=== PATIENT | male | born 1995 | race Caucasian/White ===

== ENCOUNTER 2019-04-18 14:35 | Emergency (ER) | payer SELFPAY ==
[2019-04-18] MEDS ORDERED: NA CHLORIDE 0.9% 1,000 ML ONE (15:54)
[2019-04-18] MEDS ORDERED: ONDANSETRON 4 MG/2 ML VIAL ONE (15:54)
[2019-04-18 16:03] LABS: Absolute Lymphocytes (CBC) 2.4 K/uL (0.7-4.9); Absolute Monocytes 0.5 K/uL (0.1-1.3); Absolute Neutrophil 3.9 K/uL (1.8-8.0); Basophils % 0.4 % (0-1.3); Eosinophils % 1.8 % (0-4.4); Lymphocytes % 34.8 % (15.3-44.8); MPV 7.5 fL (7.6-11.3); Monocytes % 7.2 % (3.3-12.3)
[2019-04-18 16:20] LABS: ALT/SGPT 30 U/L (12-78); AST/SGOT 23 U/L (15-37); Albumin 3.3 g/dL (3.4-5.0); Alkaline Phosphatase 137 U/L (45-117); BUN Blood Urea Nitrogen 16 mg/dL (7-18); Bicarbonate 30 mmol/L (21-32); Bilirubin Direct < 0.1 mg/dL (0-0.2); Bilirubin Total 0.2 mg/dL (0.2-1.0); Glucose Level 107 mg/dL (74-106); Lipase 213 U/L (73-393); Potassium 4.1 mmol/L (3.5-5.1); Protein, Total 7.2 g/dL (6.4-8.2); Sodium Level 140 mmol/L (136-145)
--- NOTE | 2019-04-18 17:17 | RAD REPORT ---
EXAM DESCRIPTION: CTAbdomen Pelvis W Contrast - 04/18/2019 4:58 pm CLINICAL HISTORY: Abdominal pain. iv contrast only;Abd pain COMPARISON: <Comparisons> TECHNIQUE: Biphasic CT imaging of the abdomen and pelvis was performed with 100 ml non-ionic IV cont rast. All CT scans are performed using dose optimization technique as appropriate and may include automated exposure control or mA/KV adjustment according to patient size. FINDINGS: The lung bases are clear. The liver, spleen, pancreas, adrenal glands and kidneys are within normal limits. No bowel obstruction, free air, free fluid or abscess. The appendix is normal. No evidence of signi ficant lymphadenopathy. No suspicious bony findings. Small fat containing inguinal hernias. IMPRESSION: No acute intra-abdominal or pelvic finding.
--- NOTE | 2019-04-18 17:21 | ER ---
Nurse's Notes [facility] Name: Adam Boyce Age: 23 yrs Sex: Male : 1995 Arrival Date: 04/18/2019 Time: 14:38 Bed 20 Private MD: None, None Diagnosis: Nausea and vomiting Presentation: 04/18 14:53 Presenting complaint: Right sided abdominal pain and N/V x 1 month. Tolerating fluids. hb Denies fever. Transition of care: patient was not received from another setting of care. Onset of symptoms is unknown. Risk Assessment: Do you want to hurt yourself or someone else? Patient reports no desire to harm self or others. Care prior to arrival: None. 14:53 Method Of Arrival: Ambulatory hb 14:53 Acuity: KONG 3 hb 15:00 Initial Sepsis Screen: Does the patient meet any 2 criteria? No. Patient's initial rb1 sepsis screen is negative. Does the patient have a suspected source of infection? No. Patient's initial sepsis screen is negative. Historical: - Allergies: 14:54 Sulfa (Sulfonamide Antibiotics); hb - PSHx: 14:54 None; hb - Immunization history:: Adult Immunizations up to date. - Social history:: Smoking status: Patient/guardian denies using tobacco. - Ebola Screening: : No symptoms or risks identified at this time. Screenin:00 Abuse screen: Denies threats or abuse. Nutritional screening: No deficits noted. rb1 Tuberculosis screening: No symptoms or risk factors identified. Fall Risk None identified. Assessment: 15:00 General: Appears uncomfortable, Behavior is calm, cooperative, Denies fever. Pain: rb1 Complains of pain in abdomen. Neuro: Level of Consciousness is awake, alert, obeys commands, Oriented to person, place, time, situation. Cardiovascular: Capillary refill < 3 seconds is brisk in bilateral fingers. Respiratory: Airway is patent Respiratory effort is even, unlabored, Respiratory pattern is regular, symmetrical. GI: Abdomen is non-distended, Reports nausea, vomiting. : No signs and/or symptoms were reported regarding the genitourinary system. Derm: Skin is pink, warm \T\ dry. 15:33 General: Appears uncomfortable, Behavior is calm, cooperative. ss 16:00 Reassessment: Patient appears in no apparent distress at this time. No changes from rb1 previously documented assessment. 17:00 Reassessment: Patient appears in no apparent distress at this time. Patient and/or rb1 family updated on plan of care and expected duration. Pain level reassessed. Patient is alert, oriented x 3, equal unlabored respirations, skin warm/dry/pink. Friend at bedside. Patient denies pain at this time. 17:22 Reassessment: Patient appears in no apparent distress at this time. No changes from rb1 previously documented assessment. Assisted pt. to the restroom, voided x 1 Patient denies pain at this time. Vital Signs: 14:54 BP 185 / 90; Pulse 113; Resp 20; Temp 97.8; Pulse Ox 100% on R/A; Weight 129.27 kg; hb Height 5 ft. 5 in. (165.10 cm); Pain 0/10; 15:52 BP 134 / 64; Pulse 110; Resp 20; Temp 98.5(O); Pulse Ox 98% on R/A; mh5 16:50 BP 139 / 74; Pulse 96; Resp 19; Temp 98.7(O); Pulse Ox 98% on R/A; Pain 0/10; rb1 17:50 BP 111 / 87; Pulse 95; Resp 20; Temp 98.5(O); Pulse Ox 98% on R/A; Pain 0/10; rb1 14:54 Body Mass Index 47.43 (129.27 kg, 165.10 cm) hb ED Course: 14:38 Patient arrived in ED. dl4 14:39 None, None is Private Physician. dl4 14:54 Triage completed. hb 14:54 Arm band placed on. hb 14:59 Kasey Pulido FNP-C is PHCP. kb 14:59 Timothy Decker MD is Attending Physician. kb 15:00 Patient has correct armband on for positive identification. Bed in low position. Call rb1 light in reach. Side rails up X 1. Pulse ox on. NIBP on. 15:24 Tali Srivastava, RN is Primary Nurse. rb1 15:33 Inserted saline lock: 20 gauge in right antecubital area, using aseptic technique. ss 15:55 Pt. pulled IV 20 G right AC, that was inserted by SHONDA Andre out by accident. rb1 16:09 Inserted saline lock: 22 gauge in right antecubital area, using aseptic technique. rb1 16:[address] via wheelchair. sj 16:58 CT Abd/Pelvis - W/Contrast In Process Unspecified. EDMS 17:52 No provider procedures requiring assistance completed. IV discontinued, intact, rb1 bleeding controlled, No redness/swelling at site. Pressure dressing applied. Administered Medications: 16:09 Drug: NS 0.9% 1000 ml Route: IV; Rate: 1000 ml; Site: right antecubital; rb1 17:43 Follow up: IV Status: Completed infusion rb1 16:09 Drug: Zofran 4 mg Route: IVP; Site: right antecubital; rb1 16:28 Follow up: Response: No adverse reaction; Nausea is decreased rb1 Outcome: 17:20 Discharge ordered by . kb 17:52 Patient left the ED. rb1 17:52 Discharged to home ambulatory, with friend. rb1 17:52 Condition: stable 17:52 Discharge instructions given to patient, Instructed on discharge instructions, follow up and referral plans. medication usage, Demonstrated understanding of instructions, follow-up care, medications, Prescriptions given X 1. Signatures: Dispatcher [employer] EDMS Kasey Pulido, FRONT OFFICE ASSISTANT-C FRONT OFFICE ASSISTANT-Ckb Julianna Caro Shelby, RN RN Tali Srivastava, LANDEN RN rb1 Tameka Trotter RN RN hb Martinez, Maria [facility] Salbador Otero4 Corrections: (The following items were deleted from the chart) 18:12 18:08 Patient left the ED. rb1 rb1
--- NOTE | 2019-04-18 17:21 | EDPHYS ---
Physician Documentation [facility] Name: Adam Boyce Age: 23 yrs Sex: Male : 1995 Arrival Date: 04/18/2019 Time: 14:38 Bed 20 Private MD: None, None ED Physician Timothy Decker HPI: 04/18 15:13 This 23 yrs old Male presents to ER via Ambulatory with complaints of kb Vomiting. 15:13 The patient presents to the emergency department with nausea, vomiting. Onset: The kb symptoms/episode began/occurred 3 week(s) ago. Possible causes: unknown. The symptoms are aggravated by nothing. The symptoms are alleviated by nothing. Associated signs and symptoms: Pertinent positives: nausea, vomiting, knot to mid lateral right abd. Severity of symptoms: At their worst the symptoms were moderate in the emergency department the symptoms are unchanged. The patient has not experienced similar symptoms in the past. The patient has not recently seen a physician. Pt reports he has been vomiting after eating for 3 weeks. States it doesn't matter what he eats. Able to tolerate fluids. Historical: - Allergies: 14:54 Sulfa (Sulfonamide Antibiotics); hb - PSHx: 14:54 None; hb - Immunization history:: Adult Immunizations up to date. - Social history:: Smoking status: Patient/guardian denies using tobacco. - Ebola Screening: : No symptoms or risks identified at this time. ROS: 15:15 Constitutional: Negative for fever, chills, and weight loss, ENT: Negative for injury, kb pain, and discharge, Neck: Negative for injury, pain, and swelling, Cardiovascular: Negative for chest pain, palpitations, and edema, Respiratory: Negative for shortness of breath, cough, wheezing, and pleuritic chest pain, Back: Negative for injury and pain, : Negative for injury, bleeding, discharge, and swelling, MS/Extremity: Negative for injury and deformity, Skin: Negative for injury, rash, and discoloration, Neuro: Negative for headache, weakness, numbness, tingling, and seizure. 15:15 Abdomen/GI: Positive for nausea and vomiting, Negative for abdominal pain, diarrhea. Exam: 15:15 Constitutional: This is a well developed, well nourished patient who is awake, alert, kb and in no acute distress. Head/Face: Normocephalic, atraumatic. Chest/axilla: Normal chest wall appearance and motion. Nontender with no deformity. No lesions are appreciated. Cardiovascular: Regular rate and rhythm with a normal S1 and S2. No gallops, murmurs, or rubs. Normal PMI, no JVD. No pulse deficits. Respiratory: Lungs have equal breath sounds bilaterally, clear to auscultation and percussion. No rales, rhonchi or wheezes noted. No increased work of breathing, no retractions or nasal flaring. Back: No spinal tenderness. No costovertebral tenderness. Full range of motion. Skin: Warm, dry with normal turgor. Normal color with no rashes, no lesions, and no evidence of cellulitis. MS/ Extremity: Pulses equal, no cyanosis. Neurovascular intact. Full, normal range of motion. Neuro: Awake and alert, GCS 15, oriented to person, place, time, and situation. Cranial nerves II-XII grossly intact. Motor strength 5/5 in all extremities. Sensory grossly intact. Cerebellar exam normal. Normal gait. 15:15 Abdomen/GI: Inspection: obese Bowel sounds: normal, in all quadrants, Palpation: abdomen is soft and non-tender, in all quadrants, mass the size of a marble noted to mid lateral right abd. Mass is not on the surface. Vital Signs: 14:54 BP 185 / 90; Pulse 113; Resp 20; Temp 97.8; Pulse Ox 100% on R/A; Weight 129.27 kg; hb Height 5 ft. 5 in. (165.10 cm); Pain 0/10; 15:52 BP 134 / 64; Pulse 110; Resp 20; Temp 98.5(O); Pulse Ox 98% on R/A; mh5 16:50 BP 139 / 74; Pulse 96; Resp 19; Temp 98.7(O); Pulse Ox 98% on R/A; Pain 0/10; rb1 17:50 BP 111 / 87; Pulse 95; Resp 20; Temp 98.5(O); Pulse Ox 98% on R/A; Pain 0/10; rb1 14:54 Body Mass Index 47.43 (129.27 kg, 165.10 cm) hb MDM: 14:59 Patient medically screened. kb 15:16 Data reviewed: vital signs, nurses notes. Data interpreted: Pulse oximetry: on room air kb is 100 %. Interpretation: normal. 17:19 Counseling: I had a detailed discussion with the patient and/or guardian regarding: the kb historical points, exam findings, and any diagnostic results supporting the discharge/admit diagnosis, lab results, radiology results, the need for outpatient follow up, a family practitioner, to return to the emergency department if symptoms worsen or persist or if there are any questions or concerns that arise at home. 04/18 15:04 Order name: Basic Metabolic Panel kb 04/18 15:04 Order name: CBC with Diff; Complete Time: 16:06 kb 04/18 15:04 Order name: Hepatic Function; Complete Time: 16:20 kb 04/18 15:04 Order name: Lipase; Complete Time: 16:20 kb 04/18 15:05 Order name: Basic Metabolic Panel; Complete Time: 16:20 EDMS 04/18 16:21 Order name: CT Abd/Pelvis - W/Contrast; Complete Time: 17:19 kb 04/18 15:04 Order name: IV Saline Lock; Complete Time: 16:09 kb 04/18 15:04 Order name: Labs collected and sent; Complete Time: 16:09 kb Administered Medications: 16:09 Drug: NS 0.9% 1000 ml Route: IV; Rate: 1000 ml; Site: right antecubital; rb1 17:43 Follow up: IV Status: Completed infusion rb1 16:09 Drug: Zofran 4 mg Route: IVP; Site: right antecubital; rb1 16:28 Follow up: Response: No adverse reaction; Nausea is decreased rb1 Disposition: 04/19 07:11 Co-signature as Attending Physician, Timothy Decker MD I agree with the assessment and shanna plan of care. Disposition: 04/18/19 17:20 Discharged to Home. Impression: Nausea and vomiting. - Condition is Stable. - Discharge Instructions: Nausea and Vomiting, Adult, [id number]. - Prescriptions for Zofran 4 mg Oral Tablet - take 1 tablet by ORAL route every 6 hours As needed; 20 tablet. - Medication Reconciliation Form, Thank You Letter, Antibiotic Education, Prescription Opioid Use form. - Follow up: Emergency Department; When: As needed; Reason: Worsening of condition. Follow up: Private Physician; When: 2 - 3 days; Reason: Recheck today's complaints, Continuance of care, Re-evaluation by your physician. Signatures: Dispatcher [employer] EDKasey Forte, VETERINARY ANATOMIST-C VETERINARY ANATOMIST-Ckb Timothy Decker MD MD cha Barber, Rebecca, RN RN rb1 Tameka Trotter, RN RN Corrections: (The following items were deleted from the chart) 04/18 18:08 17:20 04/18/2019 17:20 Discharged to Home. Impression: Nausea and vomiting. Condition rb1 is Stable. Forms are Medication Reconciliation Form, Thank You Letter, Antibiotic Education, Prescription Opioid Use. Follow up: Emergency Department; When: As needed; Reason: Worsening of condition. Follow up: Private Physician; When: 2 - 3 days; Reason: Recheck today's complaints, Continuance of care, Re-evaluation by your physician. kb
[2019-04-18 23:38] VITALS: O2SAT 98
[2019-04-18 23:39] VITALS: BP 111/87; TEMP 98.5
== END 2019-04-18 18:08 | disposition home or self-care (01) ==
LOC: ER 14:35
DX: R11.2 Nausea with vomiting, unspecified (principal); Z88.2 Allergy status to sulfonamides
CPT/HCPCS: 36415; 74177; 80048; 80076; 83690; 85025; 96361; 96374; 99284; J2405; J7030; Q9967

== ENCOUNTER 2019-10-03 22:39 | Emergency (ER) | payer OTHER ==
--- OUTSIDE RECORDS SUMMARY | 2019-10-03 22:42 | XMS REPORT ---
:1995 [facility] Address [address] [place] [address] Dr. Stoner [address] [place] [address] Care Team Providers Name Role Phone Unavailable Unavailable Unavailable Problems This patient has no known problems. Allergies, Adverse Reactions, Alerts This patient has no known allergies or adverse reactions. Medications This patient has no known medications.
[2019-10-03] MEDS ORDERED: LEVALBUTEROL 1.25 MG/3 ML NEB ONE (23:07)
[2019-10-03] MEDS ORDERED: NA CHLORIDE 0.9% 1,000 ML ONE (23:07)
[2019-10-03] MEDS ORDERED: IPRATROPIUM BROM 0.5MG/2.5ML ONE (23:07)
[2019-10-03 23:26] LABS: Absolute Lymphocytes (CBC) 2.2 K/uL (0.7-4.9); Basophils % 0.8 % (0-1.3); Hematocrit 40.2 % (39.6-49.0); Lymphocytes % 32.2 % (15.3-44.8); MPV 7.2 fL (7.6-11.3); RBC Red Blood Cell Count 4.36 M/uL (4.33-5.43)
[2019-10-03 23:34] LABS: Protime INR 0.95
[2019-10-03 23:47] LABS: ALT/SGPT 40 U/L (12-78); AST/SGOT 25 U/L (15-37); Albumin 3.4 g/dL (3.4-5.0); Alkaline Phosphatase 139 U/L (45-117); BUN Blood Urea Nitrogen 15 mg/dL (7-18); Bicarbonate 29 mmol/L (21-32); Bilirubin Direct < 0.1 mg/dL (0-0.2); Bilirubin Total 0.1 mg/dL (0.2-1.0); Glucose Level 110 mg/dL (74-106); Magnesium 1.9 mg/dL (1.8-2.4); NT PRO-BNP 25 pg/mL (<125); Protein, Total 7.2 g/dL (6.4-8.2); Sodium Level 140 mmol/L (136-145); Troponin (Emerg Dept Use Only) < 0.02 ng/mL (0.0-0.045)
[2019-10-04] MEDS ORDERED: AZITHROMYCIN 500 MG INJ IVPB ONE (00:08)
[2019-10-04] MEDS ORDERED: CEFTRIAXONE 1000 MG/VIAL ONE (00:08)
[2019-10-04] MEDS ORDERED: NA CHLORIDE 0.9% 250 ML ONE (00:08)
[2019-10-04] MEDS ORDERED: NA CHLORIDE 0.9% 100 ML IV ONE (00:08)
--- NOTE | 2019-10-04 00:31 | ER ---
Nurse's Notes [facility] Name: Adam Boyce Age: 24 yrs Sex: Male : 1995 Arrival Date: 10/03/2019 Time: 22:44 Bed 7 Private MD: Diagnosis: Cough;Bronchitis, not specified as acute or chronic;Tobacco abuse counseling;Tobacco use;Obesity, unspecified Presentation: 10/03 22:37 Presenting complaint: Patient states: that he has had a cough with yellow/green sputum fc x 2 days. Also has nasal congestion. Transition of care: patient was not received from another setting of care. Onset of symptoms was October 01, 2019. Risk Assessment: Do you want to hurt yourself or someone else? Patient reports no desire to harm self or others. Initial Sepsis Screen: Does the patient meet any 2 criteria? No. Patient's initial sepsis screen is negative. Does the patient have a suspected source of infection? No. Patient's initial sepsis screen is negative. Care prior to arrival: None. 22:37 Method Of Arrival: EMS: [facility] 22:37 Acuity: KONG 4 fc Historical: - Allergies: 22:50 Sulfa (Sulfonamide Antibiotics); fc - Home Meds: 22:50 Wellbutrin Oral [Active]; metformin Oral [Active]; fc - PMHx: 22:50 Diabetes - NIDDM; Depression; Sleep Apnea; Bipolar disorder; fc - PSHx: 22:50 None; fc - Immunization history:: Last tetanus immunization: unknown, Flu vaccine is not up to date. - Social history:: Smoking status: Patient uses tobacco products, smokes two packs cigarettes per day. Patient/guardian denies using alcohol, the patient reports quitting approximately [address] drugs. - Ebola Screening: : Patient negative for fever greater than or equal to 101.5 degrees Fahrenheit, and additional compatible Ebola Virus Disease symptoms Patient denies exposure to infectious person Patient denies travel to an Ebola-affected area in the 21 days before illness onset. - Family history:: not pertinent. Screenin:48 Abuse screen: Denies threats or abuse. Nutritional screening: No deficits noted. fc Tuberculosis screening: No symptoms or risk factors identified. Fall Risk None identified. Assessment: 23:00 General: Appears in no apparent distress. unkempt, Behavior is calm, cooperative. Pain: lp1 Denies pain. Neuro: Level of Consciousness is awake, alert, obeys commands, Oriented to person, place, time, situation. Cardiovascular: Patient's skin is warm and dry. Rhythm is sinus tachycardia. Respiratory: Reports cough that is productive, persistent Airway is patent Trachea midline Respiratory effort is even, Respiratory pattern is regular, Breath sounds are diminished bilaterally. Onset: The symptoms/episode began/occurred gradually, the patient has mild shortness of breath. GI: Abdomen is obese. : No signs and/or symptoms were reported regarding the genitourinary system. EENT: Reports nasal congestion. Derm: Skin is intact, Skin is dry, Skin is normal. Musculoskeletal: No deficits noted. 23:40 Reassessment: Patient ambulating to bathroom. lp1 10/04 00:30 Reassessment: Patient appears in no apparent distress at this time. Patient and/or lp1 family updated on plan of care and expected duration. Pain level reassessed. Vital Signs: 10/03 22:37 BP 120 / 61; Pulse 113; Resp 20; Temp 98.2(O); Pulse Ox 97% on R/A; Weight 131.54 kg fc (R); Height 5 ft. 2 in. (157.48 cm) (R); Pain 0/10; 23:25 BP 129 / 72; Pulse 105; Resp 19; Pulse Ox 100% on Nebulizer Mask; lp1 10/04 00:30 BP 145 / 70; Pulse 108; Resp 20; Pulse Ox 98% on R/A; lp1 10/03 22:37 Body Mass Index 53.04 (131.54 kg, 157.48 cm) ED Course: 10/03 22:37 Arm band placed on Patient placed in an exam room, on a stretcher. fc 22:44 Patient arrived in ED. fc 22:47 Triage completed. fc 22:48 Patient has correct armband on for positive identification. Bed in low position. Call light in reach. Side rails up X 1. Pulse ox on. NIBP on. 22:48 No provider procedures requiring assistance completed. fc 22:51 Timothy Decker MD is Attending Physician. [facility] 22:52 Lakisha Balbuena RN is Primary Nurse. lp1 22:54 Flu Sent. jb5 22:54 Strep Sent. jb5 22:56 CXR XRAY In Process Unspecified. EDMS 23:21 Inserted saline lock: 20 gauge in right antecubital area, using aseptic technique. jb5 Blood collected. 23:21 Basic Metabolic Panel Sent. jb5 23:21 CBC with Diff Sent. jb5 23:21 LFT's Sent. jb5 23:21 Magnesium Sent. jb5 23:21 NT PRO-BNP Sent. jb5 23:21 PT-INR Sent. jb5 23:21 Troponin (emerg Dept Use Only) Sent. jb5 23:22 Strep Sent. jb5 23:22 Flu Sent. jb5 10/04 00:40 IV discontinued, No redness/swelling at site. Pressure dressing applied. lp1 Administered Medications: 10/03 23:24 Drug: Xopenex 2.5 mg Route: Inhalation; lp1 23:24 Drug: AtroVENT Aerosol 0.5 mg Route: Inhalation; lp1 23:25 Drug: NS 0.9% 1000 ml Route: IV; Rate: 1 bolus; Site: right antecubital; lp1 10/04 00:40 Follow up: IV Status: Completed infusion; IV Intake: 1000ml lp1 00:15 Drug: Rocephin 2 grams Route: IV; Rate: per protocol; Site: right antecubital; lp1 00:29 Not Given (Duplicate Order): Zithromax 500 mg IVPB once over 1 hrs; mix in 250 mL NS [facility] 00:37 Drug: Zithromax 500 mg Route: PO; lp1 00:40 Follow up: Response: Medication administered at discharge. lp1 Intake: 00:40 IV: 1000ml; Total: 1000ml. lp1 Outcome: 00:30 Discharge ordered by . [facility] 00:40 Discharged to home ambulatory. 1 00:40 Condition: good 00:40 Discharge instructions given to patient, Instructed on discharge instructions, follow up and referral plans. medication usage, Demonstrated understanding of instructions, follow-up care, medications, Prescriptions given X 3. 00:50 Patient left the ED. lp1 Signatures: Dispatcher [employer] Timothy Barrientos MD MD cha Chretien, Felicia RN RN Lakisha Balbuena RN RN lp1 Shana Salinas jb5 Corrections: (The following items were deleted from the chart) 00:56 00:55 Discharged to home ambulatory, lp1 lp1 00:56 00:55 Condition: good lp1 lp1 00:56 00:55 Discharge instructions given to patient, Instructed on discharge instructions, lp1 follow up and referral plans. medication usage, Demonstrated understanding of instructions, follow-up care, medications, Prescriptions given X 3, lp1 00:57 00:56 Patient left the ED. lp1 lp1
--- NOTE | 2019-10-04 00:32 | EDPHYS ---
Physician Documentation [facility] Name: Adam Boyce Age: 24 yrs Sex: Male : 1995 Arrival Date: 10/03/2019 Time: 22:44 Bed 7 Private MD: ED Physician Timothy Decker HPI: 10/03 23:00 This 24 yrs old Male presents to ER via EMS with complaints of Productive shanna Cough. 23:00 The patient or guardian reports cough, described as mild, difficulty breathing. Onset: shanna The symptoms/episode began/occurred 2 day(s) ago. Severity of symptoms: At their worst the symptoms were mild, moderate, in the emergency department the symptoms are unchanged. Modifying factors: The symptoms are alleviated by nothing, the symptoms are aggravated by cold weather, damp environment, exertion, smoke. Associated signs and symptoms: The patient has no apparent associated signs or symptoms. The patient has experienced similar episodes in the past, a few times. Historical: - Allergies: 22:50 Sulfa (Sulfonamide Antibiotics); fc - Home Meds: 22:50 Wellbutrin Oral [Active]; metformin Oral [Active]; fc - PMHx: 22:50 Diabetes - NIDDM; Depression; Sleep Apnea; Bipolar disorder; fc - PSHx: 22:50 None; fc - Immunization history:: Last tetanus immunization: unknown, Flu vaccine is not up to date. - Social history:: Smoking status: Patient uses tobacco products, smokes two packs cigarettes per day. Patient/guardian denies using alcohol, the patient reports quitting approximately [address] drugs. - Ebola Screening: : Patient negative for fever greater than or equal to 101.5 degrees Fahrenheit, and additional compatible Ebola Virus Disease symptoms Patient denies exposure to infectious person Patient denies travel to an Ebola-affected area in the 21 days before illness onset. - Family history:: not pertinent. ROS: 23:00 Constitutional: Negative for fever, chills, and weight loss, Eyes: Negative for injury, shanna pain, redness, and discharge, ENT: Negative for injury, pain, and discharge, Neck: Negative for injury, pain, and swelling, Cardiovascular: Negative for chest pain, palpitations, and edema, Abdomen/GI: Negative for abdominal pain, nausea, vomiting, diarrhea, and constipation, Back: Negative for injury and pain, : Negative for injury, bleeding, discharge, and swelling, MS/Extremity: Negative for injury and deformity, Skin: Negative for injury, rash, and discoloration, Neuro: Negative for headache, weakness, numbness, tingling, and seizure, Psych: Negative for depression, anxiety, suicide ideation, homicidal ideation, and hallucinations, Allergy/Immunology: Negative for hives, rash, and allergies, Endocrine: Negative for neck swelling, polydipsia, polyuria, polyphagia, and marked weight changes, Hematologic/Lymphatic: Negative for swollen nodes, abnormal bleeding, and unusual bruising. 23:00 Respiratory: Positive for cough, "sounds productive". Exam: 23:00 Constitutional: This is a well developed, well nourished patient who is awake, alert, shanna and in no acute distress. Head/Face: Normocephalic, atraumatic. Eyes: Pupils equal round and reactive to light, extra-ocular motions intact. Lids and lashes normal. Conjunctiva and sclera are non-icteric and not injected. Cornea within normal limits. Periorbital areas with no swelling, redness, or edema. ENT: Nares patent. No nasal discharge, no septal abnormalities noted. Tympanic membranes are normal and external auditory canals are clear. Oropharynx with no redness, swelling, or masses, exudates, or evidence of obstruction, uvula midline. Mucous membranes moist. Neck: Trachea midline, no thyromegaly or masses palpated, and no cervical lymphadenopathy. Supple, full range of motion without nuchal rigidity, or vertebral point tenderness. No Meningismus. Chest/axilla: Normal chest wall appearance and motion. Nontender with no deformity. No lesions are appreciated. Cardiovascular: Regular rate and rhythm with a normal S1 and S2. No gallops, murmurs, or rubs. Normal PMI, no JVD. No pulse deficits. Respiratory: Lungs have equal breath sounds bilaterally, clear to auscultation and percussion. No rales, rhonchi or wheezes noted. No increased work of breathing, no retractions or nasal flaring. Abdomen/GI: Soft, non-tender, with normal bowel sounds. No distension or tympany. No guarding or rebound. No evidence of tenderness throughout. Back: No spinal tenderness. No costovertebral tenderness. Full range of motion. Male : Normal genitalia with no discharge or lesions. Skin: Warm, dry with normal turgor. Normal color with no rashes, no lesions, and no evidence of cellulitis. MS/ Extremity: Pulses equal, no cyanosis. Neurovascular intact. Full, normal range of motion. Neuro: Awake and alert, GCS 15, oriented to person, place, time, and situation. Cranial nerves II-XII grossly intact. Motor strength 5/5 in all extremities. Sensory grossly intact. Cerebellar exam normal. Normal gait. Psych: Awake, alert, with orientation to person, place and time. Behavior, mood, and affect are within normal limits. 10/04 00:28 Musculoskeletal/extremity: Extremities: decreased ROM, swelling, ROM: full active range shanna of motion, full passive range of motion, Circulation is intact in all extremities. Sensation intact. Compartment Syndrome exam of affected extremity: is normal. DVT Exam: no pain, no tenderness, negative Homans' sign noted on exam, no appreciated bluish discoloration, no erythema, no increased warmth, swelling. Vital Signs: 10/03 22:37 BP 120 / 61; Pulse 113; Resp 20; Temp 98.2(O); Pulse Ox 97% on R/A; Weight 131.54 kg (R); Height 5 ft. 2 in. (157.48 cm) (R); Pain 0/10; 23:25 BP 129 / 72; Pulse 105; Resp 19; Pulse Ox 100% on Nebulizer Mask; lp1 10/04 00:30 BP 145 / 70; Pulse 108; Resp 20; Pulse Ox 98% on R/A; lp1 10/03 22:37 Body Mass Index 53.04 (131.54 kg, 157.48 cm) MDM: 10/03 22:51 Patient medically screened. [facility] 23:02 Data reviewed: vital signs, nurses notes, lab test result(s), EKG, radiologic studies, [facility] plain films. 10/03 22:45 Order name: Flu; Complete Time: 00:28 10/03 22:45 Order name: Strep; Complete Time: 00:28 10/03 23:00 Order name: Basic Metabolic Panel; Complete Time: 00:28 [facility] 10/03 23:00 Order name: CBC with Diff; Complete Time: 00:28 [facility] 10/03 23:00 Order name: LFT's; Complete Time: 00:28 [facility] 10/03 23:00 Order name: Magnesium; Complete Time: 00:28 [facility] 10/03 22:45 Order name: CXR XRAY 10/03 23:00 Order name: NT PRO-BNP; Complete Time: 00:28 [facility] 10/03 23:00 Order name: PT-INR; Complete Time: 00:28 [facility] 10/03 23:00 Order name: Troponin (emerg Dept Use Only); Complete Time: 00:28 [facility] 10/03 23:22 Order name: Throat Culture EDNM 10/03 23:00 Order name: EKG; Complete Time: 23:01 [facility] 10/03 23:00 Order name: Cardiac monitoring; Complete Time: 23:21 [facility] 10/03 23:00 Order name: EKG - Nurse/Tech; Complete Time: 23:22 [facility] 10/03 23:00 Order name: IV Saline Lock; Complete Time: 23:22 [facility] 10/03 23:00 Order name: Labs collected and sent; Complete Time: 23:22 [facility] 10/03 23:00 Order name: O2 Per Protocol; Complete Time: 23:25 [facility] 10/03 23:00 Order name: O2 Sat Monitoring; Complete Time: 23:25 [facility] Administered Medications: 23:24 Drug: Xopenex 2.5 mg Route: Inhalation; 1 23:24 Drug: AtroVENT Aerosol 0.5 mg Route: Inhalation; 1 23:25 Drug: NS 0.9% 1000 ml Route: IV; Rate: 1 bolus; Site: right antecubital; 1 10/04 00:40 Follow up: IV Status: Completed infusion; IV Intake: 1000ml 1 00:15 Drug: Rocephin 2 grams Route: IV; Rate: per protocol; Site: right antecubital; lp1 00:29 Not Given (Duplicate Order): Zithromax 500 mg IVPB once over 1 hrs; mix in 250 mL NS [facility] 00:37 Drug: Zithromax 500 mg Route: PO; 1 00:40 Follow up: Response: Medication administered at discharge. lp1 Disposition: 10/04/19 00:30 Discharged to Home. Impression: Cough, Bronchitis, not specified as acute or chronic, Tobacco abuse counseling, Tobacco use, Obesity, unspecified. - Condition is Stable. - Discharge Instructions: Acute Bronchitis, Adult, Type 2 Diabetes Mellitus, Diagnosis, Adult, Obesity, Adult, Steps to Quit Smoking, Smoking Hazards, Upper Respiratory Infection, Adult, Cool Mist Vaporizer, Upper Respiratory Infection, Adult, [id number], Cough, Adult, Bouw-vd-Svls, Cough, Adult, Type 2 Diabetes Mellitus, Diagnosis, Adult, [id number]. - Prescriptions for Medrol (Dave) 4 mg Oral Tablets, Dose Pack - take 1 tablet by ORAL route as directed - follow package instructions; 1 packet. Albuterol Sulfate 90 mcg/actuation - inhale 1-2 puff by INHALATION route every 4-6 hours; 1 Inhaler. Zithromax 500 mg Oral Tablet - take 1 tablet by ORAL route once daily for 5 days; 5 tablet. - Medication Reconciliation Form, Thank You Letter, Antibiotic Education, Prescription Opioid Use form. - Follow up: Private Physician; When: 2 - 3 days; Reason: Recheck today's complaints, Continuance of care, Re-evaluation by your physician. - Problem is new. - Symptoms have improved. Signatures: Dispatcher [employer] EDNM Timothy Decker MD MD cha Chretien, Felicia, RN RN Lakisha Balbuena RN RN lp1 Corrections: (The following items were deleted from the chart) 00:56 00:30 10/04/2019 00:30 Discharged to Home. Impression: Cough; Bronchitis, not specified lp1 as acute or chronic; Tobacco abuse counseling; Tobacco use; Obesity, unspecified. Condition is Stable. Forms are Medication Reconciliation Form, Thank You Letter, Antibiotic Education, Prescription Opioid Use. Follow up: Private Physician; When: 2 - 3 days; Reason: Recheck today's complaints, Continuance of care, Re-evaluation by your physician. Problem is new. Symptoms have improved. shanna
[2019-10-04] MEDS ORDERED: AZITHROMYCIN 250 MG TAB ONE (00:35)
[2019-10-04 01:03] VITALS: BP 145/70; O2SAT 98
--- NOTE | 2019-10-04 07:42 | EKG ---
Test Date: 2019-10-03 Test Time: 23:18:09 Director [employer] Agency: [employer] MEASUREMENT RESULTS: Intervals: Rate: 111 NJ: 118 QRSD: 92 QT: 336 QTc: 456 [place]: P: 44 NJ: 118 QRS: 71 T: 41 INTERPRETIVE STATEMENTS: Sinus tachycardia Otherwise normal ECG No previous ECG available for comparison Electronically Signed On 10-04-19 07:42:04 AS400 ADMINISTRATOR by Ta Solano
--- NOTE | 2019-10-04 08:03 | RAD REPORT ---
EXAM DESCRIPTION: RAD - Chest Single View - 10/03/2019 10:56 pm CLINICAL HISTORY: Cough and congestion COMPARISON: None. TECHNIQUE: AP portable chest image was obtained 2254 hours . FINDINGS: Lung volumes are low. No focal lung parenchymal process. No significant failure or volume overload. Portable technique and large body habitus accentuate chest findings. Heart and vasculature are normal. No measurable pleural effusion and no pneumothorax. No acute bony abnormality seen. No ac mi'kmaq aortic findings suspected. IMPRESSION: No acute cardiopulmonary process.
== END 2019-10-04 00:56 | disposition home or self-care (01) ==
LOC: ER 22:39
DX: J40 Bronchitis, not specified as acute or chronic (principal); Z72.0 Tobacco use; Z71.6 Tobacco abuse counseling; E66.9 Obesity, unspecified; Z88.2 Allergy status to sulfonamides; E11.9 Type 2 diabetes mellitus without complications; F32.9 Major depressive disorder, single episode, unspecified; F17.210 Nicotine dependence, cigarettes, uncomplicated
CPT/HCPCS: 96361; 93005; 87070; 85025; 80048; 36415; 83735; 85610; 80076; 87081; 84484; 83880; 87804 ×2; 71045; 96374; 99285; J0456; J7030 ×2

== ENCOUNTER 2020-08-18 15:31 | Emergency (ER) | payer OTHER ==
[2020-08-18] MEDS ORDERED: IBUPROFEN 400 MG TAB ONE (16:19)
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
[2020-08-18 17:54] VITALS: BP 119/98; TEMP 97.8; O2SAT 97
== END 2020-08-18 17:44 | disposition home or self-care (01) ==
LOC: ER 15:31
DX: M25.562 Pain in left knee (principal); M25.512 Pain in left shoulder; V03.90XA Pedestrian on foot injured in collision with car, pick-up truck or van, unspecified whether traffic or nontraffic accident, initial encounter; E11.9 Type 2 diabetes mellitus without complications; F31.9 Bipolar disorder, unspecified; F17.210 Nicotine dependence, cigarettes, uncomplicated; Z88.2 Allergy status to sulfonamides
CPT/HCPCS: 73010; 99283

== ENCOUNTER 2021-02-04 14:09 | Emergency (ER) | payer OTHER ==
--- OUTSIDE RECORDS SUMMARY | 2021-02-04 14:11 | XMS REPORT | Continuity of Care Document ---
:1995 Author Organization [facility] t Address [address] [place] [address] [address]. [address] [place] [address] Care Team Providers Name Role Phone Unavailable Unavailable Unavailable Problems This patient has no known problems. Allergies, Adverse Reactions, Alerts This patient has no known allergies or adverse reactions. Medications This patient has no known medications. Procedures This patient has no known procedures. Results This patient has no known results.
--- NOTE | 2021-02-04 15:57 | RAD REPORT ---
EXAM DESCRIPTION: US - Scrotum Testicles - 02/04/2021 3:08 pm CLINICAL HISTORY: SWELLING Pain and swelling COMPARISON: No comparisons FINDINGS: The right testicle 3.5 x 3.1 x 2.3 cm. No intratesticular masses or evidence of testicular torsion. The left testicle 2.4 x 2.7 x 2.7 cm. No intratesticular masses or evidence of testicular torsion. Both epididymides are normal in size and appearance. No pathologic fluid collections. There is evidence of fatty tissue herniating into the right testicular sac. IMPRESSION: No intratesticular mass or evidence of testicular torsion. Moderate fat herniates into the right scrotal sac.
--- NOTE | 2021-02-04 16:52 | EDPHYS ---
Physician Documentation [facility] Name: Adam Boyce Age: 25 yrs Sex: Male : 1995 Arrival Date: 02/04/2021 Time: 14:12 Bed Waiting Private MD: ED Physician Milad Aceves HPI: 02/04 16:58 This 25 yrs old Male presents to ER via Ambulatory with complaints of kdr Testicular Swelling. 16:58 The patient presents with scrotal pain, swelling, that is mild, of the right inguinal kdr area. Onset: The symptoms/episode began/occurred gradually, 1 week(s) ago. Modifying factors: The symptoms are alleviated by nothing, the symptoms are aggravated by movement, pressure. Associated signs and symptoms: The patient has no apparent associated signs or symptoms. Severity of symptoms: At their worst the symptoms were mild, moderate, just prior to arrival, in the emergency department the symptoms are unchanged. The patient has not experienced similar symptoms in the past. The patient has not recently seen a physician. Historical: - Allergies: 14:22 Sulfa (Sulfonamide Antibiotics); ll1 - PMHx: 14:22 Bipolar disorder; Depression; Diabetes - NIDDM; recovering addict (ETOH/narcotic); ll1 Sleep Apnea; High Cholesterol; Hypothyroidism; - PSHx: 14:22 None; ll1 - Immunization history:: Flu vaccine is not up to date. - Social history:: Smoking status: Patient reports the use of cigarette tobacco products, smokes one pack cigarettes per day. ROS: 16:58 Constitutional: Negative for fever, chills, and weight loss, Eyes: Negative for injury, kdr pain, redness, and discharge, ENT: Negative for injury, pain, and discharge, Neck: Negative for injury, pain, and swelling, Cardiovascular: Negative for chest pain, palpitations, and edema, Respiratory: Negative for shortness of breath, cough, wheezing, and pleuritic chest pain, Abdomen/GI: Negative for abdominal pain, nausea, vomiting, diarrhea, and constipation, Back: Negative for injury and pain, MS/Extremity: Negative for injury and deformity, Skin: Negative for injury, rash, and discoloration, Neuro: Negative for headache, weakness, numbness, tingling, and seizure activity. Psych: Negative for depression, anxiety, suicide ideation, homicidal ideation, and hallucinations, Allergy/Immunology: Negative for hives, rash, and allergies, Endocrine: Negative for neck swelling, polydipsia, polyuria, polyphagia, and marked weight changes, Hematologic/Lymphatic: Negative for swollen nodes, abnormal bleeding, and unusual bruising. Exam: 16:58 Constitutional: This is a well developed, well nourished patient who is awake, alert, kdr and in no acute distress. Head/Face: Normocephalic, atraumatic. 16:58 Cardiovascular: Rate: tachycardic. 16:58 Respiratory: the patient does not display signs of respiratory distress, Respirations: normal. 16:58 Abdomen/GI: Inspection: obese 16:58 Neuro: Orientation: is normal. Vital Signs: 14:17 BP 149 / 87; Pulse 115; Resp 18; Temp 97.6; Pulse Ox 98% ; Weight 139.25 kg; Height 5 ll1 ft. 0 in. (152.40 cm); Pain 10/10; 17:00 Pulse 100; Resp 17; Pulse Ox 98% ; ll1 14:17 Body Mass Index 59.96 (139.25 kg, 152.40 cm) ll1 MDM: 16:52 Patient medically screened. kdr 02/04 16:56 Order name: Urine Dipstick--Ancillary (enter results) bd 02/04 14:24 Order name: Scrotum Testicles; Complete Time: 15:59 sv 02/04 15:59 Order name: Urine Dipstick-Ancillary (obtain specimen); Complete Time: 18:43 kdr Administered Medications: No medications were administered Disposition: 02/04/21 16:52 Discharged to Home. Impression: Scrotal Hernia, Suprapubic Cutaneous Fungal Infection. - Condition is Stable. - Discharge Instructions: Inguinal Hernia, Adult, [id number], Rash, [id number]. - Prescriptions for ketoconazole 2 % Topical cream - apply 1 application by TOPICAL route 2 times per day As needed to effecteed area.; 1 Container. Ibuprofen 800 mg Oral Tablet - take 1 tablet by ORAL route every 12 hours As needed take with food; 20 tablet. Tramadol 50 mg Oral Tablet - take 1 tablet by ORAL route every 8 hours as needed; 12 tablet. - Medication Reconciliation Form, Thank You Letter, Antibiotic Education form. - Follow up: Private Physician; When: 2 - 3 days; Reason: If symptoms return, Further diagnostic work-up, Recheck today's complaints, Continuance of care, Re-evaluation by your physician. Follow up: Yeison Nuno MD; When: 2 - 3 days; Reason: If symptoms return, Further diagnostic work-up, Recheck today's complaints, Continuance of care, Re-evaluation by your physician. - Problem is new. - Symptoms have improved. Signatures: Dispatcher [employer] EDMS Milad Aceves MD MD kdr Lewis, Lynsay, RN RN ll1 Corrections: (The following items were deleted from the chart) 17:01 16:52 02/04/2021 16:52 Discharged to Home. Impression: Scrotal Hernia, Suprapubic ll1 Cutaneous Fungal Infection. Condition is Stable. Forms are Medication Reconciliation Form, Thank You Letter, Antibiotic Education, Prescription Opioid Use. Follow up: Private Physician; When: 2 - 3 days; Reason: If symptoms return, Further diagnostic work-up, Recheck today's complaints, Continuance of care, Re-evaluation by your physician. Follow up: Yeison Nuno; When: 2 - 3 days; Reason: If symptoms return, Further diagnostic work-up, Recheck today's complaints, Continuance of care, Re-evaluation by your physician. Problem is new. Symptoms have improved. kdr
--- NOTE | 2021-02-04 16:52 | ER ---
Nurse's Notes [facility] Name: Adam Boyce Age: 25 yrs Sex: Male : 1995 Arrival Date: 02/04/2021 Time: 14:12 Bed Waiting Private MD: Diagnosis: Scrotal Hernia, Suprapubic Cutaneous Fungal Infection Presentation: 02/04 14:17 Chief complaint: Patient states: R testicle for about 1 week. Started swelling for 4 ll1 days. Sent by [facility] for further eval. Coronavirus screen: Client denies travel out of the [place] in the last 14 days. At this time, the client does not indicate any symptoms associated with coronavirus-19. Ebola Screen: Patient denies travel to an Ebola-affected area in the 21 days before illness onset. Initial Sepsis Screen: Does the patient meet any 2 criteria? HR > 90 bpm. No. Patient's initial sepsis screen is negative. Does the patient have a suspected source of infection? Yes: Other: testicle pain/swelling. Risk Assessment: Do you want to hurt yourself or someone else? Patient reports no desire to harm self or others. Onset of symptoms was January 28, 2021. 14:17 Method Of Arrival: Ambulatory ll1 14:17 Acuity: KONG 2 ll1 Triage Assessment: 14:23 General: Appears in no apparent distress. Behavior is calm, cooperative, appropriate ll1 for age. Pain: Complains of pain in testicle Quality of pain is described as aching. : Reports Scrotal pain: sudden onset testes pain for 1 week, swelling for 4 days. Historical: - Allergies: 14:22 Sulfa (Sulfonamide Antibiotics); ll1 - PMHx: 14:22 Bipolar disorder; Depression; Diabetes - NIDDM; recovering addict (ETOH/narcotic); ll1 Sleep Apnea; High Cholesterol; Hypothyroidism; - PSHx: 14:22 None; ll1 - Immunization history:: Flu vaccine is not up to date. - Social history:: Smoking status: Patient reports the use of cigarette tobacco products, smokes one pack cigarettes per day. Screenin:23 Abuse screen: Denies threats or abuse. Nutritional screening: No deficits noted. ll1 Tuberculosis screening: No symptoms or risk factors identified. Fall Risk None identified. Total Luong Fall Scale indicates No Risk (0-24 pts). Assessment: 14:23 Reassessment: Received VO from Kasey MCKEON for US testicles. sv Vital Signs: 14:17 BP 149 / 87; Pulse 115; Resp 18; Temp 97.6; Pulse Ox 98% ; Weight 139.25 kg; Height 5 ll1 ft. 0 in. (152.40 cm); Pain 10/10; 17:00 Pulse 100; Resp 17; Pulse Ox 98% ; ll1 14:17 Body Mass Index 59.96 (139.25 kg, 152.40 cm) ll1 ED Course: 14:12 Patient arrived in ED. ds1 14:20 Triage completed. ll1 14:22 Arm band placed on. ll1 14:23 Patient has correct armband on for positive identification. Bed in low position. Call ll1 light in reach. Side rails up X 1. Cardiac monitoring not applicable on this patient. 14:57 US Scrotum Testicles In Process Unspecified. EDMS 15:08 Milad Aceves MD is Attending Physician. kdr 16:48 Yeison Nuno MD is Referral Physician. kdr 17:00 No provider procedures requiring assistance completed. Patient did not have IV access ll1 during this emergency room visit. Administered Medications: No medications were administered Outcome: 16:52 Discharge ordered by . kdr 17:01 Patient left the ED. ll1 17:01 Discharged to home ambulatory. ll1 17:01 Condition: stable 17:01 Discharge instructions given to patient, family, Instructed on discharge instructions, follow up and referral plans. medication usage, Demonstrated understanding of instructions, follow-up care, medications, Prescriptions given X 3. Signatures: Dispatcher [employer] EDNV Pura Caputo, RN LANDEN Milad Aceves MD MD [facility] Jessica Celestin ds1 Slime Nunn RN RN 1
[2021-02-04 17:05] VITALS: BP 149/87; TEMP 97.6; O2SAT 98
[2021-02-04 18:10] LABS: Urine Blood NEGATIVE (NEG); Urine Glucose NEGATIVE (NEG); Urine Protein NEGATIVE (NEG); Urine Specific Gravity 1.025 (1.005-1.030)
== END 2021-02-04 17:01 | disposition home or self-care (01) ==
LOC: ER 14:09
DX: K40.90 Unilateral inguinal hernia, without obstruction or gangrene, not specified as recurrent (principal); B36.8 Other specified superficial mycoses; F17.210 Nicotine dependence, cigarettes, uncomplicated; Z88.2 Allergy status to sulfonamides
CPT/HCPCS: 76870; 81003; 99283

== ENCOUNTER 2022-06-02 17:02 | Emergency (ER) | payer OTHER ==
[2022-06-02] MEDS ORDERED: SILVER NITRATE 1 APPL TOP ONE (17:22)
--- NOTE | 2022-06-02 17:42 | EDPHYS ---
Physician Documentation [facility] Name: Adam Boyce Age: 26 yrs Sex: Male : 1995 Arrival Date: 06/02/2022 Time: 16:56 Bed 8 Private MD: ED Physician Leonidas Ruano HPI: 06/02 17:29 This 26 yrs old Male presents to ER via EMS with complaints of Leg Injury. rn 17:29 The patient presents with bleeding. The complaints affect the lateral aspect of left rn calf. Onset: The symptoms/episode began/occurred just prior to arrival. Modifying factors: The symptoms are alleviated by nothing. the symptoms are aggravated by nothing. Associated signs and symptoms: Pertinent positives: bleeding from varicose vein, Pertinent negatives fever, warmth, weakness. Severity of symptoms: At their worst the symptoms were moderate, in the emergency department the symptoms have resolved. The patient has not experienced similar symptoms in the past. The patient has not recently seen a physician. Pt reports thinks got thorn in left lower leg, began to scratch area, didn't see anything, then began bleeding from single varicose vein.. Historical: - Allergies: 16:59 Sulfa (Sulfonamide Antibiotics); hb - Home Meds: 16:59 metformin 500 mg Oral tab daily [Active]; Wellbutrin Oral [Active]; hb - PMHx: 16:59 Bipolar disorder; Depression; Diabetes - NIDDM; High Cholesterol; Hypothyroidism; hb recovering addict (ETOH/narcotic); Sleep Apnea; - Immunization history:: Adult Immunizations up to date. - Social history:: Smoking status: Patient denies any tobacco usage or history of. - Family history:: not pertinent. - Hospitalizations: : No recent hospitalization is reported. ROS: 17:38 Constitutional: Negative for fever, chills, and weight loss, Cardiovascular: Negative rn for chest pain, palpitations, and edema, Respiratory: Negative for shortness of breath, cough, wheezing, and pleuritic chest pain, Abdomen/GI: Negative for abdominal pain, nausea, vomiting, diarrhea, and constipation, MS/Extremity: + bleeding varicose vein LLE Exam: 17:38 Constitutional: Overweight male, no acute distress. No acitve bleeding. Ambulatory on rn his own to bathroom immediately upon arrival. MS/ Extremity: Pulses equal, no cyanosis. Neurovascular intact. Full, normal range of motion. Equal circumference. + varicose veins bilaterally, single vein with fresh clot/scab, no active bleeding. Vital Signs: 16:56 BP 131 / 73; Pulse 98; Resp 18; Temp 98.1; Pulse Ox 99% ; Weight 145.15 kg; Height 5 hb ft. 2 in. (157.48 cm); Pain 2/10; 16:56 Body Mass Index 58.53 (145.15 kg, 157.48 cm) hb Procedures: 17:38 Open wound cauterized with silver nitrate application, single application, and dressing rn applied by nursing. . MDM: 16:59 Patient medically screened. rn 17:38 Differential diagnosis: bleeding varicose vein. Data reviewed: vital signs, nurses rn notes, and as a result, I will discharge patient. Counseling: I had a detailed discussion with the patient and/or guardian regarding: the historical points, exam findings, and any diagnostic results supporting the discharge/admit diagnosis, the need for outpatient follow up, to return to the emergency department if symptoms worsen or persist or if there are any questions or concerns that arise at home. Response to treatment: the patient's symptoms have resolved after treatment, and as a result, I will discharge patient. Special discussion: I discussed with the patient/guardian in detail that at this point there is no indication for admission to the hospital. It is understood, however, that if the symptoms persist or worsen the patient needs to return immediately for re-evaluation. Administered Medications: 17:24 Drug: Silver Nitrate Applicators 1 application {Note: L ankle.} Route: Topical; Site: ph affected area; 17:25 Follow up: Response: No adverse reaction ph Disposition Summary: 06/02/22 17:42 Discharge Ordered Location: Home rn Problem: new rn Symptoms: are resolved rn Condition: Stable rn Diagnosis - Varicose veins of left lower extremities with other complications - Bleeding rn Followup: rn - With: Private Physician - When: As needed - Reason: Recheck today's complaints, Re-evaluation by your physician Discharge Instructions: - Discharge Summary Sheet rn - Varicose Veins rn Forms: - Medication Reconciliation Form rn - Thank You Letter rn - Antibiotic international account executive - Prescription Opioid Use rn Signatures: Leonidas Ruano MD MD rn Hall, Patricia, RN RN Tameka Trotter RN RN hb
--- NOTE | 2022-06-02 17:42 | ER ---
Nurse's Notes [facility] Name: Adam Boyce Age: 26 yrs Sex: Male : 1995 Arrival Date: 06/02/2022 Time: 16:56 Bed 8 Private MD: Diagnosis: Varicose veins of left lower extremities with other complications-Bleeding Presentation: 06/02 16:56 Chief complaint: EMS states: Pt was walking to mailbox when he felt sharp pain on left hb ankle then began bleeding uncontrollably. Bleeding stopped before EMS arrival on scene, estimated blood loss 60mls. Coronavirus screen: Vaccine status: Patient reports receiving the 2nd dose of the covid vaccine. Ebola Screen: No symptoms or risks identified at this time. Initial Sepsis Screen: Does the patient meet any 2 criteria? No. Patient's initial sepsis screen is negative. Does the patient have a suspected source of infection? No. Patient's initial sepsis screen is negative. Risk Assessment: Do you want to hurt yourself or someone else? Patient reports no desire to harm self or others. Onset of symptoms was June 02, 2022. 16:56 Method Of Arrival: EMS: [facility] 16:56 Acuity: KONG 4 hb Triage Assessment: 16:59 General: Appears in no apparent distress. Behavior is calm, cooperative. Pain: Pain hb currently is 2 out of 10 on a pain scale. 17:25 Musculoskeletal: No deficits noted. Injury Description: scratch to varicose vein. ph Historical: - Allergies: 16:59 Sulfa (Sulfonamide Antibiotics); hb - Home Meds: 16:59 metformin 500 mg Oral tab daily [Active]; Wellbutrin Oral [Active]; hb - PMHx: 16:59 Bipolar disorder; Depression; Diabetes - NIDDM; High Cholesterol; Hypothyroidism; hb recovering addict (ETOH/narcotic); Sleep Apnea; - Immunization history:: Adult Immunizations up to date. - Social history:: Smoking status: Patient denies any tobacco usage or history of. - Family history:: not pertinent. - Hospitalizations: : No recent hospitalization is reported. Screenin:00 Abuse screen: Denies threats or abuse. Denies injuries from another. Nutritional hb screening: No deficits noted. Tuberculosis screening: No symptoms or risk factors identified. Fall Risk None identified. Vital Signs: 16:56 BP 131 / 73; Pulse 98; Resp 18; Temp 98.1; Pulse Ox 99% ; Weight 145.15 kg; Height 5 hb ft. 2 in. (157.48 cm); Pain 2/10; 16:56 Body Mass Index 58.53 (145.15 kg, 157.48 cm) hb ED Course: 16:56 Patient arrived in ED. hb 16:59 Liz Chauhan RN is Primary Nurse. ph 16:59 Triage completed. hb 16:59 Leonidas Ruano MD is Attending Physician. rn 16:59 Arm band placed on. hb 17:00 Patient has correct armband on for positive identification. Bed in low position. Call light in reach. Side rails up X 1. 17:25 No provider procedures requiring assistance completed. Patient did not have IV access ph during this emergency room visit. Dressings: Kerlix X 1; left lateral ankle non-adherent dressing x 1 left lateral ankle. Administered Medications: 17:24 Drug: Silver Nitrate Applicators 1 application {Note: L ankle.} Route: Topical; Site: ph affected area; 17:25 Follow up: Response: No adverse reaction ph Medication: 17:25 VIS not applicable for this client. ph Outcome: 17:42 Discharge ordered by . rn 17:48 Patient left the ED. kj1 17:48 Discharged to home ambulatory. ph 17:48 Condition: good 17:48 Discharge instructions given to patient, Instructed on discharge instructions, follow up and referral plans. Demonstrated understanding of instructions, follow-up care. Signatures: Leonidas Ruano MD MD rn Hall, Patricia, RN RN Tameka Trotter RN RN Michelle Pulido kj1
== END 2022-06-02 17:48 | disposition home or self-care (01) ==
LOC: ER 17:02
DX: I83.892 Varicose veins of left lower extremity with other complications (principal); E11.9 Type 2 diabetes mellitus without complications; F31.9 Bipolar disorder, unspecified; Z88.2 Allergy status to sulfonamides
CPT/HCPCS: 99283

== ENCOUNTER 2022-07-21 22:47 | Emergency (ER) | payer OTHER ==
--- OUTSIDE RECORDS SUMMARY | 2022-07-21 22:49 | XMS REPORT | Continuity of Care Document ---
:1995 Author Organization [facility] t Address [address] Stoner [address] [place] [id number] Care Team Providers Name Role Phone CARLOS_Reggie Attending Clinician Unavailable Yeison Nuno Attending Clinician [phone] CARLOS_Reggie Admitting Clinician Unavailable Payers Payer Name Policy Type Policy Number Effective Date Expiration Date Gustavo mullins [facility] [id number] 2020 [facility] PLAN [place] 00:00:00 (MEDICAID HMO) Problems This patient has no known problems. Allergies, Adverse Reactions, Alerts This patient has no known allergies or adverse reactions. Medications This patient has no known medications. Procedures This patient has no known procedures. Encounters Start End Encounter Admission Attending Care Care Encounter Source Date/Time Date/Time Type Type Clinicians Facility Department ID 2021-05-15 2021-05-15 Outpatient [facility] [place] 11:10:00 11:10:00 [id number] 2021-05-15 2021-05-15 Outpatient Carlos [facility] [id number] 00:00:00 00:00:00 Yeison [id number] [place] [id number] 2021-05-09 2021-05-09 Outpatient [facility] [id number] [place] 02:54:00 02:54:00 [facility] Results This patient has no known results.
[2022-07-21 23:21] LABS: Arterial Blood Carboxyhemoglob 8.6 % (0-1.5); Blood Gas Oxyhemoglobin 86.8 % (94-97); Blood O2 Saturation 96.3 % (92-98.5)
[2022-07-21] MEDS ORDERED: NA CHLORIDE 0.9% 1,000 ML ONE (23:24)
[2022-07-21 23:55] LABS: Urine Blood Negative (Negative); Urine Glucose Negative (Negative); Urine Protein Trace (Negative); Urine Specific Gravity >=1.030 (1.005-1.030); Urine pH 5.5 (5.0-7.0)
[2022-07-21] MEDS ORDERED: METHYLPREDNISOLONE 125 MG INJ ONE (23:55)
[2022-07-21] MEDS ORDERED: IPRATROPIUM BROM 0.5MG/2.5ML ONE (23:55)
[2022-07-21] MEDS ORDERED: LEVALBUTEROL 1.25 MG/3 ML NEB ONE (23:55)
[2022-07-22 00:08] LABS: Absolute Lymphocytes (CBC) 3.3 K/uL (0.7-4.9); Hematocrit 43.9 % (39.6-49.0); Lymphocytes % 42.3 % (15.3-44.8); MCV 94.3 fL (80-100); MPV 6.7 fL (7.6-11.3); RBC Red Blood Cell Count 4.66 M/uL (4.33-5.43)
[2022-07-22 00:11] LABS: Protime INR 0.92
[2022-07-22] MEDS ORDERED: ASPIRIN 81 MG CHEWABLE TABLET ONE (00:21)
[2022-07-22 00:25] LABS: ALT/SGPT 49 U/L (12-78); AST/SGOT 23 U/L (15-37); Albumin 3.2 g/dL (3.4-5.0); Alkaline Phosphatase 124 U/L (45-117); BUN Blood Urea Nitrogen 13 mg/dL (7-18); Bicarbonate 33 mmol/L (21-32); Bilirubin Total 0.2 mg/dL (0.2-1.0); Glomerular Filtration Rate 126 ml/min (=/>90); Glucose Level 101 mg/dL (74-106); Lipase 233 U/L (73-393); NT PRO-BNP 61 pg/mL (<125); Potassium 4.3 mmol/L (3.5-5.1); Protein, Total 7.3 g/dL (6.4-8.2); Sodium Level 137 mmol/L (136-145); Troponin High Sensitivity 5.8 pg/mL (<58.9)
[2022-07-22 00:30] LABS: Bilirubin Direct < 0.1 mg/dL (0-0.2)
[2022-07-22 00:30] LABS: SARS-CoV-2 Antigen Rapid Res Negative (Negative)
--- NOTE | 2022-07-22 01:08 | ER ---
Nurse's Notes [facility] Name: Adam Boyce Age: 26 yrs Sex: Male : 1995 Arrival Date: 07/21/2022 Time: 22:49 Bed 8 Private MD: Diagnosis: Dyspnea;Morbid (severe) obesity with alveolar hypoventilation;Obstructive sleep apnea (adult) (pediatric);Tobacco abuse counseling Presentation: 07/21 22:55 Chief complaint: Patient states: I'm having a hard time breathing laying down and my aa9 knees hurt. I have varicose veins too. Coronavirus screen: Vaccine status: Patient reports receiving the 1st dose of the Covid vaccine. Ebola Screen: No symptoms or risks identified at this time. Initial Sepsis Screen: Does the patient meet any 2 criteria? Yes Does the patient have a suspected source of infection? No. Patient's initial sepsis screen is negative. Risk Assessment: Do you want to hurt yourself or someone else? Patient reports no desire to harm self or others. Onset of symptoms was July 21, 2022. 22:55 Method Of Arrival: EMS: [facility] aa9 22:55 Acuity: KONG 3 aa9 Triage Assessment: 22:56 General: Appears uncomfortable, obese, Behavior is cooperative, agitated. Pain: aa9 Complains of pain in right leg, lateral aspect of left knee, posterior aspect of left knee, medial aspect of left knee and left knee Pain currently is 8 out of 10 on a pain scale. Pain began years ago. Is chronic. Historical: - Allergies: 22:56 Sulfa (Sulfonamide Antibiotics); aa9 - Home Meds: 22:56 metformin 500 mg Oral tab daily [Active]; Zoloft Oral [Active]; levothyroxine oral aa9 [Active]; - PMHx: 22:56 Bipolar disorder; Depression; Diabetes - NIDDM; High Cholesterol; Hypothyroidism; aa9 recovering addict (ETOH/narcotic); Sleep Apnea; - PSHx: 22:56 None; aa9 - Immunization history:: Client reports receiving the 1st dose of the Covid vaccine. - Social history:: Smoking status: Patient reports the use of cigarette tobacco products, smokes one pack cigarettes per day. Screenin:59 Abuse screen: Denies threats or abuse. Denies injuries from another. Nutritional aa9 screening: No deficits noted. Tuberculosis screening: No symptoms or risk factors identified. Fall Risk None identified. Assessment: 22:59 General: Appears uncomfortable, obese, Behavior is cooperative, agitated. Pain: aa9 Complains of pain in right leg, lateral aspect of left knee, posterior aspect of left knee, medial aspect of left knee and left knee Is chronic. 07/22 00:45 Reassessment: Pt pulled out IV. vc1 01:03 Reassessment: Pt in room screaming, "I want to smoke". vc1 Vital Signs: 07/21 22:55 BP 141 / 87; Pulse 90; Resp 22 S; Pulse Ox 96% on R/A; aa9 22:58 BP 126 / 74; Pulse 112; Resp 22 S; Temp 98.9(O); Pulse Ox 100% on R/A; Weight 163.29 kg aa9 (R); Height 5 ft. 2 in. (157.48 cm); Pain 8/10; 07/22 01:00 BP 126 / 67; Pulse 109; Resp 17 S; Pulse Ox 100% on R/A; as6 07/21 22:58 Body Mass Index 65.84 (163.29 kg, 157.48 cm) aa9 ED Course: 07/21 22:49 Patient arrived in ED. mw2 22:51 Timothy Decker MD is Attending Physician. shanna 22:56 Triage completed. aa9 22:59 Arm band placed on. aa9 22:59 Patient has correct armband on for positive identification. Side rails up X2. aa9 23:01 Karen Nicolas, LANDEN is Primary Nurse. aa9 23:26 XRAY Chest (1 view) In Process Unspecified. EDMS 23:51 Inserted saline lock: 20 gauge in right antecubital area, using aseptic technique. vc1 Blood collected. 07/22 00:17 SARS-COV-2 Antigen Rapid Sent. aa9 01:07 Jose Ramon Osullivan MD is Referral Physician. shanna 01:36 US Extremity Venous W Compression Faheem In Process Unspecified. EDMS 01:48 No provider procedures requiring assistance completed. IV discontinued, intact, as6 bleeding controlled, No redness/swelling at site. Pressure dressing applied. Administered Medications: 00:03 Drug: NS 0.9% 1000 ml Route: IV; Rate: 125 ml/hr; Site: right forearm; aa9 01:47 Follow up: Response: No adverse reaction; IV Status: Order to discontinue infusion; IV as6 Intake: 200ml 00:03 Drug: SOLU-Medrol (methylPrednisoLONE) 125 mg Route: IVP; Site: right forearm; aa9 01:47 Follow up: Response: No adverse reaction as6 00:03 Drug: Xopenex (levalbuterol) 2.5 mg Route: Inhalation; aa9 01:47 Follow up: Response: No adverse reaction as6 00:03 Drug: AtroVENT (ipratropium) Aerosol 0.5 mg Route: Inhalation; aa9 01:47 Follow up: Response: No adverse reaction as6 00:18 Drug: Aspirin Chewable Tablet 162 mg Route: PO; vc1 01:47 Follow up: Response: No adverse reaction as6 Medication: 01:51 VIS not applicable for this client. as6 Intake: 01:47 IV: 200ml; Total: 200ml. as6 Outcome: 01:07 Discharge ordered by MD. otero 01:51 Discharged to home ambulatory. as6 01:51 Condition: stable 01:51 Discharge instructions given to patient, Instructed on discharge instructions, follow up and referral plans. medication usage, Demonstrated understanding of instructions, follow-up care, medications, Prescriptions given X 2. 01:52 Patient left the ED. as6 Signatures: Dispatcher [employer] EDTimothy Montiel MD MD cha Westbrook, MyKena mw2 Roscoe Villa RN RN as6 Audrey Echevarria RN RN vc1 Karen Nicolas RN RN aa9 Corrections: (The following items were deleted from the chart) 07/21 23:01 22:55 Chief complaint: Patient states: I'm having a hard time breathing laying down and aa9 my knees hurt. aa9
--- NOTE | 2022-07-22 01:08 | EDPHYS ---
Physician Documentation [facility] Name: Adam Boyce Age: 26 yrs Sex: Male : 1995 Arrival Date: 07/21/2022 Time: 22:49 Bed 8 Private MD: FIDEL Physician Timothy Decker HPI: 07/21 23:05 This 26 yrs old Male presents to ER via EMS with complaints of sob, dyspnea shanna at night. 23:05 The patient has shortness of breath at rest, with light activity. Onset: The shanna symptoms/episode began/occurred 5 week(s) ago. Duration: The symptoms are continuous, and are steadily getting worse. The patient's shortness of breath is aggravated by coughing, talking, is alleviated by application of supplemental oxygen. Severity of symptoms: At their worst the symptoms were mild in the emergency department the symptoms are unchanged. The patient has experienced similar episodes in the past, multiple times. Historical: - Allergies: 22:56 Sulfa (Sulfonamide Antibiotics); aa9 - Home Meds: 22:56 metformin 500 mg Oral tab daily [Active]; Zoloft Oral [Active]; levothyroxine oral aa9 [Active]; - PMHx: 22:56 Bipolar disorder; Depression; Diabetes - NIDDM; High Cholesterol; Hypothyroidism; aa9 recovering addict (ETOH/narcotic); Sleep Apnea; - PSHx: 22:56 None; aa9 - Immunization history:: Client reports receiving the 1st dose of the Covid vaccine. - Social history:: Smoking status: Patient reports the use of cigarette tobacco products, smokes one pack cigarettes per day. ROS: 23:10 Constitutional: Negative for fever, chills, and weight loss, Eyes: Negative for injury, shanna pain, redness, and discharge, ENT: Negative for injury, pain, and discharge, Neck: Negative for injury, pain, and swelling, Cardiovascular: Negative for chest pain, palpitations, and edema, Abdomen/GI: Negative for abdominal pain, nausea, vomiting, diarrhea, and constipation, Back: Negative for injury and pain, : Negative for injury, bleeding, discharge, and swelling, MS/Extremity: Negative for injury and deformity, Skin: Negative for injury, rash, and discoloration, Neuro: Negative for headache, weakness, numbness, tingling, and seizure, Psych: Negative for depression, anxiety, suicide ideation, homicidal ideation, and hallucinations, Allergy/Immunology: Negative for hives, rash, and allergies, Endocrine: Negative for neck swelling, polydipsia, polyuria, polyphagia, and marked weight changes, Hematologic/Lymphatic: Negative for swollen nodes, abnormal bleeding, and unusual bruising. 23:10 Respiratory: Positive for cough, dyspnea on exertion, shortness of breath, at rest. Exam: 23:10 Constitutional: This is a well developed, well nourished patient who is awake, alert, shanna and in no acute distress. Head/Face: Normocephalic, atraumatic. Eyes: Pupils equal round and reactive to light, extra-ocular motions intact. Lids and lashes normal. Conjunctiva and sclera are non-icteric and not injected. Cornea within normal limits. Periorbital areas with no swelling, redness, or edema. ENT: Nares patent. No nasal discharge, no septal abnormalities noted. Tympanic membranes are normal and external auditory canals are clear. Oropharynx with no redness, swelling, or masses, exudates, or evidence of obstruction, uvula midline. Mucous membranes moist. Neck: Trachea midline, no thyromegaly or masses palpated, and no cervical lymphadenopathy. Supple, full range of motion without nuchal rigidity, or vertebral point tenderness. No Meningismus. Chest/axilla: Normal chest wall appearance and motion. Nontender with no deformity. No lesions are appreciated. Cardiovascular: Regular rate and rhythm with a normal S1 and S2. No gallops, murmurs, or rubs. Normal PMI, no JVD. No pulse deficits. Abdomen/GI: Soft, non-tender, with normal bowel sounds. No distension or tympany. No guarding or rebound. No evidence of tenderness throughout. Back: No spinal tenderness. No costovertebral tenderness. Full range of motion. Male : Normal genitalia with no discharge or lesions. Skin: Warm, dry with normal turgor. Normal color with no rashes, no lesions, and no evidence of cellulitis. MS/ Extremity: Pulses equal, no cyanosis. Neurovascular intact. Full, normal range of motion. Neuro: Awake and alert, GCS 15, oriented to person, place, time, and situation. Cranial nerves II-XII grossly intact. Motor strength 5/5 in all extremities. Sensory grossly intact. Cerebellar exam normal. Normal gait. Psych: Awake, alert, with orientation to person, place and time. Behavior, mood, and affect are within normal limits. 23:10 Respiratory: mild respiratory distress is noted, Respirations: normal, Breath sounds: decreased breath sounds, that are mild, are scattered, rhonchi. Vital Signs: 22:55 BP 141 / 87; Pulse 90; Resp 22 S; Pulse Ox 96% on R/A; aa9 22:58 BP 126 / 74; Pulse 112; Resp 22 S; Temp 98.9(O); Pulse Ox 100% on R/A; Weight 163.29 kg aa9 (R); Height 5 ft. 2 in. (157.48 cm); Pain 8/10; 07/22 01:00 BP 126 / 67; Pulse 109; Resp 17 S; Pulse Ox 100% on R/A; as6 07/21 22:58 Body Mass Index 65.84 (163.29 kg, 157.48 cm) aa9 MDM: 07/21 22:51 Patient medically screened. shanna 23:11 Differential diagnosis: Anemia asthma, Bronchitis CHF exacerbation, Chronic Obstructive shanna Pulmonary Disease pulmonary edema, Pulmonary Embolism reactive airway disease, Unstable Angina. Antibiotic administration: Not indicated. The patient's Wells Deep Vein Thrombosis Score was calculated as follows: Heart Rate >100 BPM (1.5 Pts) Total Score: 0-2 Pts- Low Risk. Differential Diagnosis: Obstructed Airway Bronchitis Influenza Upper Respiratory Infection Sinusitis Pharyngitis Asthma Exacerbation Pneumonia. The patient's pulmonary embolism risk score was calculated as follows: the patients heart rate is greater than 100 beats per minute (1.5 Pts) Total Score: 0-2 points. This patient was found to be at low risk for a pulmonary embolism by using the Well's assessment criteria. Immunization status:. Data reviewed: vital signs, nurses notes, lab test result(s), EKG, radiologic studies, plain films. Data interpreted: prep manager: rate is 112 beats/min, rhythm is regular, Pulse oximetry: on room air is 100 %. Test interpretation: by ED physician or midlevel provider: ECG, plain radiologic studies. Counseling: I had a detailed discussion with the patient and/or guardian regarding: the historical points, exam findings, and any diagnostic results supporting the discharge/admit diagnosis, lab results, radiology results. 07/21 23:05 Order name: Basic Metabolic Panel; Complete Time: 00:58 [facility] 07/21 23:05 Order name: CBC with Diff [facility] 07/21 23:05 Order name: LFT's; Complete Time: 00:58 [facility] 07/21 23:05 Order name: Magnesium; Complete Time: 00:58 [facility] 07/21 23:05 Order name: NT PRO-BNP; Complete Time: 00:58 [facility] 07/21 23:05 Order name: PT-INR; Complete Time: 00:14 [facility] 07/21 23:05 Order name: Troponin HS; Complete Time: 00:58 [facility] 07/21 23:05 Order name: D-Dimer; Complete Time: 00:14 [facility] 07/21 23:05 Order name: ABG; Complete Time: 00:08 [facility] 07/21 23:05 Order name: Lipase; Complete Time: 00:58 [facility] 07/21 23:05 Order name: Flu [facility] 07/21 23:56 Order name: Urine Dipstick-Ancillary; Complete Time: 00:08 [facility] 07/22 00:17 Order name: SARS-COV-2 Antigen Rapid; Complete Time: 00:58 [facility] 07/21 23:05 Order name: XRAY Chest (1 view) [facility] 07/21 23:05 Order name: EKG; Complete Time: 23:06 [facility] 07/21 23:05 Order name: Cardiac monitoring; Complete Time: 23:10 [facility] 07/21 23:05 Order name: EKG - Nurse/Tech; Complete Time: 00:03 [facility] 07/21 23:05 Order name: IV Saline Lock; Complete Time: 00:00 [facility] 07/21 23:05 Order name: Labs collected and sent; Complete Time: 00:00 [facility] 07/21 23:05 Order name: O2 Per Protocol; Complete Time: 23:10 [facility] 07/21 23:05 Order name: O2 Sat Monitoring; Complete Time: 23:10 [facility] 07/22 00:16 Order name: US Extremity Venous W Compression Faheem [facility] 07/21 23:05 Order name: Urine Dipstick-Ancillary (obtain specimen); Complete Time: 23:55 [facility] Administered Medications: 07/22 00:03 Drug: NS 0.9% 1000 ml Route: IV; Rate: 125 ml/hr; Site: right forearm; aa9 01:47 Follow up: Response: No adverse reaction; IV Status: Order to discontinue infusion; IV as6 Intake: 200ml 00:03 Drug: SOLU-Medrol (methylPrednisoLONE) 125 mg Route: IVP; Site: right forearm; aa9 :47 Follow up: Response: No adverse reaction as6 00:03 Drug: Xopenex (levalbuterol) 2.5 mg Route: Inhalation; aa9 :47 Follow up: Response: No adverse reaction as6 00:03 Drug: AtroVENT (ipratropium) Aerosol 0.5 mg Route: Inhalation; aa07 23:47 Follow up: Response: No adverse reaction as6 00:18 Drug: Aspirin Chewable Tablet 162 mg Route: PO; vc1 :47 Follow up: Response: No adverse reaction as6 Disposition Summary: 07/22/22 01:07 Discharge Ordered Location: Home shanna Problem: new shanna Symptoms: have improved shanna Condition: Stable shanna Diagnosis - Dyspnea shanna - Morbid (severe) obesity with alveolar hypoventilation shanna - Obstructive sleep apnea (adult) (pediatric) shanna - Tobacco abuse counseling shanna Followup: shanna - With: Private Physician - When: 2 - 3 days - Reason: Recheck today's complaints, Continuance of care, Re-evaluation by your physician Followup: shanna - With: - When: 2 - 3 days - Reason: Recheck today's complaints, Continuance of care, Re-evaluation by your physician Discharge Instructions: - Discharge Summary Sheet shanna - Obesity, Adult shanna - Sleep Apnea shanna - Steps to Quit Smoking shanna - Health Risks of Smoking shanna - Steps to Quit Smoking, [id number] shanna - Sleep Apnea, [id number]-[id number] shanna - Obesity, Adult, [id number] shanna - Obesity-Hypoventilation Syndrome shanna - Aspirin and Your Heart shanna Forms: - Medication Reconciliation Form shanna - Thank You Letter shanna - Antibiotic Education shanna - Prescription Opioid Use shanna Prescriptions: - albuterol sulfate 90 mcg/actuation Inhalation HFA aerosol inhaler - inhale 2 puff by INHALATION route every 4-6 hours; 1 Pump; Refills: 0, Product shanna Selection Permitted - Prednisone 20 mg Oral Tablet - take 2 tablets by ORAL route once daily for 5 days; 10 tablet; Refills: 0, shanna Product Selection Permitted Signatures: Dispatcher [employer] Timothy Barrientos MD MD cha Slawson, Ashby, RN RN as6 Audrey Echevarria RN RN vc1 Karen Nicolas, RN RN aa9 Corrections: (The following items were deleted from the chart) 00:15 07/21 23:06 SARS-COV-2 RT PCR+[id number] ordered. EDMS EDMS 07/22 01:36 01:28 Extrem Venous W Compression Faheem+[email or web address].[email or web address] ordered. EDMS EDMS
[2022-07-22 01:59] VITALS: TEMP 98.9; O2SAT 100
[2022-07-22 02:01] VITALS: BP 126/67
--- NOTE | 2022-07-22 16:13 | RAD REPORT ---
EXAM DESCRIPTION: Extrem Venous W Compress Faheem 07/22/2022 1:50 AM CDT CLINICAL HISTORY: 26 years, Male, PAIN COMPARISON: None FINDINGS: Study is compromised due to patient large body habitus and penetration of the ultrasound b eing along the distal femoral veins. Multiple grayscale images as well as duplex Doppler ultrasound (color and spectral analysis) of both lower extremities were performed. Both common femoral veins, superficial femoral veins, popliteal veins posterior tibial veins at the l evel of the calves were imaged. Spectral waveform demonstrate normal compressibility, phasicity a nd augmentation. No intraluminal defects were seen. IMPRESSION: No evidence of bilateral lower extremity DVT. Electronically signed by: Jean-Paul Worthington MD 07/22/2022 1:51 AM CDT Due to temporary technical issues with the PACS/Fluency reporting system, reports are being signed by the in house radiologists without review as a courtesy to insure prompt reporting. The interpreting radiologist is fully responsible for the content of the report.
--- NOTE | 2022-07-22 18:33 | RAD REPORT ---
EXAM DESCRIPTION: Chest Single View CLINICAL HISTORY: 6 years Male, Cough COMPARISON: Chest radiograph dated 10/03/2019 IMPRESSION: No focal lung consolidation. No pleural effusion. No pneumothorax. Cardiomediastinal silhouette is enlarged. No acute osseous abnormality. Electronically signed by: Deon Schwab DO 07/21/2022 11:36 PM CDT Due to temporary technical issues with the PACS/Fluency reporting system, reports are being signed by the in house radiologists without review as a courtesy to insure prompt reporting. The interpreting radiologist is fully responsible for the content of the report.
--- NOTE | 2022-07-23 14:00 | EKG ---
Test Date: 2022-07-21 Test Time: 23:35:47 Irrigating Pump Operator: WILMA MEASUREMENT RESULTS: Intervals: Rate: 112 MA: 126 QRSD: 94 QT: 330 QTc: 450 [place]: P: 50 MA: 126 QRS: 67 T: 34 INTERPRETIVE STATEMENTS: Sinus tachycardia Incomplete right bundle branch block Borderline ECG Compared to ECG 10/03/2019 23:18:09 Incomplete right bundle-branch block now present Electronically Signed On 07-23-22 13:58:50 CDT by Migel Valladares
== END 2022-07-22 01:52 | disposition home or self-care (01) ==
LOC: ER 22:47
DX: R06.00 Dyspnea, unspecified (principal); E66.2 Morbid (severe) obesity with alveolar hypoventilation; E11.9 Type 2 diabetes mellitus without complications; F31.9 Bipolar disorder, unspecified; Z71.6 Tobacco abuse counseling; Z88.2 Allergy status to sulfonamides; Z20.822 Contact with and (suspected) exposure to COVID-19
CPT/HCPCS: 85025; 80048; 36415 ×2; 83735; 85610; 85379; 80076; 81003; 84484; 83690; 83880; 87804 ×2; 71045; 93970; 82805; 87811; J7030; J2930; 93005

== ENCOUNTER 2022-09-14 18:08 | Emergency (ER) | payer OTHER ==
--- OUTSIDE RECORDS SUMMARY | 2022-09-14 18:12 | XMS REPORT | Continuity of Care Document ---
:1995 Author Organization [facility] t Address [address] [place] [address] Care Team Providers Name Role Phone Tyrell CARMONA, [facility] Primary Care Physician [phone] CARLOS_Reggie Attending Clinician Unavailable Lela Nuno Attending Clinician [phone] CARLOS_Reggie Admitting Clinician Unavailable Payers Payer Name Policy Type Policy Number Effective Date Expiration Date [facility] [id number] 2020 [facility] 00:00:00 (MEDICAID HMO) Problems This patient has no known problems. Allergies, Adverse Reactions, Alerts Allergy Allergy Status Severity Reaction(s) Onset Inactive Treating Comm ents Source Name Type Date Date Clinician Mesna - Propensi Active Intraven ty to 6-30 ous adverse 00:00: reaction 00 to drug Sulfa Propensi Active (Sulfona ty to 2-27 mide adverse 00:00: Antibiot reaction 00 ics) to drug Medications Ordered Filled Start Stop Current Ordering Indication Dosage Frequency Signature Comments Components Source Medication Medication Date Date Medication? Clinician (SIG) Name Name TAKE 1 No TABLET BY 8-29 MOUTH EVERY 00:00: DAY 00 TAKE 1 2021-0 No TABLET BY 8-29 MOUTH EVERY 00:00: DAY 00 levothyroxi 2021-0 No 1mcg ne 75 mcg 5-26 tablet 00:00: 00 levothyroxi 2021-0 No 1mcg ne 75 mcg 5-26 tablet 00:00: 00 Dose 2021-0 No Unknown 3-04 00:00: 00 Dose 2021-0 No Unknown 3-04 00:00: 00 Dose 2021-0 No Unknown 3-04 00:00: 00 Dose 2022-0 No Unknown 3-04 00:00: 00 Dose 2022-0 No Unknown 3-04 00:00: 00 Dose 2022-0 No Unknown 3-04 00:00: 00 Dose 2022-0 No Unknown 3-04 00:00: 00 Dose 2022-0 No Unknown 3-04 00:00: 00 Dose 2022-0 No Unknown 3-04 00:00: 00 Dose 2022-0 No Unknown 3-04 00:00: 00 Dose 2022-0 No Unknown 3-04 00:00: 00 Dose 2022-0 No Unknown 3-04 00:00: 00 Dose 2022-0 No Unknown 3-04 00:00: 00 Dose 2022-0 No Unknown 3-04 00:00: 00 Dose 2022-0 No Unknown 3-04 00:00: 00 Dose 2022-0 No Unknown 3-04 00:00: 00 Dose 2022-0 No Unknown 3-04 00:00: 00 Dose 2022-0 No Unknown 3-04 00:00: 00 Dose 2022-0 No Unknown 3-04 00:00: 00 Dose 2022-0 No Unknown 3-04 00:00: 00 Dose 2022-0 No Unknown 3-04 00:00: 00 Dose 2022-0 No Unknown 3-04 00:00: 00 Dose 2022-0 No Unknown 3-04 00:00: 00 Dose 2022-0 No Unknown 3-04 00:00: 00 Dose 2022-0 No Unknown 3-04 00:00: 00 Dose 2022-0 No Unknown 3-04 00:00: 00 metformin 2022-0 No 1mg 850 mg 2-28 tablet 00:00: 00 atorvastati 2022-0 No 1mg n 10 mg 2-28 tablet 00:00: 00 levothyroxi 2022-0 No 1mcg ne 75 mcg 2-28 tablet 00:00: 00 metformin 2022-0 No 1mg 850 mg 2-28 tablet 00:00: 00 atorvastati 2022-0 No 1mg n 10 mg 2-28 tablet 00:00: 00 levothyroxi 2022-0 No 1mcg ne 75 mcg 2-28 tablet 00:00: 00 sertraline 2022-0 No mg 50 mg 1-29 tablet 00:00: 00 sertraline 2022-0 No mg 50 mg 1-29 tablet 00:00: 00 Dose 2020-0 No Unknown 9- 00:00: 00 Dose 2020-0 No Unknown 9- 00:00: 00 Dose 2019-1 No Unknown 0-23 00:00: 00 Dose 2019-1 No Unknown 0-23 00:00: 00 Dose 2019-1 No Unknown 0-23 00:00: 00 Dose 2019-1 No Unknown 0-23 00:00: 00 Dose 2019-1 No Unknown 0-23 00:00: 00 Dose 2019-1 No Unknown 0-23 00:00: 00 Dose 2019-1 No Unknown 0-23 00:00: 00 Dose 2019-1 No Unknown 0-23 00:00: 00 Dose 2019-1 No Unknown 0-23 00:00: 00 Dose 2019-1 No Unknown 0-23 00:00: 00 hydroxyzine 2019-1 No 1mg pamoate 25 0-20 mg capsule 00:00: 00 hydroxyzine 2019-1 No 1mg pamoate 25 0-20 mg capsule 00:00: 00 Dose 2020-0 No Unknown 8-11 00:00: 00 metformin 2020-0 No 1mg 500 mg 8-11 tablet 00:00: 00 Dose 2020-0 No Unknown 8-11 00:00: 00 metformin 2020-0 No 1mg 500 mg 8-11 tablet 00:00: 00 atorvastati 2020-0 No 1mg n 10 mg 8-11 tablet 00:00: 00 levothyroxi 2020-0 No 1mcg ne 75 mcg 8-11 tablet 00:00: 00 atorvastati 2020-0 No 1mg n 10 mg 8-11 tablet 00:00: 00 hydroxyzine 2019-0 No 1mg pamoate 25 8-11 mg capsule 00:00: 00 levothyroxi 2020-0 No 1mcg ne 75 mcg 8-11 tablet 00:00: 00 hydroxyzine 2020-0 No 1mg pamoate 25 8-11 mg capsule 00:00: 00 Dose 2020-0 No Unknown 4-09 00:00: 00 ibuprofen 2020-0 No 1mg 600 mg 4-09 tablet 00:00: 00 Dose 2020-0 No Unknown 4-09 00:00: 00 ibuprofen 2020-0 No 1mg 600 mg 4-09 tablet 00:00: 00 metformin 2020-0 No 1mg 500 mg 1-06 tablet 00:00: 00 atorvastati 2019-0 No 1mg n 10 mg 1-06 tablet 00:00: 00 levothyroxi 2019-0 No 1mcg ne 75 mcg 1-06 tablet 00:00: 00 metformin 2020-0 No 1mg 500 mg 1-06 tablet 00:00: 00 atorvastati 2019-0 No 1mg n 10 mg 1-06 tablet 00:00: 00 levothyroxi 2019-0 No 1mcg ne 75 mcg 1-06 tablet 00:00: 00 triamcinolo 2018-1 No 1% ne 2-10 acetonide 00:00: 0.1 % 00 topical cream prednisone 2018- No 1mg 20 mg 2-10 tablet 00:00: 00 lisinopril 2018- No 1mg 20 2-10 mg-hydrochl 00:00: orothiazide 00 25 mg tablet doxycycline 2018- No 1mg monohydrate 2-10 100 mg 00:00: capsule 00 triamcinolo 2018- No 1% ne 2-10 acetonide 00:00: 0.1 % 00 topical cream prednisone 2018- No 1mg 20 mg 2-10 tablet 00:00: 00 lisinopril 2018-1 No 1mg 20 2-10 mg-hydrochl 00:00: orothiazide 00 25 mg tablet doxycycline 2018-1 No 1mg monohydrate 2-10 100 mg 00:00: capsule 00 Medrol 2018-1 No mg (Dave) 4 mg 1-21 tablets in 00:00: a dose pack 00 ProAir HFA 2018-11 No 2mcg/ac 90 1-21 tuation mcg/actuati 00:00: on aerosol 00 inhaler Medrol 2018-1 No mg (Dave) 4 mg 1-21 tablets in 00:00: a dose pack 00 ProAir HFA 2018- No 2mcg/ac 90 1-21 tuation mcg/actuati 00:00: on aerosol 00 inhaler bupropion 2018- No 1mg HCl SR 150 1-06 mg 00:00: tablet,12 00 hr sustained-r elease bupropion 2018- No 1mg HCl SR 150 1-06 mg 00:00: tablet,12 00 hr sustained-r elease levothyroxi 2018- No 1mcg ne 75 mcg 0-30 tablet 00:00: 00 levothyroxi 2018-1 No 1mcg ne 75 mcg 0-30 tablet 00:00: 00 metformin 2019-1 No 1mg 500 mg 0-29 tablet 00:00: 00 metformin 2019-1 No 1mg 500 mg 0-29 tablet 00:00: 00 levothyroxi 2018-0 No 1mcg ne 25 mcg 7-24 tablet 00:00: 00 levothyroxi 2018-0 No 1mcg ne 25 mcg 7-24 tablet 00:00: 00 Immunizations Ordered Immunization Filled Immunization Date Status Commen ts Source Name Name Kerri REYES-Cj 2021-12-09 Completed Vaccine 00:00:00 Kerri STOCKID-19 2021-12-09 Completed Vaccine 00:00:00 Vital Signs Vital Name Observation Time Observation Value Comments Source BP Systolic 2022-08-13 15:57:00 149 mm[Hg] BP Diastolic 2022-08-13 15:57:00 69 mm[Hg] Weight Measured 2022-08-13 15:57:00 359.00 pounds Height Measured 2022-08-13 15:57:00 60.00 inches Body Temperature 2022-08-13 15:57:00 97.90 degrees Heart Rate 2022-08-13 15:57:00 91.00 /min Respiratory Rate 2022-08-13 15:57:00 BP Diastolic 2022-08-06 16:04:00 80 mm[Hg] Weight Measured 2022-08-06 16:04:00 352.60 pounds Height Measured 2022-08-06 16:04:00 60.00 inches Body Temperature 2022-08-06 16:04:00 98.20 degrees Heart Rate 2022-08-06 16:04:00 115.00 /min Respiratory Rate 2022-08-06 16:04:00 18.00 /min BP Systolic 2022-08-06 16:04:00 130 mm[Hg] BP Systolic 2022-01-19 16:54:00 124 mm[Hg] BP Diastolic 2022-01-19 16:54:00 88 mm[Hg] Weight Measured 2022-01-19 16:54:00 319.00 pounds Height Measured 2022-01-19 16:54:00 60.00 inches Body Temperature 2022-01-19 16:54:00 98.20 degrees Heart Rate 2022-01-19 16:54:00 113.00 /min Respiratory Rate 2022-01-19 16:54:00 16.00 /min BP Systolic 2021-02-04 13:25:00 116 mm[Hg] BP Diastolic 2021-02-04 13:25:00 77 mm[Hg] Weight Measured 2021-02-04 13:25:00 307.60 pounds Height Measured 2021-02-04 13:25:00 60.00 inches Body Temperature 2021-02-04 13:25:00 98.23 degrees Heart Rate 2021-02-04 13:25:00 116.00 /min Respiratory Rate 2021-02-04 13:25:00 18.00 /min BP Systolic 2020-09-10 13:28:00 129 mm[Hg] BP Diastolic 2020-09-10 13:28:00 74 mm[Hg] Weight Measured 2020-09-10 13:28:00 309.00 pounds Height Measured 2020-09-10 13:28:00 60.00 inches Body Temperature 2020-09-10 13:28:00 97.80 degrees Heart Rate 2020-09-10 13:28:00 106.00 /min Respiratory Rate 2020-09-10 13:28:00 17.00 /min BP Systolic 2020-07-02 10:50:00 116 mm[Hg] BP Diastolic 2020-07-02 10:50:00 73 mm[Hg] Weight Measured 2020-07-02 10:50:00 312.40 pounds Height Measured 2020-07-02 10:50:00 60.00 inches Body Temperature 2020-07-02 10:50:00 98.50 degrees Heart Rate 2020-07-02 10:50:00 108.00 /min Respiratory Rate 2020-07-02 10:50:00 BP Systolic 2020-02-29 14:08:00 136 mm[Hg] BP Diastolic 2020-02-29 14:08:00 84 mm[Hg] Weight Measured 2020-02-29 14:08:00 292.40 pounds Height Measured 2020-02-29 14:08:00 60.00 inches Body Temperature 2020-02-29 14:08:00 98.00 degrees Heart Rate 2020-02-29 14:08:00 113.00 /min Respiratory Rate 2020-02-29 14:08:00 16.00 /min BP Systolic 2019-10-31 14:43:00 BP Diastolic 2019-10-31 14:43:00 Weight Measured 2019-10-31 14:43:00 Height Measured 2019-10-31 14:43:00 Body Temperature 2019-10-31 14:43:00 Heart Rate 2019-10-31 14:43:00 101.00 /min Respiratory Rate 2019-10-31 14:43:00 BP Systolic 2019-10-31 14:33:00 154 mm[Hg] BP Diastolic 2019-10-31 14:33:00 107 mm[Hg] Weight Measured 2019-10-31 14:33:00 305.00 pounds Height Measured 2019-10-31 14:33:00 60.00 inches Body Temperature 2019-10-31 14:33:00 98.80 degrees Heart Rate 2019-10-31 14:33:00 101.00 /min Respiratory Rate 2019-10-31 14:33:00 16.00 /min BP Systolic 2019-10-12 09:55:00 132 mm[Hg] BP Diastolic 2019-10-12 09:55:00 71 mm[Hg] Weight Measured 2019-10-12 09:55:00 302.00 pounds Height Measured 2019-10-12 09:55:00 60.00 inches Body Temperature 2019-10-12 09:55:00 98.50 degrees Heart Rate 2019-10-12 09:55:00 103.00 /min Respiratory Rate 2019-10-12 09:55:00 18.00 /min BP Systolic 2019-09-19 14:32:00 145 mm[Hg] BP Diastolic 2019-09-19 14:32:00 94 mm[Hg] Weight Measured 2019-09-19 14:32:00 300.20 pounds Height Measured 2019-09-19 14:32:00 60.00 inches Body Temperature 2019-09-19 14:32:00 98.50 degrees Heart Rate 2019-09-19 14:32:00 105.00 /min Respiratory Rate 2019-09-19 14:32:00 Procedures This patient has no known procedures. Plan of Care Planned Activity Planned Date Details Comments Source Goal Plan of Care Note [code = 20594-4] Goal Plan of Care Note [code = 46666-5] Goal Plan of Care Note [code = 26780-4] Goal Plan of Care Note [code = 08679-5] Goal Plan of Care Note [code = 88621-3] Goal Plan of Care Note [code = 85388-6] Goal Plan of Care Note [code = 41819-1] Goal Plan of Care Note [code = 91009-0] Goal Plan of Care Note [code = 56843-6] Goal Plan of Care Note [code = 36586-2] Goal Plan of Care Note [code = 04125-5] Goal Plan of Care Note [code = 79586-1] Goal Plan of Care Note [code = 17844-4] Goal Plan of Care Note [code = 89631-1] Goal Plan of Care Note [code = 10987-5] Goal Plan of Care Note [code = 19445-3] Goal Plan of Care Note [code = 11775-7] Goal Plan of Care Note [code = 42612-6] Goal Plan of Care Note [code = 20808-3] Goal Plan of Care Note [code = 53739-5] Goal Plan of Care Note [code = 12210-2] Goal Plan of Care Note [code = 24507-5] Goal Plan of Care Note [code = 46320-2] Goal Plan of Care Note [code = 87886-2] Goal Plan of Care Note [code = 21270-8] Goal Plan of Care Note [code = 92337-8] Goal Plan of Care Note [code = 68511-5] Goal Plan of Care Note [code = 71013-3] Goal Plan of Care Note [code = 28586-2] Goal Plan of Care Note [code = 86391-7] Goal Plan of Care Note [code = 65469-8] Goal Plan of Care Note [code = 47857-1] Goal Plan of Care Note [code = 26706-5] Goal Plan of Care Note [code = 87610-3] Goal Plan of Care Note [code = 29296-6] Goal Plan of Care Note [code = 62239-6] Goal Plan of Care Note [code = 55726-2] Goal Plan of Care Note [code = 78142-8] Goal Plan of Care Note [code = 46950-6] Goal Plan of Care Note [code = 42457-9] Goal Plan of Care Note [code = 32816-2] Goal Plan of Care Note [code = 08846-0] Goal Plan of Care Note [code = 26329-6] Goal Plan of Care Note [code = 12917-7] Goal Plan of Care Note [code = 92704-2] Goal Plan of Care Note [code = 25874-3] Goal Plan of Care Note [code = 89032-7] Goal Plan of Care Note [code = 28053-5] Goal Plan of Care Note [code = 89139-6] Goal Plan of Care Note [code = 01950-9] Goal Plan of Care Note [code = 04706-2] Goal Plan of Care Note [code = 76275-9] Goal Plan of Care Note [code = 37217-1] Goal Plan of Care Note [code = 25930-0] Goal Plan of Care Note [code = 38285-6] Goal Plan of Care Note [code = 17928-1] Goal Plan of Care Note [code = 27671-0] Goal Plan of Care Note [code = 52327-2] Goal Plan of Care Note [code = 10205-6] Goal Plan of Care Note [code = 53860-4] Goal Plan of Care Note [code = 79582-3] Encounters Start End Encounter Admission Attending Care Care Encounter Source Date/Time Date/Time Type Type Clinicians Facility Department ID 2022-08-13 2022-08-13 Outpatient [id number] 00:00:00 00:00:00 Visit [id number] 2022-08-06 2022-08-06 Outpatient [id number] 00:00:00 00:00:00 Visit [id number] 2021-05-15 2021-05-15 [facility] [place] 11:10:00 11:10:00 0624 [facility] 2021-05-15 2021-05-15 Outpatient RORO NunoC [facility] [id number] 00:00:00 00:00:00 Lela [id number] 2021-05-09 2021-05-09 Outpatient CARLOS_Reggie [facility] [address] [place] 02:54:00 02:54:00 0618 [facility] Results Test Description Test Time Test Comments Results Result Comments Source HEMOGLOBIN A1c 2022-08-08 07:32:28 Test Item Value Reference Range Interpretation Comme nts HEMOGLOBIN A1c (test code = 78655) 6.3 % 4.2-5.6 H CBC W/AUTO DIFF WITH [id number] 07:05:30 Test Item Value Reference Range Interpretation Comments WBC (test code = 8.8 K/UL 3.5-11.0 1001) RBC (test code = 4.88 M/UL 4.50-6.10 1002) HEMOGLOBIN (test code 15.8 G/DL 13.5-17.0 = 1003) HEMATOCRIT (test code 45.5 % 40.0-51.0 = 1004) MCV (test code = 93.2 fL 80.0-99.0 1005) MCH (test code = 32.4 PG 25.0-33.0 1006) MCHC (test code = 34.7 G/DL 31.0-36.0 1007) RDW (test code = 13.4 % 11.5-15.0 1038) NEUTROPHILS (test 62.7 % code = 1008) LYMPHOCYTES (test 30.7 % code = 1010) MONOCYTES (test code 4.5 % = 1011) EOSINOPHILS (test 1.5 % code = 1012) BASOPHILS (test code 0.3 % = 1013) IMMATURE GRANULOCYTES 0.3 % (test code = 1036) NUCLEATED RBCS (test 0.0 /100 WBC'S See_Comment [Aut omated code = 1065) message] The sy stem which generated this result transmitted reference range : 0.0. The refere nce range was not u sed to interpret th is result as normal/abnormal . PLATELET COUNT (test 309 K/UL 130-400 code = 1015) ABSOLUTE NEUTROPHILS 5.48 K/UL 1.50-7.50 (test code = 1066) ABSOLUTE LYMPHOCYTES 2.69 K/UL 1.00-4.00 (test code = 1067) ABSOLUTE MONOCYTES 0.39 K/UL 0.20-1.00 (test code = 1068) ABSOLUTE EOSINOPHILS 0.13 K/UL 0.00-0.50 (test code = 1040) ABSOLUTE BASOPHILS 0.03 K/UL 0.00-0.20 (test code = 1069) ABS IMMATURE 0.03 K/UL 0.00-0.10 GRANULOCYTES (test code = 1020) ABS NUCLEATED RBCS 0.00 K/UL 0.00-0.11 (test code = 39328) TSH, THIRD [id number] 06:43:26 Test Item Value Reference Range Interpretation Comments TSH, THIRD GENERATION (test code 3.490 UIU/ML 0.400-4.100 = 2821) COMPREHENSIVE METABOLIC [id number] 03:50:21 Test Item Value Reference Range Interpretation Comments GLUCOSE (test code = 95 MG/DL 70-99 2216) BUN (test code = 21 MG/DL 6-20 H 2207) CREATININE (test 0.59 MG/DL 0.80-1.40 L code = 2214) eGFR (2020 CKD-EPI) 136 >60 (test code = 64745) ML/MIN/1.73 CALC BUN/CREAT (test 36 RATIO 6-28 H code = 2235) SODIUM (test code = 141 MEQ/L 247-960 9785) POTASSIUM (test code 5.0 MEQ/L 3.5-5.4 = 2227) CHLORIDE (test code 103 MEQ/L 95-107 = 2214) CARBON DIOXIDE (test 25 MEQ/L 19-31 code = 2206) CALCIUM (test code = 8.9 MG/DL 8.5-10.5 2208) PROTEIN, TOTAL (test 7.0 G/DL 6.1-8.3 code = 222) ALBUMIN (test code = 4.1 G/DL 3.5-5.2 2200) CALC GLOBULIN (test 2.9 G/DL 1.9-3.7 code = 2240) CALC A/G RATIO (test 1.4 RATIO 1.0-2.6 code = 2234) BILIRUBIN, TOTAL <0.2 MG/DL See_Comment [Automated message] (test code = 2207) The syste m which generated this result transmit lela reference range : <=1.2. The refe rence range was not u sed to interpret th is result as normal/abnormal . ALKALINE PHOSPHATASE 137 U/L 40-115 H (test code = 4) AST (test code = 28 U/L 9-50 2217) ALT (test code = 34 U/L 5-50 2218) LIPID [id number] 03:50:21 Test Item Value Reference Range Interpretation Comments CHOLESTEROL (test 193 MG/DL <200 code = 2210) TRIGLYCERIDES (test 111 MG/DL <150 code = 2232) HDL CHOLESTEROL (test 48 MG/DL >39 code = 2220) CALC LDL CHOL (test 123 MG/DL <100 H NOTE: C ALCULATED LDL code = 2237) IS BASED ON HUMZA-MONSON METHOD WHICHINCLUDES ADJUSTABLE TRIGLYCERIDE:VL DL CHOLESTEROL RAT IO.THIS FACTOR VARIES B Y MEASURED TRIGLY CERIDE AND NON-HDLCHOL ESTEROL CONCENTRATIONS WITH INCREASED CALCU LATED LDL SEENIN HIGH ER TRIGLYCERIDE OR LOWER NON-HDL SPECIME NS. FOR MOREINFORMATION , SEE CLIENT ANNOUNCE MENT AT [email or web address] RISK RATIO LDL/HDL 2.56 RATIO <3.55 UNLESS OTHERWISE (test code = 2237) INDICATED , ALL TESTING PERFORMED [facility], [id number] [place] [address] DIRECTOR: LICHA AYON M.D. CLIA NUMBER [id number] CAP ACCREDITATION N O. [id number] HEMOGLOBIN [id number] 00:00:00 Test Item Value Reference Range Interpretation Comments HEMOGLOBIN A1c (test code = 62429) 6.3 % HEMOGLOBIN [id number] 00:00:00 Test Item Value Reference Range Interpretation Comments HEMOGLOBIN A1c (test code = 88852) 6.3 % HEMOGLOBIN [id number] 00:00:00 Test Item Value Reference Range Interpretation Comments HEMOGLOBIN A1c (test code = 92584) 6.3 % TSH, THIRD [id number] 00:00:00 Test Item Value Reference Range Interpretation Comments TSH, THIRD GENERATION (test code 3.490 UIU/ML = 2821) TSH, THIRD [id number] 00:00:00 Test Item Value Reference Range Interpretation Comments TSH, THIRD GENERATION (test code 3.490 UIU/ML = 2821) TSH, THIRD [id number] 00:00:00 Test Item Value Reference Range Interpretation Comments TSH, THIRD GENERATION (test code 3.490 UIU/ML = 2821) CBC W/AUTO [id number] 00:00:00 Test Item Value Reference Range Interpretation Comments WBC (test code = 1001) 8.8 K/UL RBC (test code = 1002) 4.88 M/UL HEMOGLOBIN (test code = 1003) 15.8 G/DL HEMATOCRIT (test code = 1004) 45.5 % MCV (test code = 1005) 93.2 fL MCH (test code = 1006) 32.4 PG MCHC (test code = 1007) 34.7 G/DL RDW (test code = 1038) 13.4 % NEUTROPHILS (test code = 1008) 62.7 % LYMPHOCYTES (test code = 1010) 30.7 % MONOCYTES (test code = 1011) 4.5 % EOSINOPHILS (test code = 1012) 1.5 % BASOPHILS (test code = 1013) 0.3 % IMMATURE GRANULOCYTES (test 0.3 % code = 1036) NUCLEATED RBCS (test code = 0.0 /100WBC'S 1065) PLATELET COUNT (test code = 309 K/UL 1015) ABSOLUTE NEUTROPHILS (test code 5.48 K/UL = 1066) ABSOLUTE LYMPHOCYTES (test code 2.69 K/UL = 1067) ABSOLUTE MONOCYTES (test code = 0.39 K/UL 1068) ABSOLUTE EOSINOPHILS (test code 0.13 K/UL = 1040) ABSOLUTE BASOPHILS (test code = 0.03 K/UL 1069) ABS IMMATURE GRANULOCYTES (test 0.03 K/UL code = 1020) ABS NUCLEATED RBCS (test code = 0.00 K/UL 57675) CBC W/AUTO [id number] 00:00:00 Test Item Value Reference Range Interpretation Comments WBC (test code = 1001) 8.8 K/UL RBC (test code = 1002) 4.88 M/UL HEMOGLOBIN (test code = 1003) 15.8 G/DL HEMATOCRIT (test code = 1004) 45.5 % MCV (test code = 1005) 93.2 fL MCH (test code = 1006) 32.4 PG MCHC (test code = 1007) 34.7 G/DL RDW (test code = 1038) 13.4 % NEUTROPHILS (test code = 1008) 62.7 % LYMPHOCYTES (test code = 1010) 30.7 % MONOCYTES (test code = 1011) 4.5 % EOSINOPHILS (test code = 1012) 1.5 % BASOPHILS (test code = 1013) 0.3 % IMMATURE GRANULOCYTES (test 0.3 % code = 1036) NUCLEATED RBCS (test code = 0.0 /100WBC'S 1065) PLATELET COUNT (test code = 309 K/UL 1015) ABSOLUTE NEUTROPHILS (test code 5.48 K/UL = 1066) ABSOLUTE LYMPHOCYTES (test code 2.69 K/UL = 1067) ABSOLUTE MONOCYTES (test code = 0.39 K/UL 1068) ABSOLUTE EOSINOPHILS (test code 0.13 K/UL = 1040) ABSOLUTE BASOPHILS (test code = 0.03 K/UL 1069) ABS IMMATURE GRANULOCYTES (test 0.03 K/UL code = 1020) ABS NUCLEATED RBCS (test code = 0.00 K/UL 21480) CBC W/AUTO [id number] 00:00:00 Test Item Value Reference Range Interpretation Comments WBC (test code = 1001) 8.8 K/UL RBC (test code = 1002) 4.88 M/UL HEMOGLOBIN (test code = 1003) 15.8 G/DL HEMATOCRIT (test code = 1004) 45.5 % MCV (test code = 1005) 93.2 fL MCH (test code = 1006) 32.4 PG MCHC (test code = 1007) 34.7 G/DL RDW (test code = 1038) 13.4 % NEUTROPHILS (test code = 1008) 62.7 % LYMPHOCYTES (test code = 1010) 30.7 % MONOCYTES (test code = 1011) 4.5 % EOSINOPHILS (test code = 1012) 1.5 % BASOPHILS (test code = 1013) 0.3 % IMMATURE GRANULOCYTES (test 0.3 % code = 1036) NUCLEATED RBCS (test code = 0.0 /100WBC'S 1065) PLATELET COUNT (test code = 309 K/UL 1015) ABSOLUTE NEUTROPHILS (test code 5.48 K/UL = 1066) ABSOLUTE LYMPHOCYTES (test code 2.69 K/UL = 1067) ABSOLUTE MONOCYTES (test code = 0.39 K/UL 1068) ABSOLUTE EOSINOPHILS (test code 0.13 K/UL = 1040) ABSOLUTE BASOPHILS (test code = 0.03 K/UL 1069) ABS IMMATURE GRANULOCYTES (test 0.03 K/UL code = 1020) ABS NUCLEATED RBCS (test code = 0.00 K/UL 78437) COMPREHENSIVE METABOLIC [id number] 00:00:00 Test Item Value Reference Range Interpretation Comments GLUCOSE (test code = 2217) 95 MG/DL BUN (test code = 2208) 21 MG/DL CREATININE (test code = 2214) 0.59 MG/DL eGFR (2020 CKD-EPI) (test 136 ML/MIN/1.73 code = 94263) CALC BUN/CREAT (test code = 36 RATIO 2235) SODIUM (test code = 2231) 141 MEQ/L POTASSIUM (test code = 2228) 5.0 MEQ/L CHLORIDE (test code = 2215) 103 MEQ/L CARBON DIOXIDE (test code = 25 MEQ/L 2205) CALCIUM (test code = 2209) 8.9 MG/DL PROTEIN, TOTAL (test code = 7.0 G/DL 2228) ALBUMIN (test code = 2201) 4.1 G/DL CALC GLOBULIN (test code = 2.9 G/DL 2240) CALC A/G RATIO (test code = 1.4 RATIO 4) BILIRUBIN, TOTAL (test code = <0.2 MG/DL 2206) ALKALINE PHOSPHATASE (test 137 U/L code = 2204) AST (test code = 2218) 28 U/L ALT (test code = 2219) 34 U/L COMPREHENSIVE METABOLIC [id number] 00:00:00 Test Item Value Reference Range Interpretation Comments GLUCOSE (test code = 2217) 95 MG/DL BUN (test code = 2208) 21 MG/DL CREATININE (test code = 2214) 0.59 MG/DL eGFR (2020 CKD-EPI) (test 136 ML/MIN/1.73 code = 53463) CALC BUN/CREAT (test code = 36 RATIO 2235) SODIUM (test code = 2231) 141 MEQ/L POTASSIUM (test code = 2228) 5.0 MEQ/L CHLORIDE (test code = 2215) 103 MEQ/L CARBON DIOXIDE (test code = 25 MEQ/L 2206) CALCIUM (test code = 2209) 8.9 MG/DL PROTEIN, TOTAL (test code = 7.0 G/DL 2228) ALBUMIN (test code = 2201) 4.1 G/DL CALC GLOBULIN (test code = 2.9 G/DL 2240) CALC A/G RATIO (test code = 1.4 RATIO 2234) BILIRUBIN, TOTAL (test code = <0.2 MG/DL 2206) ALKALINE PHOSPHATASE (test 137 U/L code = 2204) AST (test code = 2218) 28 U/L ALT (test code = 2219) 34 U/L LIPID [id number] 00:00:00 Test Item Value Reference Range Interpretation Comments CHOLESTEROL (test code = 2210) 193 MG/DL TRIGLYCERIDES (test code = 2232) 111 MG/DL HDL CHOLESTEROL (test code = 2220) 48 MG/DL CALC LDL CHOL (test code = 2237) 123 MG/DL RISK RATIO LDL/HDL (test code = 2.56 RATIO 2238) LIPID [id number] 00:00:00 Test Item Value Reference Range Interpretation Comments CHOLESTEROL (test code = 2210) 193 MG/DL TRIGLYCERIDES (test code = 2232) 111 MG/DL HDL CHOLESTEROL (test code = 2220) 48 MG/DL CALC LDL CHOL (test code = 2237) 123 MG/DL RISK RATIO LDL/HDL (test code = 2.56 RATIO 2238) SARS-CoV-2 (COVID-19) by RT-PCR (HIGH RISK)2020-10-10 00:00:00 Test Item Value Reference Range Interpretation Comments SARS-CoV-2 INTERPRETATION Negative (test code = 01100) SOURCE (test code = 76668) Nasal_Swab_in_VTM__ UTM SARS-CoV-2 (COVID-19) by RT-PCR (HIGH RISK)2020-10-10 00:00:00 Test Item Value Reference Range Interpretation Comments SARS-CoV-2 INTERPRETATION Negative (test code = 35197) SOURCE (test code = 39251) Nasal_Swab_in_VTM__ UTM LIPID PANEL WITH REFLEX DIRECT [id number] 00:00:00 Test Item Value Reference Range Interpretation Comments CHOLESTEROL (test code = 2210) 208 MG/DL TRIGLYCERIDES (test code = 2232) 201 MG/DL HDL CHOLESTEROL (test code = 2220) 34 MG/DL CALC LDL CHOL (test code = 2237) 139 MG/DL RISK RATIO LDL/HDL (test code = 4.09 RATIO 2238) LIPID PANEL WITH REFLEX DIRECT [id number] 00:00:00 Test Item Value Reference Range Interpretation Comments CHOLESTEROL (test code = 2210) 208 MG/DL TRIGLYCERIDES (test code = 2232) 201 MG/DL HDL CHOLESTEROL (test code = 2220) 34 MG/DL CALC LDL CHOL (test code = 2237) 139 MG/DL RISK RATIO LDL/HDL (test code = 4.09 RATIO 2238) COMPREHENSIVE METABOLIC [id number] 00:00:00 Test Item Value Reference Range Interpretation Comments GLUCOSE (test code = 2217) 95 MG/DL BUN (test code = 2208) 15 MG/DL CREATININE (test code = 2214) 0.70 MG/DL eGFR AMER. (test code 151 ML/MIN/1.73 = 39280) eGFR NON- AMER. (test 130 ML/MIN/1.73 code = 72065) CALC BUN/CREAT (test code = 21 RATIO 2235) SODIUM (test code = 2231) 145 MEQ/L POTASSIUM (test code = 2228) 4.8 MEQ/L CHLORIDE (test code = 2215) 106 MEQ/L CARBON DIOXIDE (test code = 18 MEQ/L 2205) CALCIUM (test code = 2209) 9.1 MG/DL PROTEIN, TOTAL (test code = 7.0 G/DL 2228) ALBUMIN (test code = 2201) 4.1 G/DL CALC GLOBULIN (test code = 2.9 G/DL 2240) CALC A/G RATIO (test code = 1.4 RATIO 2234) BILIRUBIN, TOTAL (test code = <0.2 MG/DL 2206) ALKALINE PHOSPHATASE (test 142 U/L code = 2204) AST (test code = 2218) 27 U/L ALT (test code = 2219) 37 U/L COMPREHENSIVE METABOLIC [id number] 00:00:00 Test Item Value Reference Range Interpretation Comments GLUCOSE (test code = 2217) 95 MG/DL BUN (test code = 2208) 15 MG/DL CREATININE (test code = 2214) 0.70 MG/DL eGFR AMER. (test code 151 ML/MIN/1.73 = 98699) eGFR NON- AMER. (test 130 ML/MIN/1.73 code = 26131) CALC BUN/CREAT (test code = 21 RATIO 2235) SODIUM (test code = 2231) 145 MEQ/L POTASSIUM (test code = 2228) 4.8 MEQ/L CHLORIDE (test code = 2215) 106 MEQ/L CARBON DIOXIDE (test code = 18 MEQ/L 220) CALCIUM (test code = 2209) 9.1 MG/DL PROTEIN, TOTAL (test code = 7.0 G/DL 2228) ALBUMIN (test code = 2201) 4.1 G/DL CALC GLOBULIN (test code = 2.9 G/DL 224) CALC A/G RATIO (test code = 1.4 RATIO 2234) BILIRUBIN, TOTAL (test code = <0.2 MG/DL 2206) ALKALINE PHOSPHATASE (test 142 U/L code = 2204) AST (test code = 2218) 27 U/L ALT (test code = 2219) 37 U/L LIPID PANEL WITH REFLEX DIRECT [id number] 00:00:00 Test Item Value Reference Range Interpretation Comments CHOLESTEROL (test code = 2210) 208 MG/DL TRIGLYCERIDES (test code = 2232) 201 MG/DL HDL CHOLESTEROL (test code = 2220) 34 MG/DL CALC LDL CHOL (test code = 2237) 139 MG/DL RISK RATIO LDL/HDL (test code = 4.09 RATIO 2238) LIPID PANEL WITH REFLEX DIRECT [id number] 00:00:00 Test Item Value Reference Range Interpretation Comments CHOLESTEROL (test code = 2210) 208 MG/DL TRIGLYCERIDES (test code = 2232) 201 MG/DL HDL CHOLESTEROL (test code = 2220) 34 MG/DL CALC LDL CHOL (test code = 2237) 139 MG/DL RISK RATIO LDL/HDL (test code = 4.09 RATIO 2238) COMPREHENSIVE METABOLIC [id number] 00:00:00 Test Item Value Reference Range Interpretation Comments GLUCOSE (test code = 2217) 95 MG/DL BUN (test code = 2208) 15 MG/DL CREATININE (test code = 2214) 0.70 MG/DL eGFR AMER. (test code 151 ML/MIN/1.73 = 69807) eGFR NON- AMER. (test 130 ML/MIN/1.73 code = 08391) CALC BUN/CREAT (test code = 21 RATIO 2235) SODIUM (test code = 2231) 145 MEQ/L POTASSIUM (test code = 2228) 4.8 MEQ/L CHLORIDE (test code = 2215) 106 MEQ/L CARBON DIOXIDE (test code = 18 MEQ/L 220) CALCIUM (test code = 2209) 9.1 MG/DL PROTEIN, TOTAL (test code = 7.0 G/DL 222) ALBUMIN (test code = 2201) 4.1 G/DL CALC GLOBULIN (test code = 2.9 G/DL 2240) CALC A/G RATIO (test code = 1.4 RATIO 2234) BILIRUBIN, TOTAL (test code = <0.2 MG/DL 2206) ALKALINE PHOSPHATASE (test 142 U/L code = 2204) AST (test code = 2218) 27 U/L ALT (test code = 2219) 37 U/L COMPREHENSIVE METABOLIC [id number] 00:00:00 Test Item Value Reference Range Interpretation Comments GLUCOSE (test code = 2217) 95 MG/DL BUN (test code = 2208) 15 MG/DL CREATININE (test code = 2214) 0.70 MG/DL eGFR AMER. (test code 151 ML/MIN/1.73 = 20654) eGFR NON- AMER. (test 130 ML/MIN/1.73 code = 24838) CALC BUN/CREAT (test code = 21 RATIO 2235) SODIUM (test code = 2231) 145 MEQ/L POTASSIUM (test code = 2228) 4.8 MEQ/L CHLORIDE (test code = 2215) 106 MEQ/L CARBON DIOXIDE (test code = 18 MEQ/L 2205) CALCIUM (test code = 2209) 9.1 MG/DL PROTEIN, TOTAL (test code = 7.0 G/DL 2228) ALBUMIN (test code = 2201) 4.1 G/DL CALC GLOBULIN (test code = 2.9 G/DL 2240) CALC A/G RATIO (test code = 1.4 RATIO 2234) BILIRUBIN, TOTAL (test code = <0.2 MG/DL 2206) ALKALINE PHOSPHATASE (test 142 U/L code = 2204) AST (test code = 2218) 27 U/L ALT (test code = 2219) 37 U/L HEMOGLOBIN [id number] 00:00:00 Test Item Value Reference Range Interpretation Comments HEMOGLOBIN A1c (test code = 39746) 6.1 % HEMOGLOBIN [id number] 00:00:00 Test Item Value Reference Range Interpretation Comments HEMOGLOBIN A1c (test code = 89628) 6.1 % HEMOGLOBIN [id number] 00:00:00 Test Item Value Reference Range Interpretation Comments HEMOGLOBIN A1c (test code = 06709) 6.1 % [id number] 00:00:00 Test Item Value Reference Range Interpretation Comments TSH, THIRD GENERATION (test code 3.380 UIU/ML = 2821) [id number] 00:00:00 Test Item Value Reference Range Interpretation Comments TSH, THIRD GENERATION (test code 3.380 UIU/ML = 2821) [id number] 00:00:00 Test Item Value Reference Range Interpretation Comments TSH, THIRD GENERATION (test code 3.380 UIU/ML = 2821) HEMOGLOBIN [id number] 00:00:00 Test Item Value Reference Range Interpretation Comments HEMOGLOBIN A1c (test code = 86332) 6.1 % HEMOGLOBIN [id number] 00:00:00 Test Item Value Reference Range Interpretation Comments HEMOGLOBIN A1c (test code = 13545) 6.1 % HEMOGLOBIN [id number] 00:00:00 Test Item Value Reference Range Interpretation Comments HEMOGLOBIN A1c (test code = 64365) 6.1 % [id number] 00:00:00 Test Item Value Reference Range Interpretation Comments TSH, THIRD GENERATION (test code 3.380 UIU/ML = 2821) [id number] 00:00:00 Test Item Value Reference Range Interpretation Comments TSH, THIRD GENERATION (test code 3.380 UIU/ML = 2821) [id number] 00:00:00 Test Item Value Reference Range Interpretation Comments TSH, THIRD GENERATION (test code 3.380 UIU/ML = 2821) COMPREHENSIVE METABOLIC [id number] 00:00:00 Test Item Value Reference Range Interpretation Comments GLUCOSE (test code = 2217) 182 MG/DL BUN (test code = 2208) 18 MG/DL CREATININE (test code = 2214) 0.71 MG/DL eGFR AMER. (test code 150 ML/MIN/1.73 = 02335) eGFR NON- AMER. (test 129 ML/MIN/1.73 code = 34354) CALC BUN/CREAT (test code = 25 RATIO 2235) SODIUM (test code = 2231) 139 MEQ/L POTASSIUM (test code = 2228) 4.1 MEQ/L CHLORIDE (test code = 2215) 100 MEQ/L CARBON DIOXIDE (test code = 24 MEQ/L 2206) CALCIUM (test code = 2209) 9.2 MG/DL PROTEIN, TOTAL (test code = 7.2 G/DL 222) ALBUMIN (test code = 2201) 4.2 G/DL CALC GLOBULIN (test code = 3.0 G/DL 2240) CALC A/G RATIO (test code = 1.4 RATIO 2234) BILIRUBIN, TOTAL (test code = 0.3 MG/DL 2206) ALKALINE PHOSPHATASE (test 151 U/L code = 2204) AST (test code = 2218) 23 U/L ALT (test code = 2219) 31 U/L COMPREHENSIVE METABOLIC [id number] 00:00:00 Test Item Value Reference Range Interpretation Comments GLUCOSE (test code = 2217) 182 MG/DL BUN (test code = 2208) 18 MG/DL CREATININE (test code = 2214) 0.71 MG/DL eGFR AMER. (test code 150 ML/MIN/1.73 = 36684) eGFR NON- AMER. (test 129 ML/MIN/1.73 code = 50514) CALC BUN/CREAT (test code = 25 RATIO 2235) SODIUM (test code = 2231) 139 MEQ/L POTASSIUM (test code = 2228) 4.1 MEQ/L CHLORIDE (test code = 2215) 100 MEQ/L CARBON DIOXIDE (test code = 24 MEQ/L 220) CALCIUM (test code = 2209) 9.2 MG/DL PROTEIN, TOTAL (test code = 7.2 G/DL 222) ALBUMIN (test code = 2201) 4.2 G/DL CALC GLOBULIN (test code = 3.0 G/DL 2240) CALC A/G RATIO (test code = 1.4 RATIO 2234) BILIRUBIN, TOTAL (test code = 0.3 MG/DL 7) ALKALINE PHOSPHATASE (test 151 U/L code = 2204) AST (test code = 2218) 23 U/L ALT (test code = 2219) 31 U/L LIPID [id number] 00:00:00 Test Item Value Reference Range Interpretation Comments CHOLESTEROL (test code = 2210) 217 MG/DL TRIGLYCERIDES (test code = 2232) 149 MG/DL HDL CHOLESTEROL (test code = 2220) 36 MG/DL CALC LDL CHOL (test code = 2237) 153 MG/DL RISK RATIO LDL/HDL (test code = 4.25 RATIO 2238) LIPID [id number] 00:00:00 Test Item Value Reference Range Interpretation Comments CHOLESTEROL (test code = 2210) 217 MG/DL TRIGLYCERIDES (test code = 2232) 149 MG/DL HDL CHOLESTEROL (test code = 2220) 36 MG/DL CALC LDL CHOL (test code = 2237) 153 MG/DL RISK RATIO LDL/HDL (test code = 4.25 RATIO 2238) HEMOGLOBIN [id number] 00:00:00 Test Item Value Reference Range Interpretation Comments HEMOGLOBIN A1c (test code = 76688) 5.8 % HEMOGLOBIN [id number] 00:00:00 Test Item Value Reference Range Interpretation Comments HEMOGLOBIN A1c (test code = 39153) 5.8 % HEMOGLOBIN [id number] 00:00:00 Test Item Value Reference Range Interpretation Comments HEMOGLOBIN A1c (test code = 63193) 5.8 % [id number] 00:00:00 Test Item Value Reference Range Interpretation Comments TSH, THIRD GENERATION (test code 2.080 UIU/ML = 2821) [id number] 00:00:00 Test Item Value Reference Range Interpretation Comments TSH, THIRD GENERATION (test code 2.080 UIU/ML = 2821) [id number] 00:00:00 Test Item Value Reference Range Interpretation Comments TSH, THIRD GENERATION (test code 2.080 UIU/ML = 2821) COMPREHENSIVE METABOLIC [id number] 00:00:00 Test Item Value Reference Range Interpretation Comments GLUCOSE (test code = 2217) 182 MG/DL BUN (test code = 2208) 18 MG/DL CREATININE (test code = 2214) 0.71 MG/DL eGFR AMER. (test code 150 ML/MIN/1.73 = 93303) eGFR NON- AMER. (test 129 ML/MIN/1.73 code = 66255) CALC BUN/CREAT (test code = 25 RATIO 2235) SODIUM (test code = 2231) 139 MEQ/L POTASSIUM (test code = 2228) 4.1 MEQ/L CHLORIDE (test code = 2215) 100 MEQ/L CARBON DIOXIDE (test code = 24 MEQ/L 220) CALCIUM (test code = 2209) 9.2 MG/DL PROTEIN, TOTAL (test code = 7.2 G/DL 222) ALBUMIN (test code = 2201) 4.2 G/DL CALC GLOBULIN (test code = 3.0 G/DL 2240) CALC A/G RATIO (test code = 1.4 RATIO 2234) BILIRUBIN, TOTAL (test code = 0.3 MG/DL 2206) ALKALINE PHOSPHATASE (test 151 U/L code = 2204) AST (test code = 2218) 23 U/L ALT (test code = 2219) 31 U/L COMPREHENSIVE METABOLIC [id number] 00:00:00 Test Item Value Reference Range Interpretation Comments GLUCOSE (test code = 2217) 182 MG/DL BUN (test code = 2208) 18 MG/DL CREATININE (test code = 2214) 0.71 MG/DL eGFR AMER. (test code 150 ML/MIN/1.73 = 36870) eGFR NON- AMER. (test 129 ML/MIN/1.73 code = 91145) CALC BUN/CREAT (test code = 25 RATIO 2235) SODIUM (test code = 2231) 139 MEQ/L POTASSIUM (test code = 2228) 4.1 MEQ/L CHLORIDE (test code = 2215) 100 MEQ/L CARBON DIOXIDE (test code = 24 MEQ/L 2205) CALCIUM (test code = 2209) 9.2 MG/DL PROTEIN, TOTAL (test code = 7.2 G/DL 9) ALBUMIN (test code = 2201) 4.2 G/DL CALC GLOBULIN (test code = 3.0 G/DL 2240) CALC A/G RATIO (test code = 1.4 RATIO 2234) BILIRUBIN, TOTAL (test code = 0.3 MG/DL 7) ALKALINE PHOSPHATASE (test 151 U/L code = 2204) AST (test code = 2218) 23 U/L ALT (test code = 2219) 31 U/L LIPID [id number] 00:00:00 Test Item Value Reference Range Interpretation Comments CHOLESTEROL (test code = 2210) 217 MG/DL TRIGLYCERIDES (test code = 2232) 149 MG/DL HDL CHOLESTEROL (test code = 2220) 36 MG/DL CALC LDL CHOL (test code = 2237) 153 MG/DL RISK RATIO LDL/HDL (test code = 4.25 RATIO 2238) LIPID [id number] 00:00:00 Test Item Value Reference Range Interpretation Comments CHOLESTEROL (test code = 2210) 217 MG/DL TRIGLYCERIDES (test code = 2232) 149 MG/DL HDL CHOLESTEROL (test code = 2220) 36 MG/DL CALC LDL CHOL (test code = 2237) 153 MG/DL RISK RATIO LDL/HDL (test code = 4.25 RATIO 2238) HEMOGLOBIN [id number] 00:00:00 Test Item Value Reference Range Interpretation Comments HEMOGLOBIN A1c (test code = 94013) 5.8 % HEMOGLOBIN [id number] 00:00:00 Test Item Value Reference Range Interpretation Comments HEMOGLOBIN A1c (test code = 13221) 5.8 % HEMOGLOBIN [id number] 00:00:00 Test Item Value Reference Range Interpretation Comments HEMOGLOBIN A1c (test code = 44543) 5.8 % [id number] 00:00:00 Test Item Value Reference Range Interpretation Comments TSH, THIRD GENERATION (test code 2.080 UIU/ML = 2821) [id number] 00:00:00 Test Item Value Reference Range Interpretation Comments TSH, THIRD GENERATION (test code 2.080 UIU/ML = 2821) [id number] 00:00:00 Test Item Value Reference Range Interpretation Comments TSH, THIRD GENERATION (test code 2.080 UIU/ML = 2821) CBC W/AUTO [id number] 00:00:00 Test Item Value Reference Range Interpretation Comments WBC (test code = 1001) 7.0 K/UL RBC (test code = 1002) 4.65 M/UL HEMOGLOBIN (test code = 1003) 14.4 G/DL HEMATOCRIT (test code = 1004) 41.2 % MCV (test code = 1005) 88.6 fL MCH (test code = 1006) 31.0 PG MCHC (test code = 1007) 35.0 G/DL RDW (test code = 1038) 12.7 % NEUTROPHILS (test code = 1008) 53.2 % LYMPHOCYTES (test code = 1010) 37.9 % MONOCYTES (test code = 1011) 6.0 % EOSINOPHILS (test code = 1012) 2.6 % BASOPHILS (test code = 1013) 0.3 % PLATELET COUNT (test code = 1015) 351 K/UL CBC W/AUTO [id number] 00:00:00 Test Item Value Reference Range Interpretation Comments WBC (test code = 1001) 7.0 K/UL RBC (test code = 1002) 4.65 M/UL HEMOGLOBIN (test code = 1003) 14.4 G/DL HEMATOCRIT (test code = 1004) 41.2 % MCV (test code = 1005) 88.6 fL MCH (test code = 1006) 31.0 PG MCHC (test code = 1007) 35.0 G/DL RDW (test code = 1038) 12.7 % NEUTROPHILS (test code = 1008) 53.2 % LYMPHOCYTES (test code = 1010) 37.9 % MONOCYTES (test code = 1011) 6.0 % EOSINOPHILS (test code = 1012) 2.6 % BASOPHILS (test code = 1013) 0.3 % PLATELET COUNT (test code = 1015) 351 K/UL CBC W/AUTO [id number] 00:00:00 Test Item Value Reference Range Interpretation Comments WBC (test code = 1001) 7.0 K/UL RBC (test code = 1002) 4.65 M/UL HEMOGLOBIN (test code = 1003) 14.4 G/DL HEMATOCRIT (test code = 1004) 41.2 % MCV (test code = 1005) 88.6 fL MCH (test code = 1006) 31.0 PG MCHC (test code = 1007) 35.0 G/DL RDW (test code = 1038) 12.7 % NEUTROPHILS (test code = 1008) 53.2 % LYMPHOCYTES (test code = 1010) 37.9 % MONOCYTES (test code = 1011) 6.0 % EOSINOPHILS (test code = 1012) 2.6 % BASOPHILS (test code = 1013) 0.3 % PLATELET COUNT (test code = 1015) 351 K/UL HEMOGLOBIN [id number] 00:00:00 Test Item Value Reference Range Interpretation Comments HEMOGLOBIN A1c (test code = 39063) 5.8 % HEMOGLOBIN [id number] 00:00:00 Test Item Value Reference Range Interpretation Comments HEMOGLOBIN A1c (test code = 22800) 5.8 % HEMOGLOBIN [id number] 00:00:00 Test Item Value Reference Range Interpretation Comments HEMOGLOBIN A1c (test code = 44658) 5.8 % LIPID [id number] 00:00:00 Test Item Value Reference Range Interpretation Comments CHOLESTEROL (test code = 2210) 210 MG/DL TRIGLYCERIDES (test code = 2232) 129 MG/DL HDL CHOLESTEROL (test code = 2220) 44 MG/DL CALC LDL CHOL (test code = 2237) 140 MG/DL RISK RATIO LDL/HDL (test code = 3.19 RATIO 2238) LIPID [id number] 00:00:00 Test Item Value Reference Range Interpretation Comments CHOLESTEROL (test code = 2210) 210 MG/DL TRIGLYCERIDES (test code = 2232) 129 MG/DL HDL CHOLESTEROL (test code = 2220) 44 MG/DL CALC LDL CHOL (test code = 2237) 140 MG/DL RISK RATIO LDL/HDL (test code = 3.19 RATIO 2238) COMPREHENSIVE METABOLIC [id number] 00:00:00 Test Item Value Reference Range Interpretation Comments GLUCOSE (test code = 2217) 100 MG/DL BUN (test code = 2208) 14 MG/DL CREATININE (test code = 2214) 0.58 MG/DL eGFR AMER. (test code 163 ML/MIN/1.73 = 76011) eGFR NON- AMER. (test 141 ML/MIN/1.73 code = 34044) CALC BUN/CREAT (test code = 24 RATIO 2235) SODIUM (test code = 2231) 140 MEQ/L POTASSIUM (test code = 2228) 4.7 MEQ/L CHLORIDE (test code = 2215) 100 MEQ/L CARBON DIOXIDE (test code = 27 MEQ/L 2206) CALCIUM (test code = 2209) 9.3 MG/DL PROTEIN, TOTAL (test code = 7.1 G/DL 2228) ALBUMIN (test code = 2201) 4.2 G/DL CALC GLOBULIN (test code = 2.9 G/DL 2239) CALC A/G RATIO (test code = 1.4 RATIO 2234) BILIRUBIN, TOTAL (test code = <0.2 MG/DL 2206) ALKALINE PHOSPHATASE (test 144 U/L code = 2204) AST (test code = 2218) 26 U/L ALT (test code = 2219) 38 U/L COMPREHENSIVE METABOLIC [id number] 00:00:00 Test Item Value Reference Range Interpretation Comments GLUCOSE (test code = 2217) 100 MG/DL BUN (test code = 2208) 14 MG/DL CREATININE (test code = 2214) 0.58 MG/DL eGFR AMER. (test code 163 ML/MIN/1.73 = 19422) eGFR NON- AMER. (test 141 ML/MIN/1.73 code = 71160) CALC BUN/CREAT (test code = 24 RATIO 2235) SODIUM (test code = 2231) 140 MEQ/L POTASSIUM (test code = 2228) 4.7 MEQ/L CHLORIDE (test code = 2215) 100 MEQ/L CARBON DIOXIDE (test code = 27 MEQ/L 2206) CALCIUM (test code = 2209) 9.3 MG/DL PROTEIN, TOTAL (test code = 7.1 G/DL 222) ALBUMIN (test code = 2201) 4.2 G/DL CALC GLOBULIN (test code = 2.9 G/DL 2240) CALC A/G RATIO (test code = 1.4 RATIO 2234) BILIRUBIN, TOTAL (test code = <0.2 MG/DL 220) ALKALINE PHOSPHATASE (test 144 U/L code = 2204) AST (test code = 2218) 26 U/L ALT (test code = 2219) 38 U/L [id number] 00:00:00 Test Item Value Reference Range Interpretation Comments TSH, THIRD GENERATION (test code 5.690 UIU/ML = 2821) [id number] 00:00:00 Test Item Value Reference Range Interpretation Comments TSH, THIRD GENERATION (test code 5.690 UIU/ML = 2821) [id number] 00:00:00 Test Item Value Reference Range Interpretation Comments TSH, THIRD GENERATION (test code 5.690 UIU/ML = 2821) CBC W/AUTO [id number] 00:00:00 Test Item Value Reference Range Interpretation Comments WBC (test code = 1001) 7.0 K/UL RBC (test code = 1002) 4.65 M/UL HEMOGLOBIN (test code = 1003) 14.4 G/DL HEMATOCRIT (test code = 1004) 41.2 % MCV (test code = 1005) 88.6 fL MCH (test code = 1006) 31.0 PG MCHC (test code = 1007) 35.0 G/DL RDW (test code = 1038) 12.7 % NEUTROPHILS (test code = 1008) 53.2 % LYMPHOCYTES (test code = 1010) 37.9 % MONOCYTES (test code = 1011) 6.0 % EOSINOPHILS (test code = 1012) 2.6 % BASOPHILS (test code = 1013) 0.3 % PLATELET COUNT (test code = 1015) 351 K/UL CBC W/AUTO [id number] 00:00:00 Test Item Value Reference Range Interpretation Comments WBC (test code = 1001) 7.0 K/UL RBC (test code = 1002) 4.65 M/UL HEMOGLOBIN (test code = 1003) 14.4 G/DL HEMATOCRIT (test code = 1004) 41.2 % MCV (test code = 1005) 88.6 fL MCH (test code = 1006) 31.0 PG MCHC (test code = 1007) 35.0 G/DL RDW (test code = 1038) 12.7 % NEUTROPHILS (test code = 1008) 53.2 % LYMPHOCYTES (test code = 1010) 37.9 % MONOCYTES (test code = 1011) 6.0 % EOSINOPHILS (test code = 1012) 2.6 % BASOPHILS (test code = 1013) 0.3 % PLATELET COUNT (test code = 1015) 351 K/UL CBC W/AUTO [id number] 00:00:00 Test Item Value Reference Range Interpretation Comments WBC (test code = 1001) 7.0 K/UL RBC (test code = 1002) 4.65 M/UL HEMOGLOBIN (test code = 1003) 14.4 G/DL HEMATOCRIT (test code = 1004) 41.2 % MCV (test code = 1005) 88.6 fL MCH (test code = 1006) 31.0 PG MCHC (test code = 1007) 35.0 G/DL RDW (test code = 1038) 12.7 % NEUTROPHILS (test code = 1008) 53.2 % LYMPHOCYTES (test code = 1010) 37.9 % MONOCYTES (test code = 1011) 6.0 % EOSINOPHILS (test code = 1012) 2.6 % BASOPHILS (test code = 1013) 0.3 % PLATELET COUNT (test code = 1015) 351 K/UL HEMOGLOBIN [id number] 00:00:00 Test Item Value Reference Range Interpretation Comments HEMOGLOBIN A1c (test code = 84710) 5.8 % HEMOGLOBIN [id number] 00:00:00 Test Item Value Reference Range Interpretation Comments HEMOGLOBIN A1c (test code = 12442) 5.8 % HEMOGLOBIN [id number] 00:00:00 Test Item Value Reference Range Interpretation Comments HEMOGLOBIN A1c (test code = 94606) 5.8 % LIPID [id number] 00:00:00 Test Item Value Reference Range Interpretation Comments CHOLESTEROL (test code = 2210) 210 MG/DL TRIGLYCERIDES (test code = 2232) 129 MG/DL HDL CHOLESTEROL (test code = 2220) 44 MG/DL CALC LDL CHOL (test code = 2237) 140 MG/DL RISK RATIO LDL/HDL (test code = 3.19 RATIO 2238) LIPID [id number] 00:00:00 Test Item Value Reference Range Interpretation Comments CHOLESTEROL (test code = 2210) 210 MG/DL TRIGLYCERIDES (test code = 2232) 129 MG/DL HDL CHOLESTEROL (test code = 2220) 44 MG/DL CALC LDL CHOL (test code = 2237) 140 MG/DL RISK RATIO LDL/HDL (test code = 3.19 RATIO 2238) COMPREHENSIVE METABOLIC [id number] 00:00:00 Test Item Value Reference Range Interpretation Comments GLUCOSE (test code = 2217) 100 MG/DL BUN (test code = 2208) 14 MG/DL CREATININE (test code = 2214) 0.58 MG/DL eGFR AMER. (test code 163 ML/MIN/1.73 = 19735) eGFR NON- AMER. (test 141 ML/MIN/1.73 code = 34835) CALC BUN/CREAT (test code = 24 RATIO 2235) SODIUM (test code = 2231) 140 MEQ/L POTASSIUM (test code = 2228) 4.7 MEQ/L CHLORIDE (test code = 2215) 100 MEQ/L CARBON DIOXIDE (test code = 27 MEQ/L 2205) CALCIUM (test code = 2209) 9.3 MG/DL PROTEIN, TOTAL (test code = 7.1 G/DL 2228) ALBUMIN (test code = 2201) 4.2 G/DL CALC GLOBULIN (test code = 2.9 G/DL 2240) CALC A/G RATIO (test code = 1.4 RATIO 2234) BILIRUBIN, TOTAL (test code = <0.2 MG/DL 2206) ALKALINE PHOSPHATASE (test 144 U/L code = 2204) AST (test code = 2218) 26 U/L ALT (test code = 2219) 38 U/L COMPREHENSIVE METABOLIC [id number] 00:00:00 Test Item Value Reference Range Interpretation Comments GLUCOSE (test code = 2217) 100 MG/DL BUN (test code = 2208) 14 MG/DL CREATININE (test code = 2214) 0.58 MG/DL eGFR AMER. (test code 163 ML/MIN/1.73 = 60386) eGFR NON- AMER. (test 141 ML/MIN/1.73 code = 80536) CALC BUN/CREAT (test code = 24 RATIO 2235) SODIUM (test code = 2231) 140 MEQ/L POTASSIUM (test code = 2228) 4.7 MEQ/L CHLORIDE (test code = 2215) 100 MEQ/L CARBON DIOXIDE (test code = 27 MEQ/L 2206) CALCIUM (test code = 2209) 9.3 MG/DL PROTEIN, TOTAL (test code = 7.1 G/DL 2228) ALBUMIN (test code = 2201) 4.2 G/DL CALC GLOBULIN (test code = 2.9 G/DL 2240) CALC A/G RATIO (test code = 1.4 RATIO 2234) BILIRUBIN, TOTAL (test code = <0.2 MG/DL 2206) ALKALINE PHOSPHATASE (test 144 U/L code = 2204) AST (test code = 2218) 26 U/L ALT (test code = 2219) 38 U/L [id number] 00:00:00 Test Item Value Reference Range Interpretation Comments TSH, THIRD GENERATION (test code 5.690 UIU/ML = 2821) [id number] 00:00:00 Test Item Value Reference Range Interpretation Comments TSH, THIRD GENERATION (test code 5.690 UIU/ML = 2821) [id number] 00:00:00 Test Item Value Reference Range Interpretation Comments TSH, THIRD GENERATION (test code 5.690 UIU/ML = 2821) COMPREHENSIVE METABOLIC [id number] 00:00:00 Test Item Value Reference Range Interpretation Comments GLUCOSE (test code = 2217) 111 MG/DL BUN (test code = 2208) 17 MG/DL CREATININE (test code = 2214) 0.65 MG/DL eGFR AMER. (test code 158 ML/MIN/1.73 = 55325) eGFR NON- AMER. (test 136 ML/MIN/1.73 code = 23645) CALC BUN/CREAT (test code = 26 RATIO 2235) SODIUM (test code = 2231) 142 MEQ/L POTASSIUM (test code = 2228) 4.6 MEQ/L CHLORIDE (test code = 2215) 102 MEQ/L CARBON DIOXIDE (test code = 25 MEQ/L 220) CALCIUM (test code = 2209) 9.6 MG/DL PROTEIN, TOTAL (test code = 6.8 G/DL 2228) ALBUMIN (test code = 2201) 3.9 G/DL CALC GLOBULIN (test code = 2.9 G/DL 2240) CALC A/G RATIO (test code = 1.3 RATIO 2234) BILIRUBIN, TOTAL (test code = 0.1 MG/DL 2206) ALKALINE PHOSPHATASE (test 120 U/L code = 2204) AST (test code = 2218) 21 U/L ALT (test code = 2219) 24 U/L COMPREHENSIVE METABOLIC [id number] 00:00:00 Test Item Value Reference Range Interpretation Comments GLUCOSE (test code = 2217) 111 MG/DL BUN (test code = 2208) 17 MG/DL CREATININE (test code = 2214) 0.65 MG/DL eGFR AMER. (test code 158 ML/MIN/1.73 = 44693) eGFR NON- AMER. (test 136 ML/MIN/1.73 code = 44844) CALC BUN/CREAT (test code = 26 RATIO 2235) SODIUM (test code = 2231) 142 MEQ/L POTASSIUM (test code = 2228) 4.6 MEQ/L CHLORIDE (test code = 2215) 102 MEQ/L CARBON DIOXIDE (test code = 25 MEQ/L 2206) CALCIUM (test code = 2209) 9.6 MG/DL PROTEIN, TOTAL (test code = 6.8 G/DL 222) ALBUMIN (test code = 2201) 3.9 G/DL CALC GLOBULIN (test code = 2.9 G/DL 2240) CALC A/G RATIO (test code = 1.3 RATIO 2234) BILIRUBIN, TOTAL (test code = 0.1 MG/DL 2207) ALKALINE PHOSPHATASE (test 120 U/L code = 2204) AST (test code = 2218) 21 U/L ALT (test code = 2219) 24 U/L LIPID [id number] 00:00:00 Test Item Value Reference Range Interpretation Comments CHOLESTEROL (test code = 2210) 220 MG/DL TRIGLYCERIDES (test code = 2232) 190 MG/DL HDL CHOLESTEROL (test code = 2220) 39 MG/DL CALC LDL CHOL (test code = 2237) 143 MG/DL RISK RATIO LDL/HDL (test code = 3.67 RATIO 2238) LIPID [id number] 00:00:00 Test Item Value Reference Range Interpretation Comments CHOLESTEROL (test code = 2210) 220 MG/DL TRIGLYCERIDES (test code = 2232) 190 MG/DL HDL CHOLESTEROL (test code = 2220) 39 MG/DL CALC LDL CHOL (test code = 2237) 143 MG/DL RISK RATIO LDL/HDL (test code = 3.67 RATIO 2238) CBC W/AUTO [id number] 00:00:00 Test Item Value Reference Range Interpretation Comments WBC (test code = 1001) 6.4 K/UL RBC (test code = 1002) 4.64 M/UL HEMOGLOBIN (test code = 1003) 14.0 G/DL HEMATOCRIT (test code = 1004) 41.6 % MCV (test code = 1005) 89.7 fL MCH (test code = 1006) 30.2 PG MCHC (test code = 1007) 33.7 G/DL RDW (test code = 1038) 12.4 % NEUTROPHILS (test code = 1008) 51.4 % LYMPHOCYTES (test code = 1010) 40.2 % MONOCYTES (test code = 1011) 6.5 % EOSINOPHILS (test code = 1012) 1.6 % BASOPHILS (test code = 1013) 0.3 % PLATELET COUNT (test code = 1015) 415 K/UL CBC W/AUTO [id number] 00:00:00 Test Item Value Reference Range Interpretation Comments WBC (test code = 1001) 6.4 K/UL RBC (test code = 1002) 4.64 M/UL HEMOGLOBIN (test code = 1003) 14.0 G/DL HEMATOCRIT (test code = 1004) 41.6 % MCV (test code = 1005) 89.7 fL MCH (test code = 1006) 30.2 PG MCHC (test code = 1007) 33.7 G/DL RDW (test code = 1038) 12.4 % NEUTROPHILS (test code = 1008) 51.4 % LYMPHOCYTES (test code = 1010) 40.2 % MONOCYTES (test code = 1011) 6.5 % EOSINOPHILS (test code = 1012) 1.6 % BASOPHILS (test code = 1013) 0.3 % PLATELET COUNT (test code = 1015) 415 K/UL CBC W/AUTO [id number] 00:00:00 Test Item Value Reference Range Interpretation Comments WBC (test code = 1001) 6.4 K/UL RBC (test code = 1002) 4.64 M/UL HEMOGLOBIN (test code = 1003) 14.0 G/DL HEMATOCRIT (test code = 1004) 41.6 % MCV (test code = 1005) 89.7 fL MCH (test code = 1006) 30.2 PG MCHC (test code = 1007) 33.7 G/DL RDW (test code = 1038) 12.4 % NEUTROPHILS (test code = 1008) 51.4 % LYMPHOCYTES (test code = 1010) 40.2 % MONOCYTES (test code = 1011) 6.5 % EOSINOPHILS (test code = 1012) 1.6 % BASOPHILS (test code = 1013) 0.3 % PLATELET COUNT (test code = 1015) 415 K/UL HEMOGLOBIN [id number] 00:00:00 Test Item Value Reference Range Interpretation Comments HEMOGLOBIN A1c (test code = 70443) 5.5 % HEMOGLOBIN [id number] 00:00:00 Test Item Value Reference Range Interpretation Comments HEMOGLOBIN A1c (test code = 80223) 5.5 % HEMOGLOBIN [id number] 00:00:00 Test Item Value Reference Range Interpretation Comments HEMOGLOBIN A1c (test code = 17376) 5.5 % [id number] 00:00:00 Test Item Value Reference Range Interpretation Comments TSH (test code = 2821) 4.260 UIU/ML [id number] 00:00:00 Test Item Value Reference Range Interpretation Comments TSH (test code = 2821) 4.260 UIU/ML [id number] 00:00:00 Test Item Value Reference Range Interpretation Comments TSH (test code = 2821) 4.260 UIU/ML COMPREHENSIVE METABOLIC [id number] 00:00:00 Test Item Value Reference Range Interpretation Comments GLUCOSE (test code = 2217) 111 MG/DL BUN (test code = 2208) 17 MG/DL CREATININE (test code = 2214) 0.65 MG/DL eGFR AMER. (test code 158 ML/MIN/1.73 = 62474) eGFR NON- AMER. (test 136 ML/MIN/1.73 code = 87059) CALC BUN/CREAT (test code = 26 RATIO 2235) SODIUM (test code = 2231) 142 MEQ/L POTASSIUM (test code = 2228) 4.6 MEQ/L CHLORIDE (test code = 2215) 102 MEQ/L CARBON DIOXIDE (test code = 25 MEQ/L 2205) CALCIUM (test code = 2209) 9.6 MG/DL PROTEIN, TOTAL (test code = 6.8 G/DL 2228) ALBUMIN (test code = 2201) 3.9 G/DL CALC GLOBULIN (test code = 2.9 G/DL 0) CALC A/G RATIO (test code = 1.3 RATIO 4) BILIRUBIN, TOTAL (test code = 0.1 MG/DL 2206) ALKALINE PHOSPHATASE (test 120 U/L code = 2204) AST (test code = 2218) 21 U/L ALT (test code = 2219) 24 U/L COMPREHENSIVE METABOLIC [id number] 00:00:00 Test Item Value Reference Range Interpretation Comments GLUCOSE (test code = 2217) 111 MG/DL BUN (test code = 2208) 17 MG/DL CREATININE (test code = 2214) 0.65 MG/DL eGFR AMER. (test code 158 ML/MIN/1.73 = 51192) eGFR NON- AMER. (test 136 ML/MIN/1.73 code = 89539) CALC BUN/CREAT (test code = 26 RATIO 2235) SODIUM (test code = 2231) 142 MEQ/L POTASSIUM (test code = 2228) 4.6 MEQ/L CHLORIDE (test code = 2215) 102 MEQ/L CARBON DIOXIDE (test code = 25 MEQ/L 2205) CALCIUM (test code = 2209) 9.6 MG/DL PROTEIN, TOTAL (test code = 6.8 G/DL 2228) ALBUMIN (test code = 2201) 3.9 G/DL CALC GLOBULIN (test code = 2.9 G/DL 2240) CALC A/G RATIO (test code = 1.3 RATIO 2234) BILIRUBIN, TOTAL (test code = 0.1 MG/DL 2206) ALKALINE PHOSPHATASE (test 120 U/L code = 2204) AST (test code = 2218) 21 U/L ALT (test code = 2219) 24 U/L LIPID [id number] 00:00:00 Test Item Value Reference Range Interpretation Comments CHOLESTEROL (test code = 2210) 220 MG/DL TRIGLYCERIDES (test code = 2232) 190 MG/DL HDL CHOLESTEROL (test code = 2220) 39 MG/DL CALC LDL CHOL (test code = 2237) 143 MG/DL RISK RATIO LDL/HDL (test code = 3.67 RATIO 2238) LIPID [id number] 00:00:00 Test Item Value Reference Range Interpretation Comments CHOLESTEROL (test code = 2210) 220 MG/DL TRIGLYCERIDES (test code = 2232) 190 MG/DL HDL CHOLESTEROL (test code = 2220) 39 MG/DL CALC LDL CHOL (test code = 2237) 143 MG/DL RISK RATIO LDL/HDL (test code = 3.67 RATIO 2238) CBC W/AUTO [id number] 00:00:00 Test Item Value Reference Range Interpretation Comments WBC (test code = 1001) 6.4 K/UL RBC (test code = 1002) 4.64 M/UL HEMOGLOBIN (test code = 1003) 14.0 G/DL HEMATOCRIT (test code = 1004) 41.6 % MCV (test code = 1005) 89.7 fL MCH (test code = 1006) 30.2 PG MCHC (test code = 1007) 33.7 G/DL RDW (test code = 1038) 12.4 % NEUTROPHILS (test code = 1008) 51.4 % LYMPHOCYTES (test code = 1010) 40.2 % MONOCYTES (test code = 1011) 6.5 % EOSINOPHILS (test code = 1012) 1.6 % BASOPHILS (test code = 1013) 0.3 % PLATELET COUNT (test code = 1015) 415 K/UL CBC W/AUTO [id number] 00:00:00 Test Item Value Reference Range Interpretation Comments WBC (test code = 1001) 6.4 K/UL RBC (test code = 1002) 4.64 M/UL HEMOGLOBIN (test code = 1003) 14.0 G/DL HEMATOCRIT (test code = 1004) 41.6 % MCV (test code = 1005) 89.7 fL MCH (test code = 1006) 30.2 PG MCHC (test code = 1007) 33.7 G/DL RDW (test code = 1038) 12.4 % NEUTROPHILS (test code = 1008) 51.4 % LYMPHOCYTES (test code = 1010) 40.2 % MONOCYTES (test code = 1011) 6.5 % EOSINOPHILS (test code = 1012) 1.6 % BASOPHILS (test code = 1013) 0.3 % PLATELET COUNT (test code = 1015) 415 K/UL CBC W/AUTO [id number] 00:00:00 Test Item Value Reference Range Interpretation Comments WBC (test code = 1001) 6.4 K/UL RBC (test code = 1002) 4.64 M/UL HEMOGLOBIN (test code = 1003) 14.0 G/DL HEMATOCRIT (test code = 1004) 41.6 % MCV (test code = 1005) 89.7 fL MCH (test code = 1006) 30.2 PG MCHC (test code = 1007) 33.7 G/DL RDW (test code = 1038) 12.4 % NEUTROPHILS (test code = 1008) 51.4 % LYMPHOCYTES (test code = 1010) 40.2 % MONOCYTES (test code = 1011) 6.5 % EOSINOPHILS (test code = 1012) 1.6 % BASOPHILS (test code = 1013) 0.3 % PLATELET COUNT (test code = 1015) 415 K/UL HEMOGLOBIN [id number] 00:00:00 Test Item Value Reference Range Interpretation Comments HEMOGLOBIN A1c (test code = 10977) 5.5 % HEMOGLOBIN [id number] 00:00:00 Test Item Value Reference Range Interpretation Comments HEMOGLOBIN A1c (test code = 52108) 5.5 % HEMOGLOBIN [id number] 00:00:00 Test Item Value Reference Range Interpretation Comments HEMOGLOBIN A1c (test code = 85517) 5.5 % [id number] 00:00:00 Test Item Value Reference Range Interpretation Comments TSH (test code = 2821) 4.260 UIU/ML [id number] 00:00:00 Test Item Value Reference Range Interpretation Comments TSH (test code = 2821) 4.260 UIU/ML [id number] 00:00:00 Test Item Value Reference Range Interpretation Comments TSH (test code = 2821) 4.260 UIU/ML
--- NOTE | 2022-09-14 18:46 | ER ---
Nurse's Notes [facility] Name: Adam Boyce Age: 26 yrs Sex: Male : 1995 Arrival Date: 09/14/2022 Time: 18:12 Bed 25 Private MD: Diagnosis: Cellulitis of other sites Presentation: 09/14 18:16 Chief complaint: EMS states: toned out to PT home for bilateral lower leg swelling. tp1 wound noted to the left lower leg with clear drainage. FBS 89. Coronavirus screen: Vaccine status: Patient reports receiving the 1st dose of the Covid vaccine. Ebola Screen: Patient denies exposure to infectious person. Patient denies travel to an Ebola-affected area in the 21 days before illness onset. Initial Sepsis Screen: Does the patient meet any 2 criteria? No. Patient's initial sepsis screen is negative. Does the patient have a suspected source of infection? No. Patient's initial sepsis screen is negative. Risk Assessment: Do you want to hurt yourself or someone else? Patient reports no desire to harm self or others. Onset of symptoms was September 14, 2022. 18:16 Method Of Arrival: EMS: [facility] tp1 18:16 Acuity: KONG 3 tp1 Triage Assessment: 18:18 General: Appears in no apparent distress. comfortable, Behavior is calm, cooperative, tp1 asking for dinner . Pain: Complains of pain in bilateral lower legs Pain does not radiate. Pain currently is 10 out of 10 on a pain scale. Quality of pain is described as sharp, Is intermittent, Aggravated by weight bearing. EENT: No deficits noted. Neuro: Fuller Agitation-Sedation Scale (RASS): 0 - Alert and Calm Level of Consciousness is awake, alert, obeys commands, Oriented to person, place, time, situation. Cardiovascular: Patient's skin is warm and dry. Respiratory: Airway is patent Respiratory effort is even, unlabored. GI: Abdomen is obese, Patient currently denies diarrhea, nausea, vomiting. : No signs and/or symptoms were reported regarding the genitourinary system. Derm: Skin is pink, warm \T\ dry. Derm: Wound noted lateral aspect of left calf Wound is wound bed is pink, clear drainage noted. Musculoskeletal: Circulation, motion, and sensation intact. Swelling present in bilateral lower extremities. Historical: - Allergies: 18:18 Sulfa (Sulfonamide Antibiotics); tp1 18:18 cayenne pepper; tp1 - Home Meds: 18:18 metformin 500 mg Oral tab daily [Active]; levothyroxine oral [Active]; atorvastatin tp1 oral [Active]; sertraline oral [Active]; - PMHx: 18:18 Bipolar disorder; Depression; Diabetes - NIDDM; High Cholesterol; Hypothyroidism; tp1 recovering addict (ETOH/narcotic); Sleep Apnea; arthritis; anxiety; - Immunization history:: Client reports receiving the 1st dose of the Covid vaccine. - Social history:: Smoking status: Patient reports use of chewing tobacco. Screenin:55 Abuse screen: Denies threats or abuse. Denies injuries from another. Nutritional tp1 screening: No deficits noted. Tuberculosis screening: No symptoms or risk factors identified. Fall Risk None identified. Assessment: 18:54 Reassessment: spoke with emergency contact Jaswant to arrange transportation. tp1 18:54 Reassessment: discharge pending transportation. tp1 Vital Signs: 18:16 BP 118 / 60; Pulse 111; Resp 16; Temp 98.0; Pulse Ox 98% on R/A; Weight 145.15 kg; tp1 Height 5 ft. 2 in. (157.48 cm); 18:16 Body Mass Index 58.53 (145.15 kg, 157.48 cm) tp1 ED Course: 18:12 Patient arrived in ED. tp1 18:13 [facility]. jl9 18:13 Leonidas Ruano MD is Attending Physician. jl9 18:16 Lachelle Snider, RN is Primary Nurse. tp1 18:18 Triage completed. tp1 18:18 Arm band placed on. tp1 18:18 Patient has correct armband on for positive identification. Bed in low position. Call tp1 light in reach. Side rails up X2. 18:55 No provider procedures requiring assistance completed. Patient did not have IV access tp1 during this emergency room visit. Administered Medications: No medications were administered Medication: 19:10 VIS not applicable for this client. tp1 Outcome: 18:45 Discharge ordered by . jl9 19:10 Discharged to home ambulatory. tp1 19:10 Condition: good 19:10 Discharge instructions given to patient, Instructed on discharge instructions, follow up and referral plans. medication usage, Demonstrated understanding of instructions, follow-up care, medications, Prescriptions given X 1. 19:11 Patient left the ED. tp1 Signatures: Lachelle Snider RN RN tp1 Jean-Paul Williamson jl9 Corrections: (The following items were deleted from the chart) 18:58 18:18 Musculoskeletal: Circulation, motion, and sensation intact. tp1 tp1
--- NOTE | 2022-09-14 18:46 | EDPHYS ---
Physician Documentation [facility] Name: Adam Boyce Age: 26 yrs Sex: Male : 1995 Arrival Date: 09/14/2022 Time: 18:12 Bed 25 Private MD: ED Physician Leonidas Ruano HPI: 09/14 18:33 This 26 yrs old Male presents to ER via EMS with complaints of left leg wound jl9 x3 weeks. Patient reportedly being treated for cellulitis but just finished his antibiotics. . 18:33 Onset: The symptoms/episode began/occurred 3 week(s) ago. Severity of symptoms: Pain is jl9 currently a 2 / 10. The patient has experienced a previous episode. Historical: - Allergies: 18:18 Sulfa (Sulfonamide Antibiotics); tp1 18:18 cayenne pepper; tp1 - Home Meds: 18:18 metformin 500 mg Oral tab daily [Active]; levothyroxine oral [Active]; atorvastatin tp1 oral [Active]; sertraline oral [Active]; - PMHx: 18:18 Bipolar disorder; Depression; Diabetes - NIDDM; High Cholesterol; Hypothyroidism; tp1 recovering addict (ETOH/narcotic); Sleep Apnea; arthritis; anxiety; - Immunization history:: Client reports receiving the 1st dose of the Covid vaccine. - Social history:: Smoking status: Patient reports use of chewing tobacco. ROS: 18:34 Constitutional: Negative for fever, chills, and weight loss, Eyes: Negative for injury, jl9 pain, redness, and discharge, ENT: Negative for injury, pain, and discharge, Neck: Negative for injury, pain, and swelling, Cardiovascular: Negative for chest pain, palpitations, and edema, Respiratory: Negative for shortness of breath, cough, wheezing, and pleuritic chest pain, Abdomen/GI: Negative for abdominal pain, nausea, vomiting, diarrhea, and constipation, Back: Negative for injury and pain, : Negative for injury, bleeding, discharge, and swelling. 18:34 Neuro: Negative for headache, weakness, numbness, tingling, and seizure, Psych: Negative for depression, anxiety, suicide ideation, homicidal ideation, and hallucinations, Allergy/Immunology: Negative for hives, rash, and allergies, Endocrine: Negative for neck swelling, polydipsia, polyuria, polyphagia, and marked weight changes, Hematologic/Lymphatic: Negative for swollen nodes, abnormal bleeding, and unusual bruising. 18:34 MS/extremity: Positive for erythema, pain, of the left leg. 18:34 Skin: Positive for erythema. Exam: 18:34 Constitutional: This is a well developed, well nourished patient who is awake, alert, jl9 and in no acute distress. Head/Face: Normocephalic, atraumatic. Eyes: Pupils equal round and reactive to light, extra-ocular motions intact. Lids and lashes normal. Conjunctiva and sclera are non-icteric and not injected. Cornea within normal limits. Periorbital areas with no swelling, redness, or edema. ENT: Mucous membranes moist. Neck: Trachea midline, no thyromegaly or masses palpated, and no cervical lymphadenopathy. Supple, full range of motion without nuchal rigidity, or vertebral point tenderness. No Meningismus. Chest/axilla: Normal chest wall appearance and motion. Nontender with no deformity. No lesions are appreciated. Cardiovascular: Regular rate and rhythm with a normal S1 and S2. No gallops, murmurs, or rubs. Normal PMI, no JVD. No pulse deficits. Respiratory: Lungs have equal breath sounds bilaterally, clear to auscultation and percussion. No rales, rhonchi or wheezes noted. No increased work of breathing, no retractions or nasal flaring. Abdomen/GI: Soft, non-tender, with normal bowel sounds. No distension or tympany. No guarding or rebound. No evidence of tenderness throughout. Back: No spinal tenderness. No costovertebral tenderness. Full range of motion. 18:34 MS/ Extremity: Pulses equal, no cyanosis. Neurovascular intact. Full, normal range of motion. Neuro: Awake and alert, GCS 15, oriented to person, place, time, and situation. Cranial nerves II-XII grossly intact. Motor strength 5/5 in all extremities. Sensory grossly intact. Cerebellar exam normal. Normal gait. Psych: Awake, alert, with orientation to person, place and time. Behavior, mood, and affect are within normal limits. 18:34 Skin: Appearance: abscess, cellulitis, that is minimal, 2x2cm healing wound to anterior left leg. . Vital Signs: 18:16 BP 118 / 60; Pulse 111; Resp 16; Temp 98.0; Pulse Ox 98% on R/A; Weight 145.15 kg; tp1 Height 5 ft. 2 in. (157.48 cm); 18:16 Body Mass Index 58.53 (145.15 kg, 157.48 cm) tp1 MDM: 18:13 Patient medically screened. jl9 18:35 Data reviewed: vital signs, nurses notes. Counseling: I had a detailed discussion with jl9 the patient and/or guardian regarding: the historical points, exam findings, and any diagnostic results supporting the discharge/admit diagnosis, the need for outpatient follow up, to return to the emergency department if symptoms worsen or persist or if there are any questions or concerns that arise at home. Administered Medications: No medications were administered Disposition Summary: 09/14/22 18:45 Discharge Ordered Location: Home jl9 Condition: Stable jl9 Diagnosis - Cellulitis of other sites jl9 Followup: jl9 - With: Private Physician - When: 1 - 2 days - Reason: Recheck today's complaints, Continuance of care, Re-evaluation by your physician Discharge Instructions: - Discharge Summary Sheet jl9 Forms: - Medication Reconciliation Form jl9 - Thank You Letter jl9 - Antibiotic Education jl9 - Prescription Opioid Use jl9 Prescriptions: - Clindamycin HCl 300 mg Oral Capsule - take 1 capsule by ORAL route every 6 hours for 10 days; 40 capsule; Refills: 0, jl9 Product Selection Permitted Addendum: 09/17/2022 07:03 Co-signature as Attending Physician, Leonidas Ruano MD. r n Signatures: Leonidas Ruano MD MD rn Parker, Tiffany, RN RN tp1 Jean-Paul Williamson jl9 Corrections: (The following items were deleted from the chart) 09/14 18:45 18:33 This 26 yrs old Male presents to ER via EMS with complaints of left leg jl9 wound x3 weeks. Pateint reportedly being treated for cellulitis but just finished his antibiotics. . jl9
[2022-09-14 20:53] VITALS: BP 118/60; TEMP 98; O2SAT 98
== END 2022-09-14 19:11 | disposition home or self-care (01) ==
LOC: ER 18:08
DX: L03.116 Cellulitis of left lower limb (principal)
CPT/HCPCS: 99283

== ENCOUNTER 2022-09-21 18:38 | Inpatient (IN) | payer OTHER ==
--- OUTSIDE RECORDS SUMMARY | 2022-09-21 18:50 | XMS REPORT | Continuity of Care Document ---
:1995 Author Organization [facility] t Address [address] [place] [address] Care Team Providers Name Role Phone Lucian Valenzuela Primary Care Physician [phone] CARLOS_Reggie Attending Clinician Unavailable Yeison Nuno Attending Clinician [phone] CARLOS_Reggie Admitting Clinician Unavailable Payers Payer Name Policy Type Policy Number Effective Date Expiration Date [facility] [id number] 2020 [facility] 00:00:00 (MEDICAID HMO) Problems This patient has no known problems. Allergies, Adverse Reactions, Alerts Allergy Allergy Status Severity Reaction(s) Onset Inactive Treating Comm ents Source Name Type Date Date Clinician Mesna - Propensi Active Intraven ty to 6-30 ous adverse 00:00: reaction 00 to drug Sulfa Propensi Active (Sulfona ty to 2-27 mide adverse 00:00: Antibiot reaction 00 ics) to drug SULFA Allergy Active (SULFONA to Communi MIDE substanc ty [facility] l Clinics Social History Smoking Status Start Date Stop Date Source Heavy Tobacco Smoker [place] [facility] Medications Ordered Filled Start Stop Current Ordering Indication Dosage Frequency Signature Comments Components Source Medication Medication Date Date Medication? Clinician (SIG) Name Name TAKE No TABLET BY 8-29 MOUTH EVERY 00:00: DAY 00 TAKE No TABLET BY 8-29 MOUTH EVERY 00:00: DAY 00 TAKE No TABLET BY 8-29 MOUTH EVERY 00:00: DAY 00 levothyroxi No 1mcg ne 75 mcg 5-26 tablet 00:00: 00 levothyroxi 2022-0 No 1mcg ne 75 mcg 5-26 tablet 00:00: 00 levothyroxi 2022-0 No 1mcg ne 75 mcg 5-26 tablet 00:00: 00 Dose 2022-0 No Unknown 3-04 [...] 2022-0 No Unknown 3-04 00:00: 00 Dose 2-0 No Unknown 3-04 00:00: 00 Dose 2022-0 [...] 50 mg 1-29 tablet 00:00: 00 Dose 2021-0 No Unknown 9- 00:00: 00 Dose 2021-0 No Unknown 9- 00:00: 00 Dose 2021-0 No Unknown 9- 00:00: 00 Dose 2019-1 No Unknown 0-23 00:00: 00 Dose 2019-1 No Unknown 0-23 00:00: 00 Dose 2019-1 No Unknown 0-23 00:00: 00 Dose 2019-1 No Unknown 0-23 00:00: 00 Dose 2019-1 No Unknown 0-23 00:00: 00 Dose 2020-1 No Unknown 0-23 00:00: 00 Dose 2020-1 No Unknown 0-23 00:00: 00 Dose 2020-1 No Unknown 0-23 00:00: 00 Dose 2020-1 No Unknown 0-23 00:00: 00 Dose 2020-1 No Unknown 0-23 00:00: 00 Dose 2020-1 No Unknown 0-23 00:00: 00 Dose 2020-1 No Unknown 0-23 00:00: 00 Dose 2020-1 No Unknown 0-23 00:00: 00 Dose 2020-1 No Unknown 0-23 00:00: 00 Dose 2020-1 No Unknown 0-23 00:00: 00 hydroxyzine 2020-1 No 1mg pamoate 25 0-20 mg capsule 00:00: 00 hydroxyzine 2020-1 No 1mg pamoate 25 0-20 mg capsule 00:00: 00 hydroxyzine 2020-1 No 1mg pamoate 25 0-20 mg capsule [...] 10 mg 8-11 tablet 00:00: 00 hydroxyzine 2020-0 No [...] 500 mg 1-06 tablet 00:00: 00 atorvastati 2020-0 No 1mg n 10 mg 1-06 tablet 00:00: 00 levothyroxi 2020-0 No 1mcg ne 75 mcg 1-06 tablet 00:00: 00 metformin 2020-0 No 1mg 500 mg 1-06 tablet 00:00: 00 atorvastati 2020-0 No 1mg n 10 mg 1-06 tablet 00:00: 00 levothyroxi 2020-0 No 1mcg ne 75 mcg 1-06 tablet 00:00: 00 metformin 2020-0 No 1mg 500 mg 1-06 tablet 00:00: 00 atorvastati 2020-0 No 1mg n 10 mg 1-06 tablet 00:00: 00 levothyroxi 2020-0 No 1mcg ne 75 mcg 1-06 tablet 00:00: 00 triamcinolo 2019-1 No 1% ne 2-10 acetonide 00:00: 0.1 % 00 topical cream prednisone 2019-1 No 1mg 20 mg 2-10 tablet 00:00: 00 lisinopril 2019-1 No 1mg 20 2-10 mg-hydrochl 00:00: orothiazide 00 25 mg tablet doxycycline 2019-1 No 1mg monohydrate 2-10 100 mg 00:00: capsule 00 triamcinolo 2019-1 No 1% ne 2-10 acetonide 00:00: 0.1 % 00 topical cream prednisone 2019-1 No 1mg 20 mg 2-10 tablet 00:00: 00 lisinopril 2019-1 No 1mg 20 2-10 mg-hydrochl 00:00: orothiazide 00 25 mg tablet doxycycline 2019-1 No 1mg monohydrate 2-10 100 mg 00:00: capsule 00 triamcinolo 2019-1 No 1% ne 2-10 acetonide 00:00: 0.1 % 00 topical cream prednisone 2018- No 1mg 20 mg 2-10 tablet 00:00: 00 lisinopril 2018- No 1mg 20 2-10 mg-hydrochl 00:00: orothiazide 00 25 mg tablet doxycycline 2018- No 1mg monohydrate 2-10 100 mg 00:00: capsule 00 Medrol 2018- No mg (Dave) 4 mg 1-21 tablets in 00:00: a dose pack 00 ProAir HFA 2018-11 No 2mcg/ac 90 1-21 tuation mcg/actuati 00:00: on aerosol 00 inhaler Medrol 2018- No mg (Dave) 4 mg 1-21 tablets in 00:00: a dose pack 00 ProAir HFA 2018-11 No 2mcg/ac 90 1-21 tuation mcg/actuati 00:00: on aerosol 00 inhaler Medrol 2018- No mg (Dave) 4 mg 1-21 tablets [...] 75 mcg 0-30 tablet 00:00: 00 levothyroxi 2018- No 1mcg ne 75 mcg 0-30 tablet 00:00: 00 levothyroxi 2018- No 1mcg ne 75 mcg 0-30 tablet 00:00: 00 metformin 2018-1 No 1mg 500 mg 0-29 tablet 00:00: 00 metformin 2018-1 No 1mg 500 mg 0-29 tablet 00:00: 00 metformin 2019-1 No 1mg 500 mg 0-29 tablet 00:00: 00 levothyroxi 2018-0 No 1mcg ne 25 mcg 7-24 tablet 00:00: 00 levothyroxi 2018-0 No 1mcg ne 25 mcg 7-24 tablet 00:00: 00 levothyroxi 2018-0 No 1mcg ne 25 mcg 7-24 tablet 00:00: 00 aripiprazol aripiprazol No aripiprazo [place] e 10 mg e 10 mg le 10 mg Commu ni tablet tablet tablet [facility] aripiprazol aripiprazol No aripiprazo [place] e 2 mg e 2 mg le 2 mg Communi tablet tablet tablet [facility] atorvastati atorvastati No atorvastat [place] n 10 mg n 10 mg in 10 mg Commu ni tablet tablet tablet [facility] atorvastati atorvastati No atorvastat [place] n 20 mg n 20 mg in 20 mg Commu ni tablet tablet tablet [facility] hydroxyzine hydroxyzine No hydroxyzin [place] pamoate 25 pamoate 25 e pamoate Communi mg capsule mg capsule 25 mg ty [facility] ibuprofen ibuprofen No ibuprofen [place] 800 mg 800 mg 800 mg Communi tablet tablet tablet [facility] levothyroxi levothyroxi No levothyrox [place] ne 75 mcg ne 75 mcg ine 75 mcg Communi tablet tablet tablet [facility] metformin metformin No metformin [place] 500 mg 500 mg 500 mg Communi tablet tablet tablet [facility] metformin metformin No metformin [place] 850 mg 850 mg 850 mg Communi tablet tablet tablet [facility] nicotine 14 nicotine 14 No nicotine [place] mg/24 hr mg/24 hr 14 mg/24 Com merissa daily daily hr daily ty transdermal transdermal transderma [facility] patch patch patch [facility] sertraline sertraline No sertraline [place] 50 mg 50 mg 50 mg Communi tablet tablet tablet [facility] trazodone trazodone No trazodone [place] 50 mg 50 mg 50 mg Communi tablet tablet tablet [facility] Immunizations Ordered Immunization Filled Immunization Date Status Commen ts Source Name Name Kerri COVID-19 2021-12-09 Completed Vaccine 00:00:00 Kranthia COVID-19 2021-12-09 Completed Vaccine 00:00:00 Kranthia COVID-19 2021-12-09 Completed Vaccine 00:00:00 Vital Signs Vital Name Observation Time Observation Value Comments Source BP Diastolic 2021-05-15 00:00:00 74 mm[Hg] [facility] Height 2021-05-15 00:00:00 59 [in_i] [facility] BMI (Body Mass 2021-05-15 00:00:00 59.8 kg/m2 [facility] s BP Systolic 2021-05-15 00:00:00 122 mm[Hg] [facility] Body Weight 2021-05-15 00:00:00 4736 [oz_av] [facility] BP Systolic 2022-09-15 14:41:00 138 mm[Hg] BP Diastolic 2022-09-15 14:41:00 83 mm[Hg] Weight Measured 2022-09-15 14:41:00 132.20 pounds Height Measured 2022-09-15 14:41:00 60.00 inches Body Temperature 2022-09-15 14:41:00 98.20 degrees Heart Rate 2022-09-15 14:41:00 113.00 /min Respiratory Rate 2022-09-15 14:41:00 BP Systolic 2022-08-13 15:57:00 149 mm[Hg] BP [...] Goal Plan of Care Note [code = 94569-1] Goal Plan of Care Note [code = 91886-6] Goal Plan of Care Note [code = 56650-1] Goal Plan of Care Note [code = 07238-0] Goal Plan of Care Note [code = 53728-4] Goal Plan of Care Note [code = 61925-8] Goal Plan of Care Note [code = 48160-8] Goal Plan of Care Note [code = 92955-6] Goal Plan of Care Note [code = 14017-3] Goal Plan of Care Note [code = 15832-7] Goal Plan of Care Note [code = 32052-8] Goal Plan of Care Note [code = 71331-5] Goal Plan of Care Note [code = 20437-5] Goal Plan of Care Note [code = 68847-0] Goal Plan of Care Note [code = 81872-8] Goal Plan of Care Note [code = 49100-9] Goal Plan of Care Note [code = 55717-6] Goal Plan of Care Note [code = 17194-0] Goal Plan of Care Note [code = 51714-4] Goal Plan of Care Note [code = 60585-6] Goal Plan of Care Note [code = 05245-2] Goal Plan of Care Note [code = 36507-1] Goal Plan of Care Note [code = 74627-5] Goal Plan of Care Note [code = 93990-5] Goal Plan of Care Note [code = 88884-7] Goal Plan of Care Note [code = 46898-4] Goal Plan of Care Note [code = 49420-5] Goal Plan of Care Note [code = 75099-7] Goal Plan of Care Note [code = 68403-4] Goal Plan of Care Note [code = 82332-0] Goal Plan of Care Note [code = 51645-6] Goal Plan of Care Note [code = 22386-7] Goal Plan of Care Note [code = 74994-5] Goal Plan of Care Note [code = 87919-4] Goal Plan of Care Note [code = 46009-5] Goal Plan of Care Note [code = 71311-1] Goal Plan of Care Note [code = 21117-2] Goal Plan of Care Note [code = 22243-0] Goal Plan of Care Note [code = 50523-5] Goal Plan of Care Note [code = 98490-1] Goal Plan of Care Note [code = 59035-9] Goal Plan of Care Note [code = 06590-4] Goal Plan of Care Note [code = 08813-1] Goal Plan of Care Note [code = 05352-4] Goal Plan of Care Note [code = 28313-6] Goal Plan of Care Note [code = 67390-2] Goal Plan of Care Note [code = 96627-0] Goal Plan of Care Note [code = 44206-7] Goal Plan of Care Note [code = 86510-3] Goal Plan of Care Note [code = 46945-7] Goal Plan of Care Note [code = 21281-9] Goal Plan of Care Note [code = 01702-7] Goal Plan of Care Note [code = 68759-3] Goal Plan of Care Note [code = 83817-1] Goal Plan of Care Note [code = 31991-5] Goal Plan of Care Note [code = 21142-7] Goal Plan of Care Note [code = 58525-4] Goal Plan of Care Note [code = 12397-1] Goal Plan of Care Note [code = 27923-9] Goal Plan of Care Note [code = 81646-9] Goal Plan of Care Note [code = 60122-6] Goal Plan of Care Note [code = 69910-6] Goal Plan of Care Note [code = 02854-5] Goal Plan of Care Note [code = 20576-5] Goal Plan of Care Note [code = 50105-8] Goal Plan of Care Note [code = 82147-3] Goal Plan of Care Note [code = 70721-1] Goal Plan of Care Note [code = 32574-0] Goal Plan of Care Note [code = 46256-7] Goal Plan of Care Note [code = 36230-2] Goal Plan of Care Note [code = 60181-4] Goal Plan of Care Note [code = 87018-2] Goal Plan of Care Note [code = 47131-9] Goal Plan of Care Note [code = 18393-7] Goal Plan of Care Note [code = 35806-4] Goal Plan of Care Note [code = 86098-8] Goal Plan of Care Note [code = 74952-9] Goal Plan of Care Note [code = 37542-4] Goal Plan of Care Note [code = 35395-1] Goal Plan of Care Note [code = 59408-4] Goal Plan of Care Note [code = 39223-7] Goal Plan of Care Note [code = 24979-3] Goal Plan of Care Note [code = 12115-4] Goal Plan of Care Note [code = 96282-6] Goal Plan of Care Note [code = 76087-4] Goal Plan of Care Note [code = 92888-9] Goal Plan of Care Note [code = 70540-3] Goal Plan of Care Note [code = 33991-2] Goal Plan of Care Note [code = 13916-4] Goal Plan of Care Note [code = 17972-9] Goal Plan of Care Note [code = 32257-0] Goal Plan of Care Note [code = 05226-1] Goal Plan of Care Note [code = 65725-5] Goal Plan of Care Note [code = 96761-8] Goal Plan of Care Note [code = 27146-4] Encounters Start End Encounter Admission Attending Care Care Encounter Source Date/Time Date/Time Type Type Clinicians Facility Department ID 2022-09-15 2022-09-15 Outpatient [facility] [id number] Jaleel Blanco 14:31:47 14:31:47 1025 Marii Quesada 2022-09-15 2022-09-15 Outpatient [id number] 00:00:00 00:00:00 Visit 0059-4f45 059-4f45-a -jz9h-7m9 s0n-4l8f09 u5700tzce 35bdfc 2022-08-13 2022-08-13 Outpatient [id number] 00:00:00 00:00:00 Visit h05i-793k 48f-495a-9 -9262-3d5 262-3d5bba tnnq9ujhs c0cbea 2022-08-06 2022-08-06 Outpatient [id number] 00:00:00 00:00:00 Visit 6125-4ec6 125-4ec6-b -l02x-37w 35f-09fa7f [id number] 2021-05-15 2021-05-15 Outpatient SELMAEV_T [facility] [place] 11:10:00 11:10:00 0624 [facility] 2021-05-15 2021-05-15 [facility] [place] [facility] [place] 00:00:00 00:00:00 [facility] [address] [facility] [address], [place] [address] , Ph. 2021-05-15 2021-05-15 Outpatient Carlos [facility] [id number] 00:00:00 00:00:00 Yeison [id number] [place] [id number] 2021-05-09 2021-05-09 Outpatient CARLOSReggie [facility] [place] 02:54:00 02:54:00 0618 [facility] Results Test Description Test Time Test Comments Results Result Comments Source HEMOGLOBIN A1c 2022-08-08 07:32:28 Test Item Value Reference Range Interpretation Comme nts HEMOGLOBIN A1c (test code = 52379) 6.3 % 4.2-5.6 H CBC W/AUTO DIFF WITH [id number] 07:05:30 Test Item Value Reference Range Interpretation [...] RBCS 0.00 K/UL 0.00-0.11 (test code = 54043) TSH, THIRD [id number] 06:43:26 Test Item Value Reference Range Interpretation Comments TSH, THIRD GENERATION (test code 3.490 UIU/ML 0.400-4.100 = 2821) COMPREHENSIVE METABOLIC [id number] 03:50:21 Test Item Value Reference Range Interpretation Comments GLUCOSE (test code = 95 MG/DL 70-99 2216) BUN (test code = 21 MG/DL 6-20 H 2207) CREATININE (test 0.59 MG/DL 0.80-1.40 L code = 2214) eGFR (2020 CKD-EPI) 136 >60 (test code = 91472) ML/MIN/1.73 CALC BUN/CREAT (test 36 RATIO 6-28 H code = 2235) SODIUM (test code = 141 MEQ/L 416-418 8257) POTASSIUM (test code 5.0 MEQ/L 3.5-5.4 = 2227) CHLORIDE (test code 103 MEQ/L 95-107 = 2214) CARBON DIOXIDE (test 25 MEQ/L 19-31 code = 220) CALCIUM (test code = 8.9 MG/DL 8.5-10.5 2208) PROTEIN, TOTAL (test 7.0 G/DL 6.1-8.3 code = 2228) ALBUMIN (test code = 4.1 G/DL 3.5-5.2 2200) CALC GLOBULIN (test 2.9 G/DL 1.9-3.7 code = 224) CALC A/G RATIO (test 1.4 RATIO 1.0-2.6 code = 2233) BILIRUBIN, TOTAL <0.2 MG/DL See_Comment [Automated message] (test code = 220) The syste [employer] which generated this result transmit yeison reference range : <=1.2. The refe rence range was not u sed to interpret th is result as normal/abnormal . ALKALINE PHOSPHATASE 137 U/L 40-115 H (test code = 2203) AST (test code = 28 U/L 9-50 2217) ALT (test code = 34 U/L 5-50 2218) LIPID [id number] 03:50:21 Test Item Value Reference Range Interpretation [...] MOREINFORMATION , SEE CLIENT ANNOUNCE MENT AT [email or web address] RISK RATIO LDL/HDL 2.56 RATIO <3.55 UNLESS O THERWISE (test code = 2238) INDICATED , ALL TESTING PERFORMED [facility], [facility]. [address] [place] [address] [facility] CHARLIE DIRECTOR: LICHA AYON M.D. CLIA NUMBER [id number] CAP ACCREDITATION N O. [id number] HEMOGLOBIN [id number] 00:00:00 Test Item Value Reference Range Interpretation Comments HEMOGLOBIN A1c (test code = 89930) 6.3 % HEMOGLOBIN [id number] 00:00:00 Test Item Value Reference Range Interpretation Comments HEMOGLOBIN A1c (test code = 20520) 6.3 % HEMOGLOBIN [id number] 00:00:00 Test Item Value Reference Range Interpretation Comments HEMOGLOBIN A1c (test code = 54429) 6.3 % TSH, THIRD [id number] 00:00:00 Test Item Value Reference Range Interpretation Comments TSH, THIRD GENERATION (test code 3.490 UIU/ML = 2821) TSH, THIRD [id number] 00:00:00 Test Item Value Reference Range Interpretation Comments TSH, THIRD GENERATION (test code 3.490 UIU/ML = 2821) TSH, THIRD [id number] 00:00:00 Test Item Value Reference Range Interpretation Comments TSH, THIRD GENERATION (test code 3.490 UIU/ML = 2821) CBC W/AUTO [id number] 00:00:00 Test Item Value Reference Range Interpretation [...] NUCLEATED RBCS (test code = 0.00 K/UL 72687) CBC W/AUTO [id number] 00:00:00 Test Item Value Reference Range Interpretation [...] NUCLEATED RBCS (test code = 0.00 K/UL 19758) CBC W/AUTO [id number] 00:00:00 Test Item Value Reference Range Interpretation [...] NUCLEATED RBCS (test code = 0.00 K/UL 69866) COMPREHENSIVE METABOLIC [id number] 00:00:00 Test Item Value Reference Range Interpretation Comments GLUCOSE (test code = 2217) 95 MG/DL BUN (test code = 2208) 21 MG/DL CREATININE (test code = 2214) 0.59 MG/DL eGFR (2020 CKD-EPI) (test 136 ML/MIN/1.73 code = 62893) CALC BUN/CREAT (test code = 36 RATIO [...] code = 2219) 34 U/L COMPREHENSIVE METABOLIC [id number] 00:00:00 Test Item Value Reference Range Interpretation Comments GLUCOSE (test code = 2217) 95 MG/DL BUN (test code = 2208) 21 MG/DL CREATININE (test code = 2214) 0.59 MG/DL eGFR (2020 CKD-EPI) (test 136 ML/MIN/1.73 code = 66819) CALC BUN/CREAT (test code = 36 RATIO [...] (test code = 2219) 34 U/L LIPID [id number] 00:00:00 Test Item Value Reference Range Interpretation Comments CHOLESTEROL (test code = 2210) 193 MG/DL TRIGLYCERIDES (test code = 2232) 111 MG/DL HDL CHOLESTEROL (test code = 2220) 48 MG/DL CALC LDL CHOL (test code = 2237) 123 MG/DL RISK RATIO LDL/HDL (test code = 2.56 RATIO 2238) LIPID [id number] 00:00:00 Test Item Value Reference Range Interpretation Comments CHOLESTEROL (test code = 2210) 193 MG/DL TRIGLYCERIDES (test code = 2232) 111 MG/DL HDL CHOLESTEROL (test code = 2220) 48 MG/DL CALC LDL CHOL (test code = 2237) 123 MG/DL RISK RATIO LDL/HDL (test code = 2.56 RATIO 2238) HEMOGLOBIN [id number] 00:00:00 Test Item Value Reference Range Interpretation Comments HEMOGLOBIN A1c (test code = 71011) 6.3 % HEMOGLOBIN [id number] 00:00:00 Test Item Value Reference Range Interpretation Comments HEMOGLOBIN A1c (test code = 71731) 6.3 % HEMOGLOBIN [id number] 00:00:00 Test Item Value Reference Range Interpretation Comments HEMOGLOBIN A1c (test code = 64963) 6.3 % TSH, THIRD [id number] 00:00:00 Test Item Value Reference Range Interpretation Comments TSH, THIRD GENERATION (test code 3.490 UIU/ML = 2821) TSH, THIRD [id number] 00:00:00 Test Item Value Reference Range Interpretation Comments TSH, THIRD GENERATION (test code 3.490 UIU/ML = 2821) TSH, THIRD [id number] 00:00:00 Test Item Value Reference Range Interpretation Comments TSH, THIRD GENERATION (test code 3.490 UIU/ML = 2821) CBC W/AUTO [id number] 00:00:00 Test Item Value Reference Range Interpretation [...] NUCLEATED RBCS (test code = 0.00 K/UL 04369) CBC W/AUTO [id number] 00:00:00 Test Item Value Reference Range Interpretation [...] NUCLEATED RBCS (test code = 0.00 K/UL 70141) CBC W/AUTO [id number] 00:00:00 Test Item Value Reference Range Interpretation [...] NUCLEATED RBCS (test code = 0.00 K/UL 73727) COMPREHENSIVE METABOLIC [id number] 00:00:00 Test Item Value Reference Range Interpretation Comments GLUCOSE (test code = 2217) 95 MG/DL BUN (test code = 2208) 21 MG/DL CREATININE (test code = 2214) 0.59 MG/DL eGFR (2020 CKD-EPI) (test 136 ML/MIN/1.73 code = 24631) CALC BUN/CREAT (test code = 36 RATIO 2235) SODIUM (test code = 2231) 141 MEQ/L POTASSIUM (test code = 2228) 5.0 MEQ/L CHLORIDE (test code = 2215) 103 MEQ/L CARBON DIOXIDE (test code = 25 MEQ/L 220) CALCIUM (test code = 2209) 8.9 MG/DL [...] code = 2219) 34 U/L COMPREHENSIVE METABOLIC [id number] 00:00:00 Test Item Value Reference Range Interpretation Comments GLUCOSE (test code = 2217) 95 MG/DL BUN (test code = 2208) 21 MG/DL CREATININE (test code = 2214) 0.59 MG/DL eGFR (2020 CKD-EPI) (test 136 ML/MIN/1.73 code = 66268) CALC BUN/CREAT (test code = 36 RATIO [...] (test code = 2219) 34 U/L LIPID [id number] 00:00:00 Test Item Value Reference Range Interpretation Comments CHOLESTEROL (test code = 2210) 193 MG/DL TRIGLYCERIDES (test code = 2232) 111 MG/DL HDL CHOLESTEROL (test code = 2220) 48 MG/DL CALC LDL CHOL (test code = 2237) 123 MG/DL RISK RATIO LDL/HDL (test code = 2.56 RATIO 2238) LIPID [id number] 00:00:00 Test Item Value Reference Range Interpretation [...] Comments SARS-CoV-2 INTERPRETATION Negative (test code = 52821) SOURCE (test code = 78437) Nasal_Swab_in_VTM__ UTM SARS-CoV-2 (COVID-19) by RT-PCR (HIGH RISK)2020-10-10 00:00:00 Test Item Value Reference Range Interpretation Comments SARS-CoV-2 INTERPRETATION Negative (test code = 38614) SOURCE (test code = 24584) Nasal_Swab_in_VTM__ UTM SARS-CoV-2 (COVID-19) by RT-PCR (HIGH RISK)2020-10-10 00:00:00 Test Item Value Reference Range Interpretation Comments SARS-CoV-2 INTERPRETATION Negative (test code = 82936) SOURCE (test code = 76570) Nasal_Swab_in_VTM__ UTM LIPID PANEL WITH REFLEX DIRECT [id number] 00:00:00 Test Item Value Reference Range Interpretation Comments CHOLESTEROL (test code = 2210) 208 MG/DL TRIGLYCERIDES (test code = 2232) 201 MG/DL HDL CHOLESTEROL (test code = 2220) 34 MG/DL CALC LDL CHOL (test code = 2237) 139 MG/DL RISK RATIO LDL/HDL (test code = 4.09 RATIO 2238) LIPID PANEL WITH REFLEX DIRECT [id number] 00:00:00 Test Item Value Reference Range Interpretation Comments CHOLESTEROL (test code = 2210) 208 MG/DL TRIGLYCERIDES (test code = 2232) 201 MG/DL HDL CHOLESTEROL (test code = 2220) 34 MG/DL CALC LDL CHOL (test code = 2237) 139 MG/DL RISK RATIO LDL/HDL (test code = 4.09 RATIO 2238) COMPREHENSIVE METABOLIC [id number] 00:00:00 Test Item Value Reference Range Interpretation Comments GLUCOSE (test code = 2217) 95 MG/DL BUN (test code = 2208) 15 MG/DL CREATININE (test code = 2214) 0.70 MG/DL eGFR AMER. (test code 151 ML/MIN/1.73 = 28479) eGFR NON- AMER. (test 130 ML/MIN/1.73 code = 07231) CALC BUN/CREAT (test code = 21 RATIO [...] code = 2219) 37 U/L COMPREHENSIVE METABOLIC [id number] 00:00:00 Test Item Value Reference Range Interpretation Comments GLUCOSE (test code = 2217) 95 MG/DL BUN (test code = 2208) 15 MG/DL CREATININE (test code = 2214) 0.70 MG/DL eGFR AMER. (test code 151 ML/MIN/1.73 = 01404) eGFR NON- AMER. (test 130 ML/MIN/1.73 code = 71249) CALC BUN/CREAT (test code = 21 RATIO [...] 37 U/L LIPID PANEL WITH REFLEX DIRECT [id number] 00:00:00 Test Item Value Reference Range Interpretation Comments CHOLESTEROL (test code = 2210) 208 MG/DL TRIGLYCERIDES (test code = 2232) 201 MG/DL HDL CHOLESTEROL (test code = 2220) 34 MG/DL CALC LDL CHOL (test code = 2237) 139 MG/DL RISK RATIO LDL/HDL (test code = 4.09 RATIO 2238) LIPID PANEL WITH REFLEX DIRECT [id number] 00:00:00 Test Item Value Reference Range Interpretation Comments CHOLESTEROL (test code = 2210) 208 MG/DL TRIGLYCERIDES (test code = 2232) 201 MG/DL HDL CHOLESTEROL (test code = 2220) 34 MG/DL CALC LDL CHOL (test code = 2237) 139 MG/DL RISK RATIO LDL/HDL (test code = 4.09 RATIO 2238) COMPREHENSIVE METABOLIC [id number] 00:00:00 Test Item Value Reference Range Interpretation Comments GLUCOSE (test code = 2217) 95 MG/DL BUN (test code = 2208) 15 MG/DL CREATININE (test code = 2214) 0.70 MG/DL eGFR AMER. (test code 151 ML/MIN/1.73 = 64076) eGFR NON- AMER. (test 130 ML/MIN/1.73 code = 73180) CALC BUN/CREAT (test code = 21 RATIO [...] code = 2219) 37 U/L COMPREHENSIVE METABOLIC [id number] 00:00:00 Test Item Value Reference Range Interpretation Comments GLUCOSE (test code = 2217) 95 MG/DL BUN (test code = 2208) 15 MG/DL CREATININE (test code = 2214) 0.70 MG/DL eGFR AMER. (test code 151 ML/MIN/1.73 = 59606) eGFR NON- AMER. (test 130 ML/MIN/1.73 code = 94745) CALC BUN/CREAT (test code = 21 RATIO [...] 37 U/L LIPID PANEL WITH REFLEX DIRECT [id number] 00:00:00 Test Item Value Reference Range Interpretation Comments CHOLESTEROL (test code = 2210) 208 MG/DL TRIGLYCERIDES (test code = 2232) 201 MG/DL HDL CHOLESTEROL (test code = 2220) 34 MG/DL CALC LDL CHOL (test code = 2237) 139 MG/DL RISK RATIO LDL/HDL (test code = 4.09 RATIO 2238) LIPID PANEL WITH REFLEX DIRECT [id number] 00:00:00 Test Item Value Reference Range Interpretation Comments CHOLESTEROL (test code = 2210) 208 MG/DL TRIGLYCERIDES (test code = 2232) 201 MG/DL HDL CHOLESTEROL (test code = 2220) 34 MG/DL CALC LDL CHOL (test code = 2237) 139 MG/DL RISK RATIO LDL/HDL (test code = 4.09 RATIO 2238) COMPREHENSIVE METABOLIC [id number] 00:00:00 Test Item Value Reference Range Interpretation Comments GLUCOSE (test code = 2217) 95 MG/DL BUN (test code = 2208) 15 MG/DL CREATININE (test code = 2214) 0.70 MG/DL eGFR AMER. (test code 151 ML/MIN/1.73 = 03930) eGFR NON- AMER. (test 130 ML/MIN/1.73 code = 68165) CALC BUN/CREAT (test code = 21 RATIO 2235) SODIUM (test code = 2231) 145 MEQ/L POTASSIUM (test code = 2228) 4.8 MEQ/L CHLORIDE (test code = 2215) 106 MEQ/L CARBON DIOXIDE (test code = 18 MEQ/L 2206) CALCIUM (test code = 2209) 9.1 MG/DL [...] code = 2219) 37 U/L COMPREHENSIVE METABOLIC [id number] 00:00:00 Test Item Value Reference Range Interpretation Comments GLUCOSE (test code = 2217) 95 MG/DL BUN (test code = 2208) 15 MG/DL CREATININE (test code = 2214) 0.70 MG/DL eGFR AMER. (test code 151 ML/MIN/1.73 = 56740) eGFR NON- AMER. (test 130 ML/MIN/1.73 code = 69865) CALC BUN/CREAT (test code = 21 RATIO 2235) SODIUM (test code = 2231) 145 MEQ/L POTASSIUM (test code = 2228) 4.8 MEQ/L CHLORIDE (test code = 2215) 106 MEQ/L CARBON DIOXIDE (test code = 18 MEQ/L 2206) CALCIUM (test code = 2209) 9.1 MG/DL [...] (test code = 2219) 37 U/L HEMOGLOBIN [id number] 00:00:00 Test Item Value Reference Range Interpretation Comments HEMOGLOBIN A1c (test code = 60068) 6.1 % HEMOGLOBIN [id number] 00:00:00 Test Item Value Reference Range Interpretation Comments HEMOGLOBIN A1c (test code = 98701) 6.1 % HEMOGLOBIN [id number] 00:00:00 Test Item Value Reference Range Interpretation Comments HEMOGLOBIN A1c (test code = 79452) 6.1 % [id number] 00:00:00 Test Item Value Reference Range Interpretation Comments TSH, THIRD GENERATION (test code 3.380 UIU/ML = 2821) [id number] 00:00:00 Test Item Value Reference Range Interpretation Comments TSH, THIRD GENERATION (test code 3.380 UIU/ML = 2821) [id number] 00:00:00 Test Item Value Reference Range Interpretation Comments TSH, THIRD GENERATION (test code 3.380 UIU/ML = 2821) HEMOGLOBIN [id number] 00:00:00 Test Item Value Reference Range Interpretation Comments HEMOGLOBIN A1c (test code = 01911) 6.1 % HEMOGLOBIN [id number] 00:00:00 Test Item Value Reference Range Interpretation Comments HEMOGLOBIN A1c (test code = 33987) 6.1 % HEMOGLOBIN [id number] 00:00:00 Test Item Value Reference Range Interpretation Comments HEMOGLOBIN A1c (test code = 83163) 6.1 % [id number] 00:00:00 Test Item Value Reference Range Interpretation Comments TSH, THIRD GENERATION (test code 3.380 UIU/ML = 2821) [id number] 00:00:00 Test Item Value Reference Range Interpretation Comments TSH, THIRD GENERATION (test code 3.380 UIU/ML = 2821) [id number] 00:00:00 Test Item Value Reference Range Interpretation Comments TSH, THIRD GENERATION (test code 3.380 UIU/ML = 2821) HEMOGLOBIN [id number] 00:00:00 Test Item Value Reference Range Interpretation Comments HEMOGLOBIN A1c (test code = 88001) 6.1 % HEMOGLOBIN [id number] 00:00:00 Test Item Value Reference Range Interpretation Comments HEMOGLOBIN A1c (test code = 20790) 6.1 % HEMOGLOBIN [id number] 00:00:00 Test Item Value Reference Range Interpretation Comments HEMOGLOBIN A1c (test code = 97777) 6.1 % [id number] 00:00:00 Test Item Value Reference Range Interpretation Comments TSH, THIRD GENERATION (test code 3.380 UIU/ML = 2821) [id number] 00:00:00 Test Item Value Reference Range Interpretation Comments TSH, THIRD GENERATION (test code 3.380 UIU/ML = 2821) [id number] 00:00:00 Test Item Value Reference Range Interpretation Comments TSH, THIRD GENERATION (test code 3.380 UIU/ML = 2821) COMPREHENSIVE METABOLIC [id number] 00:00:00 Test Item Value Reference Range Interpretation Comments GLUCOSE (test code = 2217) 182 MG/DL BUN (test code = 2208) 18 MG/DL CREATININE (test code = 2214) 0.71 MG/DL eGFR AMER. (test code 150 ML/MIN/1.73 = 77754) eGFR NON- AMER. (test 129 ML/MIN/1.73 code = 33525) CALC BUN/CREAT (test code = 25 RATIO 2235) SODIUM (test code = 2231) 139 MEQ/L POTASSIUM (test code = 2228) 4.1 MEQ/L CHLORIDE (test code = 2215) 100 MEQ/L CARBON DIOXIDE (test code = 24 MEQ/L 6) CALCIUM (test code = 2209) 9.2 MG/DL PROTEIN, TOTAL (test code = 7.2 G/DL 2228) ALBUMIN (test code = 2201) 4.2 G/DL CALC GLOBULIN (test code = 3.0 G/DL 0) CALC A/G RATIO (test code = 1.4 RATIO 2234) BILIRUBIN, TOTAL (test code = 0.3 MG/DL 2206) ALKALINE PHOSPHATASE (test 151 U/L code = 2204) AST (test code = 2218) 23 U/L ALT (test code = 2219) 31 U/L COMPREHENSIVE METABOLIC [id number] 00:00:00 Test Item Value Reference Range Interpretation Comments GLUCOSE (test code = 2217) 182 MG/DL BUN (test code = 2208) 18 MG/DL CREATININE (test code = 2214) 0.71 MG/DL eGFR AMER. (test code 150 ML/MIN/1.73 = 12829) eGFR NON- AMER. (test 129 ML/MIN/1.73 code = 68496) CALC BUN/CREAT (test code = 25 RATIO 2235) SODIUM (test code = 2231) 139 MEQ/L POTASSIUM (test code = 2228) 4.1 MEQ/L CHLORIDE (test code = 2215) 100 MEQ/L CARBON DIOXIDE (test code = 24 MEQ/L 220) CALCIUM (test code = 2209) 9.2 MG/DL PROTEIN, TOTAL (test code = 7.2 G/DL 2228) ALBUMIN (test code = 2201) 4.2 G/DL CALC GLOBULIN (test code = 3.0 G/DL 2239) CALC A/G RATIO (test code = 1.4 RATIO 4) BILIRUBIN, TOTAL (test code = 0.3 MG/DL 2206) ALKALINE PHOSPHATASE (test 151 U/L code = 2204) AST (test code = 2218) 23 U/L ALT (test code = 2219) 31 U/L LIPID [id number] 00:00:00 Test Item Value Reference Range Interpretation Comments CHOLESTEROL (test code = 2210) 217 MG/DL TRIGLYCERIDES (test code = 2232) 149 MG/DL HDL CHOLESTEROL (test code = 2220) 36 MG/DL CALC LDL CHOL (test code = 2237) 153 MG/DL RISK RATIO LDL/HDL (test code = 4.25 RATIO 2238) LIPID [id number] 00:00:00 Test Item Value Reference Range Interpretation Comments CHOLESTEROL (test code = 2210) 217 MG/DL TRIGLYCERIDES (test code = 2232) 149 MG/DL HDL CHOLESTEROL (test code = 2220) 36 MG/DL CALC LDL CHOL (test code = 2237) 153 MG/DL RISK RATIO LDL/HDL (test code = 4.25 RATIO 2238) HEMOGLOBIN [id number] 00:00:00 Test Item Value Reference Range Interpretation Comments HEMOGLOBIN A1c (test code = 54440) 5.8 % HEMOGLOBIN [id number] 00:00:00 Test Item Value Reference Range Interpretation Comments HEMOGLOBIN A1c (test code = 13664) 5.8 % HEMOGLOBIN [id number] 00:00:00 Test Item Value Reference Range Interpretation Comments HEMOGLOBIN A1c (test code = 74625) 5.8 % [id number] 00:00:00 Test Item Value Reference Range Interpretation Comments TSH, THIRD GENERATION (test code 2.080 UIU/ML = 2821) [id number] 00:00:00 Test Item Value Reference Range Interpretation Comments TSH, THIRD GENERATION (test code 2.080 UIU/ML = 2821) [id number] 00:00:00 Test Item Value Reference Range Interpretation Comments TSH, THIRD GENERATION (test code 2.080 UIU/ML = 2821) COMPREHENSIVE METABOLIC [id number] 00:00:00 Test Item Value Reference Range Interpretation Comments GLUCOSE (test code = 2217) 182 MG/DL BUN (test code = 2208) 18 MG/DL CREATININE (test code = 2214) 0.71 MG/DL eGFR AMER. (test code 150 ML/MIN/1.73 = 14246) eGFR NON- AMER. (test 129 ML/MIN/1.73 code = 24704) CALC BUN/CREAT (test code = 25 RATIO 5) SODIUM (test code = 2231) 139 MEQ/L POTASSIUM (test code = 2228) 4.1 MEQ/L CHLORIDE (test code = 2215) 100 MEQ/L CARBON DIOXIDE (test code = 24 MEQ/L 2205) CALCIUM (test code = 2209) 9.2 MG/DL PROTEIN, TOTAL (test code = 7.2 G/DL 2228) ALBUMIN (test code = 2201) 4.2 G/DL CALC GLOBULIN (test code = 3.0 G/DL 0) CALC A/G RATIO (test code = 1.4 RATIO 4) BILIRUBIN, TOTAL (test code = 0.3 MG/DL 2206) ALKALINE PHOSPHATASE (test 151 U/L code = 2204) AST (test code = 2218) 23 U/L ALT (test code = 2219) 31 U/L COMPREHENSIVE METABOLIC [id number] 00:00:00 Test Item Value Reference Range Interpretation Comments GLUCOSE (test code = 2217) 182 MG/DL BUN (test code = 2208) 18 MG/DL CREATININE (test code = 2214) 0.71 MG/DL eGFR AMER. (test code 150 ML/MIN/1.73 = 76892) eGFR NON- AMER. (test 129 ML/MIN/1.73 code = 55920) CALC BUN/CREAT (test code = 25 RATIO 2235) SODIUM (test code = 2231) 139 MEQ/L POTASSIUM (test code = 2228) 4.1 MEQ/L CHLORIDE (test code = 2215) 100 MEQ/L CARBON DIOXIDE (test code = 24 MEQ/L 220) CALCIUM (test code = 2209) 9.2 MG/DL PROTEIN, TOTAL (test code = 7.2 G/DL 2228) ALBUMIN (test code = 2201) 4.2 G/DL CALC GLOBULIN (test code = 3.0 G/DL 224) CALC A/G RATIO (test code = 1.4 RATIO 223) BILIRUBIN, TOTAL (test code = 0.3 MG/DL 2206) ALKALINE PHOSPHATASE (test 151 U/L code = 2204) AST (test code = 2218) 23 U/L ALT (test code = 2219) 31 U/L LIPID [id number] 00:00:00 Test Item Value Reference Range Interpretation Comments CHOLESTEROL (test code = 2210) 217 MG/DL TRIGLYCERIDES (test code = 2232) 149 MG/DL HDL CHOLESTEROL (test code = 2220) 36 MG/DL CALC LDL CHOL (test code = 2237) 153 MG/DL RISK RATIO LDL/HDL (test code = 4.25 RATIO 2238) LIPID [id number] 00:00:00 Test Item Value Reference Range Interpretation Comments CHOLESTEROL (test code = 2210) 217 MG/DL TRIGLYCERIDES (test code = 2232) 149 MG/DL HDL CHOLESTEROL (test code = 2220) 36 MG/DL CALC LDL CHOL (test code = 2237) 153 MG/DL RISK RATIO LDL/HDL (test code = 4.25 RATIO 2238) HEMOGLOBIN [id number] 00:00:00 Test Item Value Reference Range Interpretation Comments HEMOGLOBIN A1c (test code = 42285) 5.8 % HEMOGLOBIN [id number] 00:00:00 Test Item Value Reference Range Interpretation Comments HEMOGLOBIN A1c (test code = 17027) 5.8 % HEMOGLOBIN [id number] 00:00:00 Test Item Value Reference Range Interpretation Comments HEMOGLOBIN A1c (test code = 52619) 5.8 % [id number] 00:00:00 Test Item Value Reference Range Interpretation Comments TSH, THIRD GENERATION (test code 2.080 UIU/ML = 2821) [id number] 00:00:00 Test Item Value Reference Range Interpretation Comments TSH, THIRD GENERATION (test code 2.080 UIU/ML = 2821) [id number] 00:00:00 Test Item Value Reference Range Interpretation Comments TSH, THIRD GENERATION (test code 2.080 UIU/ML = 2821) COMPREHENSIVE METABOLIC [id number] 00:00:00 Test Item Value Reference Range Interpretation Comments GLUCOSE (test code = 2217) 182 MG/DL BUN (test code = 2208) 18 MG/DL CREATININE (test code = 2214) 0.71 MG/DL eGFR AMER. (test code 150 ML/MIN/1.73 = 76197) eGFR NON- AMER. (test 129 ML/MIN/1.73 code = 38826) CALC BUN/CREAT (test code = 25 RATIO 2235) SODIUM (test code = 2231) 139 MEQ/L POTASSIUM (test code = 2228) 4.1 MEQ/L CHLORIDE (test code = 2215) 100 MEQ/L CARBON DIOXIDE (test code = 24 MEQ/L 2205) CALCIUM (test code = 2209) 9.2 MG/DL PROTEIN, TOTAL (test code = 7.2 G/DL 2228) ALBUMIN (test code = 2201) 4.2 G/DL CALC GLOBULIN (test code = 3.0 G/DL 2240) CALC A/G RATIO (test code = 1.4 RATIO 4) BILIRUBIN, TOTAL (test code = 0.3 MG/DL 2206) ALKALINE PHOSPHATASE (test 151 U/L code = 2204) AST (test code = 2218) 23 U/L ALT (test code = 2219) 31 U/L COMPREHENSIVE METABOLIC [id number] 00:00:00 Test Item Value Reference Range Interpretation Comments GLUCOSE (test code = 2217) 182 MG/DL BUN (test code = 2208) 18 MG/DL CREATININE (test code = 2214) 0.71 MG/DL eGFR AMER. (test code 150 ML/MIN/1.73 = 49890) eGFR NON- AMER. (test 129 ML/MIN/1.73 code = 72978) CALC BUN/CREAT (test code = 25 RATIO 2235) SODIUM (test code = 2231) 139 MEQ/L POTASSIUM (test code = 2228) 4.1 MEQ/L CHLORIDE (test code = 2215) 100 MEQ/L CARBON DIOXIDE (test code = 24 MEQ/L 2205) CALCIUM (test code = 2209) 9.2 MG/DL PROTEIN, TOTAL (test code = 7.2 G/DL 2228) ALBUMIN (test code = 2201) 4.2 G/DL CALC GLOBULIN (test code = 3.0 G/DL 2240) CALC A/G RATIO (test code = 1.4 RATIO 2234) BILIRUBIN, TOTAL (test code = 0.3 MG/DL 2206) ALKALINE PHOSPHATASE (test 151 U/L code = 2204) AST (test code = 2218) 23 U/L ALT (test code = 2219) 31 U/L LIPID [id number] 00:00:00 Test Item Value Reference Range Interpretation Comments CHOLESTEROL (test code = 2210) 217 MG/DL TRIGLYCERIDES (test code = 2232) 149 MG/DL HDL CHOLESTEROL (test code = 2220) 36 MG/DL CALC LDL CHOL (test code = 2237) 153 MG/DL RISK RATIO LDL/HDL (test code = 4.25 RATIO 2238) LIPID [id number] 00:00:00 Test Item Value Reference Range Interpretation Comments CHOLESTEROL (test code = 2210) 217 MG/DL TRIGLYCERIDES (test code = 2232) 149 MG/DL HDL CHOLESTEROL (test code = 2220) 36 MG/DL CALC LDL CHOL (test code = 2237) 153 MG/DL RISK RATIO LDL/HDL (test code = 4.25 RATIO 2238) HEMOGLOBIN [id number] 00:00:00 Test Item Value Reference Range Interpretation Comments HEMOGLOBIN A1c (test code = 27795) 5.8 % HEMOGLOBIN [id number] 00:00:00 Test Item Value Reference Range Interpretation Comments HEMOGLOBIN A1c (test code = 68326) 5.8 % HEMOGLOBIN [id number] 00:00:00 Test Item Value Reference Range Interpretation Comments HEMOGLOBIN A1c (test code = 97778) 5.8 % [id number] 00:00:00 Test Item Value Reference Range Interpretation Comments TSH, THIRD GENERATION (test code 2.080 UIU/ML = 2821) [id number] 00:00:00 Test Item Value Reference Range Interpretation Comments TSH, THIRD GENERATION (test code 2.080 UIU/ML = 2821) [id number] 00:00:00 Test Item Value Reference Range Interpretation Comments TSH, THIRD GENERATION (test code 2.080 UIU/ML = 2821) CBC W/AUTO [id number] 00:00:00 Test Item Value Reference Range Interpretation [...] code = 1015) 351 K/UL CBC W/AUTO [id number] 00:00:00 Test Item Value Reference Range Interpretation [...] code = 1015) 351 K/UL CBC W/AUTO [id number] 00:00:00 Test Item Value Reference Range Interpretation [...] (test code = 1015) 351 K/UL HEMOGLOBIN [id number] 00:00:00 Test Item Value Reference Range Interpretation Comments HEMOGLOBIN A1c (test code = 79252) 5.8 % HEMOGLOBIN [id number] 00:00:00 Test Item Value Reference Range Interpretation Comments HEMOGLOBIN A1c (test code = 32528) 5.8 % HEMOGLOBIN [id number] 00:00:00 Test Item Value Reference Range Interpretation Comments HEMOGLOBIN A1c (test code = 41945) 5.8 % LIPID [id number] 00:00:00 Test Item Value Reference Range Interpretation Comments CHOLESTEROL (test code = 2210) 210 MG/DL TRIGLYCERIDES (test code = 2232) 129 MG/DL HDL CHOLESTEROL (test code = 2220) 44 MG/DL CALC LDL CHOL (test code = 2237) 140 MG/DL RISK RATIO LDL/HDL (test code = 3.19 RATIO 2238) LIPID [id number] 00:00:00 Test Item Value Reference Range Interpretation Comments CHOLESTEROL (test code = 2210) 210 MG/DL TRIGLYCERIDES (test code = 2232) 129 MG/DL HDL CHOLESTEROL (test code = 2220) 44 MG/DL CALC LDL CHOL (test code = 2237) 140 MG/DL RISK RATIO LDL/HDL (test code = 3.19 RATIO 2238) COMPREHENSIVE METABOLIC [id number] 00:00:00 Test Item Value Reference Range Interpretation Comments GLUCOSE (test code = 2217) 100 MG/DL BUN (test code = 2208) 14 MG/DL CREATININE (test code = 2214) 0.58 MG/DL eGFR AMER. (test code 163 ML/MIN/1.73 = 40195) eGFR NON- AMER. (test 141 ML/MIN/1.73 code = 08852) CALC BUN/CREAT (test code = 24 RATIO 2235) SODIUM (test code = 2231) 140 MEQ/L POTASSIUM (test code = 2228) 4.7 MEQ/L CHLORIDE (test code = 2215) 100 MEQ/L CARBON DIOXIDE (test code = 27 MEQ/L 220) CALCIUM (test code = 2209) 9.3 MG/DL [...] code = 2219) 38 U/L COMPREHENSIVE METABOLIC [id number] 00:00:00 Test Item Value Reference Range Interpretation Comments GLUCOSE (test code = 2217) 100 MG/DL BUN (test code = 2208) 14 MG/DL CREATININE (test code = 2214) 0.58 MG/DL eGFR AMER. (test code 163 ML/MIN/1.73 = 98993) eGFR NON- AMER. (test 141 ML/MIN/1.73 code = 93809) CALC BUN/CREAT (test code = 24 RATIO [...] ALT (test code = 2219) 38 U/L [id number] 00:00:00 Test Item Value Reference Range Interpretation Comments TSH, THIRD GENERATION (test code 5.690 UIU/ML = 2821) [id number] 00:00:00 Test Item Value Reference Range Interpretation Comments TSH, THIRD GENERATION (test code 5.690 UIU/ML = 2821) [id number] 00:00:00 Test Item Value Reference Range Interpretation Comments TSH, THIRD GENERATION (test code 5.690 UIU/ML = 2821) CBC W/AUTO [id number] 00:00:00 Test Item Value Reference Range Interpretation [...] code = 1015) 351 K/UL CBC W/AUTO [id number] 00:00:00 Test Item Value Reference Range Interpretation [...] code = 1015) 351 K/UL CBC W/AUTO [id number] 00:00:00 Test Item Value Reference Range Interpretation [...] (test code = 1015) 351 K/UL HEMOGLOBIN [id number] 00:00:00 Test Item Value Reference Range Interpretation Comments HEMOGLOBIN A1c (test code = 23570) 5.8 % HEMOGLOBIN [id number] 00:00:00 Test Item Value Reference Range Interpretation Comments HEMOGLOBIN A1c (test code = 68714) 5.8 % HEMOGLOBIN [id number] 00:00:00 Test Item Value Reference Range Interpretation Comments HEMOGLOBIN A1c (test code = 91866) 5.8 % LIPID [id number] 00:00:00 Test Item Value Reference Range Interpretation Comments CHOLESTEROL (test code = 2210) 210 MG/DL TRIGLYCERIDES (test code = 2232) 129 MG/DL HDL CHOLESTEROL (test code = 2220) 44 MG/DL CALC LDL CHOL (test code = 2237) 140 MG/DL RISK RATIO LDL/HDL (test code = 3.19 RATIO 2238) LIPID [id number] 00:00:00 Test Item Value Reference Range Interpretation Comments CHOLESTEROL (test code = 2210) 210 MG/DL TRIGLYCERIDES (test code = 2232) 129 MG/DL HDL CHOLESTEROL (test code = 2220) 44 MG/DL CALC LDL CHOL (test code = 2237) 140 MG/DL RISK RATIO LDL/HDL (test code = 3.19 RATIO 2238) COMPREHENSIVE METABOLIC [id number] 00:00:00 Test Item Value Reference Range Interpretation Comments GLUCOSE (test code = 2217) 100 MG/DL BUN (test code = 2208) 14 MG/DL CREATININE (test code = 2214) 0.58 MG/DL eGFR AMER. (test code 163 ML/MIN/1.73 = 85618) eGFR NON- AMER. (test 141 ML/MIN/1.73 code = 88748) CALC BUN/CREAT (test code = 24 RATIO 2235) SODIUM (test code = 2231) 140 MEQ/L POTASSIUM (test code = 2228) 4.7 MEQ/L CHLORIDE (test code = 2215) 100 MEQ/L CARBON DIOXIDE (test code = 27 MEQ/L 220) CALCIUM (test code = 2209) 9.3 MG/DL [...] code = 2219) 38 U/L COMPREHENSIVE METABOLIC [id number] 00:00:00 Test Item Value Reference Range Interpretation Comments GLUCOSE (test code = 2217) 100 MG/DL BUN (test code = 2208) 14 MG/DL CREATININE (test code = 2214) 0.58 MG/DL eGFR AMER. (test code 163 ML/MIN/1.73 = 98975) eGFR NON- AMER. (test 141 ML/MIN/1.73 code = 37305) CALC BUN/CREAT (test code = 24 RATIO [...] ALT (test code = 2219) 38 U/L [id number] 00:00:00 Test Item Value Reference Range Interpretation Comments TSH, THIRD GENERATION (test code 5.690 UIU/ML = 2821) [id number] 00:00:00 Test Item Value Reference Range Interpretation Comments TSH, THIRD GENERATION (test code 5.690 UIU/ML = 2821) [id number] 00:00:00 Test Item Value Reference Range Interpretation Comments TSH, THIRD GENERATION (test code 5.690 UIU/ML = 2821) CBC W/AUTO [id number] 00:00:00 Test Item Value Reference Range Interpretation [...] code = 1015) 351 K/UL CBC W/AUTO [id number] 00:00:00 Test Item Value Reference Range Interpretation [...] code = 1015) 351 K/UL CBC W/AUTO [id number] 00:00:00 Test Item Value Reference Range Interpretation [...] (test code = 1015) 351 K/UL HEMOGLOBIN [id number] 00:00:00 Test Item Value Reference Range Interpretation Comments HEMOGLOBIN A1c (test code = 91699) 5.8 % HEMOGLOBIN [id number] 00:00:00 Test Item Value Reference Range Interpretation Comments HEMOGLOBIN A1c (test code = 57525) 5.8 % HEMOGLOBIN [id number] 00:00:00 Test Item Value Reference Range Interpretation Comments HEMOGLOBIN A1c (test code = 40062) 5.8 % LIPID [id number] 00:00:00 Test Item Value Reference Range Interpretation Comments CHOLESTEROL (test code = 2210) 210 MG/DL TRIGLYCERIDES (test code = 2232) 129 MG/DL HDL CHOLESTEROL (test code = 2220) 44 MG/DL CALC LDL CHOL (test code = 2237) 140 MG/DL RISK RATIO LDL/HDL (test code = 3.19 RATIO 2238) LIPID [id number] 00:00:00 Test Item Value Reference Range Interpretation Comments CHOLESTEROL (test code = 2210) 210 MG/DL TRIGLYCERIDES (test code = 2232) 129 MG/DL HDL CHOLESTEROL (test code = 2220) 44 MG/DL CALC LDL CHOL (test code = 2237) 140 MG/DL RISK RATIO LDL/HDL (test code = 3.19 RATIO 2238) COMPREHENSIVE METABOLIC [id number] 00:00:00 Test Item Value Reference Range Interpretation Comments GLUCOSE (test code = 2217) 100 MG/DL BUN (test code = 2208) 14 MG/DL CREATININE (test code = 2214) 0.58 MG/DL eGFR AMER. (test code 163 ML/MIN/1.73 = 36791) eGFR NON- AMER. (test 141 ML/MIN/1.73 code = 46103) CALC BUN/CREAT (test code = 24 RATIO 2235) SODIUM (test code = 2231) 140 MEQ/L POTASSIUM (test code = 2228) 4.7 MEQ/L CHLORIDE (test code = 2215) 100 MEQ/L CARBON DIOXIDE (test code = 27 MEQ/L 6) CALCIUM (test code = 2209) 9.3 MG/DL [...] code = 2219) 38 U/L COMPREHENSIVE METABOLIC [id number] 00:00:00 Test Item Value Reference Range Interpretation Comments GLUCOSE (test code = 2217) 100 MG/DL BUN (test code = 2208) 14 MG/DL CREATININE (test code = 2214) 0.58 MG/DL eGFR AMER. (test code 163 ML/MIN/1.73 = 59751) eGFR NON- AMER. (test 141 ML/MIN/1.73 code = 72768) CALC BUN/CREAT (test code = 24 RATIO [...] A/G RATIO (test code = 1.4 RATIO 2233) BILIRUBIN, TOTAL (test code = <0.2 MG/DL 2206) ALKALINE PHOSPHATASE (test 144 U/L code = 220) AST (test code = 2218) 26 U/L ALT (test code = 2219) 38 U/L [id number] 00:00:00 Test Item Value Reference Range Interpretation Comments TSH, THIRD GENERATION (test code 5.690 UIU/ML = 2821) [id number] 00:00:00 Test Item Value Reference Range Interpretation Comments TSH, THIRD GENERATION (test code 5.690 UIU/ML = 2821) [id number] 00:00:00 Test Item Value Reference Range Interpretation Comments TSH, THIRD GENERATION (test code 5.690 UIU/ML = 2821) COMPREHENSIVE METABOLIC [id number] 00:00:00 Test Item Value Reference Range Interpretation Comments GLUCOSE (test code = 2217) 111 MG/DL BUN (test code = 2208) 17 MG/DL CREATININE (test code = 2214) 0.65 MG/DL eGFR AMER. (test code 158 ML/MIN/1.73 = 15395) eGFR NON- AMER. (test 136 ML/MIN/1.73 code = 94150) CALC BUN/CREAT (test code = 26 RATIO [...] BILIRUBIN, TOTAL (test code = 0.1 MG/DL 220) ALKALINE PHOSPHATASE (test 120 U/L code = 2204) AST (test code = 2218) 21 U/L ALT (test code = 2219) 24 U/L COMPREHENSIVE METABOLIC [id number] 00:00:00 Test Item Value Reference Range Interpretation Comments GLUCOSE (test code = 2217) 111 MG/DL BUN (test code = 2208) 17 MG/DL CREATININE (test code = 2214) 0.65 MG/DL eGFR AMER. (test code 158 ML/MIN/1.73 = 63060) eGFR NON- AMER. (test 136 ML/MIN/1.73 code = 85078) CALC BUN/CREAT (test code = 26 RATIO [...] (test code = 2219) 24 U/L LIPID [id number] 00:00:00 Test Item Value Reference Range Interpretation Comments CHOLESTEROL (test code = 2210) 220 MG/DL TRIGLYCERIDES (test code = 2232) 190 MG/DL HDL CHOLESTEROL (test code = 2220) 39 MG/DL CALC LDL CHOL (test code = 2237) 143 MG/DL RISK RATIO LDL/HDL (test code = 3.67 RATIO 2238) LIPID [id number] 00:00:00 Test Item Value Reference Range Interpretation Comments CHOLESTEROL (test code = 2210) 220 MG/DL TRIGLYCERIDES (test code = 2232) 190 MG/DL HDL CHOLESTEROL (test code = 2220) 39 MG/DL CALC LDL CHOL (test code = 2237) 143 MG/DL RISK RATIO LDL/HDL (test code = 3.67 RATIO 2238) CBC W/AUTO [id number] 00:00:00 Test Item Value Reference Range Interpretation [...] code = 1015) 415 K/UL CBC W/AUTO [id number] 00:00:00 Test Item Value Reference Range Interpretation [...] code = 1015) 415 K/UL CBC W/AUTO [id number] 00:00:00 Test Item Value Reference Range Interpretation [...] (test code = 1015) 415 K/UL HEMOGLOBIN [id number] 00:00:00 Test Item Value Reference Range Interpretation Comments HEMOGLOBIN A1c (test code = 86552) 5.5 % HEMOGLOBIN [id number] 00:00:00 Test Item Value Reference Range Interpretation Comments HEMOGLOBIN A1c (test code = 37998) 5.5 % HEMOGLOBIN [id number] 00:00:00 Test Item Value Reference Range Interpretation Comments HEMOGLOBIN A1c (test code = 88978) 5.5 % [id number] 00:00:00 Test Item Value Reference Range Interpretation Comments TSH (test code = 2821) 4.260 UIU/ML [id number] 00:00:00 Test Item Value Reference Range Interpretation Comments TSH (test code = 2821) 4.260 UIU/ML [id number] 00:00:00 Test Item Value Reference Range Interpretation Comments TSH (test code = 2821) 4.260 UIU/ML COMPREHENSIVE METABOLIC [id number] 00:00:00 Test Item Value Reference Range Interpretation Comments GLUCOSE (test code = 2217) 111 MG/DL BUN (test code = 2208) 17 MG/DL CREATININE (test code = 2214) 0.65 MG/DL eGFR AMER. (test code 158 ML/MIN/1.73 = 56912) eGFR NON- AMER. (test 136 ML/MIN/1.73 code = 43775) CALC BUN/CREAT (test code = 26 RATIO [...] code = 2219) 24 U/L COMPREHENSIVE METABOLIC [id number] 00:00:00 Test Item Value Reference Range Interpretation Comments GLUCOSE (test code = 2217) 111 MG/DL BUN (test code = 2208) 17 MG/DL CREATININE (test code = 2214) 0.65 MG/DL eGFR AMER. (test code 158 ML/MIN/1.73 = 41710) eGFR NON- AMER. (test 136 ML/MIN/1.73 code = 04821) CALC BUN/CREAT (test code = 26 RATIO [...] (test code = 2219) 24 U/L LIPID [id number] 00:00:00 Test Item Value Reference Range Interpretation Comments CHOLESTEROL (test code = 2210) 220 MG/DL TRIGLYCERIDES (test code = 2232) 190 MG/DL HDL CHOLESTEROL (test code = 2220) 39 MG/DL CALC LDL CHOL (test code = 2237) 143 MG/DL RISK RATIO LDL/HDL (test code = 3.67 RATIO 2238) LIPID [id number] 00:00:00 Test Item Value Reference Range Interpretation Comments CHOLESTEROL (test code = 2210) 220 MG/DL TRIGLYCERIDES (test code = 2232) 190 MG/DL HDL CHOLESTEROL (test code = 2220) 39 MG/DL CALC LDL CHOL (test code = 2237) 143 MG/DL RISK RATIO LDL/HDL (test code = 3.67 RATIO 2238) CBC W/AUTO [id number] 00:00:00 Test Item Value Reference Range Interpretation [...] code = 1015) 415 K/UL CBC W/AUTO [id number] 00:00:00 Test Item Value Reference Range Interpretation [...] code = 1015) 415 K/UL CBC W/AUTO [id number] 00:00:00 Test Item Value Reference Range Interpretation [...] (test code = 1015) 415 K/UL HEMOGLOBIN [id number] 00:00:00 Test Item Value Reference Range Interpretation Comments HEMOGLOBIN A1c (test code = 14449) 5.5 % HEMOGLOBIN [id number] 00:00:00 Test Item Value Reference Range Interpretation Comments HEMOGLOBIN A1c (test code = 84461) 5.5 % HEMOGLOBIN [id number] 00:00:00 Test Item Value Reference Range Interpretation Comments HEMOGLOBIN A1c (test code = 42136) 5.5 % [id number] 00:00:00 Test Item Value Reference Range Interpretation Comments TSH (test code = 2821) 4.260 UIU/ML [id number] 00:00:00 Test Item Value Reference Range Interpretation Comments TSH (test code = 2821) 4.260 UIU/ML [id number] 00:00:00 Test Item Value Reference Range Interpretation Comments TSH (test code = 2821) 4.260 UIU/ML COMPREHENSIVE METABOLIC [id number] 00:00:00 Test Item Value Reference Range Interpretation Comments GLUCOSE (test code = 2217) 111 MG/DL BUN (test code = 2208) 17 MG/DL CREATININE (test code = 2214) 0.65 MG/DL eGFR AMER. (test code 158 ML/MIN/1.73 = 61532) eGFR NON- AMER. (test 136 ML/MIN/1.73 code = 94986) CALC BUN/CREAT (test code = 26 RATIO [...] code = 2219) 24 U/L COMPREHENSIVE METABOLIC [id number] 00:00:00 Test Item Value Reference Range Interpretation Comments GLUCOSE (test code = 2217) 111 MG/DL BUN (test code = 2208) 17 MG/DL CREATININE (test code = 2214) 0.65 MG/DL eGFR AMER. (test code 158 ML/MIN/1.73 = 25244) eGFR NON- AMER. (test 136 ML/MIN/1.73 code = 34771) CALC BUN/CREAT (test code = 26 RATIO [...] (test code = 2219) 24 U/L LIPID [id number] 00:00:00 Test Item Value Reference Range Interpretation Comments CHOLESTEROL (test code = 2210) 220 MG/DL TRIGLYCERIDES (test code = 2232) 190 MG/DL HDL CHOLESTEROL (test code = 2220) 39 MG/DL CALC LDL CHOL (test code = 2237) 143 MG/DL RISK RATIO LDL/HDL (test code = 3.67 RATIO 2238) LIPID [id number] 00:00:00 Test Item Value Reference Range Interpretation Comments CHOLESTEROL (test code = 2210) 220 MG/DL TRIGLYCERIDES (test code = 2232) 190 MG/DL HDL CHOLESTEROL (test code = 2220) 39 MG/DL CALC LDL CHOL (test code = 2237) 143 MG/DL RISK RATIO LDL/HDL (test code = 3.67 RATIO 2238) CBC W/AUTO [id number] 00:00:00 Test Item Value Reference Range Interpretation [...] code = 1015) 415 K/UL CBC W/AUTO [id number] 00:00:00 Test Item Value Reference Range Interpretation [...] code = 1015) 415 K/UL CBC W/AUTO [id number] 00:00:00 Test Item Value Reference Range Interpretation [...] (test code = 1015) 415 K/UL HEMOGLOBIN [id number] 00:00:00 Test Item Value Reference Range Interpretation Comments HEMOGLOBIN A1c (test code = 51892) 5.5 % HEMOGLOBIN [id number] 00:00:00 Test Item Value Reference Range Interpretation Comments HEMOGLOBIN A1c (test code = 56429) 5.5 % HEMOGLOBIN [id number] 00:00:00 Test Item Value Reference Range Interpretation Comments HEMOGLOBIN A1c (test code = 93918) 5.5 % [id number] 00:00:00 Test Item Value Reference Range Interpretation Comments TSH (test code = 2821) 4.260 UIU/ML [id number] 00:00:00 Test Item Value Reference Range Interpretation Comments TSH (test code = 2821) 4.260 UIU/ML [id number] 00:00:00 Test Item Value Reference Range Interpretation Comments TSH (test code = 2821) 4.260 UIU/ML
[2022-09-21] MEDS ORDERED: NICOTINE 21 MG/PAT TD ONE (18:59)
--- NOTE | 2022-09-21 19:34 | RAD REPORT ---
EXAM DESCRIPTION: RAD - Chest Single View - 09/21/2022 7:16 pm CLINICAL HISTORY: SWELLING, lower extremity infection, shortness of breath COMPARISON: Portable July 21 TECHNIQUE: AP portable chest image was obtained 09/21/2022 7:16 pm . FINDINGS: Lungs are clear. Shallow inspiration and large body habitus cause accentuation of the hear t, vasculature and lung markings. Heart and vasculature are normal. No measurable pleural effusion an d no pneumothorax. No acute bony abnormality seen. No acute aortic findings suspected. IMPRESSION: Limited portable study without acute cardiopulmonary finding.
[2022-09-21] MEDS ORDERED: HYDROCODONE/APAP 10/325 TAB ONE (20:10)
[2022-09-21] MEDS ORDERED: LEVALBUTEROL 1.25 MG/3 ML NEB ONE (20:29)
[2022-09-21 20:42] LABS: Absolute Lymphocytes (CBC) 1.9 K/uL (0.7-4.9); Hematocrit 40.5 % (39.6-49.0); MCV 92.3 fL (80-100); MPV 6.3 fL (7.6-11.3); RBC Red Blood Cell Count 4.38 M/uL (4.33-5.43)
--- NOTE | 2022-09-21 20:46 | RAD REPORT ---
EXAM DESCRIPTION: US - Extrem Venous W Compress Faheem - 09/21/2022 8:23 pm CLINICAL HISTORY: SWELLING COMPARISON: None. TECHNIQUE: Real-time sonographic evaluation of the bilateral lower extremity common femoral, superfi cial femoral, popliteal and posterior tibial veins was performed. FINDINGS: Exam is very limited. Patient body habitus affects and level of pain precluded ability to do any compression of the vessels. Doppler evaluation shows blood flow with all vessels except the mi dportion of the left superficial femoral vein. The lack of blood flow may simply be technical due to the exam limitations rather than specifically due to thrombus. IMPRESSION: Very limited examination showing no right lower extremity deep venous thrombosis. Blood flow is seen within all left deep veins except the midportion of the femoral vein. The absence of flow could be due to thrombus; however, this could also be due to the technical limitations of the study.
[2022-09-21 20:58] LABS: Potassium 4.5 mmol/L (3.5-5.1)
--- NOTE | 2022-09-21 21:26 | EDPHYS ---
Physician Documentation [facility] Name: Adam Boyce Age: 27 yrs Sex: Male : 1995 Arrival Date: 09/21/2022 Time: 18:46 Bed 14 Private MD: ED Physician Timothy Decker HPI: 09/21 19:00 This 27 yrs old Male presents to ER via EMS with complaints of Leg infection. cp 19:00 The patient presents with swelling, cellulitis. The complaints affect the right leg and cp left leg. 19:00 Context: Patient was seen here in ED 09/14/2022 for cellulitis of lower legs and cp started on oral antibiotics. 19:00 Associated signs and symptoms: Pertinent positives: swelling, warmth, erythema, cp Pertinent negatives fever, numbness, vomiting, weakness. Historical: - Allergies: 18:48 cayenne pepper; iw 18:48 Sulfa (Sulfonamide Antibiotics); iw - Home Meds: 18:48 atorvastatin Oral [Active]; levothyroxine oral [Active]; metformin 500 mg Oral tab iw daily [Active]; sertraline Oral [Active]; Doxycycline Oral [Active]; - PMHx: 18:48 Anxiety; Arthritis; Bipolar disorder; Depression; Diabetes - NIDDM; High Cholesterol; iw Hypothyroidism; recovering addict (ETOH/narcotic); Sleep Apnea; - Immunization history:: Client reports receiving the 1st dose of the Covid vaccine. - Social history:: Smoking status: Patient reports the use of cigarette tobacco products, smokes one pack cigarettes per day. ROS: 19:05 Constitutional: Negative for body aches, chills, fever, poor PO intake. cp 19:05 Eyes: Negative for injury, pain, redness, and discharge. cp 19:05 ENT: Negative for drainage from ear(s), ear pain, sore throat, difficulty swallowing, difficulty handling secretions. 19:05 Cardiovascular: Positive for edema, Negative for chest pain, palpitations. 19:05 Respiratory: Negative for cough, shortness of breath, wheezing. 19:05 Abdomen/GI: Negative for abdominal pain, nausea, vomiting, and diarrhea. 19:05 MS/extremity: Positive for erythema, swelling, tenderness, warmth, of the right foot, left foot, right leg and left leg. 19:05 Neuro: Negative for altered mental status. 19:05 All other systems are negative. Exam: 19:10 Constitutional: The patient appears in no acute distress, alert, awake, cp non-diaphoretic, non-toxic, well developed, well nourished, unkempt, morbid obesity 19:10 Head/Face: Normocephalic, atraumatic. cp 19:10 Eyes: Periorbital structures: appear normal, Conjunctiva: normal, no exudate, no injection, Sclera: no appreciated abnormality, Lids and lashes: appear normal, bilaterally. 19:10 ENT: External ear(s): are unremarkable, Nose: is normal, Mouth: Lips: moist, Oral mucosa: pink and intact, moist, Posterior pharynx: Airway: no evidence of obstruction, patent. 19:10 Chest/axilla: Inspection: normal. 19:10 Cardiovascular: Rate: tachycardic, Rhythm: regular, Edema: pedal edema, that is moderate, ankle edema, that is marked, JVD: is not appreciated. 19:10 Respiratory: the patient does not display signs of respiratory distress, Respirations: normal, no use of accessory muscles, no retractions, labored breathing, is not present, Breath sounds: are clear throughout, no decreased breath sounds, no stridor, no wheezing. 19:10 Abdomen/GI: Inspection: obese Palpation: abdomen is soft and non-tender, in all quadrants. 19:10 Skin: cellulitis, that is moderate, patchy, on the right leg and left leg. 19:10 Neuro: Orientation: to person, place \\T\\ time. Mentation: is normal. 20:42 ECG was reviewed by the Attending Physician. cp Vital Signs: 18:52 BP 148 / 74; Pulse 113; Resp 22; Temp 98.1; Pulse Ox 98% on R/A; Weight 172.37 kg; iw Height 5 ft. 0 in. (152.40 cm); 20:16 BP 125 / 81; Pulse 106; Resp 19 S; Pulse Ox 97% on R/A; lg3 21:53 BP 129 / 86; Pulse 101; Resp 20 S; Pulse Ox 98% on R/A; lg3 18:52 Body Mass Index 74.21 (172.37 kg, 152.40 cm) iw MDM: 19:00 Differential diagnosis: DVT, cellulitis, abscess, sepsis. cp 19:04 Patient medically screened. cp 21:10 Data reviewed: vital signs, nurses notes, lab test result(s), EKG, radiologic studies, cp plain films, ultrasound. 21:10 Test interpretation: by ED physician or midlevel provider: ECG, plain radiologic cp studies. Counseling: I had a detailed discussion with the patient and/or guardian regarding: the historical points, exam findings, and any diagnostic results supporting the discharge/admit diagnosis, lab results, radiology results, the need for further work-up and treatment in the hospital. Physician consultation: Maggie More PA-C was called at 21:05, was contacted at 21:05, regarding admission, to the medical/surgical unit. patient's condition. 09/21 18:49 Order name: COVID-19 SARS RT PCR (Document "Date of Onset" if Symptomatic); Complete cp Time: 20:26 09/21 20:26 Interpretation: Reviewed. cp 09/21 18:49 Order name: Influenza Screen (a \\T\\ B); Complete Time: 20:26 cp 09/21 18:51 Order name: Basic Metabolic Panel; Complete Time: 21:01 cp 09/21 21:01 Interpretation: Normal except: CO2 33. cp 09/21 18:51 Order name: CBC with Diff; Complete Time: 21:01 cp 09/21 18:51 Order name: Magnesium; Complete Time: 21:01 cp 09/21 18:51 Order name: BNP; Complete Time: 21:01 cp 09/21 18:51 Order name: US Extremity Venous W Compression Faheem; Complete Time: 21:01 cp 09/21 18:51 Order name: XRAY Chest (1 view); Complete Time: 20:26 cp 09/21 20:26 Interpretation: Report review. cp 09/21 18:51 Order name: Wound Culture cp 09/21 21:05 Order name: Lactate; Complete Time: 23:00 cp 09/21 21:05 Order name: Procalcitonin; Complete Time: 23:00 cp 09/21 21:05 Order name: Blood Culture Adult (2) cp 09/21 21:38 Order name: SARS RAPID; Complete Time: 23:00 ll3 09/21 18:51 Order name: EKG; Complete Time: 18:52 cp 09/21 18:51 Order name: Cardiac monitoring; Complete Time: 20:22 cp 09/21 18:51 Order name: EKG - Nurse/Tech; Complete Time: 20:22 cp 09/21 18:51 Order name: IV Saline Lock; Complete Time: 19:37 cp 09/21 18:51 Order name: Labs collected and sent; Complete Time: 20:40 cp 09/21 18:51 Order name: O2 Per Protocol; Complete Time: 18:59 cp 09/21 18:51 Order name: O2 Sat Monitoring; Complete Time: 18:59 cp EC:42 Rate is 106 beats/min. Rhythm is regular. [place] interval is normal. QRS interval is cp normal. QT interval is normal. T waves are Inverted in lead aVR. Interpreted by me. Reviewed by me. Administered Medications: 18:59 Drug: Nicoderm CQ Patch 21 mg/24 hr 21 mg Route: Transdermal; Site: affected area; ko1 20:13 Drug: [place] (HYDROcodone-acetaminophen) 10 mg-325 mg 1 tabs Route: PO; lg3 20:40 Follow up: Response: No adverse reaction; Marked relief of symptoms lg3 20:36 Drug: Xopenex (levalbuterol) (3) 1.25 mg Route: Inhalation; em6 21:55 Follow up: Response: No adverse reaction; Marked relief of symptoms; Wheezing diminishedlg3 21:51 Not Given (Physician Discretion): NS 0.9% 1000 ml IV at 1 bolus Per protocol; 1000 mL lg3 bolus 22:32 Not Given (ordered by admitting physician in [facility]): vancoMYCIN 1.5 grams IVPB at lg3 calculated rate once Disposition Summary: 09/21/22 21:26 Hospitalization Ordered Hospitalization Status: Inpatient Admission cp Provider: Joshua Whiting [facility] cp Condition: Stable cp Problem: new cp Symptoms: are unchanged cp Bed/Room Type: Standard cp Room Assignment: 218(09/21/22 22:22) cg Diagnosis - Cellulitis of left lower limb cp - Cellulitis of right lower limb cp Forms: - Medication Reconciliation Form cp - SBAR form cp Addendum: 10/08/2022 09:39 Co-signature as Attending Physician, Timothy Decker MD I agree with the assessment and c onofre plan of care. Signatures: Dispatcher [employer] Timothy Barrientos MD MD cha Williams, Irene RN RN iw Timothy Pool PA PA cp Garcia, Cindy, RN RN cg Preeti Garcia, RN RN lg3 Tere Siddiqi, RN RN deepak3 Jamilah Malhotra, RN RN em6 Kerry Guaman, RN RN [email or web address] Maggie More, TERRIE PAMelissa sb4 Corrections: (The following items were deleted from the chart) 09/21 22:22 21:26 cp
--- NOTE | 2022-09-21 21:26 | ER ---
Nurse's Notes [facility] Name: Adam Boyce Age: 27 yrs Sex: Male : 1995 Arrival Date: 09/21/2022 Time: 18:46 Bed 14 Private MD: Diagnosis: Cellulitis of left lower limb;Cellulitis of right lower limb Presentation: 09/21 18:47 Chief complaint: EMS states: pt was here recently for leg infection, has been on iw antibiotics, pt states it is not getting better. Coronavirus screen: At this time, the client does not indicate any symptoms associated with coronavirus-19. Ebola Screen: Patient negative for fever greater than or equal to 101.5 degrees Fahrenheit, and additional compatible Ebola Virus Disease symptoms Patient denies exposure to infectious person. Patient denies travel to an Ebola-affected area in the 21 days before illness onset. No symptoms or risks identified at this time. Initial Sepsis Screen: Does the patient meet any 2 criteria? No. Patient's initial sepsis screen is negative. Does the patient have a suspected source of infection? No. Patient's initial sepsis screen is negative. Risk Assessment: Do you want to hurt yourself or someone else? Patient reports no desire to harm self or others. Onset of symptoms was September 21, 2022. 18:47 Method Of Arrival: EMS: [facility] iw 18:47 Acuity: KONG 3 iw Historical: - Allergies: 18:48 cayenne pepper; iw 18:48 Sulfa (Sulfonamide Antibiotics); iw - Home Meds: 18:48 atorvastatin Oral [Active]; levothyroxine oral [Active]; metformin 500 mg Oral tab iw daily [Active]; sertraline Oral [Active]; Doxycycline Oral [Active]; - PMHx: 18:48 Anxiety; Arthritis; Bipolar disorder; Depression; Diabetes - NIDDM; High Cholesterol; iw Hypothyroidism; recovering addict (ETOH/narcotic); Sleep Apnea; - Immunization history:: Client reports receiving the 1st dose of the Covid vaccine. - Social history:: Smoking status: Patient reports the use of cigarette tobacco products, smokes one pack cigarettes per day. Screenin:13 Abuse screen: Denies threats or abuse. Denies injuries from another. Nutritional lg3 screening: No deficits noted. Tuberculosis screening: No symptoms or risk factors identified. Fall Risk None identified. Assessment: 20:13 General: Appears in no apparent distress. comfortable, Behavior is fussy, inappropriate lg3 for age. General: Appears obese, unkempt. Pain: Complains of pain in left leg. Neuro: No deficits noted. Fuller Agitation-Sedation Scale (RASS): +1 Restless Level of Consciousness is awake, alert, obeys commands, Oriented to person, place, time, situation. Cardiovascular: No deficits noted. Denies chest pain, shortness of breath, Capillary refill < 3 seconds Clubbing of nail beds is absent JVD is absent Patient's skin is warm and dry. Respiratory: No deficits noted. Airway is patent Respiratory effort is even, unlabored, Respiratory pattern is regular, symmetrical. GI: No deficits noted. Abdomen is round non-distended, obese, Bowel sounds present X 4 quads. : No deficits noted. No signs and/or symptoms were reported regarding the genitourinary system. EENT: No deficits noted. No signs and/or symptoms were reported regarding the EENT system. Derm: Wound noted left benitez. Musculoskeletal: Circulation, motion, and sensation intact. Range of motion: intact in all extremities, Swelling present in right leg and left leg. 21:18 Reassessment: Patient appears in no apparent distress at this time. No changes from lg3 previously documented assessment. Patient and/or family updated on plan of care and expected duration. Pain level reassessed. Patient is alert, oriented x 3, equal unlabored respirations, skin warm/dry/pink. Vital Signs: 18:52 BP 148 / 74; Pulse 113; Resp 22; Temp 98.1; Pulse Ox 98% on R/A; Weight 172.37 kg; iw Height 5 ft. 0 in. (152.40 cm); 20:16 BP 125 / 81; Pulse 106; Resp 19 S; Pulse Ox 97% on R/A; lg3 21:53 BP 129 / 86; Pulse 101; Resp 20 S; Pulse Ox 98% on R/A; lg3 18:52 Body Mass Index 74.21 (172.37 kg, 152.40 cm) iw ED Course: 18:46 Patient arrived in ED. iw 18:47 Timothy Pool PA is PHCP. cp 18:47 Milad Aceves MD is Attending Physician. cp 18:48 Triage completed. iw 18:49 Arm band placed on. iw 18:54 Kerry Guaman, LANDEN is Primary Nurse. ko1 19:07 Influenza Screen (a \\T\\ B) Sent. ko1 19:08 COVID-19 SARS RT PCR (Document "Date of Onset" if Symptomatic) Sent. ko1 19:17 XRAY Chest (1 view) In Process Unspecified. EDMS 19:35 Timothy Decker MD is Attending Physician. cp 19:37 Wound Culture Sent. lg3 20:13 Patient has correct armband on for positive identification. Placed in gown. Bed in low lg3 position. Call light in reach. Side rails up X 1. Client placed on continuous cardiac and pulse oximetry monitoring. NIBP monitoring applied. night monitor on. Door closed. Noise minimized. Warm blanket given. 20:13 Inserted saline lock: 22 gauge in left forearm, using aseptic technique. lg3 20:25 US Extremity Venous W Compression Faheem In Process Unspecified. EDMS 20:40 Wound Culture Sent. lg3 20:40 BNP Sent. lg3 20:40 Basic Metabolic Panel Sent. lg3 20:40 CBC with Diff Sent. lg3 20:40 Magnesium Sent. lg3 21:25 Joshua Whiting MD is Hospitalizing Provider. cp 21:50 SARS RAPID Sent. lg3 21:51 Blood Culture Adult (2) Sent. lg3 21:51 Procalcitonin Sent. lg3 21:51 Lactate Sent. lg3 22:33 No provider procedures requiring assistance completed. Patient admitted, IV remains in lg3 place. intact, No redness/swelling at site. Administered Medications: 18:59 Drug: Nicoderm CQ Patch 21 mg/24 hr 21 mg Route: Transdermal; Site: affected area; ko1 20:13 Drug: [place] (HYDROcodone-acetaminophen) 10 mg-325 mg 1 tabs Route: PO; lg3 20:40 Follow up: Response: No adverse reaction; Marked relief of symptoms lg3 20:36 Drug: Xopenex (levalbuterol) (3) 1.25 mg Route: Inhalation; em6 21:55 Follow up: Response: No adverse reaction; Marked relief of symptoms; Wheezing diminishedlg3 21:51 Not Given (Physician Discretion): NS 0.9% 1000 ml IV at 1 bolus Per protocol; 1000 mL lg3 bolus 22:32 Not Given (ordered by admitting physician in [facility]): vancoMYCIN 1.5 grams IVPB at lg3 calculated rate once Medication: 22:33 VIS not applicable for this client. lg3 Outcome: 21:26 Decision to Hospitalize by Provider. cp 22:33 Admitted to Med/surg accompanied by tech, via stretcher, room 218, Report called to lg3 Pura 22:33 Condition: stable 22:33 Instructed on the need for admit, Demonstrated understanding of instructions. 23:28 Patient left the ED. vc1 Signatures: Dispatcher [employer] EDPrecious Gonzalez, RN RN iw Timothy Pool, GUIDO PA cp Preeti Garcia, RN RN lg3 Audrey Echevarria RN RN vc1 Jamilah Malhotra, RN RN em6 Kerry Guaman RN RN ko1
--- NOTE | 2022-09-21 21:57 | P.HP ---
Certification for Inpatient Patient admitted to: Inpatient With expected LOS: >2 Midnights Patient will require the following post-hospital care: None Practitioner: I am a practitioner with admitting privileges, knowledge of patient current condition, hospital course, and medical plan of care. Services: Services provided to patient in accordance with Admission requirements found in Title 42 Section 412.3 of the Code of Federal Regulations Patient History Date of Service: 09/21/22 Reason for admission: Cellulitus BLE History of Present Illness: Patient is a 27 year old male with morbid obesity, non-insulin dependent type 2 diabetes, hyperlipidemia, lymphadema, hypothyroidism, SUE and history of IV drug abuse "in recovery" who presented to the ED with complaints of bilateral leg infections. He reports that he has been taking clindamycin for about 1 week now and he was previously on a different antibiotic for 10 days. States he has been dealing with his wounds for about 1 month now. His labs today are unremarkable. WBC and lactate WNL. Vital signs stable. Wound & blood cultures obtained. Venous US negative but limited as patient was not cooperative. Cellulitus of bilateral lower extremities noted extending from feet to mid torso. No abscesses or open wounds noted. He was started on vancomycin in the ED. Patient is admitted for further management. Allergies Sulfa (Sulfonamide Antibiotics) [Sulfa(Sulfonamide Antibiotics)] Allergy (Mild, Verified 10/08/12 10:37) Hives/Rash SULFUR, ELEMENTAL Allergy (Uncoded 08/08/15 20:56) Unknown Home medications list reviewed: Yes - Past Medical/Surgical History Diabetic: Yes -: Type 2 Diabetes, Non-Insulin Dependent -: Morbid Obesity -: Lymphadema -: Obstructive Sleep Apnea -: Bipolar/Depression/Anxiety -: Hyperlipidemia -: Hypothyroidism Past Surgical History: Patient denies surgical history Psychosocial/ Personal History: Patient lives at home alone. - Family History Father -: Heart disease, Diabetes - Social History Smoking Status: Current every day smoker Alcohol use: No CD- Drugs: No Caffeine use: Yes Place of Residence: Home Review of Systems Integumentary: As per HPI Physical Examination - Physical Exam General: Alert, In no apparent distress, Obese HEENT: Atraumatic, PERRLA, EOMI, Sclerae nonicteric Neck: Supple, 2+ carotid pulse no bruit, No LAD, Without JVD or thyroid abnormality Respiratory: Clear to auscultation bilaterally, Normal air movement Cardiovascular: Regular rate/rhythm, Normal S1 S2 Gastrointestinal: Normal bowel sounds, No tenderness Musculoskeletal: No tenderness Integumentary: Skin breakdown, Erythema, Other (Cellulitus of bilateral lower extremities extending from feet to mid torso. No abscesses or open wounds noted.) Neurological: Normal gait, Normal speech, Normal strength at 5/5 x4 extr, Sensation intact - Studies Laboratory Data (last 24 hrs) 09/21/22 20:32: WBC 8.00, Hgb 13.5 L, Hct 40.5, Plt Count 336 09/21/22 20:32: Sodium 137, Potassium 4.5, BUN 17, Creatinine 0.70, Glucose 100, Magnesium 2.0 Microbiology Data (last 24 hrs): 09/21/22 19:00 Nasopharnyx Influenza Type A Antigen Screen - Final 09/21/22 19:00 Nasopharnyx Influenza Type B Antigen Screen - Final Assessment and Plan - Problems (Diagnosis) (1) Cellulitis of both lower extremities Current Visit: Yes Status: Acute (2) Morbid obesity Current Visit: Yes Status: Chronic (3) Obstructive sleep apnea Current Visit: Yes Status: Chronic (4) Hypothyroidism Current Visit: Yes Status: Chronic Qualifiers: Hypothyroidism type: acquired Qualified Code(s): E03.9 - Hypothyroidism, unspecified (5) Hyperlipidemia Current Visit: Yes Status: Chronic Qualifiers: Hyperlipidemia type: unspecified Qualified Code(s): E78.5 - Hyperlipidemia, unspecified (6) Type 2 diabetes mellitus Current Visit: Yes Status: Chronic Qualifiers: Diabetes mellitus assisted insulin use: without keno terminal operator use Diabetes mellitus complication status: with skin complications Diabetes mellitus complication detail: with other skin complication Qualified Code(s): E11.628 - Type 2 diabetes mellitus with other skin complications - Plan -Continue vancomycin. Wound & blood cultures obtained. -Wound healing consulted. -ACHS accu checks with mild sliding scale and diabetic diet. -Lipid panel, TSH, and A1C ordered for morning. -CPAP at bedtime for SUE. Patient does not have machine at home but he does desaturate when he falls asleep. -Limit narcotic pain medication as patient has history of drug abuse. -Diabetic counseling/education. -Tobacco cessation counseling. -Monitor and replete electrolytes per protocol. -Reconcile and continue home medications. -Lovenox for VTE prophylaxis. -Full code Discharge Plan: Home Plan to discharge in: Greater than 2 days - Advance Directives Does patient have a Living Will: No Does patient have a Durable POA for Healthcare: No - Code Status/Comfort Care Code Status Assessed: Yes (Full) Critical Care: No Time Spent Managing Pts Care (In Minutes): 50
[2022-09-21 22:37] LABS: SARS-CoV-2 Antigen Rapid Res Negative (Negative)
[2022-09-21] MEDS ORDERED: ONDANSETRON 4 MG/2 ML VIAL IV PRN (23:00)
[2022-09-21] MEDS ORDERED: VANCOMYCIN 2 GM in NA CHLORIDE 0.9% 500 ML IVPB SCH (23:00)
[2022-09-21] MEDS ORDERED: ALBUTEROL 2.5 MG/3 ML NEB SOL NEB PRN (23:00)
[2022-09-21] MEDS ORDERED: NA CHLORIDE 0.9% 500 ML ONE (23:51)
[2022-09-21] MEDS ORDERED: VANCOMYCIN 1 GM/VIAL ONE ×2 (23:51→23:54)
[2022-09-22 00:33] VITALS: BMI 74.4
[2022-09-22] MEDS: clonazePAM 0.5 MG TAB PO PRN ×2 (00:40→21:54)
[2022-09-22] MEDS: NICOTINE 21 MG/PAT TD PRN ×2 (00:40→08:12)
[2022-09-22 03:47] LABS: Absolute Lymphocytes (CBC) 2.2 K/uL (0.7-4.9); Hematocrit 40.2 % (39.6-49.0); Lymphocytes % 29.9 % (15.3-44.8); MCV 92.6 fL (80-100); MPV 6.6 fL (7.6-11.3); RBC Red Blood Cell Count 4.34 M/uL (4.33-5.43)
[2022-09-22 04:15] LABS: Magnesium 2.1 mg/dL (1.8-2.4); Phosphorus 4.2 mg/dL (2.5-4.9); Potassium 3.9 mmol/L (3.5-5.1); Thyroid Stimulating Hormone 3.4 uIU/mL (0.360-3.740)
[2022-09-22] MEDS: INSULIN -REGULAR HUMAN 50 UNIT/0.5 ML ML SQ SCH ×4 (07:30→21:00)
[2022-09-22] MEDS ORDERED: INFLUENZA VACCINE (for 6+ mo) 0.5 ML DOSE IMVAC ONE (08:00)
[2022-09-22] MEDS: ARIPiprazole 5 MG TAB PO SCH (08:12)
[2022-09-22] MEDS: LEVOTHYROXINE SOD 0.088 MG TAB PO SCH (08:13)
[2022-09-22] MEDS: ENOXAPARIN 40 MG/0.4 ML SQ SCH (08:13)
[2022-09-22] MEDS: METFORMIN HCL 850 MG TAB PO SCH (08:14)
[2022-09-22] MEDS ORDERED: VANCOMYCIN 1.5 GM in NA CHLORIDE 0.9% 500 ML IVPB SCH (09:00)
[2022-09-22] MEDS ORDERED: POTASSIUM CL SA 10 MEQ TAB PO ONE (09:00)
[2022-09-22] MEDS: VANCOMYCIN 2 GM in NA CHLORIDE 0.9% 500 ML IVPB SCH (12:00)
--- NOTE | 2022-09-22 16:28 | P.PN ---
Subjective Date of Service: 09/22/22 Chief Complaint: Cellulitus BLE Patient is refusing IV line insertion and initially signed out AGAINST MEDICAL ADVICE. He changed his mind by the time he got to the hospital and now agreed to be admitted for treatment. Family report patient has gained about 50 pounds over the last few months. Physical Examination - Vital Signs Temperature: 97.4 F Blood Pressure: 108/60 Pulse: 96 Respirations: 16 Pulse Ox (%): 95 - Studies Laboratory Data (last 24 hrs) 09/21/22 20:32: WBC 8.00, Hgb 13.5 L, Hct 40.5, Plt Count 336 09/21/22 20:32: Sodium 137, Potassium 4.5, BUN 17, Creatinine 0.70, Glucose 100, Magnesium 2.0 Microbiology Data (last 24 hrs): 09/21/22 20:32 Blood - Blood Anaerobic Blood Culture - Final 09/21/22 19:00 Nasopharnyx Influenza Type A Antigen Screen - Final 09/21/22 19:00 Nasopharnyx Influenza Type B Antigen Screen - Final Assessment And Plan - Current Problems (Diagnosis) (1) Anasarca Current Visit: Yes Status: Acute (2) Hypothyroidism Current Visit: Yes Status: Chronic Qualifiers: Hypothyroidism type: acquired Qualified Code(s): E03.9 - Hypothyroidism, unspecified (3) Morbid obesity Current Visit: Yes Status: Chronic (4) Obstructive sleep apnea Current Visit: Yes Status: Chronic (5) Type 2 diabetes mellitus Current Visit: Yes Status: Chronic Qualifiers: Diabetes mellitus watermaster insulin use: without fpc use Diabetes mellitus complication status: with skin complications Diabetes mellitus complication detail: with other skin complication Qualified Code(s): E11.628 - Type 2 diabetes mellitus with other skin complications (6) Anxiety disorder Current Visit: Yes Status: Acute - Plan Physical Exam General: Alert, In no apparent distress, morbidly obese Neck: Supple, no elevated JVD. Respiratory: Clear to auscultation bilaterally, Normal air movement Cardiovascular: Regular rate/rhythm, Normal S1 S2 Gastrointestinal: Normal bowel sounds, No tenderness Musculoskeletal: No tenderness Integumentary: Erythema bilateral lower extremities, left lower extremity venostasis ulcer, bilateral venous stasis dermatitis. Neurological: No focal motor deficit. Psychiatry: Anxious. Plan: Patient's lower extreme erythema secondary to edema. He has massive edema bilateral lower extremities up to the anterior abdominal wall. Insert PICC line Start Lasix drip. Metolazone. Monitor BMP. Daily weight. Continue vancomycin for now. Fluid restriction. Continue home dose psych medications.
[2022-09-22] MEDS: ACETAMINOPHEN 500 MG TAB PO PRN (16:44)
[2022-09-22] MEDS ORDERED: ALBUTEROL 2.5 MG/3 ML NEB SOL NEB PRN (17:00)
[2022-09-22] MEDS ORDERED: NICOTINE 21 MG/PAT TD ONE (17:00)
[2022-09-22] MEDS: FUROSEMIDE 100 MG in NA CHLORIDE 0.9% 90 ML IV SCH (18:04)
[2022-09-23 00:12] LABS: Arterial Blood Carboxyhemoglob 2.6 % (0-1.5)
[2022-09-23] MEDS ORDERED: VANCOMYCIN 2 GM in NA CHLORIDE 0.9% 500 ML IVPB ONE (01:00)
[2022-09-23] MEDS: FUROSEMIDE 100 MG in NA CHLORIDE 0.9% 90 ML IV SCH ×4 (03:19→22:30)
[2022-09-23] MEDS: INSULIN -REGULAR HUMAN 50 UNIT/0.5 ML ML SQ SCH ×4 (07:30→21:00)
[2022-09-23 07:34] LABS: Potassium 4.9 mmol/L (3.5-5.1)
[2022-09-23] MEDS: ENOXAPARIN 40 MG/0.4 ML SQ SCH (09:44)
[2022-09-23] MEDS: METFORMIN HCL 850 MG TAB PO SCH (09:45)
[2022-09-23] MEDS: LEVOTHYROXINE SOD 0.088 MG TAB PO SCH (09:45)
[2022-09-23] MEDS: METOLAZONE 5 MG TABLET PO SCH (09:45)
[2022-09-23] MEDS: ARIPiprazole 5 MG TAB PO SCH (09:45)
[2022-09-23] MEDS: NICOTINE 21 MG/PAT TD SCH ×2 (10:34→22:48)
[2022-09-23] MEDS: VANCOMYCIN 2 GM in NA CHLORIDE 0.9% 500 ML IVPB SCH ×5 (12:00)
[2022-09-23] MEDS: SERTRALINE HCL 50 MG TAB PO SCH (13:25)
--- NOTE | 2022-09-23 13:31 | P.PN ---
Subjective Date of Service: 09/23/22 Chief Complaint: Cellulitus BLE Patient reports voiding a lot since yesterday. Otherwise no new complaint. He has been screaming 'I want to go out and smoke' occasionally today. Physical Examination - Vital Signs Temperature: 97.6 F Blood Pressure: 158/64 Pulse: 94 Respirations: 24 Pulse Ox (%): 93 - Studies Microbiology Data (last 24 hrs): 09/21/22 19:36 Wound - L Leg (Lower) Gram Stain - Final 09/21/22 20:32 Blood - Blood Anaerobic Blood Culture - Final Assessment And Plan - Current Problems (Diagnosis) (1) Anasarca Current Visit: Yes Status: Acute (2) Hypothyroidism Current Visit: Yes Status: Chronic Qualifiers: Hypothyroidism type: acquired Qualified Code(s): E03.9 - Hypothyroidism, unspecified (3) Morbid obesity Current Visit: Yes Status: Chronic (4) Obstructive sleep apnea Current Visit: Yes Status: Chronic (5) Type 2 diabetes mellitus Current Visit: Yes Status: Chronic (6) Anxiety disorder Current Visit: Yes Status: Acute (7) Tobacco use Current Visit: Yes Status: Acute - Plan Physical Exam General: Alert, In no apparent distress, morbidly obese Neck: Supple, no elevated JVD. Respiratory: Clear to auscultation bilaterally, Normal air movement Cardiovascular: Regular rate/rhythm, Normal S1 S2 Gastrointestinal: Normal bowel sounds, No tenderness Musculoskeletal: No tenderness Integumentary: Erythema bilateral lower extremities, left lower extremity venostasis ulcer, bilateral venous stasis dermatitis. Neurological: No focal motor deficit. Psychiatry: Anxious. Plan: Patient's lower extreme erythema secondary to edema. He has massive edema bilateral lower extremities up to the anterior abdominal wall. Bilateral lower extremity lymphedema Insert PICC line Continue Lasix drip. Metolazone. Monitor BMP. Nephrology consulted to assist with management Daily weight. Continue vancomycin for now. Fluid restriction. Continue home dose psych medications.-Abilify and Zoloft. Nicotine patch
--- NOTE | 2022-09-23 16:35 | CON ---
Date of Consultation: 09/23/2022 Reason For Consultation: Anasarca. History Of Present Illness: This is a 27-year-old gentleman with significant past medical history of Pickwickian, obstructive sleep apnea, morbid obesity, diabetes, the patient came to the hospital wit h leg edema and cellulitis. Workup for abscess has been ruled out. Because of the edema and the sayda rtness of breath and anasarca, the patient was started on Lasix drip. The patient poor compliant wit h fluid restriction. The patient still complaining from shortness of breath. The patient denied nasrin ing any nonsteroidal. No IV contrast. Kidney function has been stable. Allergies: TO SULFA. Past Medical History: Includes; 1.Diabetes. 2.Morbid obesity. 3.Obstructive sleep apnea. 4.Bipolar. 5.Hypothyroidism. 6.Hyperlipidemia. Past Surgical History: Negative. Family History: Positive for hypertension and diabetes. Social History: Active smoker. Denied alcohol. Denied drug abuse. Review of Systems: Head and Neck: No red eye. No ear pain. GI: No nausea. No vomiting. : No polyuria. No dysuria. No hematuria. Director Of Publications: Not applicable. Respiratory: Has shortness of breath. Cardiovascular: Has orthopnea. Endocrine: No polydipsia. Skin: No rash. Neuro: Has neuropathy. Musculoskeletal: Generalized fatigue. Physical Examination: Vital Signs: When I saw the patient; blood pressure 160/65, pulse of 116, afebrile. Chest: Decreased entry bilateral base. Heart: S1, S2. Regular. Abdomen: Morbidly obese. Could not appreciate any organomegaly. Extremities: Erythema bilateral. +3 edema. Ulceration on the left leg. Neurological: Alert, oriented x3. No focal. Laboratory Data: WBC 7.3, H and H 13.2/40.2. Sodium 138, potassium 4.9, bicarb 31, BUN 10, creatini ne 0.6, calcium 8.5. Current Medications: The patient on include; 1.Albuterol. 2.Lasix drip. 3.Levothyroxine. 4.Metformin. 5.Metolazone. 6.Vancomycin. Assessment And Plan: 1.Anasarca possible secondary to morbid obesity, questionable with obstructive sleep apnea, pulmonar y hypertension. Deep vein thrombosis has been ruled out. I agree with diuresis. We will increase L asix to 20 mg per hour. Continue metolazone and spironolactone and we will follow up. Hypothyroidis m has been ruled out. Continue supplement. I am going to send for protein creatinine. We will send for echocardiogram. We will add spironolactone and we will place the patient on fluid restriction a nd we will follow up. 2.Hypertension, not controlled with the presence of anasarca. We will utilize blood pressure for mo re diuresis. In the presence of the diabetes, we will quantify protein creatinine. Then, the patien t will be benefit from MYLES inhibitor, we will add it, but in the meantime, we will add spironolactone . Continue Lasix increase to 20 mg per hour. Continue metolazone. 3.Hypothyroidism, stable. Continue supplement. 4.Obstructive sleep apnea as by primary. 5.Pickwickian syndrome with morbid obesity as by primary. 6.Diabetes as by primary. Thank you, Dr. Coleman for allowing us to participate in the care of your patient. ELIZA Voice ID: [id number] Report ID: [id number]
[2022-09-23 17:38] LABS: Specific Gravity 1.011 (1.005-1.030); Urine Bacteria <20 /HPF (<20); Urine Bilirubin NEGATIVE (Negative); Urine Blood Trace (Negative); Urine Clarity Clear (Clear); Urine Color Colorless (Yellow); Urine Glucose NEGATIVE (Negative); Urine Protein NEGATIVE (Negative); Urine RBC <5 /HPF (None Seen); Urine Urobilinogen Normal (Normal)
[2022-09-23] MEDS: ACETAMINOPHEN 500 MG TAB PO PRN (18:01)
[2022-09-24] MEDS: VANCOMYCIN 2 GM in NA CHLORIDE 0.9% 500 ML IVPB SCH ×2 (02:23→11:49)
[2022-09-24] MEDS: ACETAMINOPHEN 500 MG TAB PO PRN ×2 (02:41→15:10)
[2022-09-24 03:37] LABS: Phosphorus 3.8 mg/dL (2.5-4.9); Potassium 3.9 mmol/L (3.5-5.1); Uric Acid 7.1 mg/dL (3.5-7.2)
[2022-09-24] MEDS: FUROSEMIDE 100 MG in NA CHLORIDE 0.9% 90 ML IV SCH ×2 (05:07→08:30)
--- NOTE | 2022-09-24 06:03 | EKG ---
Test Date: 2022-09-21 Test Time: 20:36:19 Sports Physical Therapist: MEASUREMENT RESULTS: Intervals: Rate: 106 MS: 128 QRSD: 88 QT: 332 QTc: 441 Dale: P: 42 MS: 128 QRS: 75 T: 17 INTERPRETIVE STATEMENTS: Sinus tachycardia Otherwise normal ECG Compared to ECG 07/21/2022 23:35:47 Incomplete right bundle-branch block no longer present Electronically Signed On 09-24-22 06:00:20 CDT by Eren Ortiz
[2022-09-24] MEDS: INSULIN -REGULAR HUMAN 50 UNIT/0.5 ML ML SQ SCH ×4 (07:30→21:00)
[2022-09-24] MEDS: ARIPiprazole 5 MG TAB PO SCH (08:50)
[2022-09-24] MEDS: SERTRALINE HCL 50 MG TAB PO SCH (08:51)
[2022-09-24] MEDS: LEVOTHYROXINE SOD 0.088 MG TAB PO SCH (08:51)
[2022-09-24] MEDS: METOLAZONE 5 MG TABLET PO SCH (08:51)
[2022-09-24] MEDS: METFORMIN HCL 850 MG TAB PO SCH (08:52)
[2022-09-24] MEDS: ENOXAPARIN 40 MG/0.4 ML SQ SCH (08:52)
[2022-09-24] MEDS: NICOTINE 21 MG/PAT TD SCH (08:52)
[2022-09-24] MEDS ORDERED: SPIRONOLACTONE 25 MG TABLET PO SCH (09:00)
[2022-09-24] MEDS ORDERED: POTASSIUM CL SA 10 MEQ TAB PO ONE (09:00)
[2022-09-24] MEDS ORDERED: FUROSEMIDE 40 MG/4 ML VIAL IV SCH (13:00)
--- NOTE | 2022-09-24 13:07 | P.PN ---
Subjective Date of Service: 09/24/22 Chief Complaint: Cellulitus BLE Patient is diuresing well with IV Lasix. He is eating well and has been calm since yesterday. Physical Examination - Vital Signs Temperature: 97.7 F Blood Pressure: 133/64 Pulse: 102 Respirations: 20 Pulse Ox (%): 94 - Studies Microbiology Data (last 24 hrs): 09/21/22 19:36 Wound - L Leg (Lower) Gram Stain - Final 09/21/22 19:36 Wound - L Leg (Lower) Culture & Sensitivity - Final Escherichia Coli Gram Neg Lauri Assessment And Plan - Current Problems (Diagnosis) (1) Anasarca Current Visit: Yes Status: Acute (2) Hypothyroidism Current Visit: Yes Status: Chronic Qualifiers: Hypothyroidism type: acquired Qualified Code(s): E03.9 - Hypothyroidism, unspecified (3) Morbid obesity Current Visit: Yes Status: Chronic (4) Obstructive sleep apnea Current Visit: Yes Status: Chronic (5) Type 2 diabetes mellitus Current Visit: Yes Status: Chronic Qualifiers: Diabetes mellitus oil heaterman insulin use: without oil heaterman use Diabetes mellitus complication status: with skin complications Diabetes mellitus complication detail: with other skin complication Qualified Code(s): E11.628 - Type 2 diabetes mellitus with other skin complications (6) Anxiety disorder Current Visit: Yes Status: Acute (7) Tobacco use Current Visit: Yes Status: Acute - Plan Physical Exam General: Alert, In no apparent distress, morbidly obese Neck: Supple, no elevated JVD. Respiratory: Clear to auscultation bilaterally, Normal air movement Cardiovascular: Regular rate/rhythm, Normal S1 S2 Gastrointestinal: Normal bowel sounds, No tenderness Musculoskeletal: Lower extremity edema is improving. Integumentary: Erythema bilateral lower extremities, left lower extremity venostasis ulcer, bilateral venous stasis dermatitis. Neurological: No focal motor deficit. Psychiatry: Anxious. Plan: Patient's lower extreme erythema secondary to edema. He has massive edema bilateral lower extremities up to the anterior abdominal wall. Bilateral lower extremity lymphedema Lower extremity edema and lipedema I improving with IV Lasix drip PICC line request Continue Lasix drip. Metolazone. Monitor BMP. Nephrology is following. Daily weight. Continue vancomycin for possible cellulitis. Fluid restriction. Continue home dose psych medications.-Abilify and Zoloft. Nicotine patch. Patient wants to go home by tomorrow.
--- NOTE | 2022-09-24 15:51 | PN ---
Date of Progress Note: 09/24/2022 Subjective: The patient doing better. Patient was started on Lasix drip yesterday. We increased th e dosage to 20 mg. Patient responded very well. Patient had good urine output. Physical Examination: Vital Signs: Blood pressure 123/75, pulse of 103. The patient had urine output on the last 24 hour of 2700, but today on the morning showed the patient had 4 L, patient negative of 1.5 L. Chest: Decreased entry bilateral base. Heart: S1, S2. Regular. Abdomen: Morbidly obese. Could not appreciate any organomegaly. Extremities: +3 edema. Ulceration on the left leg. Neurologic: Alert. No focality. Laboratory Data: WBC 7.3, H and H 13.2/40.2. Sodium 134, potassium 3.9, bicarb 35, BUN 10, creatini ne 0.5, calcium 8.9, uric acid 7.1, albumin is 3, corrected calcium 9.7. Urinalysis negative for inf ection. PC ratio is still pending. Current Medications: The patient on include: 1.Vancomycin. 2.Nicotine. 3.Solu-Medrol. 4.Lovenox. 5.Zoloft. 6.Metolazone. 7.Lasix drip. Assessment And Plan: 1.Anasarca, normal TSH. PC ratio is still pending. Mostly secondary to body habitus. Echocardiogr am still pending. I am going to go ahead and change the Lasix to bolus after finishing this bag of d rip and we will continue to monitor the patient. Patient is going to be placed on Lasix 120 q.6 hour s and if he continue to have good response, following we can switch him to oral by tomorrow or day af ter. 2.I am going to go ahead and increase spironolactone to 25 mg b.i.d. Continue metolazone. 3.Hypertension. We will continue to utilize blood pressure for more diuresis. 4.Cellulitis. Continue current antibiotic. 5.Lymphedema. Continue supportive care. We will continue diuresis. 6.Obstructive sleep apnea. Continue current treatment. Follow up with the primary. JEWELL/CAYETANO Voice ID: [id number] Report ID: [id number]
[2022-09-24] MEDS ORDERED: TRAZODONE 50 MG TABLET PO PRN (17:15)
[2022-09-24] MEDS: SPIRONOLACTONE 25 MG TABLET PO SCH (20:58)
[2022-09-24] MEDS: BUSPIRONE HCL 5 MG TABLET PO SCH (21:01)
[2022-09-24] MEDS: FUROSEMIDE 40 MG/4 ML VIAL IV SCH (21:02)
[2022-09-25] MEDS: VANCOMYCIN 2 GM in NA CHLORIDE 0.9% 500 ML IVPB SCH ×2 (00:32→11:31)
[2022-09-25 00:40] LABS: UR CREAT < 18.0 mg/dL (20-370); UR PROTEIN < 5.0 mg/dL (<11.9); Urine Protein/Creatinine Ratio ND ratio (<0.15)
[2022-09-25] MEDS: FUROSEMIDE 40 MG/4 ML VIAL IV SCH ×4 (03:48→22:00)
[2022-09-25 05:56] LABS: Albumin 3.2 g/dL (3.4-5.0); Phosphorus 6.6 mg/dL (2.5-4.9); Potassium 3.3 mmol/L (3.5-5.1)
--- NOTE | 2022-09-25 07:10 | ECHO ---
HEIGHT: 4 ft 11.84 in WEIGHT: 330 lb 1.6 oz DATE OF STUDY: 09/24/[address]: Kin Hensley MD 2-DIMENSIONAL: YES M.MODE: YES DOPPLER: YES COLOR FLOW: YES TDS: YES PORTABLE: HAYLEY DEFINITY: BUBBLE STUDY: DIAGNOSIS: FLUID OVEROLAD CARDIAC HISTORY: CATHERIZATION: SURGERY: PROSTHETIC VALVE: PACEMAKER: MEASUREMENTS (cm) DIASTOLIC (NORMALS) SYSTOLIC (NORMALS) IVSd 1.0 (0.6-1.2) LA Diam 3.5 (1.9-4.0) LVEF 55-60% LVIDd 3.8 (3.5-5.7) LVIDs 2.4 (2.0-3.5) %FS 36% LVPWd 1.2 (0.6-1.2) Ao Diam 2.5 (2.0-3.7) 2 DIMENSIONAL ASSESSMENT: RIGHT ATRIUM: NORMAL LEFT ATRIUM: NORMAL RIGHT VENTRICLE: NORMAL LEFT VENTRICLE: NORMAL TRICUSPID VALVE: MILD TRICUSPID REGURGITATION MITRAL VALVE: NORMAL PULMONIC VALVE: NORMAL AORTIC VALVE: NORMAL PERICARDIAL EFFUSION: NONE AORTIC ROOT: NORMAL LEFT VENTRICULAR WALL MOTION: NORMAL DOPPLER/COLOR FLOW: MILD TRICUSPID REGURGITATION COMMENTS: NORMAL LEFT VENTRICULAR EJECTION FRACTION 55-60%. NORMAL WALL MOTION. MILD TRICUSPID REGURGITATION. TECHNOLOGIST: ENEDINA NICKERSON
[2022-09-25] MEDS: INSULIN -REGULAR HUMAN 50 UNIT/0.5 ML ML SQ SCH ×4 (08:12→21:00)
[2022-09-25] MEDS: METFORMIN HCL 850 MG TAB PO SCH (08:13)
[2022-09-25] MEDS: ARIPiprazole 5 MG TAB PO SCH (08:13)
[2022-09-25] MEDS: SPIRONOLACTONE 25 MG TABLET PO SCH ×2 (08:14→22:00)
[2022-09-25] MEDS: METOLAZONE 5 MG TABLET PO SCH (08:14)
[2022-09-25] MEDS: BUSPIRONE HCL 5 MG TABLET PO SCH ×2 (08:15→22:00)
[2022-09-25] MEDS: ENOXAPARIN 40 MG/0.4 ML SQ SCH (08:15)
[2022-09-25] MEDS: LEVOTHYROXINE SOD 0.088 MG TAB PO SCH (08:15)
[2022-09-25] MEDS: NICOTINE 21 MG/PAT TD SCH (08:16)
[2022-09-25] MEDS: SERTRALINE HCL 50 MG TAB PO SCH (08:17)
[2022-09-25] MEDS ORDERED: POTASSIUM CL SA 10 MEQ TAB PO ONE (09:00)
--- NOTE | 2022-09-25 12:44 | P.PN ---
Subjective Date of Service: 09/25/22 Chief Complaint: Cellulitus BLE Patient is diuresing well with the Lasix drip. Her anasarca has significantly improved. He request to go home. Physical Examination - Vital Signs Temperature: 97.1 F Blood Pressure: 114/64 Pulse: 108 Respirations: 20 Pulse Ox (%): 91 - Studies Microbiology Data (last 24 hrs): 09/21/22 19:36 Wound - L Leg (Lower) Gram Stain - Final 09/21/22 19:36 Wound - L Leg (Lower) Culture & Sensitivity - Final Escherichia Coli Gram Neg Lauri Assessment And Plan - Current Problems (Diagnosis) (1) Anasarca Current Visit: Yes Status: Acute (2) Hypothyroidism Current Visit: Yes Status: Chronic Qualifiers: Hypothyroidism type: acquired Qualified Code(s): E03.9 - Hypothyroidism, unspecified (3) Morbid obesity Current Visit: Yes Status: Chronic (4) Obstructive sleep apnea Current Visit: Yes Status: Chronic (5) Type 2 diabetes mellitus Current Visit: Yes Status: Chronic Qualifiers: Diabetes mellitus guest laundry attendant insulin use: without guest laundry attendant use Diabetes mellitus complication status: with skin complications Diabetes mellitus complication detail: with other skin complication Qualified Code(s): E11.628 - Type 2 diabetes mellitus with other skin complications (6) Anxiety disorder Current Visit: Yes Status: Acute (7) Tobacco use Current Visit: Yes Status: Acute - Plan Physical Exam General: Alert, In no apparent distress, morbidly obese Neck: Supple, no elevated JVD. Respiratory: Clear to auscultation bilaterally, Normal air movement Cardiovascular: Regular rate/rhythm, Normal S1 S2 Gastrointestinal: Normal bowel sounds, No tenderness Musculoskeletal: Lower extremity edema is improving. Integumentary: Erythema bilateral lower extremities, left lower extremity venostasis ulcer, bilateral venous stasis dermatitis. Neurological: No focal motor deficit. Psychiatry: Anxious. Plan: Patient's lower extreme erythema secondary to edema. He has massive edema bilateral lower extremities up to the anterior abdominal wall which has significantly improved with diuresis with IV Lasix. Nephrology following patient and assisting with management. Noted alkalosis. Nephrology to follow and adjust medications. Continue metolazone. Continue to monitor BMP. Daily weight. Discontinue Vanco. Fluid restriction. Continue home dose psych medications.-Abilify and Zoloft. Patient seen by psychiatryAisha added to control his anxiety. Nicotine patch. Patient desires to go home.
--- NOTE | 2022-09-25 13:06 | P.PN ---
Subjective Date of Service: 09/25/22 Chief Complaint: Cellulitus BLE Subjective: No new changes Physical Examination - Vital Signs Temperature: 97.1 F Blood Pressure: 114/64 Pulse: 108 Respirations: 20 Pulse Ox (%): 91 - Physical Exam General: Other (Appears as his stated age) HEENT: Atraumatic, Normocephalic Neck: Supple Respiratory: Other (Symmetric chest expansion) Cardiovascular: No rubs Gastrointestinal: Soft and benign, No guarding Integumentary: No warmth Neurological: Normal speech, Normal tone Urinary: Other (No bladder distention) External genitalia: Deferred Rectal: Deferred Assessment And Plan - Plan 1. Anasarca, normal TSH. PC ratio is still pending. Mostly secondary to body habitus. TTE unremarkable w/ normal LVEF. Decrease lasix to 80 mg po bid. Cont astrid same dose. Dc doll today. 2. Metabolic alkalosis 2/2 diuretics. Give diamox 500 mg IV bid x 4 doses. 3. Hypokalemia. KCl repletion prn. Cont Astrid. Decrease lasix as above. 4. HyperPO4. Monitor. 5. HypoNa. Mild. Monitor. 6. SUE w/ chronic respi acidosis, morbid obesity. CPAP nightly. 7. Htn. Cont current med regimen. 8. Dispo. Dc in 1-2 days.
[2022-09-25 14:29] LABS: Arterial Blood Carboxyhemoglob 1.5 % (0-1.5); Blood Gas Oxyhemoglobin 89.3 % (94-97); Blood O2 Saturation 91.8 % (92-98.5)
[2022-09-25] MEDS: clonazePAM 0.5 MG TAB PO PRN (15:22)
--- NOTE | 2022-09-25 16:41 | RAD REPORT ---
EXAM DESCRIPTION: RAD - Chest Single View - 09/25/2022 3:53 pm CLINICAL HISTORY: Device placement PICC line placement IMPRESSION: PICC line has its tip near the junction of the left brachiocephalic vein and superior v igor cava
[2022-09-25] MEDS: ACETAZOLAMIDE 500 MG IV IV SCH ×2 (17:01→22:00)
[2022-09-25] MEDS ORDERED: WATER FOR INJ,STERILE 10 ML ONE ×2 (17:03→21:41)
[2022-09-26] MEDS: FUROSEMIDE 40 MG/4 ML VIAL IV SCH (04:54)
[2022-09-26 05:57] LABS: Albumin 3.5 g/dL (3.4-5.0); Phosphorus 5.8 mg/dL (2.5-4.9); Potassium 3.1 mmol/L (3.5-5.1)
[2022-09-26] MEDS: INSULIN -REGULAR HUMAN 50 UNIT/0.5 ML ML SQ SCH ×2 (08:58→11:30)
[2022-09-26] MEDS: METFORMIN HCL 850 MG TAB PO SCH (08:59)
[2022-09-26] MEDS: ARIPiprazole 5 MG TAB PO SCH (08:59)
[2022-09-26] MEDS: LEVOTHYROXINE SOD 0.088 MG TAB PO SCH (08:59)
[2022-09-26] MEDS: METOLAZONE 5 MG TABLET PO SCH (08:59)
[2022-09-26] MEDS: SPIRONOLACTONE 25 MG TABLET PO SCH (09:00)
[2022-09-26] MEDS: SERTRALINE HCL 50 MG TAB PO SCH (09:00)
[2022-09-26] MEDS ORDERED: POTASSIUM 25 MEQ EFFERV TAB PO ONE (09:00)
[2022-09-26] MEDS ORDERED: FUROSEMIDE 40 MG TABLET PO SCH (09:00)
[2022-09-26] MEDS: BUSPIRONE HCL 5 MG TABLET PO SCH (09:00)
[2022-09-26] MEDS: ACETAZOLAMIDE 500 MG IV IV SCH (09:01)
[2022-09-26] MEDS: NICOTINE 21 MG/PAT TD SCH (09:01)
[2022-09-26] MEDS: ENOXAPARIN 40 MG/0.4 ML SQ SCH (09:01)
[2022-09-26 09:02] VITALS: BP 152/70; TEMP 97.2
[2022-09-26 10:23] VITALS: O2SAT 94
--- NOTE | 2022-09-26 11:15 | P.DS ---
Admission Date: 09/21/22 Discharge Date: 09/26/22 Disposition: [facility] HOME/HOME HEALTH CARE Discharge Condition: FAIR Reason for Admission: Cellulitus BLE - Problems (1) Anasarca Current Visit: Yes Status: Acute (2) Hypothyroidism Current Visit: Yes Status: Chronic Qualifiers: Hypothyroidism type: acquired Qualified Code(s): E03.9 - Hypothyroidism, unspecified (3) Morbid obesity Current Visit: Yes Status: Chronic (4) Obstructive sleep apnea Current Visit: Yes Status: Chronic (5) Type 2 diabetes mellitus Current Visit: Yes Status: Chronic Qualifiers: Diabetes mellitus correction insulin use: without laborer marine terminal use Diabetes mellitus complication status: with skin complications Diabetes mellitus complication detail: with other skin complication Qualified Code(s): E11.628 - Type 2 diabetes mellitus with other skin complications (6) Anxiety disorder Current Visit: Yes Status: Acute (7) Tobacco use Current Visit: Yes Status: Acute Brief History of Present Illness: Patient is a 27 year old male with morbid obesity, non-insulin dependent type 2 diabetes, hyperlipidemia, lymphadema, hypothyroidism, SUE and history of IV drug abuse "in recovery" who presented to the ED with complaints of bilateral leg infections. He reports that he has been taking clindamycin for about 1 week now and he was previously on a different antibiotic for 10 days. States he has been dealing with his wounds for about 1 month now. His labs in the ED were unremarkable. WBC and lactate WNL. Vital signs stable. Wound & blood cultures obtained. Venous US negative but limited as patient was not cooperative. Cellulitus of bilateral lower extremities noted extending from feet to mid torso. No abscesses or open wounds noted. He was started on vancomycin in the ED and patient admitted for further management. Hospital Course: Patient's lower extreme erythema secondary to edema/lymphedema He had massive edema bilateral lower extremities up to the anterior abdominal wall which significantly improved with diuresis with IV Lasix. He was on Lasix drip, transition to IV Lasix boluses and then oral Lasix. He was also on metolazone and spironolactone Nephrology followed patient and assisting with management. Patient developed contraction alkalosis, Lasix dose was reduced and patient treated with Diamox. The alkalosis improved. Patient was on vancomycin briefly for cellulitis. Vancomycin was discontinued as his lower extremity erythema or extreme secondary lymphedema and edema He was seen by psychiatry for anxiety disorder Patient has been taking Abilify and Zoloft at home. Psychiatry added BuSpar added to control his anxiety. Patient anasarca has significantly improved. He request to go home. He is discharged with Lasix maintenance dose 40 mg twice daily, spironolactone and 1 day of Diamox. He has obstructive sleep apnea but has not done his sleep study. He is referred to Dr. Osullivan for evaluation for sleep study. Is informed to follow-up with nephrology for repeat labs and diuretics adjustment. Vital Signs/Physical Exam: Temp Pulse Resp BP Pulse Ox 97.2 F 100 H 18 152/70 H 97 09/26/22 08:00 09/26/22 09:00 09/26/22 08:00 09/26/22 09:00 09/26/22 08:00 General: Alert, In no apparent distress, Obese HEENT: Mucous membr. moist/pink Neck: JVD not distended Respiratory: Clear to auscultation bilaterally, Normal air movement Cardiovascular: Regular rate/rhythm, Normal S1 S2 Gastrointestinal: Soft and benign, Non-distended Musculoskeletal: No swelling Integumentary: Other (Left benitez shallow wound, looks clean.) Neurological: Normal strength at 5/5 x4 extr, Cranial nerves 3-12 intact Laboratory Data at Discharge: WBC 7.30 K/uL (4.3-10.9) 09/22/22 03:02 Hgb 13.2 g/dL (13.6-17.9) L 09/22/22 03:02 Hct 40.2 % (39.6-49.0) 09/22/22 03:02 Plt Count 356 K/uL (152-406) 09/22/22 03:02 Sodium 131 mmol/L (136-145) L 09/26/22 05:10 Potassium 3.1 mmol/L (3.5-5.1) L 09/26/22 05:10 BUN 22 mg/dL (7-18) H 09/26/22 05:10 Creatinine 0.77 mg/dL (0.55-1.3) 09/26/22 05:10 Glucose 103 mg/dL (74-106) 09/26/22 05:10 Uric Acid 7.1 mg/dL (3.5-7.2) 09/24/22 02:53 Phosphorus 5.8 mg/dL (2.5-4.9) H 09/26/22 05:10 Magnesium 2.1 mg/dL (1.8-2.4) 09/22/22 03:02 Triglycerides 69 mg/dL (<150) 09/22/22 03:02 Cholesterol 101 mg/dL (<200) 09/22/22 03:02 HDL Cholesterol 39 mg/dL (40-60) L 09/22/22 03:02 Cholesterol/HDL Ratio 2.59 09/22/22 03:02 Home Medications: Aripiprazole [Abilify] 10 mg PO DAILY 09/22/22 Levothyroxine Sodium [Unithroid] 1 tab PO DAILY 09/22/22 Metformin HCl 1 tab PO DAILY 09/22/22 Buspirone HCl [Buspar*] 5 mg PO BID #60 tab 09/26/22 Furosemide [Lasix*] 40 mg PO BID #60 tab 09/26/22 Sertraline [Zoloft*] 50 mg PO DAILY #30 tab 09/26/22 Spironolactone [Aldactone*] 25 mg PO BID #60 tab 09/26/22 acetaZOLAMIDE [Diamox] 500 mg PO BID #2 tab 09/26/22 New Medications: Spironolactone [Aldactone*] 25 mg PO BID #60 tab Buspirone HCl [Buspar*] 5 mg PO BID #60 tab acetaZOLAMIDE [Diamox] 500 mg PO BID #2 tab Furosemide [Lasix*] 40 mg PO BID #60 tab Sertraline [Zoloft*] 50 mg PO DAILY #30 tab Diet: AHA Activity: Ad junior Followup: NONE,NONE [Primary Care Provider] - 1 Week Kin Hensley MD [ACTIVE - CAN ADMIT] - 1-2 Weeks Time spent managing pt's care (in minutes): 38
--- NOTE | 2022-09-26 21:41 | PN ---
Date of Progress Note: 09/26/2022 Chief Complaint: Anasarca, lower extremity cellulitis. The patient has multiple medical problems. He presented to the hospital because of lower extremity edema and erythema. Review of Systems: Patient denies fever or chills. Leg edema has improved. Physical Examination: Lungs: Normal respiratory effort. Heart: S1, S2. Abdomen: Soft. Extremities: Edema present in both ankles. Impression And Plan: 1.Anasarca. The patient has normal TSH. The patient was treated with diuretic. Diuretic dose was reduced to 80 mg twice a day. Plan is to continue spironolactone. Patient will need to follow up [facility]. 2.Metabolic alkalosis secondary to diuretics. Patient received Diamox. 3.Hypokalemia. Potassium was replaced. Patient will continue spironolactone. 4.Hyponatremia, mild. Avoid excessive fluid intake and monitor TSH. 5.Hypertension. Continue current medication. PAULO/CAYETANO Voice ID: [id number] Report ID: [id number]
--- NOTE | 2022-09-28 15:07 | CON ---
Date of Consultation: 09/25/2022 Type Of Service: Surgical consult. Reason For Consultation: Evaluate the patient for treat his anxiety and make recommendations. History Of Present Illness: Mr. Carli Medina is a 27-year-old male with psychiatric histo ry positive for cellulitis. The patient also has other medical comorbidities significant for obstructive sleep apnea, hypothyroidism, lymphedema, hyperlipidemia, and [id number] ty pe 2 diabetes. The patient is also morbidly obese. On evaluation, the patient states . Mental Status Examination: The patient is morbidly obese, male, sitting in his chair Speech is spontaneous. Normal in rate, rhythm, and volume. No preservation observed. Mood is described as worried. Affect is mood congruent. Thought process is linear and circumstantial. Tho ught Content: No delusional thinking. No suicidal ideation. No auditory or visual hallucination __ . Fund of knowledge average. Language is good. Insight, impulse control, and judgment fair . Impression: A 27-year-old male, morbidly obese with in depth psychiatric history and comor bid medical etiology positive for bilateral lower extremity cellulitis Recommend the patient to follow up with his psychiatrist post discharge. JOSSIE/CAYETANO Voice ID: [id number] Report ID: [id number]
== END 2022-09-26 12:31 | disposition home health service (06) | DRG 607 ==
LOC: ER 18:38 → ERHOLD 21:46 → 2ND 22:44 → UNDODISIN 09-22 13:00
PROVIDERS: ADMIT Internal Medicine; ATTEND Internal Medicine
PROC: 02HV33Z Insertion of Infusion Device into Superior Vena Cava, Percutaneous Approach (ICD-10-PCS; principal; 2022-09-25)
DX: I89.0 Lymphedema, not elsewhere classified (principal); Z68.45 Body mass index [BMI] 70 or greater, adult; E87.3 Alkalosis; E87.1 Hypo-osmolality and hyponatremia; E87.4 Mixed disorder of acid-base balance; E66.2 Morbid (severe) obesity with alveolar hypoventilation; E78.5 Hyperlipidemia, unspecified; F41.9 Anxiety disorder, unspecified; E87.6 Hypokalemia; I10 Essential (primary) hypertension; I87.2 Venous insufficiency (chronic) (peripheral); E11.40 Type 2 diabetes mellitus with diabetic neuropathy, unspecified; I83.028 Varicose veins of left lower extremity with ulcer other part of lower leg; E83.39 Other disorders of phosphorus metabolism; E11.628 Type 2 diabetes mellitus with other skin complications; F17.210 Nicotine dependence, cigarettes, uncomplicated; T50.2X5A Adverse effect of carbonic-anhydrase inhibitors, benzothiadiazides and other diuretics, initial encounter; R60.1 Generalized edema; Z60.2 Problems related to living alone; Z88.1 Allergy status to other antibiotic agents; Z79.84 Long term (current) use of oral hypoglycemic drugs; Z91.018 Allergy to other foods; Z79.890 Hormone replacement therapy; Z79.899 Other long term (current) drug therapy; Z28.311 Partially vaccinated for COVID-19; Z20.822 Contact with and (suspected) exposure to COVID-19
CPT/HCPCS: 36415; 36569; 71045; 80048; 80061; 80069; 80202; 81001; 82570; 82805; 82947; 83036; 83605; 83735; 83880; 84100; 84145; 84156; 84443; 84550; 85025; 87040; 87070; 87077; 87186; 87205; 87804; 87811; 93005; 93306; 93970; 94660; 94760; 99285; J1120; J1650; J1815; J1940; J3370; J7040; J7614; U0003

== ENCOUNTER 2022-11-17 18:07 | Emergency (ER) | payer OTHER ==
--- OUTSIDE RECORDS SUMMARY | 2022-11-17 18:12 | XMS REPORT | Continuity of Care Document ---
:1995 Author Organization [facility] t Address [address] [place] [address] Care Team Providers Name Role Phone Lucian Valenzuela Primary Care Physician [phone] CARLOS_Reggie Attending Clinician Unavailable Yeison Nuno Attending Clinician [phone] CARLOS_Reggie Admitting Clinician Unavailable Payers Payer Name Policy Type Policy Number Effective Date Expiration Date [facility] [id number] 2020 [facility] 00:00:00 (MEDICAID HMO) Problems This patient has [...] Date Stop Date Source Heavy Tobacco Smoker [facility] Medications Ordered Filled Start Stop Current [...] tablet 00:00: 00 aripiprazol aripiprazol No aripiprazo [place] e 10 mg e 10 mg le 10 mg Commu ni tablet tablet tablet [facility] aripiprazol aripiprazol No aripiprazo [place] e 2 mg e 2 mg le 2 mg Communi tablet tablet tablet [facility] atorvastati atorvastati No atorvastat [place] n 10 mg n 10 mg in 10 mg Commu ni tablet tablet tablet [facility] atorvastati atorvastati No atorvastat [place] n 20 mg n 20 mg in 20 mg Commu ni tablet tablet tablet [facility] hydroxyzine hydroxyzine No hydroxyzin [place] pamoate 25 pamoate 25 e pamoate Communi mg capsule mg capsule 25 mg ty [facility] ibuprofen ibuprofen No ibuprofen [place] 800 mg 800 mg 800 mg Communi tablet tablet tablet [facility] levothyroxi levothyroxi No levothyrox [place] ne 75 mcg ne 75 mcg ine 75 mcg Communi tablet tablet tablet [facility] metformin metformin No metformin [place] 500 mg 500 mg 500 mg Communi tablet tablet tablet [facility] metformin metformin No metformin [place] 850 mg 850 mg 850 mg Communi tablet tablet tablet [facility] nicotine 14 nicotine 14 No nicotine [place] mg/24 hr mg/24 hr 14 mg/24 Com merissa daily daily hr daily ty transdermal transdermal transderma [facility] patch patch patch [facility] sertraline sertraline No sertraline [place] 50 mg 50 mg 50 mg Communi tablet tablet tablet [facility] trazodone trazodone No trazodone [place] 50 mg 50 mg 50 mg Communi tablet tablet tablet [facility] Immunizations Ordered Immunization Filled Immunization Date Status Commen ts Source Name Name Kerri COVID-19 2021-12-09 Completed Vaccine 00:00:00 Kranthia COVID-19 2021-12-09 Completed Vaccine 00:00:00 Kranthia COVID-19 2021-12-09 Completed Vaccine 00:00:00 Vital Signs Vital Name Observation Time Observation Value Comments Source BP Diastolic 2021-05-15 00:00:00 74 mm[Hg] [facility] Height 2021-05-15 00:00:00 59 [in_i] [facility] BMI (Body Mass 2021-05-15 00:00:00 59.8 kg/m2 [facility] BP Systolic 2021-05-15 00:00:00 122 mm[Hg] [facility] Body Weight 2021-05-15 00:00:00 4736 [oz_av] [facility] BP Systolic 2022-09-15 14:41:00 138 [...] Goal Plan of Care Note [code = 96240-2] Goal Plan of Care Note [code = 17745-3] Goal Plan of Care Note [code = 65123-0] Goal Plan of Care Note [code = 66142-5] Goal Plan of Care Note [code = 27243-9] Goal Plan of Care Note [code = 75808-2] Goal Plan of Care Note [code = 93929-2] Goal Plan of Care Note [code = 85322-6] Goal Plan of Care Note [code = 39423-2] Goal Plan of Care Note [code = 79399-3] Goal Plan of Care Note [code = 25652-5] Goal Plan of Care Note [code = 85125-9] Goal Plan of Care Note [code = 09590-0] Goal Plan of Care Note [code = 17632-1] Goal Plan of Care Note [code = 02093-0] Goal Plan of Care Note [code = 60970-4] Goal Plan of Care Note [code = 99965-7] Goal Plan of Care Note [code = 83336-6] Goal Plan of Care Note [code = 03418-3] Goal Plan of Care Note [code = 43305-6] Goal Plan of Care Note [code = 21581-4] Goal Plan of Care Note [code = 60802-6] Goal Plan of Care Note [code = 44500-2] Goal Plan of Care Note [code = 27904-2] Goal Plan of Care Note [code = 43034-3] Goal Plan of Care Note [code = 76607-3] Goal Plan of Care Note [code = 33389-0] Goal Plan of Care Note [code = 97704-4] Goal Plan of Care Note [code = 92872-2] Goal Plan of Care Note [code = 49559-7] Goal Plan of Care Note [code = 67567-5] Goal Plan of Care Note [code = 84502-2] Goal Plan of Care Note [code = 67340-1] Goal Plan of Care Note [code = 58769-7] Goal Plan of Care Note [code = 55192-9] Goal Plan of Care Note [code = 35942-2] Goal Plan of Care Note [code = 55616-9] Goal Plan of Care Note [code = 44840-0] Goal Plan of Care Note [code = 38822-6] Goal Plan of Care Note [code = 44560-2] Goal Plan of Care Note [code = 75932-6] Goal Plan of Care Note [code = 44490-4] Goal Plan of Care Note [code = 76574-3] Goal Plan of Care Note [code = 25577-3] Goal Plan of Care Note [code = 19424-7] Goal Plan of Care Note [code = 51541-9] Goal Plan of Care Note [code = 54278-7] Goal Plan of Care Note [code = 18761-4] Goal Plan of Care Note [code = 77657-6] Goal Plan of Care Note [code = 58597-9] Goal Plan of Care Note [code = 80261-0] Goal Plan of Care Note [code = 94183-9] Goal Plan of Care Note [code = 38728-9] Goal Plan of Care Note [code = 32272-6] Goal Plan of Care Note [code = 14372-1] Goal Plan of Care Note [code = 47006-0] Goal Plan of Care Note [code = 41265-6] Goal Plan of Care Note [code = 82369-8] Goal Plan of Care Note [code = 51471-2] Goal Plan of Care Note [code = 72531-4] Goal Plan of Care Note [code = 86000-4] Goal Plan of Care Note [code = 46110-4] Goal Plan of Care Note [code = 94828-4] Goal Plan of Care Note [code = 66922-6] Goal Plan of Care Note [code = 19180-6] Goal Plan of Care Note [code = 97444-1] Goal Plan of Care Note [code = 94437-0] Goal Plan of Care Note [code = 53248-6] Goal Plan of Care Note [code = 20513-2] Goal Plan of Care Note [code = 94248-8] Goal Plan of Care Note [code = 69661-3] Goal Plan of Care Note [code = 63148-6] Goal Plan of Care Note [code = 79547-0] Goal Plan of Care Note [code = 65241-5] Goal Plan of Care Note [code = 51114-9] Goal Plan of Care Note [code = 78867-1] Goal Plan of Care Note [code = 78920-6] Goal Plan of Care Note [code = 34515-4] Goal Plan of Care Note [code = 63689-5] Goal Plan of Care Note [code = 01770-6] Goal Plan of Care Note [code = 66181-1] Goal Plan of Care Note [code = 00180-1] Goal Plan of Care Note [code = 20695-6] Goal Plan of Care Note [code = 83711-9] Goal Plan of Care Note [code = 41412-6] Goal Plan of Care Note [code = 30515-0] Goal Plan of Care Note [code = 76882-3] Goal Plan of Care Note [code = 46012-1] Goal Plan of Care Note [code = 39889-0] Goal Plan of Care Note [code = 42165-6] Goal Plan of Care Note [code = 02527-9] Goal Plan of Care Note [code = 60906-4] Goal Plan of Care Note [code = 95979-7] Goal Plan of Care Note [code = 65519-5] Goal Plan of Care Note [code = 07070-1] Encounters Start End Encounter Admission Attending Care Care Encounter Source Date/Time Date/Time Type Type Clinicians Facility Department ID 2022-09-15 2022-09-15 Outpatient [facility] [id number] Jaleel Blanco 14:31:47 14:31:47 1025 Marii Quesada 2022-09-15 2022-09-15 Outpatient [id number] 00:00:00 00:00:00 Visit 0059-4f45 059-4f45-a -ya2l-2l1 m7e-6o1z74 i3894rjtq 35bdfc 2022-08-13 2022-08-13 Outpatient [id number]-[id number] 00:00:00 00:00:00 Visit k04u-015f 48f-495a-9 -9262-3d5 262-3d5bba txjt1whln c0cbea 2022-08-06 2022-08-06 Outpatient [id number] 00:00:00 00:00:00 Visit 6125-4ec6 125-4ec6-b -t33y-94t 35f-09fa7f [id number] 2021-05-15 2021-05-15 [address] SELMAEV_T [facility] [place] 11:10:00 11:10:00 0624 [facility] 2021-05-15 2021-05-15 [facility] [address] [place] 00:00:00 00:00:00 [facility] [address] [facility] [address] Specialty [address], [place] [address] , Ph. 2021-05-15 2021-05-[address] [facility] [id number] 00:00:00 00:00:00 Yeison 021-a7d6-4 [place] [id number] 2021-05-09 2021-05-[address] [facility] [place] 02:54:00 02:54:00 0618 [facility] Results Test Description Test Time Test Comments Results Result Comments Source HEMOGLOBIN A1c 2022-08-08 07:32:28 Test Item Value Reference Range Interpretation Comme nts HEMOGLOBIN A1c (test code = 84590) 6.3 % 4.2-5.6 H CBC W/AUTO DIFF WITH [id number] 07:05:30 Test Item Value Reference Range Interpretation [...] RBCS 0.00 K/UL 0.00-0.11 (test code = 67251) TSH, THIRD [id number] 06:43:26 Test Item Value Reference Range Interpretation Comments TSH, THIRD GENERATION (test code 3.490 UIU/ML 0.400-4.100 = 2821) COMPREHENSIVE METABOLIC [id number] 03:50:21 Test Item Value Reference Range Interpretation Comments GLUCOSE (test code = 95 MG/DL 70-99 2216) BUN (test code = 21 MG/DL 6-20 H 2207) CREATININE (test 0.59 MG/DL 0.80-1.40 L code = 2214) eGFR (2020 CKD-EPI) 136 >60 (test code = 49378) ML/MIN/1.73 CALC BUN/CREAT (test 36 RATIO 6-28 H code = 2235) SODIUM (test code = 141 MEQ/L [phone]) POTASSIUM (test code 5.0 MEQ/L 3.5-5.4 = [...] message] (test code = 220) The syste [employer] which generated this result transmit yeison reference range : <=1.2. The refe rence range was not u sed to interpret th is result as normal/abnormal . ALKALINE PHOSPHATASE 137 U/L 40-115 H (test code = 2203) AST (test code = 28 U/L 9-50 2217) ALT (test code = 34 U/L 5-50 2218) LIPID [id number] 03:50:21 Test Item Value Reference Range Interpretation [...] MOREINFORMATION , SEE CLIENT ANNOUNCE MENT AT [email or web address] RISK RATIO LDL/HDL 2.56 RATIO <3.55 UNLESS O THERWISE (test code = 2238) INDICATED , ALL TESTING PERFORMED [facility], [facility]. [address] [place] [address] [facility] DIRECTOR: LICHA AYON M.D. CLIA NUMBER [id number] CAP ACCREDITATION N O. [id number] HEMOGLOBIN [id number] 00:00:00 Test Item Value Reference Range Interpretation Comments HEMOGLOBIN A1c (test code = 39059) 6.3 % HEMOGLOBIN [id number] 00:00:00 Test Item Value Reference Range Interpretation Comments HEMOGLOBIN A1c (test code = 72894) 6.3 % HEMOGLOBIN [id number] 00:00:00 Test Item Value Reference Range Interpretation Comments HEMOGLOBIN A1c (test code = 68696) 6.3 % TSH, THIRD [id number] 00:00:00 Test Item Value Reference Range Interpretation Comments TSH, THIRD GENERATION (test code 3.490 UIU/ML = 2821) TSH, THIRD [id number] 00:00:00 Test Item Value Reference Range Interpretation Comments TSH, THIRD GENERATION (test code 3.490 UIU/ML = 2821) TSH, THIRD [id number] 00:00:00 Test Item Value Reference Range Interpretation Comments TSH, THIRD GENERATION (test code 3.490 UIU/ML = 2821) CBC W/AUTO [id number] 00:00:00 Test Item Value Reference Range Interpretation [...] NUCLEATED RBCS (test code = 0.00 K/UL 69342) CBC W/AUTO [id number] 00:00:00 Test Item Value Reference Range Interpretation [...] NUCLEATED RBCS (test code = 0.00 K/UL 15755) CBC W/AUTO [id number] 00:00:00 Test Item Value Reference Range Interpretation [...] NUCLEATED RBCS (test code = 0.00 K/UL 16532) COMPREHENSIVE METABOLIC [id number] 00:00:00 Test Item Value Reference Range Interpretation Comments GLUCOSE (test code = 2217) 95 MG/DL BUN (test code = 2208) 21 MG/DL CREATININE (test code = 2214) 0.59 MG/DL eGFR (2020 CKD-EPI) (test 136 ML/MIN/1.73 code = 82852) CALC BUN/CREAT (test code = 36 RATIO [...] code = 2219) 34 U/L COMPREHENSIVE METABOLIC [id number] 00:00:00 Test Item Value Reference Range Interpretation Comments GLUCOSE (test code = 2217) 95 MG/DL BUN (test code = 2208) 21 MG/DL CREATININE (test code = 2214) 0.59 MG/DL eGFR (2020 CKD-EPI) (test 136 ML/MIN/1.73 code = 64932) CALC BUN/CREAT (test code = 36 RATIO [...] (test code = 2219) 34 U/L LIPID [id number] 00:00:00 Test Item Value Reference Range Interpretation Comments CHOLESTEROL (test code = 2210) 193 MG/DL TRIGLYCERIDES (test code = 2232) 111 MG/DL HDL CHOLESTEROL (test code = 2220) 48 MG/DL CALC LDL CHOL (test code = 2237) 123 MG/DL RISK RATIO LDL/HDL (test code = 2.56 RATIO 2238) LIPID [id number] 00:00:00 Test Item Value Reference Range Interpretation Comments CHOLESTEROL (test code = 2210) 193 MG/DL TRIGLYCERIDES (test code = 2232) 111 MG/DL HDL CHOLESTEROL (test code = 2220) 48 MG/DL CALC LDL CHOL (test code = 2237) 123 MG/DL RISK RATIO LDL/HDL (test code = 2.56 RATIO 2238) HEMOGLOBIN [id number] 00:00:00 Test Item Value Reference Range Interpretation Comments HEMOGLOBIN A1c (test code = 12059) 6.3 % HEMOGLOBIN [id number] 00:00:00 Test Item Value Reference Range Interpretation Comments HEMOGLOBIN A1c (test code = 78431) 6.3 % HEMOGLOBIN [id number] 00:00:00 Test Item Value Reference Range Interpretation Comments HEMOGLOBIN A1c (test code = 00473) 6.3 % TSH, THIRD [id number] 00:00:00 Test Item Value Reference Range Interpretation Comments TSH, THIRD GENERATION (test code 3.490 UIU/ML = 2821) TSH, THIRD [id number] 00:00:00 Test Item Value Reference Range Interpretation Comments TSH, THIRD GENERATION (test code 3.490 UIU/ML = 2821) TSH, THIRD [id number] 00:00:00 Test Item Value Reference Range Interpretation Comments TSH, THIRD GENERATION (test code 3.490 UIU/ML = 2821) CBC W/AUTO [id number] 00:00:00 Test Item Value Reference Range Interpretation [...] NUCLEATED RBCS (test code = 0.00 K/UL 27855) CBC W/AUTO [id number] 00:00:00 Test Item Value Reference Range Interpretation [...] NUCLEATED RBCS (test code = 0.00 K/UL 68991) CBC W/AUTO [id number] 00:00:00 Test Item Value Reference Range Interpretation [...] NUCLEATED RBCS (test code = 0.00 K/UL 72885) COMPREHENSIVE METABOLIC [id number] 00:00:00 Test Item Value Reference Range Interpretation Comments GLUCOSE (test code = 2217) 95 MG/DL BUN (test code = 2208) 21 MG/DL CREATININE (test code = 2214) 0.59 MG/DL eGFR (2020 CKD-EPI) (test 136 ML/MIN/1.73 code = 94976) CALC BUN/CREAT (test code = 36 RATIO [...] code = 2219) 34 U/L COMPREHENSIVE METABOLIC [id number] 00:00:00 Test Item Value Reference Range Interpretation Comments GLUCOSE (test code = 2217) 95 MG/DL BUN (test code = 2208) 21 MG/DL CREATININE (test code = 2214) 0.59 MG/DL eGFR (2020 CKD-EPI) (test 136 ML/MIN/1.73 code = 80432) CALC BUN/CREAT (test code = 36 RATIO [...] (test code = 2219) 34 U/L LIPID [id number] 00:00:00 Test Item Value Reference Range Interpretation Comments CHOLESTEROL (test code = 2210) 193 MG/DL TRIGLYCERIDES (test code = 2232) 111 MG/DL HDL CHOLESTEROL (test code = 2220) 48 MG/DL CALC LDL CHOL (test code = 2237) 123 MG/DL RISK RATIO LDL/HDL (test code = 2.56 RATIO 2238) LIPID [id number] 00:00:00 Test Item Value Reference Range Interpretation [...] Comments SARS-CoV-2 INTERPRETATION Negative (test code = 27838) SOURCE (test code = 06759) Nasal_Swab_in_VTM__ UTM SARS-CoV-2 (COVID-19) by RT-PCR (HIGH RISK)2020-10-10 00:00:00 Test Item Value Reference Range Interpretation Comments SARS-CoV-2 INTERPRETATION Negative (test code = 90010) SOURCE (test code = 61093) Nasal_Swab_in_VTM__ UTM SARS-CoV-2 (COVID-19) by RT-PCR (HIGH RISK)2020-10-10 00:00:00 Test Item Value Reference Range Interpretation Comments SARS-CoV-2 INTERPRETATION Negative (test code = 73104) SOURCE (test code = 07357) Nasal_Swab_in_VTM__ UTM LIPID PANEL WITH REFLEX DIRECT [id number] 00:00:00 Test Item Value Reference Range Interpretation Comments CHOLESTEROL (test code = 2210) 208 MG/DL TRIGLYCERIDES (test code = 2232) 201 MG/DL HDL CHOLESTEROL (test code = 2220) 34 MG/DL CALC LDL CHOL (test code = 2237) 139 MG/DL RISK RATIO LDL/HDL (test code = 4.09 RATIO 2238) LIPID PANEL WITH REFLEX DIRECT [id number] 00:00:00 Test Item Value Reference Range Interpretation Comments CHOLESTEROL (test code = 2210) 208 MG/DL TRIGLYCERIDES (test code = 2232) 201 MG/DL HDL CHOLESTEROL (test code = 2220) 34 MG/DL CALC LDL CHOL (test code = 2237) 139 MG/DL RISK RATIO LDL/HDL (test code = 4.09 RATIO 2238) COMPREHENSIVE METABOLIC [id number] 00:00:00 Test Item Value Reference Range Interpretation Comments GLUCOSE (test code = 2217) 95 MG/DL BUN (test code = 2208) 15 MG/DL CREATININE (test code = 2214) 0.70 MG/DL eGFR AMER. (test code 151 ML/MIN/1.73 = 39120) eGFR NON- AMER. (test 130 ML/MIN/1.73 code = 33269) CALC BUN/CREAT (test code = 21 RATIO [...] code = 2219) 37 U/L COMPREHENSIVE METABOLIC [id number] 00:00:00 Test Item Value Reference Range Interpretation Comments GLUCOSE (test code = 2217) 95 MG/DL BUN (test code = 2208) 15 MG/DL CREATININE (test code = 2214) 0.70 MG/DL eGFR AMER. (test code 151 ML/MIN/1.73 = 92337) eGFR NON- AMER. (test 130 ML/MIN/1.73 code = 64772) CALC BUN/CREAT (test code = 21 RATIO [...] 37 U/L LIPID PANEL WITH REFLEX DIRECT [id number] 00:00:00 Test Item Value Reference Range Interpretation Comments CHOLESTEROL (test code = 2210) 208 MG/DL TRIGLYCERIDES (test code = 2232) 201 MG/DL HDL CHOLESTEROL (test code = 2220) 34 MG/DL CALC LDL CHOL (test code = 2237) 139 MG/DL RISK RATIO LDL/HDL (test code = 4.09 RATIO 2238) LIPID PANEL WITH REFLEX DIRECT [id number] 00:00:00 Test Item Value Reference Range Interpretation Comments CHOLESTEROL (test code = 2210) 208 MG/DL TRIGLYCERIDES (test code = 2232) 201 MG/DL HDL CHOLESTEROL (test code = 2220) 34 MG/DL CALC LDL CHOL (test code = 2237) 139 MG/DL RISK RATIO LDL/HDL (test code = 4.09 RATIO 2238) COMPREHENSIVE METABOLIC [id number] 00:00:00 Test Item Value Reference Range Interpretation Comments GLUCOSE (test code = 2217) 95 MG/DL BUN (test code = 2208) 15 MG/DL CREATININE (test code = 2214) 0.70 MG/DL eGFR AMER. (test code 151 ML/MIN/1.73 = 65263) eGFR NON- AMER. (test 130 ML/MIN/1.73 code = 22999) CALC BUN/CREAT (test code = 21 RATIO [...] code = 2219) 37 U/L COMPREHENSIVE METABOLIC [id number] 00:00:00 Test Item Value Reference Range Interpretation Comments GLUCOSE (test code = 2217) 95 MG/DL BUN (test code = 2208) 15 MG/DL CREATININE (test code = 2214) 0.70 MG/DL eGFR AMER. (test code 151 ML/MIN/1.73 = 58283) eGFR NON- AMER. (test 130 ML/MIN/1.73 code = 41281) CALC BUN/CREAT (test code = 21 RATIO [...] 37 U/L LIPID PANEL WITH REFLEX DIRECT [id number] 00:00:00 Test Item Value Reference Range Interpretation Comments CHOLESTEROL (test code = 2210) 208 MG/DL TRIGLYCERIDES (test code = 2232) 201 MG/DL HDL CHOLESTEROL (test code = 2220) 34 MG/DL CALC LDL CHOL (test code = 2237) 139 MG/DL RISK RATIO LDL/HDL (test code = 4.09 RATIO 2238) LIPID PANEL WITH REFLEX DIRECT [id number] 00:00:00 Test Item Value Reference Range Interpretation Comments CHOLESTEROL (test code = 2210) 208 MG/DL TRIGLYCERIDES (test code = 2232) 201 MG/DL HDL CHOLESTEROL (test code = 2220) 34 MG/DL CALC LDL CHOL (test code = 2237) 139 MG/DL RISK RATIO LDL/HDL (test code = 4.09 RATIO 2238) COMPREHENSIVE METABOLIC [id number] 00:00:00 Test Item Value Reference Range Interpretation Comments GLUCOSE (test code = 2217) 95 MG/DL BUN (test code = 2208) 15 MG/DL CREATININE (test code = 2214) 0.70 MG/DL eGFR AMER. (test code 151 ML/MIN/1.73 = 54655) eGFR NON- AMER. (test 130 ML/MIN/1.73 code = 61933) CALC BUN/CREAT (test code = 21 RATIO [...] code = 2219) 37 U/L COMPREHENSIVE METABOLIC [id number] 00:00:00 Test Item Value Reference Range Interpretation Comments GLUCOSE (test code = 2217) 95 MG/DL BUN (test code = 2208) 15 MG/DL CREATININE (test code = 2214) 0.70 MG/DL eGFR AMER. (test code 151 ML/MIN/1.73 = 03516) eGFR NON- AMER. (test 130 ML/MIN/1.73 code = 17138) CALC BUN/CREAT (test code = 21 RATIO [...] (test code = 2219) 37 U/L HEMOGLOBIN [id number] 00:00:00 Test Item Value Reference Range Interpretation Comments HEMOGLOBIN A1c (test code = 40691) 6.1 % HEMOGLOBIN [id number] 00:00:00 Test Item Value Reference Range Interpretation Comments HEMOGLOBIN A1c (test code = 47276) 6.1 % HEMOGLOBIN [id number] 00:00:00 Test Item Value Reference Range Interpretation Comments HEMOGLOBIN A1c (test code = 04201) 6.1 % [id number] 00:00:00 Test Item Value Reference Range Interpretation Comments TSH, THIRD GENERATION (test code 3.380 UIU/ML = 2821) [id number] 00:00:00 Test Item Value Reference Range Interpretation Comments TSH, THIRD GENERATION (test code 3.380 UIU/ML = 2821) [id number] 00:00:00 Test Item Value Reference Range Interpretation Comments TSH, THIRD GENERATION (test code 3.380 UIU/ML = 2821) HEMOGLOBIN [id number] 00:00:00 Test Item Value Reference Range Interpretation Comments HEMOGLOBIN A1c (test code = 35109) 6.1 % HEMOGLOBIN [id number] 00:00:00 Test Item Value Reference Range Interpretation Comments HEMOGLOBIN A1c (test code = 18449) 6.1 % HEMOGLOBIN [id number] 00:00:00 Test Item Value Reference Range Interpretation Comments HEMOGLOBIN A1c (test code = 55537) 6.1 % [id number] 00:00:00 Test Item Value Reference Range Interpretation Comments TSH, THIRD GENERATION (test code 3.380 UIU/ML = 2821) [id number] 00:00:00 Test Item Value Reference Range Interpretation Comments TSH, THIRD GENERATION (test code 3.380 UIU/ML = 2821) [id number] 00:00:00 Test Item Value Reference Range Interpretation Comments TSH, THIRD GENERATION (test code 3.380 UIU/ML = 2821) HEMOGLOBIN [id number] 00:00:00 Test Item Value Reference Range Interpretation Comments HEMOGLOBIN A1c (test code = 99978) 6.1 % HEMOGLOBIN [id number] 00:00:00 Test Item Value Reference Range Interpretation Comments HEMOGLOBIN A1c (test code = 56020) 6.1 % HEMOGLOBIN [id number] 00:00:00 Test Item Value Reference Range Interpretation Comments HEMOGLOBIN A1c (test code = 89268) 6.1 % [id number] 00:00:00 Test Item Value Reference Range Interpretation Comments TSH, THIRD GENERATION (test code 3.380 UIU/ML = 2821) [id number] 00:00:00 Test Item Value Reference Range Interpretation Comments TSH, THIRD GENERATION (test code 3.380 UIU/ML = 2821) [id number] 00:00:00 Test Item Value Reference Range Interpretation Comments TSH, THIRD GENERATION (test code 3.380 UIU/ML = 2821) COMPREHENSIVE METABOLIC [id number] 00:00:00 Test Item Value Reference Range Interpretation Comments GLUCOSE (test code = 2217) 182 MG/DL BUN (test code = 2208) 18 MG/DL CREATININE (test code = 2214) 0.71 MG/DL eGFR AMER. (test code 150 ML/MIN/1.73 = 79619) eGFR NON- AMER. (test 129 ML/MIN/1.73 code = 11725) CALC BUN/CREAT (test code = 25 RATIO [...] code = 2219) 31 U/L COMPREHENSIVE METABOLIC [id number] 00:00:00 Test Item Value Reference Range Interpretation Comments GLUCOSE (test code = 2217) 182 MG/DL BUN (test code = 2208) 18 MG/DL CREATININE (test code = 2214) 0.71 MG/DL eGFR AMER. (test code 150 ML/MIN/1.73 = 56621) eGFR NON- AMER. (test 129 ML/MIN/1.73 code = 92748) CALC BUN/CREAT (test code = 25 RATIO [...] (test code = 2219) 31 U/L LIPID [id number] 00:00:00 Test Item Value Reference Range Interpretation Comments CHOLESTEROL (test code = 2210) 217 MG/DL TRIGLYCERIDES (test code = 2232) 149 MG/DL HDL CHOLESTEROL (test code = 2220) 36 MG/DL CALC LDL CHOL (test code = 2237) 153 MG/DL RISK RATIO LDL/HDL (test code = 4.25 RATIO 2238) LIPID [id number] 00:00:00 Test Item Value Reference Range Interpretation Comments CHOLESTEROL (test code = 2210) 217 MG/DL TRIGLYCERIDES (test code = 2232) 149 MG/DL HDL CHOLESTEROL (test code = 2220) 36 MG/DL CALC LDL CHOL (test code = 2237) 153 MG/DL RISK RATIO LDL/HDL (test code = 4.25 RATIO 2238) HEMOGLOBIN [id number] 00:00:00 Test Item Value Reference Range Interpretation Comments HEMOGLOBIN A1c (test code = 74381) 5.8 % HEMOGLOBIN [id number] 00:00:00 Test Item Value Reference Range Interpretation Comments HEMOGLOBIN A1c (test code = 03371) 5.8 % HEMOGLOBIN [id number] 00:00:00 Test Item Value Reference Range Interpretation Comments HEMOGLOBIN A1c (test code = 41460) 5.8 % [id number] 00:00:00 Test Item Value Reference Range Interpretation Comments TSH, THIRD GENERATION (test code 2.080 UIU/ML = 2821) [id number] 00:00:00 Test Item Value Reference Range Interpretation Comments TSH, THIRD GENERATION (test code 2.080 UIU/ML = 2821) [id number] 00:00:00 Test Item Value Reference Range Interpretation Comments TSH, THIRD GENERATION (test code 2.080 UIU/ML = 2821) COMPREHENSIVE METABOLIC [id number] 00:00:00 Test Item Value Reference Range Interpretation Comments GLUCOSE (test code = 2217) 182 MG/DL BUN (test code = 2208) 18 MG/DL CREATININE (test code = 2214) 0.71 MG/DL eGFR AMER. (test code 150 ML/MIN/1.73 = 44086) eGFR NON- AMER. (test 129 ML/MIN/1.73 code = 17505) CALC BUN/CREAT (test code = 25 RATIO [...] code = 2219) 31 U/L COMPREHENSIVE METABOLIC [id number] 00:00:00 Test Item Value Reference Range Interpretation Comments GLUCOSE (test code = 2217) 182 MG/DL BUN (test code = 2208) 18 MG/DL CREATININE (test code = 2214) 0.71 MG/DL eGFR AMER. (test code 150 ML/MIN/1.73 = 32017) eGFR NON- AMER. (test 129 ML/MIN/1.73 code = 06368) CALC BUN/CREAT (test code = 25 RATIO [...] (test code = 2219) 31 U/L LIPID [id number] 00:00:00 Test Item Value Reference Range Interpretation Comments CHOLESTEROL (test code = 2210) 217 MG/DL TRIGLYCERIDES (test code = 2232) 149 MG/DL HDL CHOLESTEROL (test code = 2220) 36 MG/DL CALC LDL CHOL (test code = 2237) 153 MG/DL RISK RATIO LDL/HDL (test code = 4.25 RATIO 2238) LIPID [id number] 00:00:00 Test Item Value Reference Range Interpretation Comments CHOLESTEROL (test code = 2210) 217 MG/DL TRIGLYCERIDES (test code = 2232) 149 MG/DL HDL CHOLESTEROL (test code = 2220) 36 MG/DL CALC LDL CHOL (test code = 2237) 153 MG/DL RISK RATIO LDL/HDL (test code = 4.25 RATIO 2238) HEMOGLOBIN [id number] 00:00:00 Test Item Value Reference Range Interpretation Comments HEMOGLOBIN A1c (test code = 70530) 5.8 % HEMOGLOBIN [id number] 00:00:00 Test Item Value Reference Range Interpretation Comments HEMOGLOBIN A1c (test code = 87829) 5.8 % HEMOGLOBIN [id number] 00:00:00 Test Item Value Reference Range Interpretation Comments HEMOGLOBIN A1c (test code = 55759) 5.8 % [id number] 00:00:00 Test Item Value Reference Range Interpretation Comments TSH, THIRD GENERATION (test code 2.080 UIU/ML = 2821) [id number] 00:00:00 Test Item Value Reference Range Interpretation Comments TSH, THIRD GENERATION (test code 2.080 UIU/ML = 2821) [id number] 00:00:00 Test Item Value Reference Range Interpretation Comments TSH, THIRD GENERATION (test code 2.080 UIU/ML = 2821) COMPREHENSIVE METABOLIC [id number] 00:00:00 Test Item Value Reference Range Interpretation Comments GLUCOSE (test code = 2217) 182 MG/DL BUN (test code = 2208) 18 MG/DL CREATININE (test code = 2214) 0.71 MG/DL eGFR AMER. (test code 150 ML/MIN/1.73 = 63815) eGFR NON- AMER. (test 129 ML/MIN/1.73 code = 62013) CALC BUN/CREAT (test code = 25 RATIO [...] code = 2219) 31 U/L COMPREHENSIVE METABOLIC [id number] 00:00:00 Test Item Value Reference Range Interpretation Comments GLUCOSE (test code = 2217) 182 MG/DL BUN (test code = 2208) 18 MG/DL CREATININE (test code = 2214) 0.71 MG/DL eGFR AMER. (test code 150 ML/MIN/1.73 = 71554) eGFR NON- AMER. (test 129 ML/MIN/1.73 code = 06750) CALC BUN/CREAT (test code = 25 RATIO [...] (test code = 2219) 31 U/L LIPID [id number] 00:00:00 Test Item Value Reference Range Interpretation Comments CHOLESTEROL (test code = 2210) 217 MG/DL TRIGLYCERIDES (test code = 2232) 149 MG/DL HDL CHOLESTEROL (test code = 2220) 36 MG/DL CALC LDL CHOL (test code = 2237) 153 MG/DL RISK RATIO LDL/HDL (test code = 4.25 RATIO 2238) LIPID [id number] 00:00:00 Test Item Value Reference Range Interpretation Comments CHOLESTEROL (test code = 2210) 217 MG/DL TRIGLYCERIDES (test code = 2232) 149 MG/DL HDL CHOLESTEROL (test code = 2220) 36 MG/DL CALC LDL CHOL (test code = 2237) 153 MG/DL RISK RATIO LDL/HDL (test code = 4.25 RATIO 2238) HEMOGLOBIN [id number] 00:00:00 Test Item Value Reference Range Interpretation Comments HEMOGLOBIN A1c (test code = 92092) 5.8 % HEMOGLOBIN [id number] 00:00:00 Test Item Value Reference Range Interpretation Comments HEMOGLOBIN A1c (test code = 91028) 5.8 % HEMOGLOBIN [id number] 00:00:00 Test Item Value Reference Range Interpretation Comments HEMOGLOBIN A1c (test code = 67168) 5.8 % [id number] 00:00:00 Test Item Value Reference Range Interpretation Comments TSH, THIRD GENERATION (test code 2.080 UIU/ML = 2821) [id number] 00:00:00 Test Item Value Reference Range Interpretation Comments TSH, THIRD GENERATION (test code 2.080 UIU/ML = 2821) [id number] 00:00:00 Test Item Value Reference Range Interpretation Comments TSH, THIRD GENERATION (test code 2.080 UIU/ML = 2821) CBC W/AUTO [id number] 00:00:00 Test Item Value Reference Range Interpretation [...] code = 1015) 351 K/UL CBC W/AUTO [id number] 00:00:00 Test Item Value Reference Range Interpretation [...] code = 1015) 351 K/UL CBC W/AUTO [id number] 00:00:00 Test Item Value Reference Range Interpretation [...] (test code = 1015) 351 K/UL HEMOGLOBIN [id number] 00:00:00 Test Item Value Reference Range Interpretation Comments HEMOGLOBIN A1c (test code = 43174) 5.8 % HEMOGLOBIN [id number] 00:00:00 Test Item Value Reference Range Interpretation Comments HEMOGLOBIN A1c (test code = 14903) 5.8 % HEMOGLOBIN [id number] 00:00:00 Test Item Value Reference Range Interpretation Comments HEMOGLOBIN A1c (test code = 75647) 5.8 % LIPID [id number] 00:00:00 Test Item Value Reference Range Interpretation Comments CHOLESTEROL (test code = 2210) 210 MG/DL TRIGLYCERIDES (test code = 2232) 129 MG/DL HDL CHOLESTEROL (test code = 2220) 44 MG/DL CALC LDL CHOL (test code = 2237) 140 MG/DL RISK RATIO LDL/HDL (test code = 3.19 RATIO 2238) LIPID [id number] 00:00:00 Test Item Value Reference Range Interpretation Comments CHOLESTEROL (test code = 2210) 210 MG/DL TRIGLYCERIDES (test code = 2232) 129 MG/DL HDL CHOLESTEROL (test code = 2220) 44 MG/DL CALC LDL CHOL (test code = 2237) 140 MG/DL RISK RATIO LDL/HDL (test code = 3.19 RATIO 2238) COMPREHENSIVE METABOLIC [id number] 00:00:00 Test Item Value Reference Range Interpretation Comments GLUCOSE (test code = 2217) 100 MG/DL BUN (test code = 2208) 14 MG/DL CREATININE (test code = 2214) 0.58 MG/DL eGFR AMER. (test code 163 ML/MIN/1.73 = 00785) eGFR NON- AMER. (test 141 ML/MIN/1.73 code = 82514) CALC BUN/CREAT (test code = 24 RATIO [...] code = 2219) 38 U/L COMPREHENSIVE METABOLIC [id number] 00:00:00 Test Item Value Reference Range Interpretation Comments GLUCOSE (test code = 2217) 100 MG/DL BUN (test code = 2208) 14 MG/DL CREATININE (test code = 2214) 0.58 MG/DL eGFR AMER. (test code 163 ML/MIN/1.73 = 33563) eGFR NON- AMER. (test 141 ML/MIN/1.73 code = 17958) CALC BUN/CREAT (test code = 24 RATIO [...] ALT (test code = 2219) 38 U/L [id number] 00:00:00 Test Item Value Reference Range Interpretation Comments TSH, THIRD GENERATION (test code 5.690 UIU/ML = 2821) [id number] 00:00:00 Test Item Value Reference Range Interpretation Comments TSH, THIRD GENERATION (test code 5.690 UIU/ML = 2821) [id number] 00:00:00 Test Item Value Reference Range Interpretation Comments TSH, THIRD GENERATION (test code 5.690 UIU/ML = 2821) CBC W/AUTO [id number] 00:00:00 Test Item Value Reference Range Interpretation [...] code = 1015) 351 K/UL CBC W/AUTO [id number] 00:00:00 Test Item Value Reference Range Interpretation [...] code = 1015) 351 K/UL CBC W/AUTO [id number] 00:00:00 Test Item Value Reference Range Interpretation [...] (test code = 1015) 351 K/UL HEMOGLOBIN [id number] 00:00:00 Test Item Value Reference Range Interpretation Comments HEMOGLOBIN A1c (test code = 42289) 5.8 % HEMOGLOBIN [id number] 00:00:00 Test Item Value Reference Range Interpretation Comments HEMOGLOBIN A1c (test code = 96343) 5.8 % HEMOGLOBIN [id number] 00:00:00 Test Item Value Reference Range Interpretation Comments HEMOGLOBIN A1c (test code = 69222) 5.8 % LIPID [id number] 00:00:00 Test Item Value Reference Range Interpretation Comments CHOLESTEROL (test code = 2210) 210 MG/DL TRIGLYCERIDES (test code = 2232) 129 MG/DL HDL CHOLESTEROL (test code = 2220) 44 MG/DL CALC LDL CHOL (test code = 2237) 140 MG/DL RISK RATIO LDL/HDL (test code = 3.19 RATIO 2238) LIPID [id number] 00:00:00 Test Item Value Reference Range Interpretation Comments CHOLESTEROL (test code = 2210) 210 MG/DL TRIGLYCERIDES (test code = 2232) 129 MG/DL HDL CHOLESTEROL (test code = 2220) 44 MG/DL CALC LDL CHOL (test code = 2237) 140 MG/DL RISK RATIO LDL/HDL (test code = 3.19 RATIO 2238) COMPREHENSIVE METABOLIC [id number] 00:00:00 Test Item Value Reference Range Interpretation Comments GLUCOSE (test code = 2217) 100 MG/DL BUN (test code = 2208) 14 MG/DL CREATININE (test code = 2214) 0.58 MG/DL eGFR AMER. (test code 163 ML/MIN/1.73 = 05252) eGFR NON- AMER. (test 141 ML/MIN/1.73 code = 30535) CALC BUN/CREAT (test code = 24 RATIO [...] code = 2219) 38 U/L COMPREHENSIVE METABOLIC [id number] 00:00:00 Test Item Value Reference Range Interpretation Comments GLUCOSE (test code = 2217) 100 MG/DL BUN (test code = 2208) 14 MG/DL CREATININE (test code = 2214) 0.58 MG/DL eGFR AMER. (test code 163 ML/MIN/1.73 = 00301) eGFR NON- AMER. (test 141 ML/MIN/1.73 code = 63471) CALC BUN/CREAT (test code = 24 RATIO [...] ALT (test code = 2219) 38 U/L [id number] 00:00:00 Test Item Value Reference Range Interpretation Comments TSH, THIRD GENERATION (test code 5.690 UIU/ML = 2821) [id number] 00:00:00 Test Item Value Reference Range Interpretation Comments TSH, THIRD GENERATION (test code 5.690 UIU/ML = 2821) [id number] 00:00:00 Test Item Value Reference Range Interpretation Comments TSH, THIRD GENERATION (test code 5.690 UIU/ML = 2821) CBC W/AUTO [id number] 00:00:00 Test Item Value Reference Range Interpretation [...] code = 1015) 351 K/UL CBC W/AUTO [id number] 00:00:00 Test Item Value Reference Range Interpretation [...] code = 1015) 351 K/UL CBC W/AUTO [id number] 00:00:00 Test Item Value Reference Range Interpretation [...] (test code = 1015) 351 K/UL HEMOGLOBIN [id number] 00:00:00 Test Item Value Reference Range Interpretation Comments HEMOGLOBIN A1c (test code = 27530) 5.8 % HEMOGLOBIN [id number] 00:00:00 Test Item Value Reference Range Interpretation Comments HEMOGLOBIN A1c (test code = 75169) 5.8 % HEMOGLOBIN [id number] 00:00:00 Test Item Value Reference Range Interpretation Comments HEMOGLOBIN A1c (test code = 02859) 5.8 % LIPID [id number] 00:00:00 Test Item Value Reference Range Interpretation Comments CHOLESTEROL (test code = 2210) 210 MG/DL TRIGLYCERIDES (test code = 2232) 129 MG/DL HDL CHOLESTEROL (test code = 2220) 44 MG/DL CALC LDL CHOL (test code = 2237) 140 MG/DL RISK RATIO LDL/HDL (test code = 3.19 RATIO 2238) LIPID [id number] 00:00:00 Test Item Value Reference Range Interpretation Comments CHOLESTEROL (test code = 2210) 210 MG/DL TRIGLYCERIDES (test code = 2232) 129 MG/DL HDL CHOLESTEROL (test code = 2220) 44 MG/DL CALC LDL CHOL (test code = 2237) 140 MG/DL RISK RATIO LDL/HDL (test code = 3.19 RATIO 2238) COMPREHENSIVE METABOLIC [id number] 00:00:00 Test Item Value Reference Range Interpretation Comments GLUCOSE (test code = 2217) 100 MG/DL BUN (test code = 2208) 14 MG/DL CREATININE (test code = 2214) 0.58 MG/DL eGFR AMER. (test code 163 ML/MIN/1.73 = 59257) eGFR NON- AMER. (test 141 ML/MIN/1.73 code = 75185) CALC BUN/CREAT (test code = 24 RATIO [...] code = 2219) 38 U/L COMPREHENSIVE METABOLIC [id number] 00:00:00 Test Item Value Reference Range Interpretation Comments GLUCOSE (test code = 2217) 100 MG/DL BUN (test code = 2208) 14 MG/DL CREATININE (test code = 2214) 0.58 MG/DL eGFR AMER. (test code 163 ML/MIN/1.73 = 96632) eGFR NON- AMER. (test 141 ML/MIN/1.73 code = 57647) CALC BUN/CREAT (test code = 24 RATIO [...] ALT (test code = 2219) 38 U/L [id number] 00:00:00 Test Item Value Reference Range Interpretation Comments TSH, THIRD GENERATION (test code 5.690 UIU/ML = 2821) [id number] 00:00:00 Test Item Value Reference Range Interpretation Comments TSH, THIRD GENERATION (test code 5.690 UIU/ML = 2821) [id number] 00:00:00 Test Item Value Reference Range Interpretation Comments TSH, THIRD GENERATION (test code 5.690 UIU/ML = 2821) COMPREHENSIVE METABOLIC [id number] 00:00:00 Test Item Value Reference Range Interpretation Comments GLUCOSE (test code = 2217) 111 MG/DL BUN (test code = 2208) 17 MG/DL CREATININE (test code = 2214) 0.65 MG/DL eGFR AMER. (test code 158 ML/MIN/1.73 = 70076) eGFR NON- AMER. (test 136 ML/MIN/1.73 code = 11817) CALC BUN/CREAT (test code = 26 RATIO [...] code = 2219) 24 U/L COMPREHENSIVE METABOLIC [id number] 00:00:00 Test Item Value Reference Range Interpretation Comments GLUCOSE (test code = 2217) 111 MG/DL BUN (test code = 2208) 17 MG/DL CREATININE (test code = 2214) 0.65 MG/DL eGFR AMER. (test code 158 ML/MIN/1.73 = 51265) eGFR NON- AMER. (test 136 ML/MIN/1.73 code = 85176) CALC BUN/CREAT (test code = 26 RATIO [...] (test code = 2219) 24 U/L LIPID [id number] 00:00:00 Test Item Value Reference Range Interpretation Comments CHOLESTEROL (test code = 2210) 220 MG/DL TRIGLYCERIDES (test code = 2232) 190 MG/DL HDL CHOLESTEROL (test code = 2220) 39 MG/DL CALC LDL CHOL (test code = 2237) 143 MG/DL RISK RATIO LDL/HDL (test code = 3.67 RATIO 2238) LIPID [id number] 00:00:00 Test Item Value Reference Range Interpretation Comments CHOLESTEROL (test code = 2210) 220 MG/DL TRIGLYCERIDES (test code = 2232) 190 MG/DL HDL CHOLESTEROL (test code = 2220) 39 MG/DL CALC LDL CHOL (test code = 2237) 143 MG/DL RISK RATIO LDL/HDL (test code = 3.67 RATIO 2238) CBC W/AUTO [id number] 00:00:00 Test Item Value Reference Range Interpretation [...] code = 1015) 415 K/UL CBC W/AUTO [id number] 00:00:00 Test Item Value Reference Range Interpretation [...] code = 1015) 415 K/UL CBC W/AUTO [id number] 00:00:00 Test Item Value Reference Range Interpretation [...] (test code = 1015) 415 K/UL HEMOGLOBIN [id number] 00:00:00 Test Item Value Reference Range Interpretation Comments HEMOGLOBIN A1c (test code = 13850) 5.5 % HEMOGLOBIN [id number] 00:00:00 Test Item Value Reference Range Interpretation Comments HEMOGLOBIN A1c (test code = 30310) 5.5 % HEMOGLOBIN [id number] 00:00:00 Test Item Value Reference Range Interpretation Comments HEMOGLOBIN A1c (test code = 89755) 5.5 % [id number] 00:00:00 Test Item Value Reference Range Interpretation Comments TSH (test code = 2821) 4.260 UIU/ML [id number] 00:00:00 Test Item Value Reference Range Interpretation Comments TSH (test code = 2821) 4.260 UIU/ML [id number] 00:00:00 Test Item Value Reference Range Interpretation Comments TSH (test code = 2821) 4.260 UIU/ML COMPREHENSIVE METABOLIC [id number] 00:00:00 Test Item Value Reference Range Interpretation Comments GLUCOSE (test code = 2217) 111 MG/DL BUN (test code = 2208) 17 MG/DL CREATININE (test code = 2214) 0.65 MG/DL eGFR AMER. (test code 158 ML/MIN/1.73 = 30005) eGFR NON- AMER. (test 136 ML/MIN/1.73 code = 27137) CALC BUN/CREAT (test code = 26 RATIO [...] code = 2219) 24 U/L COMPREHENSIVE METABOLIC [id number] 00:00:00 Test Item Value Reference Range Interpretation Comments GLUCOSE (test code = 2217) 111 MG/DL BUN (test code = 2208) 17 MG/DL CREATININE (test code = 2214) 0.65 MG/DL eGFR AMER. (test code 158 ML/MIN/1.73 = 23245) eGFR NON- AMER. (test 136 ML/MIN/1.73 code = 39323) CALC BUN/CREAT (test code = 26 RATIO [...] (test code = 2219) 24 U/L LIPID [id number] 00:00:00 Test Item Value Reference Range Interpretation Comments CHOLESTEROL (test code = 2210) 220 MG/DL TRIGLYCERIDES (test code = 2232) 190 MG/DL HDL CHOLESTEROL (test code = 2220) 39 MG/DL CALC LDL CHOL (test code = 2237) 143 MG/DL RISK RATIO LDL/HDL (test code = 3.67 RATIO 2238) LIPID [id number] 00:00:00 Test Item Value Reference Range Interpretation Comments CHOLESTEROL (test code = 2210) 220 MG/DL TRIGLYCERIDES (test code = 2232) 190 MG/DL HDL CHOLESTEROL (test code = 2220) 39 MG/DL CALC LDL CHOL (test code = 2237) 143 MG/DL RISK RATIO LDL/HDL (test code = 3.67 RATIO 2238) CBC W/AUTO [id number] 00:00:00 Test Item Value Reference Range Interpretation [...] code = 1015) 415 K/UL CBC W/AUTO [id number] 00:00:00 Test Item Value Reference Range Interpretation [...] code = 1015) 415 K/UL CBC W/AUTO [id number] 00:00:00 Test Item Value Reference Range Interpretation [...] (test code = 1015) 415 K/UL HEMOGLOBIN [id number] 00:00:00 Test Item Value Reference Range Interpretation Comments HEMOGLOBIN A1c (test code = 47688) 5.5 % HEMOGLOBIN [id number] 00:00:00 Test Item Value Reference Range Interpretation Comments HEMOGLOBIN A1c (test code = 92316) 5.5 % HEMOGLOBIN [id number] 00:00:00 Test Item Value Reference Range Interpretation Comments HEMOGLOBIN A1c (test code = 59875) 5.5 % [id number] 00:00:00 Test Item Value Reference Range Interpretation Comments TSH (test code = 2821) 4.260 UIU/ML [id number] 00:00:00 Test Item Value Reference Range Interpretation Comments TSH (test code = 2821) 4.260 UIU/ML [id number] 00:00:00 Test Item Value Reference Range Interpretation Comments TSH (test code = 2821) 4.260 UIU/ML COMPREHENSIVE METABOLIC [id number] 00:00:00 Test Item Value Reference Range Interpretation Comments GLUCOSE (test code = 2217) 111 MG/DL BUN (test code = 2208) 17 MG/DL CREATININE (test code = 2214) 0.65 MG/DL eGFR AMER. (test code 158 ML/MIN/1.73 = 63916) eGFR NON- AMER. (test 136 ML/MIN/1.73 code = 51783) CALC BUN/CREAT (test code = 26 RATIO [...] code = 2219) 24 U/L COMPREHENSIVE METABOLIC [id number] 00:00:00 Test Item Value Reference Range Interpretation Comments GLUCOSE (test code = 2217) 111 MG/DL BUN (test code = 2208) 17 MG/DL CREATININE (test code = 2214) 0.65 MG/DL eGFR AMER. (test code 158 ML/MIN/1.73 = 93581) eGFR NON- AMER. (test 136 ML/MIN/1.73 code = 22490) CALC BUN/CREAT (test code = 26 RATIO [...] (test code = 2219) 24 U/L LIPID [id number] 00:00:00 Test Item Value Reference Range Interpretation Comments CHOLESTEROL (test code = 2210) 220 MG/DL TRIGLYCERIDES (test code = 2232) 190 MG/DL HDL CHOLESTEROL (test code = 2220) 39 MG/DL CALC LDL CHOL (test code = 2237) 143 MG/DL RISK RATIO LDL/HDL (test code = 3.67 RATIO 2238) LIPID [id number] 00:00:00 Test Item Value Reference Range Interpretation Comments CHOLESTEROL (test code = 2210) 220 MG/DL TRIGLYCERIDES (test code = 2232) 190 MG/DL HDL CHOLESTEROL (test code = 2220) 39 MG/DL CALC LDL CHOL (test code = 2237) 143 MG/DL RISK RATIO LDL/HDL (test code = 3.67 RATIO 2238) CBC W/AUTO [id number] 00:00:00 Test Item Value Reference Range Interpretation [...] code = 1015) 415 K/UL CBC W/AUTO [id number] 00:00:00 Test Item Value Reference Range Interpretation [...] code = 1015) 415 K/UL CBC W/AUTO [id number] 00:00:00 Test Item Value Reference Range Interpretation [...] (test code = 1015) 415 K/UL HEMOGLOBIN [id number] 00:00:00 Test Item Value Reference Range Interpretation Comments HEMOGLOBIN A1c (test code = 76800) 5.5 % HEMOGLOBIN [id number] 00:00:00 Test Item Value Reference Range Interpretation Comments HEMOGLOBIN A1c (test code = 13204) 5.5 % HEMOGLOBIN [id number] 00:00:00 Test Item Value Reference Range Interpretation Comments HEMOGLOBIN A1c (test code = 83396) 5.5 % [id number] 00:00:00 Test Item Value Reference Range Interpretation Comments TSH (test code = 2821) 4.260 UIU/ML [id number] 00:00:00 Test Item Value Reference Range Interpretation Comments TSH (test code = 2821) 4.260 UIU/ML [id number] 00:00:00 Test Item Value Reference Range Interpretation Comments TSH (test code = 2821) 4.260 UIU/ML
[2022-11-17] MEDS ORDERED: CYCLOBENZAPRINE 10 MG TAB ONE (20:06)
[2022-11-17] MEDS ORDERED: KETOROLAC 30 MG/ML INJ ONE (20:07)
--- NOTE | 2022-11-17 21:03 | RAD REPORT ---
EXAM DESCRIPTION: RAD - Lumbar Spine 3 Views - 11/17/2022 8:49 pm CLINICAL HISTORY: Pain COMPARISON: No comparisonsNo comparisons FINDINGS: Limited due to patient body habitus. Levoconvex curvature centered at L2-3. Limited penetr ation. No definite compression fracture identified. IMPRESSION: Significantly limited radiograph due to patient's body habitus. An acute fracture could be obscured. Scoliosis is noted. Grossly, no compression fractures identified. If there is still susp icion for acute fracture, could consider CT.
--- NOTE | 2022-11-17 21:30 | EDPHYS ---
Physician Documentation [facility] [place] Name: Adam Boyce Age: 27 yrs Sex: Male : 1995 Arrival Date: 11/17/2022 Time: 18:08 Bed DIS4 Private MD: ED Physician Leonidas Ruano HPI: 11/17 20:20 This 27 yrs old Male presents to ER via EMS with complaints of Back Pain. rn 20:20 The patient presents with pain that is acute. The symptoms are located in the low back. rn Onset: The symptoms/episode began/occurred 3 day(s) ago. The pain does not radiate. Associated signs and symptoms: Pertinent positives: none Pertinent negatives: abdominal pain, chest pain, fever, hematuria, incontinence, nausea, numbness, tingling, urinary retention, vomiting, weakness. Modifying factors: The patient symptoms are alleviated by remaining still, specific position, the patient symptoms are aggravated by any movement, bending. Severity of symptoms: At their worst the symptoms were moderate, in the emergency department the symptoms are unchanged. The patient has experienced similar episodes in the past. The patient has not recently seen a physician. Pt reports lower back pain for a few days, began after attempting to exercise. No fall or direct trauma. No weakness of legs, no bowel/bladder problems. No numbness/tingling. Has had back pain before, but not improving so came for evaluation. Reports is recovering addict and cannot get narcotics. . Historical: - Allergies: 18:32 cayenne pepper; ll1 18:32 Sulfa (Sulfonamide Antibiotics); ll1 - Home Meds: 21:46 atorvastatin Oral [Active]; Doxycycline Oral [Active]; metformin 500 mg Oral tab daily kl [Active]; sertraline Oral [Active]; levothyroxine oral [Active]; Zoloft Oral [Active]; - PMHx: 18:32 Anxiety; Arthritis; Bipolar disorder; Depression; Diabetes - NIDDM; High Cholesterol; ll1 Hypothyroidism; recovering addict (ETOH/narcotic); Sleep Apnea; - PSHx: 18:32 None; ll1 - Immunization history:: Client reports receiving the 2nd dose of the Covid vaccine. - Social history:: Smoking status: Patient reports the use of cigarette tobacco products, smokes one pack cigarettes per day. - Family history:: not pertinent. - Hospitalizations: : No recent hospitalization is reported. ROS: 20:20 Constitutional: Negative for fever, chills, and weight loss, Eyes: Negative for injury, rn pain, redness, and discharge, Neck: Negative for injury, pain, and swelling, Cardiovascular: Negative for chest pain, palpitations, and edema, Respiratory: Negative for shortness of breath, cough, wheezing, and pleuritic chest pain, Abdomen/GI: Negative for abdominal pain, nausea, vomiting, diarrhea, and constipation, Back: + low back pain MS/Extremity: Negative for injury and deformity, Skin: Negative for injury, rash, and discoloration, Neuro: Negative for headache, weakness, numbness, tingling, and seizure. Exam: 20:20 Constitutional: Overweight male, no acute distress, sitting in lobby Head/Face: rn Normocephalic, atraumatic. Neck: Trachea midline, no thyromegaly or masses palpated, and no cervical lymphadenopathy. Supple, full range of motion without nuchal rigidity, or vertebral point tenderness. No Meningismus. Cardiovascular: Regular rate and rhythm. No pulse deficits. Respiratory: Speaking full sentences, no retractions. Abdomen/GI: soft, non-tender Back: No midline spinal tenderness MS/ Extremity: Pulses equal, no cyanosis. Neurovascular intact. Full, normal range of motion. Equal circumference. Neuro: Awake and alert, GCS 15, oriented to person, place, time, and situation. Cranial nerves II-XII grossly intact. Motor strength 5/5 in all extremities. Sensory grossly intact. Vital Signs: 18:31 BP 148 / 95; Pulse 98; Resp 22; Temp 97.2; Pulse Ox 95% on R/A; Weight 149.69 kg; ll1 Height 5 ft. 1 in. (154.94 cm); Pain 9/10; 21:45 BP 144 / 88; Pulse 85; Resp 21; Pulse Ox 98% on R/A; Pain 0/10; kl 18:31 Body Mass Index 62.35 (149.69 kg, 154.94 cm) ll1 MDM: 19:32 Patient medically screened. rn 21:27 Differential diagnosis: Obesity Osteoarthritis sprain, strain, muscle spasm. Data rn reviewed: vital signs, nurses notes, radiologic studies, plain films, and as a result, I will discharge patient. Counseling: I had a detailed discussion with the patient and/or guardian regarding: the historical points, exam findings, and any diagnostic results supporting the discharge/admit diagnosis, radiology results, the need for outpatient follow up, to return to the emergency department if symptoms worsen or persist or if there are any questions or concerns that arise at home. Response to treatment: the patient's symptoms have markedly improved after treatment, and as a result, I will discharge patient. Special discussion: I discussed with the patient/guardian in detail that at this point there is no indication for admission to the hospital. It is understood, however, that if the symptoms persist or worsen the patient needs to return immediately for re-evaluation. Based on the history and exam findings, there is no indication for further emergent testing or inpatient evaluation. I discussed with the patient/guardian the need to see the back specialist for further evaluation of the symptoms. ED course: Xrays not ideal due to body habitus, unable to get CT scan 2/2 weight, but no direct trauma to suggest fracture. WIll dc home with muscle relaxer and motrin with return precautions.. 11/17 19:38 Order name: XRAY Lumbar Spine (3 Views); Complete Time: 21:09 rn Administered Medications: 20:05 Drug: Flexeril (cyclobenzaprine) 10 mg Route: PO; kl 21:44 Follow up: Response: No adverse reaction; Marked relief of symptoms kl 20:05 Drug: Ketorolac 30 mg Route: IM; Site: left deltoid; kl 21:44 Follow up: Response: No adverse reaction; Marked relief of symptoms kl Disposition Summary: 11/17/22 21:29 Discharge Ordered Location: Home rn Problem: new rn Symptoms: have improved rn Condition: Stable rn Diagnosis - Low back pain rn - Strain of muscle, fascia and tendon of lower back rn Followup: rn - With: Private Physician - When: As needed - Reason: Recheck today's complaints, Re-evaluation by your physician Discharge Instructions: - Discharge Summary Sheet rn - Acute Back Pain, Adult rn - Musculoskeletal Pain rn Forms: - Medication Reconciliation Form rn - Thank You Letter rn - Antibiotic travel journalist - Prescription Opioid Use rn Prescriptions: - Cyclobenzaprine 10 mg Oral Tablet - take 1 tablet by ORAL route every 8-12 hours As needed; 10 tablet; Refills: 0, rn Product Selection Permitted Signatures: Dispatcher [facility]Lauren Gutierrez, RN RN Leonidas Leavitt MD MD rn Lewis, Lynsay, RN RN ll1
--- NOTE | 2022-11-17 21:30 | ER ---
Nurse's Notes [facility] Name: Adam Boyce Age: 27 yrs Sex: Male : 1995 Arrival Date: 11/17/2022 Time: 18:08 Bed DIS4 Private MD: Diagnosis: Low back pain;Strain of muscle, fascia and tendon of lower back Presentation: 11/17 18:31 Chief complaint: Patient states: Low back pain since Wednesday after working out. ll1 Coronavirus screen: Vaccine status: Patient reports receiving the 1st dose of the Covid vaccine. Client denies travel out of the [place] in the last 14 days. At this time, the client does not indicate any symptoms associated with coronavirus-19. Ebola Screen: Patient denies travel to an Ebola-affected area in the 21 days before illness onset. Initial Sepsis Screen: Does the patient meet any 2 criteria? HR > 90 bpm. No. Patient's initial sepsis screen is negative. Does the patient have a suspected source of infection? Yes: Bone or joint infection. Risk Assessment: Do you want to hurt yourself or someone else? Patient reports no desire to harm self or others. Onset of symptoms was November 15, 2022. 18:31 Method Of Arrival: EMS 1 18:31 Acuity: KONG 4 ll1 Triage Assessment: 18:33 General: Appears uncomfortable, Behavior is cooperative, appropriate for age. Pain: 1 Complains of pain in back Pain currently is 9 out of 10 on a pain scale. Quality of pain is described as aching, throbbing, Pain began 2-3 days ago. Musculoskeletal: Circulation, motion, and sensation intact. Capillary refill < 3 seconds. Historical: - Allergies: 18:32 cayenne pepper; ll1 18:32 Sulfa (Sulfonamide Antibiotics); ll1 - Home Meds: 21:46 atorvastatin Oral [Active]; Doxycycline Oral [Active]; metformin 500 mg Oral tab daily kl [Active]; sertraline Oral [Active]; levothyroxine oral [Active]; Zoloft Oral [Active]; - PMHx: 18:32 Anxiety; Arthritis; Bipolar disorder; Depression; Diabetes - NIDDM; High Cholesterol; ll1 Hypothyroidism; recovering addict (ETOH/narcotic); Sleep Apnea; - PSHx: 18:32 None; ll1 - Immunization history:: Client reports receiving the 2nd dose of the Covid vaccine. - Social history:: Smoking status: Patient reports the use of cigarette tobacco products, smokes one pack cigarettes per day. - Family history:: not pertinent. - Hospitalizations: : No recent hospitalization is reported. Screenin:[address] [facility] ED Fall Risk Assessment (Adult) History of falling in the last 3 months, kl including since admission No falls in past 3 months (0 pts) Confusion or Disorientation No (0 pts) Intoxicated or Sedated No (0 pts) Impaired Gait No (0 pts) Mobility Assist Device Used No (0 pt) Altered Elimination No (0 pt) Score/Fall Risk Level 0 - 2 = Low Risk Oriented to surroundings, Maintained a safe environment, Educated pt \T\ family on fall prevention, incl call for assistance when getting out of bed, Assessed \T\ reinforced patient's understanding of fall precautions, Hourly rounding (assess needs \T\ fall precautionary measures) done. Abuse screen: Denies threats or abuse. Nutritional screening: No deficits noted. Tuberculosis screening: No symptoms or risk factors identified. Assessment: 21:44 Reassessment: Patient appears in no apparent distress at this time. Patient and/or kl family updated on plan of care and expected duration. Pain level reassessed. Patient is alert, oriented x 3, equal unlabored respirations, skin warm/dry/pink. Patient states feeling better. Patient states symptoms have improved. Neuro: No deficits noted. Vital Signs: 18:31 BP 148 / 95; Pulse 98; Resp 22; Temp 97.2; Pulse Ox 95% on R/A; Weight 149.69 kg; ll1 Height 5 ft. 1 in. (154.94 cm); Pain 9/10; 21:45 BP 144 / 88; Pulse 85; Resp 21; Pulse Ox 98% on R/A; Pain 0/10; kl 18:31 Body Mass Index 62.35 (149.69 kg, 154.94 cm) ll1 ED Course: 18:08 Patient arrived in ED. am2 18:32 Triage completed. ll1 18:33 Arm band placed on. ll1 19:32 Leonidas Ruano MD is Attending Physician. rn 20:51 XRAY Lumbar Spine (3 Views) In Process Unspecified. EDMS 21:45 No provider procedures requiring assistance completed. Patient did not have IV access kl during this emergency room visit. 21:47 Patient has correct armband on for positive identification. kl Administered Medications: 20:05 Drug: Flexeril (cyclobenzaprine) 10 mg Route: PO; kl 21:44 Follow up: Response: No adverse reaction; Marked relief of symptoms kl 20:05 Drug: Ketorolac 30 mg Route: IM; Site: left deltoid; kl 21:44 Follow up: Response: No adverse reaction; Marked relief of symptoms kl Medication: 21:47 VIS not applicable for this client. kl Outcome: 21:29 Discharge ordered by . rn 21:46 Discharged to home via wheelchair. kl 21:46 Condition: improved 21:46 Discharge instructions given to patient, Instructed on discharge instructions, follow up and referral plans. medication usage, Demonstrated understanding of instructions, follow-up care, medications, Prescriptions given X 1. 21:47 Patient left the ED. Signatures: Dispatcher [employer] EDMS Lauren Nunn RN RN kl Nieto, Roman, MD MD rn Moreno, Amanda Slime Keller RN RN ll1 Corrections: (The following items were deleted from the chart) 20:37 09:45 Ketorolac 30 mg IM in left deltoid [facility]
[2022-11-17 22:02] VITALS: TEMP 97.2
[2022-11-17 22:03] VITALS: BP 144/88; O2SAT 98
== END 2022-11-17 21:47 | disposition home or self-care (01) ==
LOC: ER 18:07
DX: S39.012A Strain of muscle, fascia and tendon of lower back, initial encounter (principal); F17.210 Nicotine dependence, cigarettes, uncomplicated; Z88.2 Allergy status to sulfonamides; Z91.018 Allergy to other foods
CPT/HCPCS: 72100; 96372; 99284

== ENCOUNTER 2022-11-28 04:42 | Emergency (ER) | payer OTHER ==
--- OUTSIDE RECORDS SUMMARY | 2022-11-28 04:50 | XMS REPORT | Continuity of Care Document ---
:1995 Author Organization [facility] t Address [address] [place] [address] Care Team Providers Name Role Phone Lucian Valenzuela Primary Care Physician [phone] CARLOS_Reggie Attending Clinician Unavailable Yeison Nuno Attending Clinician [phone] CARLOS_Reggie Admitting Clinician Unavailable Payers Payer Name Policy Type Policy Number Effective Date Expiration Date [facility] [id number] 2020 [facility] 00:00:00 (MEDICAID HMO) Problems This patient has [...] Date Stop Date Source Heavy Tobacco Smoker [place] [facility] Medications Ordered Filled Start Stop Current [...] tablet 00:00: 00 aripiprazol aripiprazol No aripiprazo [place] e 10 mg e 10 mg le 10 mg Commu ni tablet tablet tablet [facility] aripiprazol aripiprazol No aripiprazo [place] e 2 mg e 2 mg le 2 mg Communi tablet tablet tablet [facility] atorvastati atorvastati No atorvastat [place] n 10 mg n 10 mg in 10 mg Commu ni tablet tablet tablet [facility] atorvastati atorvastati No atorvastat [place] n 20 mg n 20 mg in 20 mg Commu ni tablet tablet tablet [facility] hydroxyzine hydroxyzine No hydroxyzin [place] pamoate 25 pamoate 25 e pamoate Communi mg capsule mg capsule 25 mg ty [facility] ibuprofen ibuprofen No ibuprofen [place] 800 mg 800 mg 800 mg Communi tablet tablet tablet [facility] levothyroxi levothyroxi No levothyrox [place] ne 75 mcg ne 75 mcg ine 75 mcg Communi tablet tablet tablet [facility] metformin metformin No metformin [place] 500 mg 500 mg 500 mg Communi tablet tablet tablet [facility] metformin metformin No metformin [place] 850 mg 850 mg 850 mg Communi tablet tablet tablet [facility] nicotine 14 nicotine 14 No nicotine [place] mg/24 hr mg/24 hr 14 mg/24 Com merissa daily daily hr daily ty transdermal transdermal transderma [facility] patch patch patch [facility] sertraline sertraline No sertraline [place] 50 mg 50 mg 50 mg Communi tablet tablet tablet [facility] trazodone trazodone No trazodone [place] 50 mg 50 mg 50 mg Communi tablet tablet tablet [facility] Immunizations Ordered Immunization Filled Immunization Date Status Commen ts Source Name Name Kerri COVID-19 2021-12-09 Completed Vaccine 00:00:00 Kranthia COVID-19 2021-12-09 Completed Vaccine 00:00:00 Kranthia COVID-19 2021-12-09 Completed Vaccine 00:00:00 Vital Signs Vital Name Observation Time Observation Value Comments Source BP Diastolic 2021-05-15 00:00:00 74 mm[Hg] [facility] Height 2021-05-15 00:00:00 59 [in_i] [facility] BMI (Body Mass 2021-05-15 00:00:00 59.8 kg/m2 [facility] BP Systolic 2021-05-15 00:00:00 122 mm[Hg] [facility] Body Weight 2021-05-15 00:00:00 4736 [oz_av] [facility] BP Systolic 2022-09-15 14:41:00 138 mm[Hg] [...] Goal Plan of Care Note [code = 27082-5] Goal Plan of Care Note [code = 91671-9] Goal Plan of Care Note [code = 88841-4] Goal Plan of Care Note [code = 57355-5] Goal Plan of Care Note [code = 94679-6] Goal Plan of Care Note [code = 21539-9] Goal Plan of Care Note [code = 54755-2] Goal Plan of Care Note [code = 67792-3] Goal Plan of Care Note [code = 34443-4] Goal Plan of Care Note [code = 59307-4] Goal Plan of Care Note [code = 47848-3] Goal Plan of Care Note [code = 33575-4] Goal Plan of Care Note [code = 37961-6] Goal Plan of Care Note [code = 09191-2] Goal Plan of Care Note [code = 25687-4] Goal Plan of Care Note [code = 23357-6] Goal Plan of Care Note [code = 97172-0] Goal Plan of Care Note [code = 26694-7] Goal Plan of Care Note [code = 59290-4] Goal Plan of Care Note [code = 50280-4] Goal Plan of Care Note [code = 49961-5] Goal Plan of Care Note [code = 00251-1] Goal Plan of Care Note [code = 00346-9] Goal Plan of Care Note [code = 56883-7] Goal Plan of Care Note [code = 84746-6] Goal Plan of Care Note [code = 56499-1] Goal Plan of Care Note [code = 50784-7] Goal Plan of Care Note [code = 36340-0] Goal Plan of Care Note [code = 11040-3] Goal Plan of Care Note [code = 14661-3] Goal Plan of Care Note [code = 52658-4] Goal Plan of Care Note [code = 10948-2] Goal Plan of Care Note [code = 77188-3] Goal Plan of Care Note [code = 10872-4] Goal Plan of Care Note [code = 27707-5] Goal Plan of Care Note [code = 11408-8] Goal Plan of Care Note [code = 11741-5] Goal Plan of Care Note [code = 22875-0] Goal Plan of Care Note [code = 53399-3] Goal Plan of Care Note [code = 99878-3] Goal Plan of Care Note [code = 58536-1] Goal Plan of Care Note [code = 27201-4] Goal Plan of Care Note [code = 06759-8] Goal Plan of Care Note [code = 19309-1] Goal Plan of Care Note [code = 92448-6] Goal Plan of Care Note [code = 53922-6] Goal Plan of Care Note [code = 50655-2] Goal Plan of Care Note [code = 75384-6] Goal Plan of Care Note [code = 89454-3] Goal Plan of Care Note [code = 94308-3] Goal Plan of Care Note [code = 46722-0] Goal Plan of Care Note [code = 06693-0] Goal Plan of Care Note [code = 42837-0] Goal Plan of Care Note [code = 33061-6] Goal Plan of Care Note [code = 31038-2] Goal Plan of Care Note [code = 91326-3] Goal Plan of Care Note [code = 14469-1] Goal Plan of Care Note [code = 46315-2] Goal Plan of Care Note [code = 33367-6] Goal Plan of Care Note [code = 27695-3] Goal Plan of Care Note [code = 49629-3] Goal Plan of Care Note [code = 28403-9] Goal Plan of Care Note [code = 15915-5] Goal Plan of Care Note [code = 99850-6] Goal Plan of Care Note [code = 99797-8] Goal Plan of Care Note [code = 41764-2] Goal Plan of Care Note [code = 35052-9] Goal Plan of Care Note [code = 62894-2] Goal Plan of Care Note [code = 28293-4] Goal Plan of Care Note [code = 62548-5] Goal Plan of Care Note [code = 68306-5] Goal Plan of Care Note [code = 05229-9] Goal Plan of Care Note [code = 81451-2] Goal Plan of Care Note [code = 29424-6] Goal Plan of Care Note [code = 90874-7] Goal Plan of Care Note [code = 89653-5] Goal Plan of Care Note [code = 19625-7] Goal Plan of Care Note [code = 94087-4] Goal Plan of Care Note [code = 98499-6] Goal Plan of Care Note [code = 09294-1] Goal Plan of Care Note [code = 72561-5] Goal Plan of Care Note [code = 62869-1] Goal Plan of Care Note [code = 39790-4] Goal Plan of Care Note [code = 03608-3] Goal Plan of Care Note [code = 91184-7] Goal Plan of Care Note [code = 12862-3] Goal Plan of Care Note [code = 85850-6] Goal Plan of Care Note [code = 33779-8] Goal Plan of Care Note [code = 14834-5] Goal Plan of Care Note [code = 75157-8] Goal Plan of Care Note [code = 87691-8] Goal Plan of Care Note [code = 05368-7] Goal Plan of Care Note [code = 76744-1] Goal Plan of Care Note [code = 79238-8] Goal Plan of Care Note [code = 72972-4] Encounters Start End Encounter Admission Attending Care Care Encounter Source Date/Time Date/Time Type Type Clinicians Facility Department ID 2022-09-15 2022-09-15 Outpatient [facility] [id number] Jaleel Blanco 14:31:47 14:31:47 1025 Marii Quesada 2022-09-15 2022-09-15 Outpatient [id number] 00:00:00 00:00:00 Visit 0059-4f45 059-4f45-a -qy6i-8n5 j9y-6v0q69 u1670fzzs 35bdfc 2022-08-13 2022-08-13 Outpatient [id number]-[id number] 00:00:00 00:00:00 Visit k84o-756k 48f-495a-9 -9262-3d5 262-3d5bba bvap3xhxk c0cbea 2022-08-06 2022-08-06 Outpatient [id number] 00:00:00 00:00:00 Visit 6125-4ec6 125-4ec6-b -j42s-31b 35f-09fa7f [id number] 2021-05-15 2021-05-15 Outpatient SELMAEV_T [facility] [place] 11:10:00 11:10:00 0624 [facility] 2021-05-15 2021-05-15 Outpatient [place], [facility] [id number] 00:00:00 00:00:00 Yeison [id number]-[id number] Donovan [id number] 2021-05-15 2021-05-15 [facility] [place] 00:00:00 00:00:00 [facility] [address] [facility] [address]ja, Specialty l [address], [place] [address] , Ph. 2021-05-09 2021-05-09 Outpatient CARLOS_T [facility] [place] 02:54:00 02:54:00 0618 [facility] Results Test Description Test Time Test Comments Results Result Comments Source HEMOGLOBIN A1c 2022-08-08 07:32:28 Test Item Value Reference Range Interpretation Comme nts HEMOGLOBIN A1c (test code = 42269) 6.3 % 4.2-5.6 H CBC W/AUTO DIFF WITH [id number] 07:05:30 Test Item Value Reference Range Interpretation [...] RBCS 0.00 K/UL 0.00-0.11 (test code = 13082) TSH, THIRD [id number] 06:43:26 Test Item Value Reference Range Interpretation Comments TSH, THIRD GENERATION (test code 3.490 UIU/ML 0.400-4.100 = 2821) COMPREHENSIVE METABOLIC [id number] 03:50:21 Test Item Value Reference Range Interpretation Comments GLUCOSE (test code = 95 MG/DL 70-99 2216) BUN (test code = 21 MG/DL 6-20 H 2207) CREATININE (test 0.59 MG/DL 0.80-1.40 L code = 2214) eGFR (2020 CKD-EPI) 136 >60 (test code = 46805) ML/MIN/1.73 CALC BUN/CREAT (test 36 RATIO 6-28 H code = 2235) SODIUM (test code = 141 MEQ/L 238-485 2972) POTASSIUM (test code 5.0 MEQ/L 3.5-5.4 = [...] message] (test code = 220) The sy[employer] which generated this result transmit yeison reference range : <=1.2. The refe rence range was not u sed to interpret th is result as normal/abnormal . ALKALINE PHOSPHATASE 137 U/L 40-115 H (test code = 2203) AST (test code = 28 U/L 9-50 2217) ALT (test code = 34 U/L 5-50 2218) LIPID [id number] 03:50:21 Test Item Value Reference Range Interpretation [...] MOREINFORMATION , SEE CLIENT ANNOUNCE MENT AT [email or web address] RISK RATIO LDL/HDL 2.56 RATIO <3.55 UNLESS O THERWISE (test code = 2238) INDICATED , ALL TESTING PERFORMED [facility], [facility]. [address] [place] [address] [facility] CHARLIE DIRECTOR: LICHA AYON M.D. CLIA NUMBER [id number] CAP ACCREDITATION N O. [id number] HEMOGLOBIN [id number] 00:00:00 Test Item Value Reference Range Interpretation Comments HEMOGLOBIN A1c (test code = 26629) 6.3 % HEMOGLOBIN [id number] 00:00:00 Test Item Value Reference Range Interpretation Comments HEMOGLOBIN A1c (test code = 30735) 6.3 % HEMOGLOBIN [id number] 00:00:00 Test Item Value Reference Range Interpretation Comments HEMOGLOBIN A1c (test code = 99619) 6.3 % TSH, THIRD [id number] 00:00:00 Test Item Value Reference Range Interpretation Comments TSH, THIRD GENERATION (test code 3.490 UIU/ML = 2821) TSH, THIRD [id number] 00:00:00 Test Item Value Reference Range Interpretation Comments TSH, THIRD GENERATION (test code 3.490 UIU/ML = 2821) TSH, THIRD [id number] 00:00:00 Test Item Value Reference Range Interpretation Comments TSH, THIRD GENERATION (test code 3.490 UIU/ML = 2821) CBC W/AUTO [id number] 00:00:00 Test Item Value Reference Range Interpretation [...] NUCLEATED RBCS (test code = 0.00 K/UL 79494) CBC W/AUTO [id number] 00:00:00 Test Item Value Reference Range Interpretation [...] NUCLEATED RBCS (test code = 0.00 K/UL 40468) CBC W/AUTO [id number] 00:00:00 Test Item Value Reference Range Interpretation [...] NUCLEATED RBCS (test code = 0.00 K/UL 24511) COMPREHENSIVE METABOLIC [id number] 00:00:00 Test Item Value Reference Range Interpretation Comments GLUCOSE (test code = 2217) 95 MG/DL BUN (test code = 2208) 21 MG/DL CREATININE (test code = 2214) 0.59 MG/DL eGFR (2020 CKD-EPI) (test 136 ML/MIN/1.73 code = 55434) CALC BUN/CREAT (test code = 36 RATIO [...] code = 2219) 34 U/L COMPREHENSIVE METABOLIC [id number] 00:00:00 Test Item Value Reference Range Interpretation Comments GLUCOSE (test code = 2217) 95 MG/DL BUN (test code = 2208) 21 MG/DL CREATININE (test code = 2214) 0.59 MG/DL eGFR (2020 CKD-EPI) (test 136 ML/MIN/1.73 code = 60716) CALC BUN/CREAT (test code = 36 RATIO [...] (test code = 2219) 34 U/L LIPID [id number] 00:00:00 Test Item Value Reference Range Interpretation Comments CHOLESTEROL (test code = 2210) 193 MG/DL TRIGLYCERIDES (test code = 2232) 111 MG/DL HDL CHOLESTEROL (test code = 2220) 48 MG/DL CALC LDL CHOL (test code = 2237) 123 MG/DL RISK RATIO LDL/HDL (test code = 2.56 RATIO 2238) LIPID [id number] 00:00:00 Test Item Value Reference Range Interpretation Comments CHOLESTEROL (test code = 2210) 193 MG/DL TRIGLYCERIDES (test code = 2232) 111 MG/DL HDL CHOLESTEROL (test code = 2220) 48 MG/DL CALC LDL CHOL (test code = 2237) 123 MG/DL RISK RATIO LDL/HDL (test code = 2.56 RATIO 2238) HEMOGLOBIN [id number] 00:00:00 Test Item Value Reference Range Interpretation Comments HEMOGLOBIN A1c (test code = 55781) 6.3 % HEMOGLOBIN [id number] 00:00:00 Test Item Value Reference Range Interpretation Comments HEMOGLOBIN A1c (test code = 91216) 6.3 % HEMOGLOBIN [id number] 00:00:00 Test Item Value Reference Range Interpretation Comments HEMOGLOBIN A1c (test code = 16258) 6.3 % TSH, THIRD [id number] 00:00:00 Test Item Value Reference Range Interpretation Comments TSH, THIRD GENERATION (test code 3.490 UIU/ML = 2821) TSH, THIRD [id number] 00:00:00 Test Item Value Reference Range Interpretation Comments TSH, THIRD GENERATION (test code 3.490 UIU/ML = 2821) TSH, THIRD [id number] 00:00:00 Test Item Value Reference Range Interpretation Comments TSH, THIRD GENERATION (test code 3.490 UIU/ML = 2821) CBC W/AUTO [id number] 00:00:00 Test Item Value Reference Range Interpretation [...] NUCLEATED RBCS (test code = 0.00 K/UL 08369) CBC W/AUTO [id number] 00:00:00 Test Item Value Reference Range Interpretation [...] NUCLEATED RBCS (test code = 0.00 K/UL 25872) CBC W/AUTO [id number] 00:00:00 Test Item Value Reference Range Interpretation [...] NUCLEATED RBCS (test code = 0.00 K/UL 48661) COMPREHENSIVE METABOLIC [id number] 00:00:00 Test Item Value Reference Range Interpretation Comments GLUCOSE (test code = 2217) 95 MG/DL BUN (test code = 2208) 21 MG/DL CREATININE (test code = 2214) 0.59 MG/DL eGFR (2020 CKD-EPI) (test 136 ML/MIN/1.73 code = 30849) CALC BUN/CREAT (test code = 36 RATIO [...] code = 2219) 34 U/L COMPREHENSIVE METABOLIC [id number] 00:00:00 Test Item Value Reference Range Interpretation Comments GLUCOSE (test code = 2217) 95 MG/DL BUN (test code = 2208) 21 MG/DL CREATININE (test code = 2214) 0.59 MG/DL eGFR (2020 CKD-EPI) (test 136 ML/MIN/1.73 code = 93885) CALC BUN/CREAT (test code = 36 RATIO [...] (test code = 2219) 34 U/L LIPID [id number] 00:00:00 Test Item Value Reference Range Interpretation Comments CHOLESTEROL (test code = 2210) 193 MG/DL TRIGLYCERIDES (test code = 2232) 111 MG/DL HDL CHOLESTEROL (test code = 2220) 48 MG/DL CALC LDL CHOL (test code = 2237) 123 MG/DL RISK RATIO LDL/HDL (test code = 2.56 RATIO 2238) LIPID [id number] 00:00:00 Test Item Value Reference Range Interpretation [...] Comments SARS-CoV-2 INTERPRETATION Negative (test code = 79891) SOURCE (test code = 52466) Nasal_Swab_in_VTM__ UTM SARS-CoV-2 (COVID-19) by RT-PCR (HIGH RISK)2020-10-10 00:00:00 Test Item Value Reference Range Interpretation Comments SARS-CoV-2 INTERPRETATION Negative (test code = 89064) SOURCE (test code = 94663) Nasal_Swab_in_VTM__ UTM SARS-CoV-2 (COVID-19) by RT-PCR (HIGH RISK)2020-10-10 00:00:00 Test Item Value Reference Range Interpretation Comments SARS-CoV-2 INTERPRETATION Negative (test code = 07318) SOURCE (test code = 40352) Nasal_Swab_in_VTM__ UTM LIPID PANEL WITH REFLEX DIRECT [id number] 00:00:00 Test Item Value Reference Range Interpretation Comments CHOLESTEROL (test code = 2210) 208 MG/DL TRIGLYCERIDES (test code = 2232) 201 MG/DL HDL CHOLESTEROL (test code = 2220) 34 MG/DL CALC LDL CHOL (test code = 2237) 139 MG/DL RISK RATIO LDL/HDL (test code = 4.09 RATIO 2238) LIPID PANEL WITH REFLEX DIRECT [id number] 00:00:00 Test Item Value Reference Range Interpretation Comments CHOLESTEROL (test code = 2210) 208 MG/DL TRIGLYCERIDES (test code = 2232) 201 MG/DL HDL CHOLESTEROL (test code = 2220) 34 MG/DL CALC LDL CHOL (test code = 2237) 139 MG/DL RISK RATIO LDL/HDL (test code = 4.09 RATIO 2238) COMPREHENSIVE METABOLIC [id number] 00:00:00 Test Item Value Reference Range Interpretation Comments GLUCOSE (test code = 2217) 95 MG/DL BUN (test code = 2208) 15 MG/DL CREATININE (test code = 2214) 0.70 MG/DL eGFR AMER. (test code 151 ML/MIN/1.73 = 91734) eGFR NON- AMER. (test 130 ML/MIN/1.73 code = 08029) CALC BUN/CREAT (test code = 21 RATIO [...] code = 2219) 37 U/L COMPREHENSIVE METABOLIC [id number] 00:00:00 Test Item Value Reference Range Interpretation Comments GLUCOSE (test code = 2217) 95 MG/DL BUN (test code = 2208) 15 MG/DL CREATININE (test code = 2214) 0.70 MG/DL eGFR AMER. (test code 151 ML/MIN/1.73 = 42875) eGFR NON- AMER. (test 130 ML/MIN/1.73 code = 63358) CALC BUN/CREAT (test code = 21 RATIO [...] 37 U/L LIPID PANEL WITH REFLEX DIRECT [id number] 00:00:00 Test Item Value Reference Range Interpretation Comments CHOLESTEROL (test code = 2210) 208 MG/DL TRIGLYCERIDES (test code = 2232) 201 MG/DL HDL CHOLESTEROL (test code = 2220) 34 MG/DL CALC LDL CHOL (test code = 2237) 139 MG/DL RISK RATIO LDL/HDL (test code = 4.09 RATIO 2238) LIPID PANEL WITH REFLEX DIRECT [id number] 00:00:00 Test Item Value Reference Range Interpretation Comments CHOLESTEROL (test code = 2210) 208 MG/DL TRIGLYCERIDES (test code = 2232) 201 MG/DL HDL CHOLESTEROL (test code = 2220) 34 MG/DL CALC LDL CHOL (test code = 2237) 139 MG/DL RISK RATIO LDL/HDL (test code = 4.09 RATIO 2238) COMPREHENSIVE METABOLIC [id number] 00:00:00 Test Item Value Reference Range Interpretation Comments GLUCOSE (test code = 2217) 95 MG/DL BUN (test code = 2208) 15 MG/DL CREATININE (test code = 2214) 0.70 MG/DL eGFR AMER. (test code 151 ML/MIN/1.73 = 71491) eGFR NON- AMER. (test 130 ML/MIN/1.73 code = 44558) CALC BUN/CREAT (test code = 21 RATIO [...] code = 2219) 37 U/L COMPREHENSIVE METABOLIC [id number] 00:00:00 Test Item Value Reference Range Interpretation Comments GLUCOSE (test code = 2217) 95 MG/DL BUN (test code = 2208) 15 MG/DL CREATININE (test code = 2214) 0.70 MG/DL eGFR AMER. (test code 151 ML/MIN/1.73 = 34876) eGFR NON- AMER. (test 130 ML/MIN/1.73 code = 75381) CALC BUN/CREAT (test code = 21 RATIO [...] 37 U/L LIPID PANEL WITH REFLEX DIRECT [id number] 00:00:00 Test Item Value Reference Range Interpretation Comments CHOLESTEROL (test code = 2210) 208 MG/DL TRIGLYCERIDES (test code = 2232) 201 MG/DL HDL CHOLESTEROL (test code = 2220) 34 MG/DL CALC LDL CHOL (test code = 2237) 139 MG/DL RISK RATIO LDL/HDL (test code = 4.09 RATIO 2238) LIPID PANEL WITH REFLEX DIRECT [id number] 00:00:00 Test Item Value Reference Range Interpretation Comments CHOLESTEROL (test code = 2210) 208 MG/DL TRIGLYCERIDES (test code = 2232) 201 MG/DL HDL CHOLESTEROL (test code = 2220) 34 MG/DL CALC LDL CHOL (test code = 2237) 139 MG/DL RISK RATIO LDL/HDL (test code = 4.09 RATIO 2238) COMPREHENSIVE METABOLIC [id number] 00:00:00 Test Item Value Reference Range Interpretation Comments GLUCOSE (test code = 2217) 95 MG/DL BUN (test code = 2208) 15 MG/DL CREATININE (test code = 2214) 0.70 MG/DL eGFR AMER. (test code 151 ML/MIN/1.73 = 49375) eGFR NON- AMER. (test 130 ML/MIN/1.73 code = 93503) CALC BUN/CREAT (test code = 21 RATIO [...] code = 2219) 37 U/L COMPREHENSIVE METABOLIC [id number] 00:00:00 Test Item Value Reference Range Interpretation Comments GLUCOSE (test code = 2217) 95 MG/DL BUN (test code = 2208) 15 MG/DL CREATININE (test code = 2214) 0.70 MG/DL eGFR AMER. (test code 151 ML/MIN/1.73 = 42282) eGFR NON- AMER. (test 130 ML/MIN/1.73 code = 35859) CALC BUN/CREAT (test code = 21 RATIO [...] (test code = 2219) 37 U/L HEMOGLOBIN [id number] 00:00:00 Test Item Value Reference Range Interpretation Comments HEMOGLOBIN A1c (test code = 70624) 6.1 % HEMOGLOBIN [id number] 00:00:00 Test Item Value Reference Range Interpretation Comments HEMOGLOBIN A1c (test code = 78061) 6.1 % HEMOGLOBIN [id number] 00:00:00 Test Item Value Reference Range Interpretation Comments HEMOGLOBIN A1c (test code = 03216) 6.1 % [id number] 00:00:00 Test Item Value Reference Range Interpretation Comments TSH, THIRD GENERATION (test code 3.380 UIU/ML = 2821) [id number] 00:00:00 Test Item Value Reference Range Interpretation Comments TSH, THIRD GENERATION (test code 3.380 UIU/ML = 2821) [id number] 00:00:00 Test Item Value Reference Range Interpretation Comments TSH, THIRD GENERATION (test code 3.380 UIU/ML = 2821) HEMOGLOBIN [id number] 00:00:00 Test Item Value Reference Range Interpretation Comments HEMOGLOBIN A1c (test code = 36662) 6.1 % HEMOGLOBIN [id number] 00:00:00 Test Item Value Reference Range Interpretation Comments HEMOGLOBIN A1c (test code = 58340) 6.1 % HEMOGLOBIN [id number] 00:00:00 Test Item Value Reference Range Interpretation Comments HEMOGLOBIN A1c (test code = 89687) 6.1 % [id number] 00:00:00 Test Item Value Reference Range Interpretation Comments TSH, THIRD GENERATION (test code 3.380 UIU/ML = 2821) [id number] 00:00:00 Test Item Value Reference Range Interpretation Comments TSH, THIRD GENERATION (test code 3.380 UIU/ML = 2821) [id number] 00:00:00 Test Item Value Reference Range Interpretation Comments TSH, THIRD GENERATION (test code 3.380 UIU/ML = 2821) HEMOGLOBIN [id number] 00:00:00 Test Item Value Reference Range Interpretation Comments HEMOGLOBIN A1c (test code = 26317) 6.1 % HEMOGLOBIN [id number] 00:00:00 Test Item Value Reference Range Interpretation Comments HEMOGLOBIN A1c (test code = 03672) 6.1 % HEMOGLOBIN [id number] 00:00:00 Test Item Value Reference Range Interpretation Comments HEMOGLOBIN A1c (test code = 57676) 6.1 % [id number] 00:00:00 Test Item Value Reference Range Interpretation Comments TSH, THIRD GENERATION (test code 3.380 UIU/ML = 2821) [id number] 00:00:00 Test Item Value Reference Range Interpretation Comments TSH, THIRD GENERATION (test code 3.380 UIU/ML = 2821) [id number] 00:00:00 Test Item Value Reference Range Interpretation Comments TSH, THIRD GENERATION (test code 3.380 UIU/ML = 2821) COMPREHENSIVE METABOLIC [id number] 00:00:00 Test Item Value Reference Range Interpretation Comments GLUCOSE (test code = 2217) 182 MG/DL BUN (test code = 2208) 18 MG/DL CREATININE (test code = 2214) 0.71 MG/DL eGFR AMER. (test code 150 ML/MIN/1.73 = 54488) eGFR NON- AMER. (test 129 ML/MIN/1.73 code = 93563) CALC BUN/CREAT (test code = 25 RATIO [...] code = 2219) 31 U/L COMPREHENSIVE METABOLIC [id number] 00:00:00 Test Item Value Reference Range Interpretation Comments GLUCOSE (test code = 2217) 182 MG/DL BUN (test code = 2208) 18 MG/DL CREATININE (test code = 2214) 0.71 MG/DL eGFR AMER. (test code 150 ML/MIN/1.73 = 07920) eGFR NON- AMER. (test 129 ML/MIN/1.73 code = 42890) CALC BUN/CREAT (test code = 25 RATIO [...] (test code = 2219) 31 U/L LIPID [id number] 00:00:00 Test Item Value Reference Range Interpretation Comments CHOLESTEROL (test code = 2210) 217 MG/DL TRIGLYCERIDES (test code = 2232) 149 MG/DL HDL CHOLESTEROL (test code = 2220) 36 MG/DL CALC LDL CHOL (test code = 2237) 153 MG/DL RISK RATIO LDL/HDL (test code = 4.25 RATIO 2238) LIPID [id number] 00:00:00 Test Item Value Reference Range Interpretation Comments CHOLESTEROL (test code = 2210) 217 MG/DL TRIGLYCERIDES (test code = 2232) 149 MG/DL HDL CHOLESTEROL (test code = 2220) 36 MG/DL CALC LDL CHOL (test code = 2237) 153 MG/DL RISK RATIO LDL/HDL (test code = 4.25 RATIO 2238) HEMOGLOBIN [id number] 00:00:00 Test Item Value Reference Range Interpretation Comments HEMOGLOBIN A1c (test code = 04034) 5.8 % HEMOGLOBIN [id number] 00:00:00 Test Item Value Reference Range Interpretation Comments HEMOGLOBIN A1c (test code = 19926) 5.8 % HEMOGLOBIN [id number] 00:00:00 Test Item Value Reference Range Interpretation Comments HEMOGLOBIN A1c (test code = 79536) 5.8 % [id number] 00:00:00 Test Item Value Reference Range Interpretation Comments TSH, THIRD GENERATION (test code 2.080 UIU/ML = 2821) [id number] 00:00:00 Test Item Value Reference Range Interpretation Comments TSH, THIRD GENERATION (test code 2.080 UIU/ML = 2821) [id number] 00:00:00 Test Item Value Reference Range Interpretation Comments TSH, THIRD GENERATION (test code 2.080 UIU/ML = 2821) COMPREHENSIVE METABOLIC [id number] 00:00:00 Test Item Value Reference Range Interpretation Comments GLUCOSE (test code = 2217) 182 MG/DL BUN (test code = 2208) 18 MG/DL CREATININE (test code = 2214) 0.71 MG/DL eGFR AMER. (test code 150 ML/MIN/1.73 = 48487) eGFR NON- AMER. (test 129 ML/MIN/1.73 code = 09000) CALC BUN/CREAT (test code = 25 RATIO [...] code = 2219) 31 U/L COMPREHENSIVE METABOLIC [id number] 00:00:00 Test Item Value Reference Range Interpretation Comments GLUCOSE (test code = 2217) 182 MG/DL BUN (test code = 2208) 18 MG/DL CREATININE (test code = 2214) 0.71 MG/DL eGFR AMER. (test code 150 ML/MIN/1.73 = 97146) eGFR NON- AMER. (test 129 ML/MIN/1.73 code = 06603) CALC BUN/CREAT (test code = 25 RATIO [...] (test code = 2219) 31 U/L LIPID [id number] 00:00:00 Test Item Value Reference Range Interpretation Comments CHOLESTEROL (test code = 2210) 217 MG/DL TRIGLYCERIDES (test code = 2232) 149 MG/DL HDL CHOLESTEROL (test code = 2220) 36 MG/DL CALC LDL CHOL (test code = 2237) 153 MG/DL RISK RATIO LDL/HDL (test code = 4.25 RATIO 2238) LIPID [id number] 00:00:00 Test Item Value Reference Range Interpretation Comments CHOLESTEROL (test code = 2210) 217 MG/DL TRIGLYCERIDES (test code = 2232) 149 MG/DL HDL CHOLESTEROL (test code = 2220) 36 MG/DL CALC LDL CHOL (test code = 2237) 153 MG/DL RISK RATIO LDL/HDL (test code = 4.25 RATIO 2238) HEMOGLOBIN [id number] 00:00:00 Test Item Value Reference Range Interpretation Comments HEMOGLOBIN A1c (test code = 07805) 5.8 % HEMOGLOBIN [id number] 00:00:00 Test Item Value Reference Range Interpretation Comments HEMOGLOBIN A1c (test code = 36156) 5.8 % HEMOGLOBIN [id number] 00:00:00 Test Item Value Reference Range Interpretation Comments HEMOGLOBIN A1c (test code = 42662) 5.8 % [id number] 00:00:00 Test Item Value Reference Range Interpretation Comments TSH, THIRD GENERATION (test code 2.080 UIU/ML = 2821) [id number] 00:00:00 Test Item Value Reference Range Interpretation Comments TSH, THIRD GENERATION (test code 2.080 UIU/ML = 2821) [id number] 00:00:00 Test Item Value Reference Range Interpretation Comments TSH, THIRD GENERATION (test code 2.080 UIU/ML = 2821) COMPREHENSIVE METABOLIC [id number] 00:00:00 Test Item Value Reference Range Interpretation Comments GLUCOSE (test code = 2217) 182 MG/DL BUN (test code = 2208) 18 MG/DL CREATININE (test code = 2214) 0.71 MG/DL eGFR AMER. (test code 150 ML/MIN/1.73 = 04748) eGFR NON- AMER. (test 129 ML/MIN/1.73 code = 35246) CALC BUN/CREAT (test code = 25 RATIO [...] code = 2219) 31 U/L COMPREHENSIVE METABOLIC [id number] 00:00:00 Test Item Value Reference Range Interpretation Comments GLUCOSE (test code = 2217) 182 MG/DL BUN (test code = 2208) 18 MG/DL CREATININE (test code = 2214) 0.71 MG/DL eGFR AMER. (test code 150 ML/MIN/1.73 = 36427) eGFR NON- AMER. (test 129 ML/MIN/1.73 code = 02400) CALC BUN/CREAT (test code = 25 RATIO [...] (test code = 2219) 31 U/L LIPID [id number] 00:00:00 Test Item Value Reference Range Interpretation Comments CHOLESTEROL (test code = 2210) 217 MG/DL TRIGLYCERIDES (test code = 2232) 149 MG/DL HDL CHOLESTEROL (test code = 2220) 36 MG/DL CALC LDL CHOL (test code = 2237) 153 MG/DL RISK RATIO LDL/HDL (test code = 4.25 RATIO 2238) LIPID [id number] 00:00:00 Test Item Value Reference Range Interpretation Comments CHOLESTEROL (test code = 2210) 217 MG/DL TRIGLYCERIDES (test code = 2232) 149 MG/DL HDL CHOLESTEROL (test code = 2220) 36 MG/DL CALC LDL CHOL (test code = 2237) 153 MG/DL RISK RATIO LDL/HDL (test code = 4.25 RATIO 2238) HEMOGLOBIN [id number] 00:00:00 Test Item Value Reference Range Interpretation Comments HEMOGLOBIN A1c (test code = 98204) 5.8 % HEMOGLOBIN [id number] 00:00:00 Test Item Value Reference Range Interpretation Comments HEMOGLOBIN A1c (test code = 55114) 5.8 % HEMOGLOBIN [id number] 00:00:00 Test Item Value Reference Range Interpretation Comments HEMOGLOBIN A1c (test code = 07898) 5.8 % [id number] 00:00:00 Test Item Value Reference Range Interpretation Comments TSH, THIRD GENERATION (test code 2.080 UIU/ML = 2821) [id number] 00:00:00 Test Item Value Reference Range Interpretation Comments TSH, THIRD GENERATION (test code 2.080 UIU/ML = 2821) [id number] 00:00:00 Test Item Value Reference Range Interpretation Comments TSH, THIRD GENERATION (test code 2.080 UIU/ML = 2821) CBC W/AUTO [id number] 00:00:00 Test Item Value Reference Range Interpretation [...] code = 1015) 351 K/UL CBC W/AUTO [id number] 00:00:00 Test Item Value Reference Range Interpretation [...] code = 1015) 351 K/UL CBC W/AUTO [id number] 00:00:00 Test Item Value Reference Range Interpretation [...] (test code = 1015) 351 K/UL HEMOGLOBIN [id number] 00:00:00 Test Item Value Reference Range Interpretation Comments HEMOGLOBIN A1c (test code = 37424) 5.8 % HEMOGLOBIN [id number] 00:00:00 Test Item Value Reference Range Interpretation Comments HEMOGLOBIN A1c (test code = 20599) 5.8 % HEMOGLOBIN [id number] 00:00:00 Test Item Value Reference Range Interpretation Comments HEMOGLOBIN A1c (test code = 14003) 5.8 % LIPID [id number] 00:00:00 Test Item Value Reference Range Interpretation Comments CHOLESTEROL (test code = 2210) 210 MG/DL TRIGLYCERIDES (test code = 2232) 129 MG/DL HDL CHOLESTEROL (test code = 2220) 44 MG/DL CALC LDL CHOL (test code = 2237) 140 MG/DL RISK RATIO LDL/HDL (test code = 3.19 RATIO 2238) LIPID [id number] 00:00:00 Test Item Value Reference Range Interpretation Comments CHOLESTEROL (test code = 2210) 210 MG/DL TRIGLYCERIDES (test code = 2232) 129 MG/DL HDL CHOLESTEROL (test code = 2220) 44 MG/DL CALC LDL CHOL (test code = 2237) 140 MG/DL RISK RATIO LDL/HDL (test code = 3.19 RATIO 2238) COMPREHENSIVE METABOLIC [id number] 00:00:00 Test Item Value Reference Range Interpretation Comments GLUCOSE (test code = 2217) 100 MG/DL BUN (test code = 2208) 14 MG/DL CREATININE (test code = 2214) 0.58 MG/DL eGFR AMER. (test code 163 ML/MIN/1.73 = 31285) eGFR NON- AMER. (test 141 ML/MIN/1.73 code = 49872) CALC BUN/CREAT (test code = 24 RATIO [...] code = 2219) 38 U/L COMPREHENSIVE METABOLIC [id number] 00:00:00 Test Item Value Reference Range Interpretation Comments GLUCOSE (test code = 2217) 100 MG/DL BUN (test code = 2208) 14 MG/DL CREATININE (test code = 2214) 0.58 MG/DL eGFR AMER. (test code 163 ML/MIN/1.73 = 33562) eGFR NON- AMER. (test 141 ML/MIN/1.73 code = 17126) CALC BUN/CREAT (test code = 24 RATIO [...] ALT (test code = 2219) 38 U/L [id number] 00:00:00 Test Item Value Reference Range Interpretation Comments TSH, THIRD GENERATION (test code 5.690 UIU/ML = 2821) [id number] 00:00:00 Test Item Value Reference Range Interpretation Comments TSH, THIRD GENERATION (test code 5.690 UIU/ML = 2821) [id number] 00:00:00 Test Item Value Reference Range Interpretation Comments TSH, THIRD GENERATION (test code 5.690 UIU/ML = 2821) CBC W/AUTO [id number] 00:00:00 Test Item Value Reference Range Interpretation [...] code = 1015) 351 K/UL CBC W/AUTO [id number] 00:00:00 Test Item Value Reference Range Interpretation [...] code = 1015) 351 K/UL CBC W/AUTO [id number] 00:00:00 Test Item Value Reference Range Interpretation [...] (test code = 1015) 351 K/UL HEMOGLOBIN [id number] 00:00:00 Test Item Value Reference Range Interpretation Comments HEMOGLOBIN A1c (test code = 18731) 5.8 % HEMOGLOBIN [id number] 00:00:00 Test Item Value Reference Range Interpretation Comments HEMOGLOBIN A1c (test code = 69494) 5.8 % HEMOGLOBIN [id number] 00:00:00 Test Item Value Reference Range Interpretation Comments HEMOGLOBIN A1c (test code = 70090) 5.8 % LIPID [id number] 00:00:00 Test Item Value Reference Range Interpretation Comments CHOLESTEROL (test code = 2210) 210 MG/DL TRIGLYCERIDES (test code = 2232) 129 MG/DL HDL CHOLESTEROL (test code = 2220) 44 MG/DL CALC LDL CHOL (test code = 2237) 140 MG/DL RISK RATIO LDL/HDL (test code = 3.19 RATIO 2238) LIPID [id number] 00:00:00 Test Item Value Reference Range Interpretation Comments CHOLESTEROL (test code = 2210) 210 MG/DL TRIGLYCERIDES (test code = 2232) 129 MG/DL HDL CHOLESTEROL (test code = 2220) 44 MG/DL CALC LDL CHOL (test code = 2237) 140 MG/DL RISK RATIO LDL/HDL (test code = 3.19 RATIO 2238) COMPREHENSIVE METABOLIC [id number] 00:00:00 Test Item Value Reference Range Interpretation Comments GLUCOSE (test code = 2217) 100 MG/DL BUN (test code = 2208) 14 MG/DL CREATININE (test code = 2214) 0.58 MG/DL eGFR AMER. (test code 163 ML/MIN/1.73 = 58325) eGFR NON- AMER. (test 141 ML/MIN/1.73 code = 73129) CALC BUN/CREAT (test code = 24 RATIO [...] code = 2219) 38 U/L COMPREHENSIVE METABOLIC [id number] 00:00:00 Test Item Value Reference Range Interpretation Comments GLUCOSE (test code = 2217) 100 MG/DL BUN (test code = 2208) 14 MG/DL CREATININE (test code = 2214) 0.58 MG/DL eGFR AMER. (test code 163 ML/MIN/1.73 = 25343) eGFR NON- AMER. (test 141 ML/MIN/1.73 code = 72592) CALC BUN/CREAT (test code = 24 RATIO [...] ALT (test code = 2219) 38 U/L [id number] 00:00:00 Test Item Value Reference Range Interpretation Comments TSH, THIRD GENERATION (test code 5.690 UIU/ML = 2821) [id number] 00:00:00 Test Item Value Reference Range Interpretation Comments TSH, THIRD GENERATION (test code 5.690 UIU/ML = 2821) [id number] 00:00:00 Test Item Value Reference Range Interpretation Comments TSH, THIRD GENERATION (test code 5.690 UIU/ML = 2821) CBC W/AUTO [id number] 00:00:00 Test Item Value Reference Range Interpretation [...] code = 1015) 351 K/UL CBC W/AUTO [id number] 00:00:00 Test Item Value Reference Range Interpretation [...] code = 1015) 351 K/UL CBC W/AUTO [id number] 00:00:00 Test Item Value Reference Range Interpretation [...] (test code = 1015) 351 K/UL HEMOGLOBIN [id number] 00:00:00 Test Item Value Reference Range Interpretation Comments HEMOGLOBIN A1c (test code = 89415) 5.8 % HEMOGLOBIN [id number] 00:00:00 Test Item Value Reference Range Interpretation Comments HEMOGLOBIN A1c (test code = 80251) 5.8 % HEMOGLOBIN [id number] 00:00:00 Test Item Value Reference Range Interpretation Comments HEMOGLOBIN A1c (test code = 55604) 5.8 % LIPID [id number] 00:00:00 Test Item Value Reference Range Interpretation Comments CHOLESTEROL (test code = 2210) 210 MG/DL TRIGLYCERIDES (test code = 2232) 129 MG/DL HDL CHOLESTEROL (test code = 2220) 44 MG/DL CALC LDL CHOL (test code = 2237) 140 MG/DL RISK RATIO LDL/HDL (test code = 3.19 RATIO 2238) LIPID [id number] 00:00:00 Test Item Value Reference Range Interpretation Comments CHOLESTEROL (test code = 2210) 210 MG/DL TRIGLYCERIDES (test code = 2232) 129 MG/DL HDL CHOLESTEROL (test code = 2220) 44 MG/DL CALC LDL CHOL (test code = 2237) 140 MG/DL RISK RATIO LDL/HDL (test code = 3.19 RATIO 2238) COMPREHENSIVE METABOLIC [id number] 00:00:00 Test Item Value Reference Range Interpretation Comments GLUCOSE (test code = 2217) 100 MG/DL BUN (test code = 2208) 14 MG/DL CREATININE (test code = 2214) 0.58 MG/DL eGFR AMER. (test code 163 ML/MIN/1.73 = 03004) eGFR NON- AMER. (test 141 ML/MIN/1.73 code = 85859) CALC BUN/CREAT (test code = 24 RATIO [...] code = 2219) 38 U/L COMPREHENSIVE METABOLIC [id number] 00:00:00 Test Item Value Reference Range Interpretation Comments GLUCOSE (test code = 2217) 100 MG/DL BUN (test code = 2208) 14 MG/DL CREATININE (test code = 2214) 0.58 MG/DL eGFR AMER. (test code 163 ML/MIN/1.73 = 03629) eGFR NON- AMER. (test 141 ML/MIN/1.73 code = 74524) CALC BUN/CREAT (test code = 24 RATIO [...] ALT (test code = 2219) 38 U/L [id number] 00:00:00 Test Item Value Reference Range Interpretation Comments TSH, THIRD GENERATION (test code 5.690 UIU/ML = 2821) [id number] 00:00:00 Test Item Value Reference Range Interpretation Comments TSH, THIRD GENERATION (test code 5.690 UIU/ML = 2821) [id number] 00:00:00 Test Item Value Reference Range Interpretation Comments TSH, THIRD GENERATION (test code 5.690 UIU/ML = 2821) COMPREHENSIVE METABOLIC [id number] 00:00:00 Test Item Value Reference Range Interpretation Comments GLUCOSE (test code = 2217) 111 MG/DL BUN (test code = 2208) 17 MG/DL CREATININE (test code = 2214) 0.65 MG/DL eGFR AMER. (test code 158 ML/MIN/1.73 = 25164) eGFR NON- AMER. (test 136 ML/MIN/1.73 code = 73975) CALC BUN/CREAT (test code = 26 RATIO [...] code = 2219) 24 U/L COMPREHENSIVE METABOLIC [id number] 00:00:00 Test Item Value Reference Range Interpretation Comments GLUCOSE (test code = 2217) 111 MG/DL BUN (test code = 2208) 17 MG/DL CREATININE (test code = 2214) 0.65 MG/DL eGFR AMER. (test code 158 ML/MIN/1.73 = 23864) eGFR NON- AMER. (test 136 ML/MIN/1.73 code = 13784) CALC BUN/CREAT (test code = 26 RATIO [...] (test code = 2219) 24 U/L LIPID [id number] 00:00:00 Test Item Value Reference Range Interpretation Comments CHOLESTEROL (test code = 2210) 220 MG/DL TRIGLYCERIDES (test code = 2232) 190 MG/DL HDL CHOLESTEROL (test code = 2220) 39 MG/DL CALC LDL CHOL (test code = 2237) 143 MG/DL RISK RATIO LDL/HDL (test code = 3.67 RATIO 2238) LIPID [id number] 00:00:00 Test Item Value Reference Range Interpretation Comments CHOLESTEROL (test code = 2210) 220 MG/DL TRIGLYCERIDES (test code = 2232) 190 MG/DL HDL CHOLESTEROL (test code = 2220) 39 MG/DL CALC LDL CHOL (test code = 2237) 143 MG/DL RISK RATIO LDL/HDL (test code = 3.67 RATIO 2238) CBC W/AUTO [id number] 00:00:00 Test Item Value Reference Range Interpretation [...] code = 1015) 415 K/UL CBC W/AUTO [id number] 00:00:00 Test Item Value Reference Range Interpretation [...] code = 1015) 415 K/UL CBC W/AUTO [id number] 00:00:00 Test Item Value Reference Range Interpretation [...] (test code = 1015) 415 K/UL HEMOGLOBIN [id number] 00:00:00 Test Item Value Reference Range Interpretation Comments HEMOGLOBIN A1c (test code = 81811) 5.5 % HEMOGLOBIN [id number] 00:00:00 Test Item Value Reference Range Interpretation Comments HEMOGLOBIN A1c (test code = 30354) 5.5 % HEMOGLOBIN [id number] 00:00:00 Test Item Value Reference Range Interpretation Comments HEMOGLOBIN A1c (test code = 23363) 5.5 % [id number] 00:00:00 Test Item Value Reference Range Interpretation Comments TSH (test code = 2821) 4.260 UIU/ML [id number] 00:00:00 Test Item Value Reference Range Interpretation Comments TSH (test code = 2821) 4.260 UIU/ML [id number] 00:00:00 Test Item Value Reference Range Interpretation Comments TSH (test code = 2821) 4.260 UIU/ML COMPREHENSIVE METABOLIC [id number] 00:00:00 Test Item Value Reference Range Interpretation Comments GLUCOSE (test code = 2217) 111 MG/DL BUN (test code = 2208) 17 MG/DL CREATININE (test code = 2214) 0.65 MG/DL eGFR AMER. (test code 158 ML/MIN/1.73 = 37485) eGFR NON- AMER. (test 136 ML/MIN/1.73 code = 34481) CALC BUN/CREAT (test code = 26 RATIO [...] code = 2219) 24 U/L COMPREHENSIVE METABOLIC [id number] 00:00:00 Test Item Value Reference Range Interpretation Comments GLUCOSE (test code = 2217) 111 MG/DL BUN (test code = 2208) 17 MG/DL CREATININE (test code = 2214) 0.65 MG/DL eGFR AMER. (test code 158 ML/MIN/1.73 = 64520) eGFR NON- AMER. (test 136 ML/MIN/1.73 code = 55797) CALC BUN/CREAT (test code = 26 RATIO [...] (test code = 2219) 24 U/L LIPID [id number] 00:00:00 Test Item Value Reference Range Interpretation Comments CHOLESTEROL (test code = 2210) 220 MG/DL TRIGLYCERIDES (test code = 2232) 190 MG/DL HDL CHOLESTEROL (test code = 2220) 39 MG/DL CALC LDL CHOL (test code = 2237) 143 MG/DL RISK RATIO LDL/HDL (test code = 3.67 RATIO 2238) LIPID [id number] 00:00:00 Test Item Value Reference Range Interpretation Comments CHOLESTEROL (test code = 2210) 220 MG/DL TRIGLYCERIDES (test code = 2232) 190 MG/DL HDL CHOLESTEROL (test code = 2220) 39 MG/DL CALC LDL CHOL (test code = 2237) 143 MG/DL RISK RATIO LDL/HDL (test code = 3.67 RATIO 2238) CBC W/AUTO [id number] 00:00:00 Test Item Value Reference Range Interpretation [...] code = 1015) 415 K/UL CBC W/AUTO [id number] 00:00:00 Test Item Value Reference Range Interpretation [...] code = 1015) 415 K/UL CBC W/AUTO [id number] 00:00:00 Test Item Value Reference Range Interpretation [...] (test code = 1015) 415 K/UL HEMOGLOBIN [id number] 00:00:00 Test Item Value Reference Range Interpretation Comments HEMOGLOBIN A1c (test code = 28940) 5.5 % HEMOGLOBIN [id number] 00:00:00 Test Item Value Reference Range Interpretation Comments HEMOGLOBIN A1c (test code = 51850) 5.5 % HEMOGLOBIN [id number] 00:00:00 Test Item Value Reference Range Interpretation Comments HEMOGLOBIN A1c (test code = 93127) 5.5 % [id number] 00:00:00 Test Item Value Reference Range Interpretation Comments TSH (test code = 2821) 4.260 UIU/ML [id number] 00:00:00 Test Item Value Reference Range Interpretation Comments TSH (test code = 2821) 4.260 UIU/ML [id number] 00:00:00 Test Item Value Reference Range Interpretation Comments TSH (test code = 2821) 4.260 UIU/ML COMPREHENSIVE METABOLIC [id number] 00:00:00 Test Item Value Reference Range Interpretation Comments GLUCOSE (test code = 2217) 111 MG/DL BUN (test code = 2208) 17 MG/DL CREATININE (test code = 2214) 0.65 MG/DL eGFR AMER. (test code 158 ML/MIN/1.73 = 92063) eGFR NON- AMER. (test 136 ML/MIN/1.73 code = 82458) CALC BUN/CREAT (test code = 26 RATIO [...] code = 2219) 24 U/L COMPREHENSIVE METABOLIC [id number] 00:00:00 Test Item Value Reference Range Interpretation Comments GLUCOSE (test code = 2217) 111 MG/DL BUN (test code = 2208) 17 MG/DL CREATININE (test code = 2214) 0.65 MG/DL eGFR AMER. (test code 158 ML/MIN/1.73 = 52351) eGFR NON- AMER. (test 136 ML/MIN/1.73 code = 98381) CALC BUN/CREAT (test code = 26 RATIO [...] (test code = 2219) 24 U/L LIPID [id number] 00:00:00 Test Item Value Reference Range Interpretation Comments CHOLESTEROL (test code = 2210) 220 MG/DL TRIGLYCERIDES (test code = 2232) 190 MG/DL HDL CHOLESTEROL (test code = 2220) 39 MG/DL CALC LDL CHOL (test code = 2237) 143 MG/DL RISK RATIO LDL/HDL (test code = 3.67 RATIO 2238) LIPID [id number] 00:00:00 Test Item Value Reference Range Interpretation Comments CHOLESTEROL (test code = 2210) 220 MG/DL TRIGLYCERIDES (test code = 2232) 190 MG/DL HDL CHOLESTEROL (test code = 2220) 39 MG/DL CALC LDL CHOL (test code = 2237) 143 MG/DL RISK RATIO LDL/HDL (test code = 3.67 RATIO 2238) CBC W/AUTO [id number] 00:00:00 Test Item Value Reference Range Interpretation [...] code = 1015) 415 K/UL CBC W/AUTO [id number] 00:00:00 Test Item Value Reference Range Interpretation [...] code = 1015) 415 K/UL CBC W/AUTO [id number] 00:00:00 Test Item Value Reference Range Interpretation [...] (test code = 1015) 415 K/UL HEMOGLOBIN [id number] 00:00:00 Test Item Value Reference Range Interpretation Comments HEMOGLOBIN A1c (test code = 23773) 5.5 % HEMOGLOBIN [id number] 00:00:00 Test Item Value Reference Range Interpretation Comments HEMOGLOBIN A1c (test code = 81239) 5.5 % HEMOGLOBIN [id number] 00:00:00 Test Item Value Reference Range Interpretation Comments HEMOGLOBIN A1c (test code = 43911) 5.5 % [id number] 00:00:00 Test Item Value Reference Range Interpretation Comments TSH (test code = 2821) 4.260 UIU/ML [id number] 00:00:00 Test Item Value Reference Range Interpretation Comments TSH (test code = 2821) 4.260 UIU/ML [id number] 00:00:00 Test Item Value Reference Range Interpretation Comments TSH (test code = 2821) 4.260 UIU/ML
--- NOTE | 2022-11-28 05:07 | ER ---
Nurse's Notes [facility] Name: Adam Boyce Age: 27 yrs Sex: Male : 1995 Arrival Date: 11/28/2022 Time: 04:43 Bed 20 Private MD: Diagnosis: Left leg wound Presentation: 11/28 04:44 Chief complaint: Patient states: Friend toned EMS due to concern of left leg infection. fu Coronavirus screen: Vaccine status: Patient reports receiving the 1st dose of the Covid vaccine. Ebola Screen: No symptoms or risks identified at this time. Initial Sepsis Screen: Does the patient meet any 2 criteria? HR > 90 bpm. Does the patient have a suspected source of infection? Yes: Skin breakdown/wound. Risk Assessment: Do you want to hurt yourself or someone else? Patient reports no desire to harm self or others. Onset of symptoms was August 2022. 04:44 Method Of Arrival: EMS: [facility] fu 04:44 Acuity: KONG 3 fu Historical: - Home Meds: 04:58 atorvastatin Oral [Active]; Doxycycline Oral [Active]; levothyroxine oral [Active]; fu metformin 500 mg Oral tab daily [Active]; sertraline Oral [Active]; Zoloft Oral [Active]; - PMHx: 04:58 Anxiety; Bipolar disorder; Diabetes - NIDDM; Depression; Arthritis; Hypothyroidism; fu High Cholesterol; Sleep Apnea; recovering addict (ETOH/narcotic); - PSHx: 04:58 None; fu - Immunization history:: Client reports receiving the 1st dose of the Covid vaccine. - Social history:: Smoking status: Patient reports the use of cigarette tobacco products, smokes one pack cigarettes per day. Patient/guardian denies using. Screenin:05 [facility] ED Fall Risk Assessment (Adult) History of falling in the last 3 months, fu including since admission No falls in past 3 months (0 pts). Abuse screen: Denies threats or abuse. Nutritional screening: No deficits noted. Tuberculosis screening: No symptoms or risk factors identified. Assessment: 05:05 General: Appears in no apparent distress. obese, unkempt, Behavior is calm, fu cooperative, appropriate for age, Denies fever, chills. Pain: Complains of pain in right foot Pain does not radiate. Pain currently is 1 out of 10 on a pain scale. Neuro: Level of Consciousness is awake, alert, obeys commands, Oriented to person, place, time, situation, Moves all extremities. Gait is unsteady, Speech is normal, Facial symmetry appears normal. Respiratory: Respiratory effort is even, Respiratory pattern is regular. Derm: Skin has lesions on left lower leg. 05:21 Reassessment: left leg wound cleaned and covered with gauze. fu Vital Signs: 04:44 BP 124 / 82; Pulse 114; Resp 19; Temp 98.6; Pulse Ox 94% on R/A; Weight 149.69 kg (R); fu Height 5 ft. 2 in. (157.48 cm) (R); Pain 1/10; 05:00 BP 130 / 84; Pulse 110; Resp 19; Temp 98.6; Pulse Ox 94% on R/A; Pain 0/10; fu 04:44 Body Mass Index 60.36 (149.69 kg, 157.48 cm) fu ED Course: 04:43 Patient arrived in ED. la1 04:43 Yazan Fish RN is Primary Nurse. fu 04:44 Pura Graham MD is Attending Physician. sd2 04:58 Triage completed. fu 05:04 Arm band placed on right wrist. fu 05:10 Patient has correct armband on for positive identification. Bed in low position. Call fu light in reach. Side rails up X 1. Pulse ox on. NIBP on. Warm blanket given. 05:20 No provider procedures requiring assistance completed. fu 05:22 Ruben Collins FNP-C is [facility]. la1 05:42 Patient did not have IV access during this emergency room visit. fu Administered Medications: No medications were administered Medication: 05:10 VIS not applicable for this client. fu Outcome: 05:06 Discharge ordered by . sd2 05:28 Discharged to home via wheelchair. fu 05:28 Condition: good 05:28 Discharge instructions given to patient, Instructed on discharge instructions, follow up and referral plans. Demonstrated understanding of instructions, follow-up care, Prescriptions given X 0 05:43 Patient left the ED. fu Signatures: Ruben Collins FNP-C VP [employer]-Cla1 Yazan Fish RN RN Pura Graham MD MD sd2
--- NOTE | 2022-11-28 05:07 | EDPHYS ---
Physician Documentation [facility] Name: Adam Boyce Age: 27 yrs Sex: Male : 1995 Arrival Date: 11/28/2022 Time: 04:43 Bed 20 Private MD: ED Physician Pura Graham HPI: 11/28 04:44 This 27 yrs old Male presents to ER via Unassigned with complaints of cellulitis. sd2 04:44 27 yo M presents with CC of cellulitis of his LLE. Reports he was over at his friend's sd2 house sleeping and his friend called EMS due to being concerned about his leg. The patient reports he has already been seen for this and completed abx approximately 1 week ago. Denies any significant concern about the wound area on his distal benitez and denies any significant change to the area. Denies fever, vomiting. He is diabetic and has been compliant with his Metformin. States he does not check his blood sugar at home and has not followed up with his PCP since completing abx. . Historical: - Home Meds: 04:58 atorvastatin Oral [Active]; Doxycycline Oral [Active]; levothyroxine oral [Active]; fu metformin 500 mg Oral tab daily [Active]; sertraline Oral [Active]; Zoloft Oral [Active]; - PMHx: 04:58 Anxiety; Bipolar disorder; Diabetes - NIDDM; Depression; Arthritis; Hypothyroidism; fu High Cholesterol; Sleep Apnea; recovering addict (ETOH/narcotic); - PSHx: 04:58 None; fu - Immunization history:: Client reports receiving the 1st dose of the Covid vaccine. - Social history:: Smoking status: Patient reports the use of cigarette tobacco products, smokes one pack cigarettes per day. Patient/guardian denies using. ROS: 04:44 Constitutional: Negative for fever, chills, and weight loss, Eyes: Negative for injury, sd2 pain, redness, and discharge, Cardiovascular: Negative for chest pain, palpitations, and edema, Respiratory: Negative for shortness of breath, cough, wheezing. Abdomen/GI: Negative for abdominal pain, nausea, vomiting, diarrhea. MS/Extremity: Negative for injury and deformity, Skin: Negative for injury, rash, and discoloration, Positive for wound Exam: 04:44 Constitutional: This is a well developed, well nourished patient who is awake, alert, sd2 and in no acute distress. Head/Face: Normocephalic, atraumatic. Eyes: EOMI, normal conjunctiva bilaterally Chest/axilla: Normal chest wall appearance and motion. Nontender with no deformity. Cardiovascular: Regular rate and rhythm with a normal S1 and S2. No gallops, murmurs, or rubs. 2+ distal pulses. Respiratory: Lungs have equal breath sounds bilaterally, clear to auscultation and percussion. No rales, rhonchi or wheezes noted. No increased work of breathing, no retractions or nasal flaring. Abdomen/GI: Soft, non-tender, with normal bowel sounds. No guarding or rebound. No evidence of tenderness throughout. Skin: Warm, dry with normal turgor. Wound noted to L anterior benitez with clean wound bed base and granulation tissue present. Appears to be healing well. No surrounding warmth or significant erythema or streaking. MS/ Extremity: Pulses equal, no cyanosis. Neurovascular intact. Full, normal range of motion. Ambulatory without difficulty. Psych: Awake, alert, with orientation to person, place and time. Behavior, mood, and affect are within normal limits. Vital Signs: 04:44 BP 124 / 82; Pulse 114; Resp 19; Temp 98.6; Pulse Ox 94% on R/A; Weight 149.69 kg (R); fu Height 5 ft. 2 in. (157.48 cm) (R); Pain 1/10; 05:00 BP 130 / 84; Pulse 110; Resp 19; Temp 98.6; Pulse Ox 94% on R/A; Pain 0/10; fu 04:44 Body Mass Index 60.36 (149.69 kg, 157.48 cm) fu MDM: 04:44 Patient medically screened. sd2 04:44 Differential Diagnosis cellulitis, healing wound, hyperglycemia among others. Data sd2 reviewed: vital signs, nurses notes, EMS record. Counseling: I had a detailed discussion with the patient and/or guardian regarding: the historical points, exam findings, and any diagnostic results supporting the discharge/admit diagnosis, lab results. 05:04 Special discussion: I discussed with the patient/guardian in detail that at this point sd2 there is no indication for admission to the hospital. It is understood, however, that if the symptoms persist or worsen the patient needs to return immediately for re-evaluation. ED course: BGL well controlled. Patient with chronic-appearing wound with no clear signs of recurrent bacterial infection. Advised follow up with PCP for further Wound Care and continued monitoring of the area. pt otherwise with no acute complaints and HR downtrending. Verbalizes understanding of discharge plan and strict return precautions. . 11/28 05:00 Order name: Glucose, Ancillary Testing; Complete Time: 05:04 EDMS 11/28 04:55 Order name: Glucose Level; Complete Time: 05:04 sd2 Administered Medications: No medications were administered Disposition Summary: 11/28/22 05:06 Discharge Ordered Location: Home sd2 Problem: an ongoing problem sd2 Symptoms: have improved sd2 Condition: Stable sd2 Diagnosis - Left leg wound sd2 Followup: sd2 - With: Private Physician - When: 2 - 3 days - Reason: Wound Recheck Discharge Instructions: - Discharge Summary Sheet sd2 - Wound Care, Adult sd2 Forms: - Medication Reconciliation Form sd2 - Thank You Letter sd2 - Antibiotic Education sd2 - Prescription Opioid Use sd2 Signatures: Yazan Fish, RN RN Pura Kern MD MD sd2
[2022-11-28 05:49] VITALS: TEMP 98.6; O2SAT 94
[2022-11-28 05:50] VITALS: BP 130/84
== END 2022-11-28 05:43 | disposition home or self-care (01) ==
LOC: ER 04:42
DX: S81.802A Unspecified open wound, left lower leg, initial encounter (principal); E11.9 Type 2 diabetes mellitus without complications; F17.210 Nicotine dependence, cigarettes, uncomplicated
CPT/HCPCS: 82947; 99283

== ENCOUNTER 2022-12-03 02:12 | Emergency (ER) | payer OTHER ==
--- OUTSIDE RECORDS SUMMARY | 2022-12-03 02:18 | XMS REPORT | Continuity of Care Document ---
:1995 Author Organization [facility] t Address [address] [place] [address] Care Team Providers Name Role Phone Lucian Valenzuela Primary Care Physician [phone] CARLOS_Reggie Attending Clinician Unavailable Yeison Nuno Attending Clinician [phone] CARLOS_Reggie Admitting Clinician Unavailable Payers Payer Name Policy Type Policy Number Effective Date Expiration Date [facility] [id number] 2020 [facility] 00:00:00 (MEDICAID HMO) Problems This patient has [...] Date Stop Date Source Heavy Tobacco Smoker [place] [facility] Medications Ordered Filled Start Stop Current [...] tablet 00:00: 00 aripiprazol aripiprazol No aripiprazo [place] e 10 mg e 10 mg le 10 mg Commu ni tablet tablet tablet [facility] aripiprazol aripiprazol No aripiprazo [place] e 2 mg e 2 mg le 2 mg Communi tablet tablet tablet [facility] atorvastati atorvastati No atorvastat [place] n 10 mg n 10 mg in 10 mg Commu ni tablet tablet tablet [facility] atorvastati atorvastati No atorvastat [place] n 20 mg n 20 mg in 20 mg Commu ni tablet tablet tablet [facility] hydroxyzine hydroxyzine No hydroxyzin [place] pamoate 25 pamoate 25 e pamoate Communi mg capsule mg capsule 25 mg ty [facility] ibuprofen ibuprofen No ibuprofen [place] 800 mg 800 mg 800 mg Communi tablet tablet tablet [facility] levothyroxi levothyroxi No levothyrox [place] ne 75 mcg ne 75 mcg ine 75 mcg Communi tablet tablet tablet [facility] metformin metformin No metformin [place] 500 mg 500 mg 500 mg Communi tablet tablet tablet [facility] metformin metformin No metformin [place] 850 mg 850 mg 850 mg Communi tablet tablet tablet [facility] nicotine 14 nicotine 14 No nicotine [place] mg/24 hr mg/24 hr 14 mg/24 Com merissa daily daily hr daily ty transdermal transdermal transderma [facility] patch patch patch [facility] sertraline sertraline No sertraline [place] 50 mg 50 mg 50 mg Communi tablet tablet tablet [facility] trazodone trazodone No trazodone [place] 50 mg 50 mg 50 mg Communi tablet tablet tablet [facility] Immunizations Ordered Immunization Filled Immunization Date Status Commen ts Source Name Name Kerri COVID-19 2021-12-09 Completed Vaccine 00:00:00 Kranthia COVID-19 2021-12-09 Completed Vaccine 00:00:00 Kranthia COVID-19 2021-12-09 Completed Vaccine 00:00:00 Vital Signs Vital Name Observation Time Observation Value Comments Source BP Diastolic 2021-05-15 00:00:00 74 mm[Hg] [facility] Height 2021-05-15 00:00:00 59 [in_i] [facility] BMI (Body Mass 2021-05-15 00:00:00 59.8 kg/m2 [facility] s BP Systolic 2021-05-15 00:00:00 122 mm[Hg] [facility] Body Weight 2021-05-15 00:00:00 4736 [oz_av] [facility] BP Systolic 2022-09-15 14:41:00 138 [...] Goal Plan of Care Note [code = 12360-4] Goal Plan of Care Note [code = 67669-5] Goal Plan of Care Note [code = 68994-0] Goal Plan of Care Note [code = 36072-4] Goal Plan of Care Note [code = 37097-7] Goal Plan of Care Note [code = 95520-9] Goal Plan of Care Note [code = 92883-5] Goal Plan of Care Note [code = 75757-5] Goal Plan of Care Note [code = 78922-4] Goal Plan of Care Note [code = 05988-2] Goal Plan of Care Note [code = 41737-0] Goal Plan of Care Note [code = 08168-3] Goal Plan of Care Note [code = 75438-2] Goal Plan of Care Note [code = 35418-5] Goal Plan of Care Note [code = 40120-2] Goal Plan of Care Note [code = 37452-5] Goal Plan of Care Note [code = 78976-5] Goal Plan of Care Note [code = 15117-6] Goal Plan of Care Note [code = 12486-5] Goal Plan of Care Note [code = 64097-9] Goal Plan of Care Note [code = 75639-1] Goal Plan of Care Note [code = 92799-6] Goal Plan of Care Note [code = 94812-6] Goal Plan of Care Note [code = 56017-2] Goal Plan of Care Note [code = 15250-8] Goal Plan of Care Note [code = 33334-2] Goal Plan of Care Note [code = 30711-4] Goal Plan of Care Note [code = 72209-5] Goal Plan of Care Note [code = 47032-3] Goal Plan of Care Note [code = 97701-8] Goal Plan of Care Note [code = 91184-8] Goal Plan of Care Note [code = 95051-6] Goal Plan of Care Note [code = 82540-1] Goal Plan of Care Note [code = 15402-8] Goal Plan of Care Note [code = 34643-5] Goal Plan of Care Note [code = 51142-6] Goal Plan of Care Note [code = 19732-4] Goal Plan of Care Note [code = 65950-6] Goal Plan of Care Note [code = 21019-9] Goal Plan of Care Note [code = 34444-7] Goal Plan of Care Note [code = 67019-2] Goal Plan of Care Note [code = 86479-0] Goal Plan of Care Note [code = 36264-6] Goal Plan of Care Note [code = 34221-6] Goal Plan of Care Note [code = 07252-5] Goal Plan of Care Note [code = 89870-4] Goal Plan of Care Note [code = 14578-7] Goal Plan of Care Note [code = 70816-1] Goal Plan of Care Note [code = 39833-2] Goal Plan of Care Note [code = 38835-7] Goal Plan of Care Note [code = 74324-6] Goal Plan of Care Note [code = 85291-3] Goal Plan of Care Note [code = 67884-0] Goal Plan of Care Note [code = 85225-0] Goal Plan of Care Note [code = 70648-0] Goal Plan of Care Note [code = 21720-5] Goal Plan of Care Note [code = 89078-0] Goal Plan of Care Note [code = 74641-6] Goal Plan of Care Note [code = 49175-6] Goal Plan of Care Note [code = 17119-1] Goal Plan of Care Note [code = 34928-4] Goal Plan of Care Note [code = 93421-8] Goal Plan of Care Note [code = 56830-2] Goal Plan of Care Note [code = 04994-2] Goal Plan of Care Note [code = 65030-6] Goal Plan of Care Note [code = 43224-2] Goal Plan of Care Note [code = 35265-0] Goal Plan of Care Note [code = 50725-9] Goal Plan of Care Note [code = 39469-6] Goal Plan of Care Note [code = 06342-5] Goal Plan of Care Note [code = 69195-5] Goal Plan of Care Note [code = 57797-2] Goal Plan of Care Note [code = 85021-5] Goal Plan of Care Note [code = 82630-1] Goal Plan of Care Note [code = 67872-1] Goal Plan of Care Note [code = 79140-8] Goal Plan of Care Note [code = 82017-2] Goal Plan of Care Note [code = 63268-8] Goal Plan of Care Note [code = 14460-6] Goal Plan of Care Note [code = 97497-7] Goal Plan of Care Note [code = 86770-3] Goal Plan of Care Note [code = 81317-7] Goal Plan of Care Note [code = 08549-6] Goal Plan of Care Note [code = 96712-9] Goal Plan of Care Note [code = 24008-5] Goal Plan of Care Note [code = 44986-3] Goal Plan of Care Note [code = 27381-8] Goal Plan of Care Note [code = 28949-3] Goal Plan of Care Note [code = 89578-4] Goal Plan of Care Note [code = 52711-7] Goal Plan of Care Note [code = 47311-0] Goal Plan of Care Note [code = 49485-6] Goal Plan of Care Note [code = 83343-8] Goal Plan of Care Note [code = 05494-4] Goal Plan of Care Note [code = 34371-2] Encounters Start End Encounter Admission Attending Care Care Encounter Source Date/Time Date/Time Type Type Clinicians Facility Department ID 2022-09-15 2022-09-15 Outpatient [facility] [place] [id number] Jaleel Blanco 14:31:47 14:31:47 1025 Marii Quesada 2022-09-15 2022-09-15 Outpatient [id number] 00:00:00 00:00:00 Visit 0059-4f45 059-4f45-a -cy2h-7c5 c5a-7p4f73 u7428hvcq 35bdfc 2022-08-13 2022-08-13 Outpatient [id number]-l 00:00:00 00:00:00 Visit j55v-047c 48f-495a-9 -9262-3d5 262-3d5bba yjzt0fviu c0cbea 2022-08-06 2022-08-06 Outpatient [id number] 00:00:00 00:00:00 Visit 6125-4ec6 125-4ec6-b -l89r-85f 35f-09fa7f [id number] 2021-05-15 2021-05-15 Outpatient SELMAEV_T [facility] [place] 11:10:00 11:10:00 0624 [facility] 2021-05-15 2021-05-15 Outpatient [place], [facility] [id number] 00:00:00 00:00:00 Yeison [id number]-a7d6-4 Donovan [id number] 2021-05-15 2021-05-15 [facility] [place] 00:00:00 [facility]:00:[facility] [address] [facility] Marija, Specialty l [address], [place] [address] , Ph. 2021-05-09 2021-05-09 Outpatient CARLOS_T [facility] [place] 02:54:00 02:54:00 0618 [facility] Results Test Description Test Time Test Comments Results Result Comments Source HEMOGLOBIN A1c 2022-08-08 07:32:28 Test Item Value Reference Range Interpretation Comme nts HEMOGLOBIN A1c (test code = 23485) 6.3 % 4.2-5.6 H CBC W/AUTO DIFF WITH [id number] 07:05:30 Test Item Value Reference Range Interpretation [...] RBCS 0.00 K/UL 0.00-0.11 (test code = 62028) TSH, THIRD [id number] 06:43:26 Test Item Value Reference Range Interpretation Comments TSH, THIRD GENERATION (test code 3.490 UIU/ML 0.400-4.100 = 2821) COMPREHENSIVE METABOLIC [id number] 03:50:21 Test Item Value Reference Range Interpretation Comments GLUCOSE (test code = 95 MG/DL 70-99 2216) BUN (test code = 21 MG/DL 6-20 H 2207) CREATININE (test 0.59 MG/DL 0.80-1.40 L code = 2214) eGFR (2020 CKD-EPI) 136 >60 (test code = 33831) ML/MIN/1.73 CALC BUN/CREAT (test 36 RATIO 6-28 H code = 2235) SODIUM (test code = 141 MEQ/L 416-500 0125) POTASSIUM (test code 5.0 MEQ/L 3.5-5.4 = [...] message] (test code = 220) The syste [employer] which generated this result transmit yeison reference range : <=1.2. The refe rence range was not u sed to interpret th is result as normal/abnormal . ALKALINE PHOSPHATASE 137 U/L 40-115 H (test code = 2203) AST (test code = 28 U/L 9-50 2217) ALT (test code = 34 U/L 5-50 2218) LIPID [id number] 03:50:21 Test Item Value Reference Range Interpretation [...] MOREINFORMATION , SEE CLIENT ANNOUNCE MENT AT [email or web address] RISK RATIO LDL/HDL 2.56 RATIO <3.55 UNLESS O THERWISE (test code = 2238) INDICATED , ALL TESTING PERFORMED [facility], [facility]. [address] [place] [id number] [facility] CHARLIE DIRECTOR: LICHA AYON M.D. CLIA NUMBER [id number] CAP ACCREDITATION N O. [id number] HEMOGLOBIN [id number] 00:00:00 Test Item Value Reference Range Interpretation Comments HEMOGLOBIN A1c (test code = 67073) 6.3 % HEMOGLOBIN [id number] 00:00:00 Test Item Value Reference Range Interpretation Comments HEMOGLOBIN A1c (test code = 09677) 6.3 % HEMOGLOBIN [id number] 00:00:00 Test Item Value Reference Range Interpretation Comments HEMOGLOBIN A1c (test code = 58267) 6.3 % TSH, THIRD [id number] 00:00:00 Test Item Value Reference Range Interpretation Comments TSH, THIRD GENERATION (test code 3.490 UIU/ML = 2821) TSH, THIRD [id number] 00:00:00 Test Item Value Reference Range Interpretation Comments TSH, THIRD GENERATION (test code 3.490 UIU/ML = 2821) TSH, THIRD [id number] 00:00:00 Test Item Value Reference Range Interpretation Comments TSH, THIRD GENERATION (test code 3.490 UIU/ML = 2821) CBC W/AUTO [id number] 00:00:00 Test Item Value Reference Range Interpretation [...] NUCLEATED RBCS (test code = 0.00 K/UL 05246) CBC W/AUTO [id number] 00:00:00 Test Item Value Reference Range Interpretation [...] NUCLEATED RBCS (test code = 0.00 K/UL 79778) CBC W/AUTO [id number] 00:00:00 Test Item Value Reference Range Interpretation [...] NUCLEATED RBCS (test code = 0.00 K/UL 48749) COMPREHENSIVE METABOLIC [id number] 00:00:00 Test Item Value Reference Range Interpretation Comments GLUCOSE (test code = 2217) 95 MG/DL BUN (test code = 2208) 21 MG/DL CREATININE (test code = 2214) 0.59 MG/DL eGFR (2020 CKD-EPI) (test 136 ML/MIN/1.73 code = 76027) CALC BUN/CREAT (test code = 36 RATIO [...] code = 2219) 34 U/L COMPREHENSIVE METABOLIC [id number] 00:00:00 Test Item Value Reference Range Interpretation Comments GLUCOSE (test code = 2217) 95 MG/DL BUN (test code = 2208) 21 MG/DL CREATININE (test code = 2214) 0.59 MG/DL eGFR (2020 CKD-EPI) (test 136 ML/MIN/1.73 code = 97753) CALC BUN/CREAT (test code = 36 RATIO [...] (test code = 2219) 34 U/L LIPID [id number] 00:00:00 Test Item Value Reference Range Interpretation Comments CHOLESTEROL (test code = 2210) 193 MG/DL TRIGLYCERIDES (test code = 2232) 111 MG/DL HDL CHOLESTEROL (test code = 2220) 48 MG/DL CALC LDL CHOL (test code = 2237) 123 MG/DL RISK RATIO LDL/HDL (test code = 2.56 RATIO 2238) LIPID [id number] 00:00:00 Test Item Value Reference Range Interpretation Comments CHOLESTEROL (test code = 2210) 193 MG/DL TRIGLYCERIDES (test code = 2232) 111 MG/DL HDL CHOLESTEROL (test code = 2220) 48 MG/DL CALC LDL CHOL (test code = 2237) 123 MG/DL RISK RATIO LDL/HDL (test code = 2.56 RATIO 2238) HEMOGLOBIN [id number] 00:00:00 Test Item Value Reference Range Interpretation Comments HEMOGLOBIN A1c (test code = 52343) 6.3 % HEMOGLOBIN [id number] 00:00:00 Test Item Value Reference Range Interpretation Comments HEMOGLOBIN A1c (test code = 57025) 6.3 % HEMOGLOBIN [id number] 00:00:00 Test Item Value Reference Range Interpretation Comments HEMOGLOBIN A1c (test code = 47161) 6.3 % TSH, THIRD [id number] 00:00:00 Test Item Value Reference Range Interpretation Comments TSH, THIRD GENERATION (test code 3.490 UIU/ML = 2821) TSH, THIRD [id number] 00:00:00 Test Item Value Reference Range Interpretation Comments TSH, THIRD GENERATION (test code 3.490 UIU/ML = 2821) TSH, THIRD [id number] 00:00:00 Test Item Value Reference Range Interpretation Comments TSH, THIRD GENERATION (test code 3.490 UIU/ML = 2821) CBC W/AUTO [id number] 00:00:00 Test Item Value Reference Range Interpretation [...] NUCLEATED RBCS (test code = 0.00 K/UL 96274) CBC W/AUTO [id number] 00:00:00 Test Item Value Reference Range Interpretation [...] NUCLEATED RBCS (test code = 0.00 K/UL 09377) CBC W/AUTO [id number] 00:00:00 Test Item Value Reference Range Interpretation [...] NUCLEATED RBCS (test code = 0.00 K/UL 80712) COMPREHENSIVE METABOLIC [id number] 00:00:00 Test Item Value Reference Range Interpretation Comments GLUCOSE (test code = 2217) 95 MG/DL BUN (test code = 2208) 21 MG/DL CREATININE (test code = 2214) 0.59 MG/DL eGFR (2020 CKD-EPI) (test 136 ML/MIN/1.73 code = 30824) CALC BUN/CREAT (test code = 36 RATIO [...] code = 2219) 34 U/L COMPREHENSIVE METABOLIC [id number] 00:00:00 Test Item Value Reference Range Interpretation Comments GLUCOSE (test code = 2217) 95 MG/DL BUN (test code = 2208) 21 MG/DL CREATININE (test code = 2214) 0.59 MG/DL eGFR (2020 CKD-EPI) (test 136 ML/MIN/1.73 code = 07020) CALC BUN/CREAT (test code = 36 RATIO [...] (test code = 2219) 34 U/L LIPID [id number] 00:00:00 Test Item Value Reference Range Interpretation Comments CHOLESTEROL (test code = 2210) 193 MG/DL TRIGLYCERIDES (test code = 2232) 111 MG/DL HDL CHOLESTEROL (test code = 2220) 48 MG/DL CALC LDL CHOL (test code = 2237) 123 MG/DL RISK RATIO LDL/HDL (test code = 2.56 RATIO 2238) LIPID [id number] 00:00:00 Test Item Value Reference Range Interpretation [...] Comments SARS-CoV-2 INTERPRETATION Negative (test code = 87946) SOURCE (test code = 41039) Nasal_Swab_in_VTM__ UTM SARS-CoV-2 (COVID-19) by RT-PCR (HIGH RISK)2020-10-10 00:00:00 Test Item Value Reference Range Interpretation Comments SARS-CoV-2 INTERPRETATION Negative (test code = 08071) SOURCE (test code = 48250) Nasal_Swab_in_VTM__ UTM SARS-CoV-2 (COVID-19) by RT-PCR (HIGH RISK)2020-10-10 00:00:00 Test Item Value Reference Range Interpretation Comments SARS-CoV-2 INTERPRETATION Negative (test code = 27723) SOURCE (test code = 34535) Nasal_Swab_in_VTM__ UTM LIPID PANEL WITH REFLEX DIRECT [id number] 00:00:00 Test Item Value Reference Range Interpretation Comments CHOLESTEROL (test code = 2210) 208 MG/DL TRIGLYCERIDES (test code = 2232) 201 MG/DL HDL CHOLESTEROL (test code = 2220) 34 MG/DL CALC LDL CHOL (test code = 2237) 139 MG/DL RISK RATIO LDL/HDL (test code = 4.09 RATIO 2238) LIPID PANEL WITH REFLEX DIRECT [id number] 00:00:00 Test Item Value Reference Range Interpretation Comments CHOLESTEROL (test code = 2210) 208 MG/DL TRIGLYCERIDES (test code = 2232) 201 MG/DL HDL CHOLESTEROL (test code = 2220) 34 MG/DL CALC LDL CHOL (test code = 2237) 139 MG/DL RISK RATIO LDL/HDL (test code = 4.09 RATIO 2238) COMPREHENSIVE METABOLIC [id number] 00:00:00 Test Item Value Reference Range Interpretation Comments GLUCOSE (test code = 2217) 95 MG/DL BUN (test code = 2208) 15 MG/DL CREATININE (test code = 2214) 0.70 MG/DL eGFR AMER. (test code 151 ML/MIN/1.73 = 29046) eGFR NON- AMER. (test 130 ML/MIN/1.73 code = 79880) CALC BUN/CREAT (test code = 21 RATIO [...] code = 2219) 37 U/L COMPREHENSIVE METABOLIC [id number] 00:00:00 Test Item Value Reference Range Interpretation Comments GLUCOSE (test code = 2217) 95 MG/DL BUN (test code = 2208) 15 MG/DL CREATININE (test code = 2214) 0.70 MG/DL eGFR AMER. (test code 151 ML/MIN/1.73 = 63478) eGFR NON- AMER. (test 130 ML/MIN/1.73 code = 95957) CALC BUN/CREAT (test code = 21 RATIO [...] 37 U/L LIPID PANEL WITH REFLEX DIRECT [id number] 00:00:00 Test Item Value Reference Range Interpretation Comments CHOLESTEROL (test code = 2210) 208 MG/DL TRIGLYCERIDES (test code = 2232) 201 MG/DL HDL CHOLESTEROL (test code = 2220) 34 MG/DL CALC LDL CHOL (test code = 2237) 139 MG/DL RISK RATIO LDL/HDL (test code = 4.09 RATIO 2238) LIPID PANEL WITH REFLEX DIRECT [id number] 00:00:00 Test Item Value Reference Range Interpretation Comments CHOLESTEROL (test code = 2210) 208 MG/DL TRIGLYCERIDES (test code = 2232) 201 MG/DL HDL CHOLESTEROL (test code = 2220) 34 MG/DL CALC LDL CHOL (test code = 2237) 139 MG/DL RISK RATIO LDL/HDL (test code = 4.09 RATIO 2238) COMPREHENSIVE METABOLIC [id number] 00:00:00 Test Item Value Reference Range Interpretation Comments GLUCOSE (test code = 2217) 95 MG/DL BUN (test code = 2208) 15 MG/DL CREATININE (test code = 2214) 0.70 MG/DL eGFR AMER. (test code 151 ML/MIN/1.73 = 79520) eGFR NON- AMER. (test 130 ML/MIN/1.73 code = 00202) CALC BUN/CREAT (test code = 21 RATIO [...] code = 2219) 37 U/L COMPREHENSIVE METABOLIC [id number] 00:00:00 Test Item Value Reference Range Interpretation Comments GLUCOSE (test code = 2217) 95 MG/DL BUN (test code = 2208) 15 MG/DL CREATININE (test code = 2214) 0.70 MG/DL eGFR AMER. (test code 151 ML/MIN/1.73 = 37035) eGFR NON- AMER. (test 130 ML/MIN/1.73 code = 27154) CALC BUN/CREAT (test code = 21 RATIO [...] 37 U/L LIPID PANEL WITH REFLEX DIRECT [id number] 00:00:00 Test Item Value Reference Range Interpretation Comments CHOLESTEROL (test code = 2210) 208 MG/DL TRIGLYCERIDES (test code = 2232) 201 MG/DL HDL CHOLESTEROL (test code = 2220) 34 MG/DL CALC LDL CHOL (test code = 2237) 139 MG/DL RISK RATIO LDL/HDL (test code = 4.09 RATIO 2238) LIPID PANEL WITH REFLEX DIRECT [id number] 00:00:00 Test Item Value Reference Range Interpretation Comments CHOLESTEROL (test code = 2210) 208 MG/DL TRIGLYCERIDES (test code = 2232) 201 MG/DL HDL CHOLESTEROL (test code = 2220) 34 MG/DL CALC LDL CHOL (test code = 2237) 139 MG/DL RISK RATIO LDL/HDL (test code = 4.09 RATIO 2238) COMPREHENSIVE METABOLIC [id number] 00:00:00 Test Item Value Reference Range Interpretation Comments GLUCOSE (test code = 2217) 95 MG/DL BUN (test code = 2208) 15 MG/DL CREATININE (test code = 2214) 0.70 MG/DL eGFR AMER. (test code 151 ML/MIN/1.73 = 48306) eGFR NON- AMER. (test 130 ML/MIN/1.73 code = 19424) CALC BUN/CREAT (test code = 21 RATIO [...] code = 2219) 37 U/L COMPREHENSIVE METABOLIC [id number] 00:00:00 Test Item Value Reference Range Interpretation Comments GLUCOSE (test code = 2217) 95 MG/DL BUN (test code = 2208) 15 MG/DL CREATININE (test code = 2214) 0.70 MG/DL eGFR AMER. (test code 151 ML/MIN/1.73 = 27194) eGFR NON- AMER. (test 130 ML/MIN/1.73 code = 67824) CALC BUN/CREAT (test code = 21 RATIO [...] (test code = 2219) 37 U/L HEMOGLOBIN [id number] 00:00:00 Test Item Value Reference Range Interpretation Comments HEMOGLOBIN A1c (test code = 19449) 6.1 % HEMOGLOBIN [id number] 00:00:00 Test Item Value Reference Range Interpretation Comments HEMOGLOBIN A1c (test code = 97941) 6.1 % HEMOGLOBIN [id number] 00:00:00 Test Item Value Reference Range Interpretation Comments HEMOGLOBIN A1c (test code = 94874) 6.1 % [id number] 00:00:00 Test Item Value Reference Range Interpretation Comments TSH, THIRD GENERATION (test code 3.380 UIU/ML = 2821) [id number] 00:00:00 Test Item Value Reference Range Interpretation Comments TSH, THIRD GENERATION (test code 3.380 UIU/ML = 2821) [id number] 00:00:00 Test Item Value Reference Range Interpretation Comments TSH, THIRD GENERATION (test code 3.380 UIU/ML = 2821) HEMOGLOBIN [id number] 00:00:00 Test Item Value Reference Range Interpretation Comments HEMOGLOBIN A1c (test code = 05990) 6.1 % HEMOGLOBIN [id number] 00:00:00 Test Item Value Reference Range Interpretation Comments HEMOGLOBIN A1c (test code = 97362) 6.1 % HEMOGLOBIN [id number] 00:00:00 Test Item Value Reference Range Interpretation Comments HEMOGLOBIN A1c (test code = 95755) 6.1 % [id number] 00:00:00 Test Item Value Reference Range Interpretation Comments TSH, THIRD GENERATION (test code 3.380 UIU/ML = 2821) [id number] 00:00:00 Test Item Value Reference Range Interpretation Comments TSH, THIRD GENERATION (test code 3.380 UIU/ML = 2821) [id number] 00:00:00 Test Item Value Reference Range Interpretation Comments TSH, THIRD GENERATION (test code 3.380 UIU/ML = 2821) HEMOGLOBIN [id number] 00:00:00 Test Item Value Reference Range Interpretation Comments HEMOGLOBIN A1c (test code = 96408) 6.1 % HEMOGLOBIN [id number] 00:00:00 Test Item Value Reference Range Interpretation Comments HEMOGLOBIN A1c (test code = 95550) 6.1 % HEMOGLOBIN [id number] 00:00:00 Test Item Value Reference Range Interpretation Comments HEMOGLOBIN A1c (test code = 31492) 6.1 % [id number] 00:00:00 Test Item Value Reference Range Interpretation Comments TSH, THIRD GENERATION (test code 3.380 UIU/ML = 2821) [id number] 00:00:00 Test Item Value Reference Range Interpretation Comments TSH, THIRD GENERATION (test code 3.380 UIU/ML = 2821) [id number] 00:00:00 Test Item Value Reference Range Interpretation Comments TSH, THIRD GENERATION (test code 3.380 UIU/ML = 2821) COMPREHENSIVE METABOLIC [id number] 00:00:00 Test Item Value Reference Range Interpretation Comments GLUCOSE (test code = 2217) 182 MG/DL BUN (test code = 2208) 18 MG/DL CREATININE (test code = 2214) 0.71 MG/DL eGFR AMER. (test code 150 ML/MIN/1.73 = 12953) eGFR NON- AMER. (test 129 ML/MIN/1.73 code = 39036) CALC BUN/CREAT (test code = 25 RATIO [...] code = 2219) 31 U/L COMPREHENSIVE METABOLIC [id number] 00:00:00 Test Item Value Reference Range Interpretation Comments GLUCOSE (test code = 2217) 182 MG/DL BUN (test code = 2208) 18 MG/DL CREATININE (test code = 2214) 0.71 MG/DL eGFR AMER. (test code 150 ML/MIN/1.73 = 64578) eGFR NON- AMER. (test 129 ML/MIN/1.73 code = 21675) CALC BUN/CREAT (test code = 25 RATIO [...] (test code = 2219) 31 U/L LIPID [id number] 00:00:00 Test Item Value Reference Range Interpretation Comments CHOLESTEROL (test code = 2210) 217 MG/DL TRIGLYCERIDES (test code = 2232) 149 MG/DL HDL CHOLESTEROL (test code = 2220) 36 MG/DL CALC LDL CHOL (test code = 2237) 153 MG/DL RISK RATIO LDL/HDL (test code = 4.25 RATIO 2238) LIPID [id number] 00:00:00 Test Item Value Reference Range Interpretation Comments CHOLESTEROL (test code = 2210) 217 MG/DL TRIGLYCERIDES (test code = 2232) 149 MG/DL HDL CHOLESTEROL (test code = 2220) 36 MG/DL CALC LDL CHOL (test code = 2237) 153 MG/DL RISK RATIO LDL/HDL (test code = 4.25 RATIO 2238) HEMOGLOBIN [id number] 00:00:00 Test Item Value Reference Range Interpretation Comments HEMOGLOBIN A1c (test code = 67578) 5.8 % HEMOGLOBIN [id number] 00:00:00 Test Item Value Reference Range Interpretation Comments HEMOGLOBIN A1c (test code = 46465) 5.8 % HEMOGLOBIN [id number] 00:00:00 Test Item Value Reference Range Interpretation Comments HEMOGLOBIN A1c (test code = 42950) 5.8 % [id number] 00:00:00 Test Item Value Reference Range Interpretation Comments TSH, THIRD GENERATION (test code 2.080 UIU/ML = 2821) [id number] 00:00:00 Test Item Value Reference Range Interpretation Comments TSH, THIRD GENERATION (test code 2.080 UIU/ML = 2821) [id number] 00:00:00 Test Item Value Reference Range Interpretation Comments TSH, THIRD GENERATION (test code 2.080 UIU/ML = 2821) COMPREHENSIVE METABOLIC [id number] 00:00:00 Test Item Value Reference Range Interpretation Comments GLUCOSE (test code = 2217) 182 MG/DL BUN (test code = 2208) 18 MG/DL CREATININE (test code = 2214) 0.71 MG/DL eGFR AMER. (test code 150 ML/MIN/1.73 = 93314) eGFR NON- AMER. (test 129 ML/MIN/1.73 code = 90634) CALC BUN/CREAT (test code = 25 RATIO [...] code = 2219) 31 U/L COMPREHENSIVE METABOLIC [id number] 00:00:00 Test Item Value Reference Range Interpretation Comments GLUCOSE (test code = 2217) 182 MG/DL BUN (test code = 2208) 18 MG/DL CREATININE (test code = 2214) 0.71 MG/DL eGFR AMER. (test code 150 ML/MIN/1.73 = 72143) eGFR NON- AMER. (test 129 ML/MIN/1.73 code = 79197) CALC BUN/CREAT (test code = 25 RATIO [...] (test code = 2219) 31 U/L LIPID [id number] 00:00:00 Test Item Value Reference Range Interpretation Comments CHOLESTEROL (test code = 2210) 217 MG/DL TRIGLYCERIDES (test code = 2232) 149 MG/DL HDL CHOLESTEROL (test code = 2220) 36 MG/DL CALC LDL CHOL (test code = 2237) 153 MG/DL RISK RATIO LDL/HDL (test code = 4.25 RATIO 2238) LIPID [id number] 00:00:00 Test Item Value Reference Range Interpretation Comments CHOLESTEROL (test code = 2210) 217 MG/DL TRIGLYCERIDES (test code = 2232) 149 MG/DL HDL CHOLESTEROL (test code = 2220) 36 MG/DL CALC LDL CHOL (test code = 2237) 153 MG/DL RISK RATIO LDL/HDL (test code = 4.25 RATIO 2238) HEMOGLOBIN [id number] 00:00:00 Test Item Value Reference Range Interpretation Comments HEMOGLOBIN A1c (test code = 76105) 5.8 % HEMOGLOBIN [id number] 00:00:00 Test Item Value Reference Range Interpretation Comments HEMOGLOBIN A1c (test code = 34492) 5.8 % HEMOGLOBIN [id number] 00:00:00 Test Item Value Reference Range Interpretation Comments HEMOGLOBIN A1c (test code = 77920) 5.8 % [id number] 00:00:00 Test Item Value Reference Range Interpretation Comments TSH, THIRD GENERATION (test code 2.080 UIU/ML = 2821) [id number] 00:00:00 Test Item Value Reference Range Interpretation Comments TSH, THIRD GENERATION (test code 2.080 UIU/ML = 2821) [id number] 00:00:00 Test Item Value Reference Range Interpretation Comments TSH, THIRD GENERATION (test code 2.080 UIU/ML = 2821) COMPREHENSIVE METABOLIC [id number] 00:00:00 Test Item Value Reference Range Interpretation Comments GLUCOSE (test code = 2217) 182 MG/DL BUN (test code = 2208) 18 MG/DL CREATININE (test code = 2214) 0.71 MG/DL eGFR AMER. (test code 150 ML/MIN/1.73 = 12783) eGFR NON- AMER. (test 129 ML/MIN/1.73 code = 79304) CALC BUN/CREAT (test code = 25 RATIO [...] code = 2219) 31 U/L COMPREHENSIVE METABOLIC [id number] 00:00:00 Test Item Value Reference Range Interpretation Comments GLUCOSE (test code = 2217) 182 MG/DL BUN (test code = 2208) 18 MG/DL CREATININE (test code = 2214) 0.71 MG/DL eGFR AMER. (test code 150 ML/MIN/1.73 = 97459) eGFR NON- AMER. (test 129 ML/MIN/1.73 code = 90889) CALC BUN/CREAT (test code = 25 RATIO [...] (test code = 2219) 31 U/L LIPID [id number] 00:00:00 Test Item Value Reference Range Interpretation Comments CHOLESTEROL (test code = 2210) 217 MG/DL TRIGLYCERIDES (test code = 2232) 149 MG/DL HDL CHOLESTEROL (test code = 2220) 36 MG/DL CALC LDL CHOL (test code = 2237) 153 MG/DL RISK RATIO LDL/HDL (test code = 4.25 RATIO 2238) LIPID [id number] 00:00:00 Test Item Value Reference Range Interpretation Comments CHOLESTEROL (test code = 2210) 217 MG/DL TRIGLYCERIDES (test code = 2232) 149 MG/DL HDL CHOLESTEROL (test code = 2220) 36 MG/DL CALC LDL CHOL (test code = 2237) 153 MG/DL RISK RATIO LDL/HDL (test code = 4.25 RATIO 2238) HEMOGLOBIN [id number] 00:00:00 Test Item Value Reference Range Interpretation Comments HEMOGLOBIN A1c (test code = 05036) 5.8 % HEMOGLOBIN [id number] 00:00:00 Test Item Value Reference Range Interpretation Comments HEMOGLOBIN A1c (test code = 21631) 5.8 % HEMOGLOBIN [id number] 00:00:00 Test Item Value Reference Range Interpretation Comments HEMOGLOBIN A1c (test code = 83859) 5.8 % [id number] 00:00:00 Test Item Value Reference Range Interpretation Comments TSH, THIRD GENERATION (test code 2.080 UIU/ML = 2821) [id number] 00:00:00 Test Item Value Reference Range Interpretation Comments TSH, THIRD GENERATION (test code 2.080 UIU/ML = 2821) [id number] 00:00:00 Test Item Value Reference Range Interpretation Comments TSH, THIRD GENERATION (test code 2.080 UIU/ML = 2821) CBC W/AUTO [id number] 00:00:00 Test Item Value Reference Range Interpretation [...] code = 1015) 351 K/UL CBC W/AUTO [id number] 00:00:00 Test Item Value Reference Range Interpretation [...] code = 1015) 351 K/UL CBC W/AUTO [id number] 00:00:00 Test Item Value Reference Range Interpretation [...] (test code = 1015) 351 K/UL HEMOGLOBIN [id number] 00:00:00 Test Item Value Reference Range Interpretation Comments HEMOGLOBIN A1c (test code = 70088) 5.8 % HEMOGLOBIN [id number] 00:00:00 Test Item Value Reference Range Interpretation Comments HEMOGLOBIN A1c (test code = 27630) 5.8 % HEMOGLOBIN [id number] 00:00:00 Test Item Value Reference Range Interpretation Comments HEMOGLOBIN A1c (test code = 72909) 5.8 % LIPID [id number] 00:00:00 Test Item Value Reference Range Interpretation Comments CHOLESTEROL (test code = 2210) 210 MG/DL TRIGLYCERIDES (test code = 2232) 129 MG/DL HDL CHOLESTEROL (test code = 2220) 44 MG/DL CALC LDL CHOL (test code = 2237) 140 MG/DL RISK RATIO LDL/HDL (test code = 3.19 RATIO 2238) LIPID [id number] 00:00:00 Test Item Value Reference Range Interpretation Comments CHOLESTEROL (test code = 2210) 210 MG/DL TRIGLYCERIDES (test code = 2232) 129 MG/DL HDL CHOLESTEROL (test code = 2220) 44 MG/DL CALC LDL CHOL (test code = 2237) 140 MG/DL RISK RATIO LDL/HDL (test code = 3.19 RATIO 2238) COMPREHENSIVE METABOLIC [id number] 00:00:00 Test Item Value Reference Range Interpretation Comments GLUCOSE (test code = 2217) 100 MG/DL BUN (test code = 2208) 14 MG/DL CREATININE (test code = 2214) 0.58 MG/DL eGFR AMER. (test code 163 ML/MIN/1.73 = 84555) eGFR NON- AMER. (test 141 ML/MIN/1.73 code = 56514) CALC BUN/CREAT (test code = 24 RATIO [...] code = 2219) 38 U/L COMPREHENSIVE METABOLIC [id number] 00:00:00 Test Item Value Reference Range Interpretation Comments GLUCOSE (test code = 2217) 100 MG/DL BUN (test code = 2208) 14 MG/DL CREATININE (test code = 2214) 0.58 MG/DL eGFR AMER. (test code 163 ML/MIN/1.73 = 16936) eGFR NON- AMER. (test 141 ML/MIN/1.73 code = 54830) CALC BUN/CREAT (test code = 24 RATIO [...] ALT (test code = 2219) 38 U/L [id number] 00:00:00 Test Item Value Reference Range Interpretation Comments TSH, THIRD GENERATION (test code 5.690 UIU/ML = 2821) [id number] 00:00:00 Test Item Value Reference Range Interpretation Comments TSH, THIRD GENERATION (test code 5.690 UIU/ML = 2821) [id number] 00:00:00 Test Item Value Reference Range Interpretation Comments TSH, THIRD GENERATION (test code 5.690 UIU/ML = 2821) CBC W/AUTO [id number] 00:00:00 Test Item Value Reference Range Interpretation [...] code = 1015) 351 K/UL CBC W/AUTO [id number] 00:00:00 Test Item Value Reference Range Interpretation [...] code = 1015) 351 K/UL CBC W/AUTO [id number] 00:00:00 Test Item Value Reference Range Interpretation [...] (test code = 1015) 351 K/UL HEMOGLOBIN [id number] 00:00:00 Test Item Value Reference Range Interpretation Comments HEMOGLOBIN A1c (test code = 87846) 5.8 % HEMOGLOBIN [id number] 00:00:00 Test Item Value Reference Range Interpretation Comments HEMOGLOBIN A1c (test code = 26671) 5.8 % HEMOGLOBIN [id number] 00:00:00 Test Item Value Reference Range Interpretation Comments HEMOGLOBIN A1c (test code = 23736) 5.8 % LIPID [id number] 00:00:00 Test Item Value Reference Range Interpretation Comments CHOLESTEROL (test code = 2210) 210 MG/DL TRIGLYCERIDES (test code = 2232) 129 MG/DL HDL CHOLESTEROL (test code = 2220) 44 MG/DL CALC LDL CHOL (test code = 2237) 140 MG/DL RISK RATIO LDL/HDL (test code = 3.19 RATIO 2238) LIPID [id number] 00:00:00 Test Item Value Reference Range Interpretation Comments CHOLESTEROL (test code = 2210) 210 MG/DL TRIGLYCERIDES (test code = 2232) 129 MG/DL HDL CHOLESTEROL (test code = 2220) 44 MG/DL CALC LDL CHOL (test code = 2237) 140 MG/DL RISK RATIO LDL/HDL (test code = 3.19 RATIO 2238) COMPREHENSIVE METABOLIC [id number] 00:00:00 Test Item Value Reference Range Interpretation Comments GLUCOSE (test code = 2217) 100 MG/DL BUN (test code = 2208) 14 MG/DL CREATININE (test code = 2214) 0.58 MG/DL eGFR AMER. (test code 163 ML/MIN/1.73 = 14801) eGFR NON- AMER. (test 141 ML/MIN/1.73 code = 40577) CALC BUN/CREAT (test code = 24 RATIO [...] code = 2219) 38 U/L COMPREHENSIVE METABOLIC [id number] 00:00:00 Test Item Value Reference Range Interpretation Comments GLUCOSE (test code = 2217) 100 MG/DL BUN (test code = 2208) 14 MG/DL CREATININE (test code = 2214) 0.58 MG/DL eGFR AMER. (test code 163 ML/MIN/1.73 = 23495) eGFR NON- AMER. (test 141 ML/MIN/1.73 code = 67382) CALC BUN/CREAT (test code = 24 RATIO [...] ALT (test code = 2219) 38 U/L [id number] 00:00:00 Test Item Value Reference Range Interpretation Comments TSH, THIRD GENERATION (test code 5.690 UIU/ML = 2821) [id number] 00:00:00 Test Item Value Reference Range Interpretation Comments TSH, THIRD GENERATION (test code 5.690 UIU/ML = 2821) [id number] 00:00:00 Test Item Value Reference Range Interpretation Comments TSH, THIRD GENERATION (test code 5.690 UIU/ML = 2821) CBC W/AUTO [id number] 00:00:00 Test Item Value Reference Range Interpretation [...] code = 1015) 351 K/UL CBC W/AUTO [id number] 00:00:00 Test Item Value Reference Range Interpretation [...] code = 1015) 351 K/UL CBC W/AUTO [id number] 00:00:00 Test Item Value Reference Range Interpretation [...] (test code = 1015) 351 K/UL HEMOGLOBIN [id number] 00:00:00 Test Item Value Reference Range Interpretation Comments HEMOGLOBIN A1c (test code = 63226) 5.8 % HEMOGLOBIN [id number] 00:00:00 Test Item Value Reference Range Interpretation Comments HEMOGLOBIN A1c (test code = 76094) 5.8 % HEMOGLOBIN [id number] 00:00:00 Test Item Value Reference Range Interpretation Comments HEMOGLOBIN A1c (test code = 53663) 5.8 % LIPID [id number] 00:00:00 Test Item Value Reference Range Interpretation Comments CHOLESTEROL (test code = 2210) 210 MG/DL TRIGLYCERIDES (test code = 2232) 129 MG/DL HDL CHOLESTEROL (test code = 2220) 44 MG/DL CALC LDL CHOL (test code = 2237) 140 MG/DL RISK RATIO LDL/HDL (test code = 3.19 RATIO 2238) LIPID [id number] 00:00:00 Test Item Value Reference Range Interpretation Comments CHOLESTEROL (test code = 2210) 210 MG/DL TRIGLYCERIDES (test code = 2232) 129 MG/DL HDL CHOLESTEROL (test code = 2220) 44 MG/DL CALC LDL CHOL (test code = 2237) 140 MG/DL RISK RATIO LDL/HDL (test code = 3.19 RATIO 2238) COMPREHENSIVE METABOLIC [id number] 00:00:00 Test Item Value Reference Range Interpretation Comments GLUCOSE (test code = 2217) 100 MG/DL BUN (test code = 2208) 14 MG/DL CREATININE (test code = 2214) 0.58 MG/DL eGFR AMER. (test code 163 ML/MIN/1.73 = 84412) eGFR NON- AMER. (test 141 ML/MIN/1.73 code = 15027) CALC BUN/CREAT (test code = 24 RATIO [...] code = 2219) 38 U/L COMPREHENSIVE METABOLIC [id number] 00:00:00 Test Item Value Reference Range Interpretation Comments GLUCOSE (test code = 2217) 100 MG/DL BUN (test code = 2208) 14 MG/DL CREATININE (test code = 2214) 0.58 MG/DL eGFR AMER. (test code 163 ML/MIN/1.73 = 33005) eGFR NON- AMER. (test 141 ML/MIN/1.73 code = 12070) CALC BUN/CREAT (test code = 24 RATIO [...] ALT (test code = 2219) 38 U/L [id number] 00:00:00 Test Item Value Reference Range Interpretation Comments TSH, THIRD GENERATION (test code 5.690 UIU/ML = 2821) [id number] 00:00:00 Test Item Value Reference Range Interpretation Comments TSH, THIRD GENERATION (test code 5.690 UIU/ML = 2821) [id number] 00:00:00 Test Item Value Reference Range Interpretation Comments TSH, THIRD GENERATION (test code 5.690 UIU/ML = 2821) COMPREHENSIVE METABOLIC [id number] 00:00:00 Test Item Value Reference Range Interpretation Comments GLUCOSE (test code = 2217) 111 MG/DL BUN (test code = 2208) 17 MG/DL CREATININE (test code = 2214) 0.65 MG/DL eGFR AMER. (test code 158 ML/MIN/1.73 = 25403) eGFR NON- AMER. (test 136 ML/MIN/1.73 code = 72252) CALC BUN/CREAT (test code = 26 RATIO [...] code = 2219) 24 U/L COMPREHENSIVE METABOLIC [id number] 00:00:00 Test Item Value Reference Range Interpretation Comments GLUCOSE (test code = 2217) 111 MG/DL BUN (test code = 2208) 17 MG/DL CREATININE (test code = 2214) 0.65 MG/DL eGFR AMER. (test code 158 ML/MIN/1.73 = 70520) eGFR NON- AMER. (test 136 ML/MIN/1.73 code = 67533) CALC BUN/CREAT (test code = 26 RATIO [...] (test code = 2219) 24 U/L LIPID [id number] 00:00:00 Test Item Value Reference Range Interpretation Comments CHOLESTEROL (test code = 2210) 220 MG/DL TRIGLYCERIDES (test code = 2232) 190 MG/DL HDL CHOLESTEROL (test code = 2220) 39 MG/DL CALC LDL CHOL (test code = 2237) 143 MG/DL RISK RATIO LDL/HDL (test code = 3.67 RATIO 2238) LIPID [id number] 00:00:00 Test Item Value Reference Range Interpretation Comments CHOLESTEROL (test code = 2210) 220 MG/DL TRIGLYCERIDES (test code = 2232) 190 MG/DL HDL CHOLESTEROL (test code = 2220) 39 MG/DL CALC LDL CHOL (test code = 2237) 143 MG/DL RISK RATIO LDL/HDL (test code = 3.67 RATIO 2238) CBC W/AUTO [id number] 00:00:00 Test Item Value Reference Range Interpretation [...] code = 1015) 415 K/UL CBC W/AUTO [id number] 00:00:00 Test Item Value Reference Range Interpretation [...] code = 1015) 415 K/UL CBC W/AUTO [id number] 00:00:00 Test Item Value Reference Range Interpretation [...] (test code = 1015) 415 K/UL HEMOGLOBIN [id number] 00:00:00 Test Item Value Reference Range Interpretation Comments HEMOGLOBIN A1c (test code = 84304) 5.5 % HEMOGLOBIN [id number] 00:00:00 Test Item Value Reference Range Interpretation Comments HEMOGLOBIN A1c (test code = 02521) 5.5 % HEMOGLOBIN [id number] 00:00:00 Test Item Value Reference Range Interpretation Comments HEMOGLOBIN A1c (test code = 85987) 5.5 % [id number] 00:00:00 Test Item Value Reference Range Interpretation Comments TSH (test code = 2821) 4.260 UIU/ML [id number] 00:00:00 Test Item Value Reference Range Interpretation Comments TSH (test code = 2821) 4.260 UIU/ML [id number] 00:00:00 Test Item Value Reference Range Interpretation Comments TSH (test code = 2821) 4.260 UIU/ML COMPREHENSIVE METABOLIC [id number] 00:00:00 Test Item Value Reference Range Interpretation Comments GLUCOSE (test code = 2217) 111 MG/DL BUN (test code = 2208) 17 MG/DL CREATININE (test code = 2214) 0.65 MG/DL eGFR AMER. (test code 158 ML/MIN/1.73 = 91814) eGFR NON- AMER. (test 136 ML/MIN/1.73 code = 98008) CALC BUN/CREAT (test code = 26 RATIO [...] code = 2219) 24 U/L COMPREHENSIVE METABOLIC [id number] 00:00:00 Test Item Value Reference Range Interpretation Comments GLUCOSE (test code = 2217) 111 MG/DL BUN (test code = 2208) 17 MG/DL CREATININE (test code = 2214) 0.65 MG/DL eGFR AMER. (test code 158 ML/MIN/1.73 = 63095) eGFR NON- AMER. (test 136 ML/MIN/1.73 code = 21516) CALC BUN/CREAT (test code = 26 RATIO [...] (test code = 2219) 24 U/L LIPID [id number] 00:00:00 Test Item Value Reference Range Interpretation Comments CHOLESTEROL (test code = 2210) 220 MG/DL TRIGLYCERIDES (test code = 2232) 190 MG/DL HDL CHOLESTEROL (test code = 2220) 39 MG/DL CALC LDL CHOL (test code = 2237) 143 MG/DL RISK RATIO LDL/HDL (test code = 3.67 RATIO 2238) LIPID [id number] 00:00:00 Test Item Value Reference Range Interpretation Comments CHOLESTEROL (test code = 2210) 220 MG/DL TRIGLYCERIDES (test code = 2232) 190 MG/DL HDL CHOLESTEROL (test code = 2220) 39 MG/DL CALC LDL CHOL (test code = 2237) 143 MG/DL RISK RATIO LDL/HDL (test code = 3.67 RATIO 2238) CBC W/AUTO [id number] 00:00:00 Test Item Value Reference Range Interpretation [...] code = 1015) 415 K/UL CBC W/AUTO [id number] 00:00:00 Test Item Value Reference Range Interpretation [...] code = 1015) 415 K/UL CBC W/AUTO [id number] 00:00:00 Test Item Value Reference Range Interpretation [...] (test code = 1015) 415 K/UL HEMOGLOBIN [id number] 00:00:00 Test Item Value Reference Range Interpretation Comments HEMOGLOBIN A1c (test code = 70688) 5.5 % HEMOGLOBIN [id number] 00:00:00 Test Item Value Reference Range Interpretation Comments HEMOGLOBIN A1c (test code = 11860) 5.5 % HEMOGLOBIN [id number] 00:00:00 Test Item Value Reference Range Interpretation Comments HEMOGLOBIN A1c (test code = 66656) 5.5 % [id number] 00:00:00 Test Item Value Reference Range Interpretation Comments TSH (test code = 2821) 4.260 UIU/ML [id number] 00:00:00 Test Item Value Reference Range Interpretation Comments TSH (test code = 2821) 4.260 UIU/ML [id number] 00:00:00 Test Item Value Reference Range Interpretation Comments TSH (test code = 2821) 4.260 UIU/ML COMPREHENSIVE METABOLIC [id number] 00:00:00 Test Item Value Reference Range Interpretation Comments GLUCOSE (test code = 2217) 111 MG/DL BUN (test code = 2208) 17 MG/DL CREATININE (test code = 2214) 0.65 MG/DL eGFR AMER. (test code 158 ML/MIN/1.73 = 61264) eGFR NON- AMER. (test 136 ML/MIN/1.73 code = 61928) CALC BUN/CREAT (test code = 26 RATIO [...] code = 2219) 24 U/L COMPREHENSIVE METABOLIC [id number] 00:00:00 Test Item Value Reference Range Interpretation Comments GLUCOSE (test code = 2217) 111 MG/DL BUN (test code = 2208) 17 MG/DL CREATININE (test code = 2214) 0.65 MG/DL eGFR AMER. (test code 158 ML/MIN/1.73 = 10062) eGFR NON- AMER. (test 136 ML/MIN/1.73 code = 14806) CALC BUN/CREAT (test code = 26 RATIO [...] (test code = 2219) 24 U/L LIPID [id number] 00:00:00 Test Item Value Reference Range Interpretation Comments CHOLESTEROL (test code = 2210) 220 MG/DL TRIGLYCERIDES (test code = 2232) 190 MG/DL HDL CHOLESTEROL (test code = 2220) 39 MG/DL CALC LDL CHOL (test code = 2237) 143 MG/DL RISK RATIO LDL/HDL (test code = 3.67 RATIO 2238) LIPID [id number] 00:00:00 Test Item Value Reference Range Interpretation Comments CHOLESTEROL (test code = 2210) 220 MG/DL TRIGLYCERIDES (test code = 2232) 190 MG/DL HDL CHOLESTEROL (test code = 2220) 39 MG/DL CALC LDL CHOL (test code = 2237) 143 MG/DL RISK RATIO LDL/HDL (test code = 3.67 RATIO 2238) CBC W/AUTO [id number] 00:00:00 Test Item Value Reference Range Interpretation [...] code = 1015) 415 K/UL CBC W/AUTO [id number] 00:00:00 Test Item Value Reference Range Interpretation [...] code = 1015) 415 K/UL CBC W/AUTO [id number] 00:00:00 Test Item Value Reference Range Interpretation [...] (test code = 1015) 415 K/UL HEMOGLOBIN [id number] 00:00:00 Test Item Value Reference Range Interpretation Comments HEMOGLOBIN A1c (test code = 01191) 5.5 % HEMOGLOBIN [id number] 00:00:00 Test Item Value Reference Range Interpretation Comments HEMOGLOBIN A1c (test code = 93606) 5.5 % HEMOGLOBIN [id number] 00:00:00 Test Item Value Reference Range Interpretation Comments HEMOGLOBIN A1c (test code = 14069) 5.5 % [id number] 00:00:00 Test Item Value Reference Range Interpretation Comments TSH (test code = 2821) 4.260 UIU/ML [id number] 00:00:00 Test Item Value Reference Range Interpretation Comments TSH (test code = 2821) 4.260 UIU/ML [id number] 00:00:00 Test Item Value Reference Range Interpretation Comments TSH (test code = 2821) 4.260 UIU/ML
[2022-12-03] MEDS ORDERED: LEVALBUTEROL 1.25 MG/3 ML NEB ONE ×2 (02:36→02:45)
[2022-12-03] MEDS ORDERED: FUROSEMIDE 20 MG/ 2ML VIAL ONE (04:14)
[2022-12-03] MEDS ORDERED: FUROSEMIDE 40 MG/4 ML VIAL ONE (04:14)
[2022-12-03 04:22] LABS: Absolute Lymphocytes (CBC) 1.3 K/uL (0.7-4.9); Hematocrit 42.6 % (39.6-49.0); Lymphocytes % 19.4 % (15.3-44.8); MCV 88.6 fL (80-100)
[2022-12-03] MEDS ORDERED: CODEINE 30MG/APAP 300MG TAB ONE (05:27)
[2022-12-03] MEDS ORDERED: ACETAMINOPHEN 325 MG TABLET ONE (05:42)
[2022-12-03 05:44] LABS: Potassium 4.2 mmol/L (3.5-5.1)
--- NOTE | 2022-12-03 06:01 | EDPHYS ---
Physician Documentation [facility] Name: Adam Boyce Age: 27 yrs Sex: Male : 1995 Arrival Date: 12/03/2022 Time: 02:14 Bed 16 Private MD: ED Physician Leonidas Ruano HPI: 12/03 02:30 This 27 yrs old Male presents to ER via Unassigned with complaints of Anal Burning. rn 02:30 The patient presents to the emergency department with pain in the rectal area, that is rn moderate. 02:30 Onset: The symptoms/episode began/occurred at an unknown time. Modifying factors: The rn symptoms are alleviated by nothing, The symptoms are aggravated by bowel movement, sitting position. Associate signs and symptoms: Pertinent negatives: fever, lower GI bleeding. The patient has not experienced similar symptoms in the past. The patient has not recently seen a physician. Pt reports perianal pain, over last few days, got worse tonight, reports burning sensation. NO abd pain. No fever. Also reports sob, hx of asthma and smokes actively. Reports because of size and short arms, has difficulty wiping himself. . Historical: - Allergies: 02:36 No Known Allergies; jj7 - PMHx: 02:36 Anxiety; Arthritis; Bipolar disorder; Depression; Diabetes - NIDDM; High Cholesterol; jj7 Hypothyroidism; recovering addict (ETOH/narcotic); Sleep Apnea; - Immunization history:: Adult Immunizations unknown. - Social history:: Smoking status: Patient reports the use of cigarette tobacco products, smokes 1.5 packs per day, Patient/guardian denies using alcohol, street drugs. - Family history:: not pertinent. - Hospitalizations: : No recent hospitalization is reported. ROS: 02:30 Constitutional: Negative for fever, chills, and weight loss, Eyes: Negative for injury, rn pain, redness, and discharge, Neck: Negative for injury, pain, and swelling, Cardiovascular: Negative for chest pain, palpitations, and edema, Respiratory: + sob Abdomen/GI: Negative for abdominal pain, nausea, vomiting, diarrhea, and constipation, Back: Negative for injury and pain, MS/Extremity: Negative for injury and deformity, Skin: + burning of skin around anus Neuro: Negative for headache, weakness, numbness, tingling, and seizure. Exam: 02:30 Constitutional: Morbidly obese male, yelling at staff Head/Face: Normocephalic, rn atraumatic. Cardiovascular: Regular rate and rhythm. No pulse deficits. Respiratory: Mild tachypnea, no retractions, faint wheezing Abdomen/GI: soft, non-tender, no peritoneal signs Skin: Perianal skin with multiple layers of dry and wet stool, non-bloody, with irritation and superficial skin breakdown, no abscess, no evidence of hemorrhoid/thrombosed hemorrhoid. MS/ Extremity: Pulses equal, no cyanosis. Neuro: Awake and alert, GCS 15 Vital Signs: 02:20 BP 134 / 70; Pulse 93; Resp 21; Temp 98.2; Pulse Ox 95% ; Weight 164.84 kg; Height 5 jj7 ft. 1 in. (154.94 cm); 03:30 BP 133 / 69; Pulse 111; Resp 21; Pulse Ox 92% ; jj7 04:30 BP 128 / 115; Pulse 122; Resp 21; Pulse Ox 95% on 3 lpm NC; jj7 05:40 BP 142 / 86; Pulse 118; Resp 21; Pulse Ox 98% on 2 lpm NC; jj7 02:20 Body Mass Index 68.66 (164.84 kg, 154.94 cm) jj7 MDM: 02:15 Patient medically screened. rn 05:57 Differential diagnosis: hemorrhoids, skin breakdown, dermatitis, pulmonary edema, rn asthma, COPD, smoking related illness, sleep apnea. Data reviewed: vital signs, nurses notes, lab test result(s), radiologic studies, plain films, and as a result, I will discharge patient. Care significantly affected by the following chronic conditions: Diabetes, Hypertension, Obesity. Care significantly affected by the following Social Determinants of Health: Problems related to primary support group. Counseling: I had a detailed discussion with the patient and/or guardian regarding: the historical points, exam findings, and any diagnostic results supporting the discharge/admit diagnosis, lab results, radiology results, the need for outpatient follow up, to return to the emergency department if symptoms worsen or persist or if there are any questions or concerns that arise at home. Counseling: I had a detailed discussion with the patient and/or guardian regarding: smoking cessation. Response to treatment: the patient's symptoms have mildly improved after treatment, and as a result, I will discharge patient. Special discussion: I discussed with the patient/guardian in detail that at this point there is no indication for admission to the hospital. It is understood, however, that if the symptoms persist or worsen the patient needs to return immediately for re-evaluation. 12/03 03:16 Order name: CBC with Diff; Complete Time: 04:29 rn 12/03 03:16 Order name: Basic Metabolic Panel; Complete Time: 05:57 rn 12/03 02:16 Order name: XRAY Chest (1 view) rn 12/03 03:16 Order name: Procalcitonin rn 12/03 03:16 Order name: BNP; Complete Time: 05:57 rn 12/03 03:16 Order name: IV Start; Complete Time: 04:20 rn Administered Medications: 02:47 Drug: Xopenex (levalbuterol) (3) 1.25 mg Route: Inhalation; jj7 04:15 Drug: Lasix (furosemide) 60 mg Route: IVP; Site: right antecubital; jj7 05:31 Follow up: Response: Marked relief of symptoms; Other jj7 05:40 Not Given (Patient Refused): Tylenol #3 (300 mg-30 mg) 1 tablet PO once; RASS on ADMIN: jj7 Combtv4, Very Agttd3, Agttd2, Rstlss1, AlertClm0, Drwsy-1, Lt Sdtn-2, Mod Sdtn-3, Dp Sdtn-4, UnArsble-5 05:40 Drug: Tylenol 650 mg Route: PO; jj7 06:17 Follow up: Response: No adverse reaction jj7 Disposition Summary: 12/03/22 06:00 Discharge Ordered Location: Home rn Problem: new rn Symptoms: have improved rn Condition: Stable rn Diagnosis - Dermatitis, unspecified rn - Morbid (severe) obesity with alveolar hypoventilation rn Followup: rn - With: Private Physician - When: As needed - Reason: Recheck today's complaints, Re-evaluation by your physician Discharge Instructions: - Discharge Summary Sheet rn - Obesity, Adult rn - Health Risks of Smoking rn - Perianal Dermatitis, Adult rn Forms: - Medication Reconciliation Form rn - Thank You Letter rn - Antibiotic legal internship - Prescription Opioid Use rn Signatures: Dispatcher [employer] Leonidas Persaud MD MD rn Johnson, Juwairiyah, LANDEN RN jj7
--- NOTE | 2022-12-03 06:01 | ER ---
Nurse's Notes [facility] Name: Adam Boyce Age: 27 yrs Sex: Male : 1995 Arrival Date: 12/03/2022 Time: 02:14 Bed 16 Private MD: Diagnosis: Dermatitis, unspecified;Morbid (severe) obesity with alveolar hypoventilation Presentation: 12/03 02:20 Chief complaint: Patient states: ANAL BURNING AND SOB STARTED 2 HRS AGO EMS states: jj7 ANAL BURNING AND SOB DUE TO SMOKING. Coronavirus screen: At this time, the client does not indicate any symptoms associated with coronavirus-19. Ebola Screen: No symptoms or risks identified at this time. Initial Sepsis Screen: Does the patient meet any 2 criteria? RR > 20 per min. No. Patient's initial sepsis screen is negative. Does the patient have a suspected source of infection? No. Patient's initial sepsis screen is negative. Risk Assessment: Do you want to hurt yourself or someone else? Patient reports no desire to harm self or others. Onset of symptoms was December 03, 2022 at 00:00. 02:20 Method Of Arrival: EMS: [facility] jj7 02:20 Acuity: KONG 3 jj7 Triage Assessment: 02:20 General: Appears in no apparent distress. uncomfortable, obese, unkempt, Behavior is jj7 anxious, inappropriate for age, Smells of. Pain: Complains of pain in gluteal cleft. 02:36 General: Appears. jj7 Historical: - Allergies: 02:36 No Known Allergies; jj7 - PMHx: 02:36 Anxiety; Arthritis; Bipolar disorder; Depression; Diabetes - NIDDM; High Cholesterol; jj7 Hypothyroidism; recovering addict (ETOH/narcotic); Sleep Apnea; - Immunization history:: Adult Immunizations unknown. - Social history:: Smoking status: Patient reports the use of cigarette tobacco products, smokes 1.5 packs per day, Patient/guardian denies using alcohol, street drugs. - Family history:: not pertinent. - Hospitalizations: : No recent hospitalization is reported. Screenin:39 [facility] ED Fall Risk Assessment (Adult) History of falling in the last 3 months, jj7 including since admission No falls in past 3 months (0 pts) Confusion or Disorientation No (0 pts) Intoxicated or Sedated No (0 pts) Impaired Gait Yes (1 pt) Mobility Assist Device Used No (0 pt) Altered Elimination No (0 pt) Score/Fall Risk Level 0 - 2 = Low Risk Oriented to surroundings, Maintained a safe environment. Abuse screen: Denies threats or abuse. Nutritional screening: No deficits noted. Tuberculosis screening: No symptoms or risk factors identified. Assessment: 02:39 Reassessment: SEE TRIAGE ASSESSENT. jj7 06:09 Reassessment: pt sleeping aroused with touch verbalized understanding of and agrees to bb plan of care discharge instructions given pt ambulated to exit. Vital Signs: 02:20 BP 134 / 70; Pulse 93; Resp 21; Temp 98.2; Pulse Ox 95% ; Weight 164.84 kg; Height 5 j7 ft. 1 in. (154.94 cm); 03:30 BP 133 / 69; Pulse 111; Resp 21; Pulse Ox 92% ; jj7 04:30 BP 128 / 115; Pulse 122; Resp 21; Pulse Ox 95% on 3 lpm NC; jj7 05:40 BP 142 / 86; Pulse 118; Resp 21; Pulse Ox 98% on 2 lpm NC; jj7 02:20 Body Mass Index 68.66 (164.84 kg, 154.94 cm) jj7 ED Course: 02:14 Patient arrived in ED. wm 02:15 Leonidas Ruano MD is Attending Physician. rn 02:20 Arm band placed on right wrist. Patient placed in the treatment room, on a stretcher. jj7 02:26 Senthil Peralta, RN is Primary Nurse. jj7 02:36 Triage completed. jj7 02:38 XRAY Chest (1 view) In Process Unspecified. EDMS 02:39 Patient has correct armband on for positive identification. Call light in reach. Side jj7 rails up X2. Client placed on continuous cardiac and pulse oximetry monitoring. NIBP monitoring applied. 03:40 Missed attempt(s): 22 gauge in left forearm. Bleeding controlled, band aid applied, jj7 catheter tip intact. 04:13 Inserted saline lock: 20 gauge in right antecubital area, using aseptic technique. oe Blood collected. 04:20 BNP Sent. jj7 04:20 Procalcitonin Sent. jj7 04:20 Basic Metabolic Panel Sent. jj7 04:20 CBC with Diff Sent. j7 06:07 No provider procedures requiring assistance completed. IV discontinued, intact, jj7 bleeding controlled, No redness/swelling at site. Pressure dressing applied. Administered Medications: 02:47 Drug: Xopenex (levalbuterol) (3) 1.25 mg Route: Inhalation; j 04:15 Drug: Lasix (furosemide) 60 mg Route: IVP; Site: right antecubital; j7 05:31 Follow up: Response: Marked relief of symptoms; Other jj7 05:40 Not Given (Patient Refused): Tylenol #3 (300 mg-30 mg) 1 tablet PO once; RASS on ADMIN: j Combtv4, Very Agttd3, Agttd2, Rstlss1, AlertClm0, Drwsy-1, Lt Sdtn-2, Mod Sdtn-3, Dp Sdtn-4, UnArsble-5 05:40 Drug: Tylenol 650 mg Route: PO; j7 06:17 Follow up: Response: No adverse reaction j7 Medication: 02:39 VIS not applicable for this client. j7 Outcome: 06:00 Discharge ordered by . rn 06:08 Discharged to home ambulatory, via wheelchair. j7 06:08 Condition: improved 06:08 Discharge instructions given to patient, Instructed on discharge instructions, SELF CARE AND HYGIENE Demonstrated understanding of instructions, SELF CARE AND HYGIENE 06:18 Patient left the ED. jj7 Signatures: Dispatcher [employer] EDMS Jackie Foster RN RN bb Nieto, Roman, MD MD rn Espinosa, Orlando oe Marsh, Wendy wm Johnson, Juwairiyah, RN RN jj7 Corrections: (The following items were deleted from the chart) 04:28 04:13 Inserted saline lock: 20 gauge in left antecubital area, using aseptic technique. oe Blood collected. jj7
[2022-12-03] MEDS ORDERED: MORPHINE 4 MG/ML SYR ONE (06:04)
[2022-12-03] MEDS ORDERED: ONDANSETRON 4 MG/2 ML VIAL ONE (06:04)
[2022-12-03 06:27] VITALS: TEMP 98.2
[2022-12-03] MEDS ORDERED: INSULIN -REGULAR HUMAN 50 UNIT/0.5 ML ML ONE (06:33)
[2022-12-03 06:44] VITALS: BP 142/86; O2SAT 98
--- NOTE | 2022-12-03 16:40 | RAD REPORT ---
EXAM DESCRIPTION: RAD - Chest Single View - 12/03/2022 2:36 am CLINICAL HISTORY: The patient is 27 years old and is Male; COUGH TECHNIQUE: Frontal view of the chest. COMPARISON: No relevant prior studies available. FINDINGS: Lungs: Prominent interstitial markings suggestive of interstitial edema. Pleural space: Unremarkable. No pneumothorax. Heart: Unremarkable. Mediastinum: Unremarkable. Bones/joints: Unremarkable. IMPRESSION: Prominent interstitial markings suggestive of interstitial edema. Electronically signed by: Theodore Douglas MD 12/03/2022 2:51 AM EXTRACORPOREAL CIRCULATION SPECIALIST Due to temporary technical issues with the PACS/Fluency reporting system, reports are being signed by the in house radiologists without review as a courtesy to insure prompt reporting. The interpreting radiologist is fully responsible for the content of the report.
== END 2022-12-03 06:18 | disposition home or self-care (01) ==
LOC: ER 02:12
DX: L30.9 Dermatitis, unspecified (principal); E66.2 Morbid (severe) obesity with alveolar hypoventilation; Z68.44 Body mass index [BMI] 60.0-69.9, adult; F17.210 Nicotine dependence, cigarettes, uncomplicated
CPT/HCPCS: 85025; 80048; 36415; 84145; 83880; 71045; 96374; 99284; J1940 ×2; J7614 ×2; J1815; J2405

== ENCOUNTER 2022-12-09 23:22 | Emergency (ER) | payer OTHER ==
--- OUTSIDE RECORDS SUMMARY | 2022-12-09 23:28 | XMS REPORT | Continuity of Care Document ---
:1995 Author Organization [facility] t Address [address] [place] [address] Care Team Providers Name Role Phone Lucian Valenzuela Primary Care Physician [phone] CARLOS_Reggie Attending Clinician Unavailable Yeison Nuno Attending Clinician [phone] CARLOS_Reggie Admitting Clinician Unavailable Payers Payer Name Policy Type Policy Number Effective Date Expiration Date [facility] [id number] 2020 FORMERLY [facility] 00:00:00 (MEDICAID HMO) Problems This patient [...] Date Stop Date Source Heavy Tobacco Smoker [facility] Medications Ordered Filled Start Stop Current [...] tablet 00:00: 00 aripiprazol aripiprazol No aripiprazo [facility] e 10 mg e 10 mg le 10 mg Commu ni tablet tablet tablet [facility] aripiprazol aripiprazol No aripiprazo [facility] e 2 mg e 2 mg le 2 mg Communi tablet tablet tablet [facility] atorvastati atorvastati No atorvastat [facility] n 10 mg n 10 mg in 10 mg Commu ni tablet tablet tablet [facility] atorvastati atorvastati No atorvastat [facility] n 20 mg n 20 mg in 20 mg Commu ni tablet tablet tablet [facility] hydroxyzine hydroxyzine No hydroxyzin [facility] pamoate 25 pamoate 25 e pamoate [facility] mg capsule mg capsule 25 mg ty [facility] ibuprofen ibuprofen No ibuprofen [facility] 800 mg 800 mg 800 mg [facility]i tablet tablet tablet [facility] levothyroxi levothyroxi No levothyrox [facility] ne 75 mcg ne 75 mcg ine 75 mcg [facility] tablet tablet tablet [facility] metformin metformin No metformin [facility] 500 mg 500 mg 500 mg [facility] tablet tablet tablet [facility] metformin metformin No metformin [facility] 850 mg 850 mg 850 mg [facility] tablet tablet tablet [facility] nicotine 14 nicotine 14 No nicotine [facility] mg/24 hr mg/24 hr 14 mg/24 Com merissa daily daily hr daily ty transdermal transdermal transderma [facility] patch patch patch [facility] sertraline sertraline No sertraline [facility] 50 mg 50 mg 50 mg [facility] tablet tablet tablet [facility] trazodone trazodone No trazodone [facility] 50 mg 50 mg 50 mg [facility] tablet tablet tablet [facility] Immunizations Ordered Immunization Filled Immunization Date Status Commen ts Source Name Name Kerri COVID-19 2021-12-09 Completed Vaccine 00:00:00 Kranthia COVID-19 2021-12-09 Completed Vaccine 00:00:00 Kranthia COVID-19 2021-12-09 Completed Vaccine 00:00:00 Vital Signs Vital Name Observation Time Observation Value Comments Source BP Diastolic 2021-05-15 00:00:00 74 mm[Hg] [facility] Height 2021-05-15 00:00:00 59 [in_i] [facility] BMI (Body Mass 2021-05-15 00:00:00 59.8 kg/m2 [facility] BP Systolic 2021-05-15 00:00:00 122 mm[Hg] [facility] Body Weight 2021-05-15 00:00:00 4736 [oz_av] [facility] BP Systolic 2022-09-15 14:41:00 138 mm[Hg] [...] Goal Plan of Care Note [code = 17218-1] Goal Plan of Care Note [code = 85632-5] Goal Plan of Care Note [code = 31612-7] Goal Plan of Care Note [code = 64654-0] Goal Plan of Care Note [code = 12777-9] Goal Plan of Care Note [code = 62550-1] Goal Plan of Care Note [code = 48762-3] Goal Plan of Care Note [code = 24501-4] Goal Plan of Care Note [code = 12833-9] Goal Plan of Care Note [code = 45094-4] Goal Plan of Care Note [code = 84891-2] Goal Plan of Care Note [code = 71363-6] Goal Plan of Care Note [code = 86862-8] Goal Plan of Care Note [code = 75488-3] Goal Plan of Care Note [code = 72390-3] Goal Plan of Care Note [code = 89995-4] Goal Plan of Care Note [code = 53262-9] Goal Plan of Care Note [code = 44768-9] Goal Plan of Care Note [code = 30006-5] Goal Plan of Care Note [code = 10668-3] Goal Plan of Care Note [code = 91701-3] Goal Plan of Care Note [code = 58908-5] Goal Plan of Care Note [code = 14652-8] Goal Plan of Care Note [code = 79694-2] Goal Plan of Care Note [code = 28906-9] Goal Plan of Care Note [code = 92775-4] Goal Plan of Care Note [code = 73782-5] Goal Plan of Care Note [code = 52848-8] Goal Plan of Care Note [code = 89797-9] Goal Plan of Care Note [code = 57656-8] Goal Plan of Care Note [code = 76694-1] Goal Plan of Care Note [code = 01885-3] Goal Plan of Care Note [code = 48948-4] Goal Plan of Care Note [code = 53201-6] Goal Plan of Care Note [code = 66728-2] Goal Plan of Care Note [code = 95810-1] Goal Plan of Care Note [code = 89690-3] Goal Plan of Care Note [code = 93931-3] Goal Plan of Care Note [code = 74098-8] Goal Plan of Care Note [code = 20460-1] Goal Plan of Care Note [code = 19727-5] Goal Plan of Care Note [code = 73994-2] Goal Plan of Care Note [code = 69598-6] Goal Plan of Care Note [code = 71025-6] Goal Plan of Care Note [code = 17423-7] Goal Plan of Care Note [code = 01681-9] Goal Plan of Care Note [code = 08521-5] Goal Plan of Care Note [code = 64600-5] Goal Plan of Care Note [code = 48214-8] Goal Plan of Care Note [code = 52961-0] Goal Plan of Care Note [code = 84749-3] Goal Plan of Care Note [code = 05261-1] Goal Plan of Care Note [code = 40611-7] Goal Plan of Care Note [code = 26347-2] Goal Plan of Care Note [code = 11259-0] Goal Plan of Care Note [code = 90722-8] Goal Plan of Care Note [code = 05648-7] Goal Plan of Care Note [code = 53315-0] Goal Plan of Care Note [code = 78395-0] Goal Plan of Care Note [code = 01732-7] Goal Plan of Care Note [code = 31136-7] Goal Plan of Care Note [code = 19158-2] Goal Plan of Care Note [code = 58844-4] Goal Plan of Care Note [code = 11057-4] Goal Plan of Care Note [code = 01748-2] Goal Plan of Care Note [code = 42763-9] Goal Plan of Care Note [code = 86615-8] Goal Plan of Care Note [code = 11458-6] Goal Plan of Care Note [code = 13358-7] Goal Plan of Care Note [code = 97819-1] Goal Plan of Care Note [code = 57228-5] Goal Plan of Care Note [code = 37221-3] Goal Plan of Care Note [code = 50917-7] Goal Plan of Care Note [code = 89344-6] Goal Plan of Care Note [code = 36018-1] Goal Plan of Care Note [code = 92717-3] Goal Plan of Care Note [code = 84476-2] Goal Plan of Care Note [code = 57507-9] Goal Plan of Care Note [code = 80997-7] Goal Plan of Care Note [code = 63145-7] Goal Plan of Care Note [code = 10429-8] Goal Plan of Care Note [code = 35187-6] Goal Plan of Care Note [code = 39072-5] Goal Plan of Care Note [code = 11732-5] Goal Plan of Care Note [code = 04090-8] Goal Plan of Care Note [code = 00378-5] Goal Plan of Care Note [code = 74791-5] Goal Plan of Care Note [code = 80528-9] Goal Plan of Care Note [code = 96232-8] Goal Plan of Care Note [code = 45410-5] Goal Plan of Care Note [code = 69314-2] Goal Plan of Care Note [code = 28693-5] Goal Plan of Care Note [code = 41767-5] Goal Plan of Care Note [code = 03290-4] Goal Plan of Care Note [code = 10137-9] Encounters Start End Encounter Admission Attending Care Care Encounter Source Date/Time Date/Time Type Type Clinicians Facility Department ID 2022-09-15 2022-09-15 Outpatient [facility] [id number] Jaleel Blanco 14:31:47 14:31:47 1025 Marii Quesada 2022-09-15 2022-09-15 Outpatient [id number] 00:00:00 00:00:00 Visit 0059-4f45 059-4f45-a -lq1d-0r8 s6c-6x1n70 f6009daxq 35bdfc 2022-08-13 2022-08-13 Outpatient [id number] 8b2b68-m 00:00:00 00:00:00 Visit m91y-221z 48f-495a-9 -9262-3d5 262-3d5bba ciis8fpwl c0cbea 2022-08-06 2022-08-06 Outpatient [id number] 00:00:00 00:00:00 Visit 6125-4ec6 125-4ec6-b -q62s-23b 35f-09fa7f [id number] 2021-05-15 2021-05-15 Outpatient SELMAEV_T [facility] 11:10:00 11:10:00 0624 [facility] 2021-05-15 2021-05-15 Outpatient [place], [facility] [id number] 5f-2 00:00:00 00:00:00 Yeison 021-[id number] Donovan [id number] 2021-05-15 2021-05-15 [facility] [place] [facility] [address] [address], Specialty [address], [place] [address] , Ph. 2021-05-09 2021-05-09 Outpatient CARLOS_T [facility] 02:54:00 02:54:00 0618 [facility] Results Test Description Test Time Test Comments Results Result Comments Source HEMOGLOBIN A1c 2022-08-08 07:32:28 Test Item Value Reference Range Interpretation Comme nts HEMOGLOBIN A1c (test code = 11250) 6.3 % 4.2-5.6 H CBC W/AUTO DIFF WITH [id number] 07:05:30 Test Item Value Reference Range Interpretation [...] RBCS 0.00 K/UL 0.00-0.11 (test code = 61439) TSH, THIRD [id number] 06:43:26 Test Item Value Reference Range Interpretation Comments TSH, THIRD GENERATION (test code 3.490 UIU/ML 0.400-4.100 = 2821) COMPREHENSIVE METABOLIC [id number] 03:50:21 Test Item Value Reference Range Interpretation Comments GLUCOSE (test code = 95 MG/DL 70-99 2216) BUN (test code = 21 MG/DL 6-20 H 2207) CREATININE (test 0.59 MG/DL 0.80-1.40 L code = 2214) eGFR (2020 CKD-EPI) 136 >60 (test code = 62255) ML/MIN/1.73 CALC BUN/CREAT (test 36 RATIO 6-28 H code = 2235) SODIUM (test code = 141 MEQ/L 954-989 8556) POTASSIUM (test code 5.0 MEQ/L 3.5-5.4 = [...] message] (test code = 220) The syste [employer] which generated this result transmit yeison reference range : <=1.2. The refe rence range was not u sed to interpret th is result as normal/abnormal . ALKALINE PHOSPHATASE 137 U/L 40-115 H (test code = 2203) AST (test code = 28 U/L 9-50 2217) ALT (test code = 34 U/L 5-50 2218) LIPID [id number] 03:50:21 Test Item Value Reference Range Interpretation [...] MOREINFORMATION , SEE CLIENT ANNOUNCE MENT AT [email or web address] RISK RATIO LDL/HDL 2.56 RATIO <3.55 UNLESS O THERWISE (test code = 2238) INDICATED , ALL TESTING PERFORMED [facility], [facility]. [address] [place] [address] [facility] CHARLIE DIRECTOR: LICHA AYON M.D. CLIA NUMBER [id number] CAP ACCREDITATION N O. [id number] HEMOGLOBIN [id number] 00:00:00 Test Item Value Reference Range Interpretation Comments HEMOGLOBIN A1c (test code = 39501) 6.3 % HEMOGLOBIN [id number] 00:00:00 Test Item Value Reference Range Interpretation Comments HEMOGLOBIN A1c (test code = 61700) 6.3 % HEMOGLOBIN [id number] 00:00:00 Test Item Value Reference Range Interpretation Comments HEMOGLOBIN A1c (test code = 78895) 6.3 % TSH, THIRD [id number] 00:00:00 Test Item Value Reference Range Interpretation Comments TSH, THIRD GENERATION (test code 3.490 UIU/ML = 2821) TSH, THIRD [id number] 00:00:00 Test Item Value Reference Range Interpretation Comments TSH, THIRD GENERATION (test code 3.490 UIU/ML = 2821) TSH, THIRD [id number] 00:00:00 Test Item Value Reference Range Interpretation Comments TSH, THIRD GENERATION (test code 3.490 UIU/ML = 2821) CBC W/AUTO [id number] 00:00:00 Test Item Value Reference Range Interpretation [...] NUCLEATED RBCS (test code = 0.00 K/UL 54814) CBC W/AUTO [id number] 00:00:00 Test Item Value Reference Range Interpretation [...] NUCLEATED RBCS (test code = 0.00 K/UL 59016) CBC W/AUTO [id number] 00:00:00 Test Item Value Reference Range Interpretation [...] NUCLEATED RBCS (test code = 0.00 K/UL 27614) COMPREHENSIVE METABOLIC [id number] 00:00:00 Test Item Value Reference Range Interpretation Comments GLUCOSE (test code = 2217) 95 MG/DL BUN (test code = 2208) 21 MG/DL CREATININE (test code = 2214) 0.59 MG/DL eGFR (2020 CKD-EPI) (test 136 ML/MIN/1.73 code = 44608) CALC BUN/CREAT (test code = 36 RATIO [...] code = 2219) 34 U/L COMPREHENSIVE METABOLIC [id number] 00:00:00 Test Item Value Reference Range Interpretation Comments GLUCOSE (test code = 2217) 95 MG/DL BUN (test code = 2208) 21 MG/DL CREATININE (test code = 2214) 0.59 MG/DL eGFR (2020 CKD-EPI) (test 136 ML/MIN/1.73 code = 29403) CALC BUN/CREAT (test code = 36 RATIO [...] (test code = 2219) 34 U/L LIPID [id number] 00:00:00 Test Item Value Reference Range Interpretation Comments CHOLESTEROL (test code = 2210) 193 MG/DL TRIGLYCERIDES (test code = 2232) 111 MG/DL HDL CHOLESTEROL (test code = 2220) 48 MG/DL CALC LDL CHOL (test code = 2237) 123 MG/DL RISK RATIO LDL/HDL (test code = 2.56 RATIO 2238) LIPID [id number] 00:00:00 Test Item Value Reference Range Interpretation Comments CHOLESTEROL (test code = 2210) 193 MG/DL TRIGLYCERIDES (test code = 2232) 111 MG/DL HDL CHOLESTEROL (test code = 2220) 48 MG/DL CALC LDL CHOL (test code = 2237) 123 MG/DL RISK RATIO LDL/HDL (test code = 2.56 RATIO 2238) HEMOGLOBIN [id number] 00:00:00 Test Item Value Reference Range Interpretation Comments HEMOGLOBIN A1c (test code = 95493) 6.3 % HEMOGLOBIN [id number] 00:00:00 Test Item Value Reference Range Interpretation Comments HEMOGLOBIN A1c (test code = 55330) 6.3 % HEMOGLOBIN [id number] 00:00:00 Test Item Value Reference Range Interpretation Comments HEMOGLOBIN A1c (test code = 33930) 6.3 % TSH, THIRD [id number] 00:00:00 Test Item Value Reference Range Interpretation Comments TSH, THIRD GENERATION (test code 3.490 UIU/ML = 2821) TSH, THIRD [id number] 00:00:00 Test Item Value Reference Range Interpretation Comments TSH, THIRD GENERATION (test code 3.490 UIU/ML = 2821) TSH, THIRD [id number] 00:00:00 Test Item Value Reference Range Interpretation Comments TSH, THIRD GENERATION (test code 3.490 UIU/ML = 2821) CBC W/AUTO [id number] 00:00:00 Test Item Value Reference Range Interpretation [...] NUCLEATED RBCS (test code = 0.00 K/UL 33263) CBC W/AUTO [id number] 00:00:00 Test Item Value Reference Range Interpretation [...] NUCLEATED RBCS (test code = 0.00 K/UL 66669) CBC W/AUTO [id number] 00:00:00 Test Item Value Reference Range Interpretation [...] NUCLEATED RBCS (test code = 0.00 K/UL 68095) COMPREHENSIVE METABOLIC [id number] 00:00:00 Test Item Value Reference Range Interpretation Comments GLUCOSE (test code = 2217) 95 MG/DL BUN (test code = 2208) 21 MG/DL CREATININE (test code = 2214) 0.59 MG/DL eGFR (2020 CKD-EPI) (test 136 ML/MIN/1.73 code = 17424) CALC BUN/CREAT (test code = 36 RATIO [...] code = 2219) 34 U/L COMPREHENSIVE METABOLIC [id number] 00:00:00 Test Item Value Reference Range Interpretation Comments GLUCOSE (test code = 2217) 95 MG/DL BUN (test code = 2208) 21 MG/DL CREATININE (test code = 2214) 0.59 MG/DL eGFR (2020 CKD-EPI) (test 136 ML/MIN/1.73 code = 99112) CALC BUN/CREAT (test code = 36 RATIO [...] (test code = 2219) 34 U/L LIPID [id number] 00:00:00 Test Item Value Reference Range Interpretation Comments CHOLESTEROL (test code = 2210) 193 MG/DL TRIGLYCERIDES (test code = 2232) 111 MG/DL HDL CHOLESTEROL (test code = 2220) 48 MG/DL CALC LDL CHOL (test code = 2237) 123 MG/DL RISK RATIO LDL/HDL (test code = 2.56 RATIO 2238) LIPID [id number] 00:00:00 Test Item Value Reference Range Interpretation [...] Comments SARS-CoV-2 INTERPRETATION Negative (test code = 26870) SOURCE (test code = 78428) Nasal_Swab_in_VTM__ UTM SARS-CoV-2 (COVID-19) by RT-PCR (HIGH RISK)2020-10-10 00:00:00 Test Item Value Reference Range Interpretation Comments SARS-CoV-2 INTERPRETATION Negative (test code = 38722) SOURCE (test code = 71304) Nasal_Swab_in_VTM__ UTM SARS-CoV-2 (COVID-19) by RT-PCR (HIGH RISK)2020-10-10 00:00:00 Test Item Value Reference Range Interpretation Comments SARS-CoV-2 INTERPRETATION Negative (test code = 80310) SOURCE (test code = 99434) Nasal_Swab_in_VTM__ UTM LIPID PANEL WITH REFLEX DIRECT [id number] 00:00:00 Test Item Value Reference Range Interpretation Comments CHOLESTEROL (test code = 2210) 208 MG/DL TRIGLYCERIDES (test code = 2232) 201 MG/DL HDL CHOLESTEROL (test code = 2220) 34 MG/DL CALC LDL CHOL (test code = 2237) 139 MG/DL RISK RATIO LDL/HDL (test code = 4.09 RATIO 2238) LIPID PANEL WITH REFLEX DIRECT [id number] 00:00:00 Test Item Value Reference Range Interpretation Comments CHOLESTEROL (test code = 2210) 208 MG/DL TRIGLYCERIDES (test code = 2232) 201 MG/DL HDL CHOLESTEROL (test code = 2220) 34 MG/DL CALC LDL CHOL (test code = 2237) 139 MG/DL RISK RATIO LDL/HDL (test code = 4.09 RATIO 2238) COMPREHENSIVE METABOLIC [id number] 00:00:00 Test Item Value Reference Range Interpretation Comments GLUCOSE (test code = 2217) 95 MG/DL BUN (test code = 2208) 15 MG/DL CREATININE (test code = 2214) 0.70 MG/DL eGFR AMER. (test code 151 ML/MIN/1.73 = 97974) eGFR NON- AMER. (test 130 ML/MIN/1.73 code = 04364) CALC BUN/CREAT (test code = 21 RATIO [...] code = 2219) 37 U/L COMPREHENSIVE METABOLIC [id number] 00:00:00 Test Item Value Reference Range Interpretation Comments GLUCOSE (test code = 2217) 95 MG/DL BUN (test code = 2208) 15 MG/DL CREATININE (test code = 2214) 0.70 MG/DL eGFR AMER. (test code 151 ML/MIN/1.73 = 08068) eGFR NON- AMER. (test 130 ML/MIN/1.73 code = 95492) CALC BUN/CREAT (test code = 21 RATIO [...] 37 U/L LIPID PANEL WITH REFLEX DIRECT [id number] 00:00:00 Test Item Value Reference Range Interpretation Comments CHOLESTEROL (test code = 2210) 208 MG/DL TRIGLYCERIDES (test code = 2232) 201 MG/DL HDL CHOLESTEROL (test code = 2220) 34 MG/DL CALC LDL CHOL (test code = 2237) 139 MG/DL RISK RATIO LDL/HDL (test code = 4.09 RATIO 2238) LIPID PANEL WITH REFLEX DIRECT [id number] 00:00:00 Test Item Value Reference Range Interpretation Comments CHOLESTEROL (test code = 2210) 208 MG/DL TRIGLYCERIDES (test code = 2232) 201 MG/DL HDL CHOLESTEROL (test code = 2220) 34 MG/DL CALC LDL CHOL (test code = 2237) 139 MG/DL RISK RATIO LDL/HDL (test code = 4.09 RATIO 2238) COMPREHENSIVE METABOLIC [id number] 00:00:00 Test Item Value Reference Range Interpretation Comments GLUCOSE (test code = 2217) 95 MG/DL BUN (test code = 2208) 15 MG/DL CREATININE (test code = 2214) 0.70 MG/DL eGFR AMER. (test code 151 ML/MIN/1.73 = 71160) eGFR NON- AMER. (test 130 ML/MIN/1.73 code = 35033) CALC BUN/CREAT (test code = 21 RATIO [...] code = 2219) 37 U/L COMPREHENSIVE METABOLIC [id number] 00:00:00 Test Item Value Reference Range Interpretation Comments GLUCOSE (test code = 2217) 95 MG/DL BUN (test code = 2208) 15 MG/DL CREATININE (test code = 2214) 0.70 MG/DL eGFR AMER. (test code 151 ML/MIN/1.73 = 07125) eGFR NON- AMER. (test 130 ML/MIN/1.73 code = 77101) CALC BUN/CREAT (test code = 21 RATIO [...] 37 U/L LIPID PANEL WITH REFLEX DIRECT [id number] 00:00:00 Test Item Value Reference Range Interpretation Comments CHOLESTEROL (test code = 2210) 208 MG/DL TRIGLYCERIDES (test code = 2232) 201 MG/DL HDL CHOLESTEROL (test code = 2220) 34 MG/DL CALC LDL CHOL (test code = 2237) 139 MG/DL RISK RATIO LDL/HDL (test code = 4.09 RATIO 2238) LIPID PANEL WITH REFLEX DIRECT [id number] 00:00:00 Test Item Value Reference Range Interpretation Comments CHOLESTEROL (test code = 2210) 208 MG/DL TRIGLYCERIDES (test code = 2232) 201 MG/DL HDL CHOLESTEROL (test code = 2220) 34 MG/DL CALC LDL CHOL (test code = 2237) 139 MG/DL RISK RATIO LDL/HDL (test code = 4.09 RATIO 2238) COMPREHENSIVE METABOLIC [id number] 00:00:00 Test Item Value Reference Range Interpretation Comments GLUCOSE (test code = 2217) 95 MG/DL BUN (test code = 2208) 15 MG/DL CREATININE (test code = 2214) 0.70 MG/DL eGFR AMER. (test code 151 ML/MIN/1.73 = 93017) eGFR NON- AMER. (test 130 ML/MIN/1.73 code = 66540) CALC BUN/CREAT (test code = 21 RATIO [...] code = 2219) 37 U/L COMPREHENSIVE METABOLIC [id number] 00:00:00 Test Item Value Reference Range Interpretation Comments GLUCOSE (test code = 2217) 95 MG/DL BUN (test code = 2208) 15 MG/DL CREATININE (test code = 2214) 0.70 MG/DL eGFR AMER. (test code 151 ML/MIN/1.73 = 17854) eGFR NON- AMER. (test 130 ML/MIN/1.73 code = 63407) CALC BUN/CREAT (test code = 21 RATIO [...] (test code = 2219) 37 U/L HEMOGLOBIN [id number] 00:00:00 Test Item Value Reference Range Interpretation Comments HEMOGLOBIN A1c (test code = 50337) 6.1 % HEMOGLOBIN [id number] 00:00:00 Test Item Value Reference Range Interpretation Comments HEMOGLOBIN A1c (test code = 46630) 6.1 % HEMOGLOBIN [id number] 00:00:00 Test Item Value Reference Range Interpretation Comments HEMOGLOBIN A1c (test code = 48505) 6.1 % [id number] 00:00:00 Test Item Value Reference Range Interpretation Comments TSH, THIRD GENERATION (test code 3.380 UIU/ML = 2821) [id number] 00:00:00 Test Item Value Reference Range Interpretation Comments TSH, THIRD GENERATION (test code 3.380 UIU/ML = 2821) [id number] 00:00:00 Test Item Value Reference Range Interpretation Comments TSH, THIRD GENERATION (test code 3.380 UIU/ML = 2821) HEMOGLOBIN [id number] 00:00:00 Test Item Value Reference Range Interpretation Comments HEMOGLOBIN A1c (test code = 99336) 6.1 % HEMOGLOBIN [id number] 00:00:00 Test Item Value Reference Range Interpretation Comments HEMOGLOBIN A1c (test code = 34326) 6.1 % HEMOGLOBIN [id number] 00:00:00 Test Item Value Reference Range Interpretation Comments HEMOGLOBIN A1c (test code = 15149) 6.1 % [id number] 00:00:00 Test Item Value Reference Range Interpretation Comments TSH, THIRD GENERATION (test code 3.380 UIU/ML = 2821) [id number] 00:00:00 Test Item Value Reference Range Interpretation Comments TSH, THIRD GENERATION (test code 3.380 UIU/ML = 2821) [id number] 00:00:00 Test Item Value Reference Range Interpretation Comments TSH, THIRD GENERATION (test code 3.380 UIU/ML = 2821) HEMOGLOBIN [id number] 00:00:00 Test Item Value Reference Range Interpretation Comments HEMOGLOBIN A1c (test code = 74444) 6.1 % HEMOGLOBIN [id number] 00:00:00 Test Item Value Reference Range Interpretation Comments HEMOGLOBIN A1c (test code = 09084) 6.1 % HEMOGLOBIN [id number] 00:00:00 Test Item Value Reference Range Interpretation Comments HEMOGLOBIN A1c (test code = 91482) 6.1 % [id number] 00:00:00 Test Item Value Reference Range Interpretation Comments TSH, THIRD GENERATION (test code 3.380 UIU/ML = 2821) [id number] 00:00:00 Test Item Value Reference Range Interpretation Comments TSH, THIRD GENERATION (test code 3.380 UIU/ML = 2821) [id number] 00:00:00 Test Item Value Reference Range Interpretation Comments TSH, THIRD GENERATION (test code 3.380 UIU/ML = 2821) COMPREHENSIVE METABOLIC [id number] 00:00:00 Test Item Value Reference Range Interpretation Comments GLUCOSE (test code = 2217) 182 MG/DL BUN (test code = 2208) 18 MG/DL CREATININE (test code = 2214) 0.71 MG/DL eGFR AMER. (test code 150 ML/MIN/1.73 = 56830) eGFR NON- AMER. (test 129 ML/MIN/1.73 code = 91505) CALC BUN/CREAT (test code = 25 RATIO [...] code = 2219) 31 U/L COMPREHENSIVE METABOLIC [id number] 00:00:00 Test Item Value Reference Range Interpretation Comments GLUCOSE (test code = 2217) 182 MG/DL BUN (test code = 2208) 18 MG/DL CREATININE (test code = 2214) 0.71 MG/DL eGFR AMER. (test code 150 ML/MIN/1.73 = 53868) eGFR NON- AMER. (test 129 ML/MIN/1.73 code = 14980) CALC BUN/CREAT (test code = 25 RATIO [...] (test code = 2219) 31 U/L LIPID [id number] 00:00:00 Test Item Value Reference Range Interpretation Comments CHOLESTEROL (test code = 2210) 217 MG/DL TRIGLYCERIDES (test code = 2232) 149 MG/DL HDL CHOLESTEROL (test code = 2220) 36 MG/DL CALC LDL CHOL (test code = 2237) 153 MG/DL RISK RATIO LDL/HDL (test code = 4.25 RATIO 2238) LIPID [id number] 00:00:00 Test Item Value Reference Range Interpretation Comments CHOLESTEROL (test code = 2210) 217 MG/DL TRIGLYCERIDES (test code = 2232) 149 MG/DL HDL CHOLESTEROL (test code = 2220) 36 MG/DL CALC LDL CHOL (test code = 2237) 153 MG/DL RISK RATIO LDL/HDL (test code = 4.25 RATIO 2238) HEMOGLOBIN [id number] 00:00:00 Test Item Value Reference Range Interpretation Comments HEMOGLOBIN A1c (test code = 14939) 5.8 % HEMOGLOBIN [id number] 00:00:00 Test Item Value Reference Range Interpretation Comments HEMOGLOBIN A1c (test code = 77094) 5.8 % HEMOGLOBIN [id number] 00:00:00 Test Item Value Reference Range Interpretation Comments HEMOGLOBIN A1c (test code = 14677) 5.8 % [id number] 00:00:00 Test Item Value Reference Range Interpretation Comments TSH, THIRD GENERATION (test code 2.080 UIU/ML = 2821) [id number] 00:00:00 Test Item Value Reference Range Interpretation Comments TSH, THIRD GENERATION (test code 2.080 UIU/ML = 2821) [id number] 00:00:00 Test Item Value Reference Range Interpretation Comments TSH, THIRD GENERATION (test code 2.080 UIU/ML = 2821) COMPREHENSIVE METABOLIC [id number] 00:00:00 Test Item Value Reference Range Interpretation Comments GLUCOSE (test code = 2217) 182 MG/DL BUN (test code = 2208) 18 MG/DL CREATININE (test code = 2214) 0.71 MG/DL eGFR AMER. (test code 150 ML/MIN/1.73 = 46216) eGFR NON- AMER. (test 129 ML/MIN/1.73 code = 66600) CALC BUN/CREAT (test code = 25 RATIO [...] code = 2219) 31 U/L COMPREHENSIVE METABOLIC [id number] 00:00:00 Test Item Value Reference Range Interpretation Comments GLUCOSE (test code = 2217) 182 MG/DL BUN (test code = 2208) 18 MG/DL CREATININE (test code = 2214) 0.71 MG/DL eGFR AMER. (test code 150 ML/MIN/1.73 = 33298) eGFR NON- AMER. (test 129 ML/MIN/1.73 code = 44694) CALC BUN/CREAT (test code = 25 RATIO [...] (test code = 2219) 31 U/L LIPID [id number] 00:00:00 Test Item Value Reference Range Interpretation Comments CHOLESTEROL (test code = 2210) 217 MG/DL TRIGLYCERIDES (test code = 2232) 149 MG/DL HDL CHOLESTEROL (test code = 2220) 36 MG/DL CALC LDL CHOL (test code = 2237) 153 MG/DL RISK RATIO LDL/HDL (test code = 4.25 RATIO 2238) LIPID [id number] 00:00:00 Test Item Value Reference Range Interpretation Comments CHOLESTEROL (test code = 2210) 217 MG/DL TRIGLYCERIDES (test code = 2232) 149 MG/DL HDL CHOLESTEROL (test code = 2220) 36 MG/DL CALC LDL CHOL (test code = 2237) 153 MG/DL RISK RATIO LDL/HDL (test code = 4.25 RATIO 2238) HEMOGLOBIN [id number] 00:00:00 Test Item Value Reference Range Interpretation Comments HEMOGLOBIN A1c (test code = 67454) 5.8 % HEMOGLOBIN [id number] 00:00:00 Test Item Value Reference Range Interpretation Comments HEMOGLOBIN A1c (test code = 99628) 5.8 % HEMOGLOBIN [id number] 00:00:00 Test Item Value Reference Range Interpretation Comments HEMOGLOBIN A1c (test code = 63195) 5.8 % [id number] 00:00:00 Test Item Value Reference Range Interpretation Comments TSH, THIRD GENERATION (test code 2.080 UIU/ML = 2821) [id number] 00:00:00 Test Item Value Reference Range Interpretation Comments TSH, THIRD GENERATION (test code 2.080 UIU/ML = 2821) [id number] 00:00:00 Test Item Value Reference Range Interpretation Comments TSH, THIRD GENERATION (test code 2.080 UIU/ML = 2821) COMPREHENSIVE METABOLIC [id number] 00:00:00 Test Item Value Reference Range Interpretation Comments GLUCOSE (test code = 2217) 182 MG/DL BUN (test code = 2208) 18 MG/DL CREATININE (test code = 2214) 0.71 MG/DL eGFR AMER. (test code 150 ML/MIN/1.73 = 96827) eGFR NON- AMER. (test 129 ML/MIN/1.73 code = 10393) CALC BUN/CREAT (test code = 25 RATIO [...] code = 2219) 31 U/L COMPREHENSIVE METABOLIC [id number] 00:00:00 Test Item Value Reference Range Interpretation Comments GLUCOSE (test code = 2217) 182 MG/DL BUN (test code = 2208) 18 MG/DL CREATININE (test code = 2214) 0.71 MG/DL eGFR AMER. (test code 150 ML/MIN/1.73 = 16504) eGFR NON- AMER. (test 129 ML/MIN/1.73 code = 17463) CALC BUN/CREAT (test code = 25 RATIO [...] (test code = 2219) 31 U/L LIPID [id number] 00:00:00 Test Item Value Reference Range Interpretation Comments CHOLESTEROL (test code = 2210) 217 MG/DL TRIGLYCERIDES (test code = 2232) 149 MG/DL HDL CHOLESTEROL (test code = 2220) 36 MG/DL CALC LDL CHOL (test code = 2237) 153 MG/DL RISK RATIO LDL/HDL (test code = 4.25 RATIO 2238) LIPID [id number] 00:00:00 Test Item Value Reference Range Interpretation Comments CHOLESTEROL (test code = 2210) 217 MG/DL TRIGLYCERIDES (test code = 2232) 149 MG/DL HDL CHOLESTEROL (test code = 2220) 36 MG/DL CALC LDL CHOL (test code = 2237) 153 MG/DL RISK RATIO LDL/HDL (test code = 4.25 RATIO 2238) HEMOGLOBIN [id number] 00:00:00 Test Item Value Reference Range Interpretation Comments HEMOGLOBIN A1c (test code = 99879) 5.8 % HEMOGLOBIN [id number] 00:00:00 Test Item Value Reference Range Interpretation Comments HEMOGLOBIN A1c (test code = 69057) 5.8 % HEMOGLOBIN [id number] 00:00:00 Test Item Value Reference Range Interpretation Comments HEMOGLOBIN A1c (test code = 00100) 5.8 % [id number] 00:00:00 Test Item Value Reference Range Interpretation Comments TSH, THIRD GENERATION (test code 2.080 UIU/ML = 2821) [id number] 00:00:00 Test Item Value Reference Range Interpretation Comments TSH, THIRD GENERATION (test code 2.080 UIU/ML = 2821) [id number] 00:00:00 Test Item Value Reference Range Interpretation Comments TSH, THIRD GENERATION (test code 2.080 UIU/ML = 2821) CBC W/AUTO [id number] 00:00:00 Test Item Value Reference Range Interpretation [...] code = 1015) 351 K/UL CBC W/AUTO [id number] 00:00:00 Test Item Value Reference Range Interpretation [...] code = 1015) 351 K/UL CBC W/AUTO [id number] 00:00:00 Test Item Value Reference Range Interpretation [...] (test code = 1015) 351 K/UL HEMOGLOBIN [id number] 00:00:00 Test Item Value Reference Range Interpretation Comments HEMOGLOBIN A1c (test code = 30700) 5.8 % HEMOGLOBIN [id number] 00:00:00 Test Item Value Reference Range Interpretation Comments HEMOGLOBIN A1c (test code = 52591) 5.8 % HEMOGLOBIN [id number] 00:00:00 Test Item Value Reference Range Interpretation Comments HEMOGLOBIN A1c (test code = 81988) 5.8 % LIPID [id number] 00:00:00 Test Item Value Reference Range Interpretation Comments CHOLESTEROL (test code = 2210) 210 MG/DL TRIGLYCERIDES (test code = 2232) 129 MG/DL HDL CHOLESTEROL (test code = 2220) 44 MG/DL CALC LDL CHOL (test code = 2237) 140 MG/DL RISK RATIO LDL/HDL (test code = 3.19 RATIO 2238) LIPID [id number] 00:00:00 Test Item Value Reference Range Interpretation Comments CHOLESTEROL (test code = 2210) 210 MG/DL TRIGLYCERIDES (test code = 2232) 129 MG/DL HDL CHOLESTEROL (test code = 2220) 44 MG/DL CALC LDL CHOL (test code = 2237) 140 MG/DL RISK RATIO LDL/HDL (test code = 3.19 RATIO 2238) COMPREHENSIVE METABOLIC [id number] 00:00:00 Test Item Value Reference Range Interpretation Comments GLUCOSE (test code = 2217) 100 MG/DL BUN (test code = 2208) 14 MG/DL CREATININE (test code = 2214) 0.58 MG/DL eGFR AMER. (test code 163 ML/MIN/1.73 = 42631) eGFR NON- AMER. (test 141 ML/MIN/1.73 code = 51322) CALC BUN/CREAT (test code = 24 RATIO [...] code = 2219) 38 U/L COMPREHENSIVE METABOLIC [id number] 00:00:00 Test Item Value Reference Range Interpretation Comments GLUCOSE (test code = 2217) 100 MG/DL BUN (test code = 2208) 14 MG/DL CREATININE (test code = 2214) 0.58 MG/DL eGFR AMER. (test code 163 ML/MIN/1.73 = 02663) eGFR NON- AMER. (test 141 ML/MIN/1.73 code = 83676) CALC BUN/CREAT (test code = 24 RATIO [...] ALT (test code = 2219) 38 U/L [id number] 00:00:00 Test Item Value Reference Range Interpretation Comments TSH, THIRD GENERATION (test code 5.690 UIU/ML = 2821) [id number] 00:00:00 Test Item Value Reference Range Interpretation Comments TSH, THIRD GENERATION (test code 5.690 UIU/ML = 2821) [id number] 00:00:00 Test Item Value Reference Range Interpretation Comments TSH, THIRD GENERATION (test code 5.690 UIU/ML = 2821) CBC W/AUTO [id number] 00:00:00 Test Item Value Reference Range Interpretation [...] code = 1015) 351 K/UL CBC W/AUTO [id number] 00:00:00 Test Item Value Reference Range Interpretation [...] code = 1015) 351 K/UL CBC W/AUTO [id number] 00:00:00 Test Item Value Reference Range Interpretation [...] (test code = 1015) 351 K/UL HEMOGLOBIN [id number] 00:00:00 Test Item Value Reference Range Interpretation Comments HEMOGLOBIN A1c (test code = 25959) 5.8 % HEMOGLOBIN [id number] 00:00:00 Test Item Value Reference Range Interpretation Comments HEMOGLOBIN A1c (test code = 16870) 5.8 % HEMOGLOBIN [id number] 00:00:00 Test Item Value Reference Range Interpretation Comments HEMOGLOBIN A1c (test code = 56818) 5.8 % LIPID [id number] 00:00:00 Test Item Value Reference Range Interpretation Comments CHOLESTEROL (test code = 2210) 210 MG/DL TRIGLYCERIDES (test code = 2232) 129 MG/DL HDL CHOLESTEROL (test code = 2220) 44 MG/DL CALC LDL CHOL (test code = 2237) 140 MG/DL RISK RATIO LDL/HDL (test code = 3.19 RATIO 2238) LIPID [id number] 00:00:00 Test Item Value Reference Range Interpretation Comments CHOLESTEROL (test code = 2210) 210 MG/DL TRIGLYCERIDES (test code = 2232) 129 MG/DL HDL CHOLESTEROL (test code = 2220) 44 MG/DL CALC LDL CHOL (test code = 2237) 140 MG/DL RISK RATIO LDL/HDL (test code = 3.19 RATIO 2238) COMPREHENSIVE METABOLIC [id number] 00:00:00 Test Item Value Reference Range Interpretation Comments GLUCOSE (test code = 2217) 100 MG/DL BUN (test code = 2208) 14 MG/DL CREATININE (test code = 2214) 0.58 MG/DL eGFR AMER. (test code 163 ML/MIN/1.73 = 48688) eGFR NON- AMER. (test 141 ML/MIN/1.73 code = 98005) CALC BUN/CREAT (test code = 24 RATIO [...] code = 2219) 38 U/L COMPREHENSIVE METABOLIC [id number] 00:00:00 Test Item Value Reference Range Interpretation Comments GLUCOSE (test code = 2217) 100 MG/DL BUN (test code = 2208) 14 MG/DL CREATININE (test code = 2214) 0.58 MG/DL eGFR AMER. (test code 163 ML/MIN/1.73 = 42945) eGFR NON- AMER. (test 141 ML/MIN/1.73 code = 10552) CALC BUN/CREAT (test code = 24 RATIO [...] ALT (test code = 2219) 38 U/L [id number] 00:00:00 Test Item Value Reference Range Interpretation Comments TSH, THIRD GENERATION (test code 5.690 UIU/ML = 2821) [id number] 00:00:00 Test Item Value Reference Range Interpretation Comments TSH, THIRD GENERATION (test code 5.690 UIU/ML = 2821) [id number] 00:00:00 Test Item Value Reference Range Interpretation Comments TSH, THIRD GENERATION (test code 5.690 UIU/ML = 2821) CBC W/AUTO [id number] 00:00:00 Test Item Value Reference Range Interpretation [...] code = 1015) 351 K/UL CBC W/AUTO [id number] 00:00:00 Test Item Value Reference Range Interpretation [...] code = 1015) 351 K/UL CBC W/AUTO [id number] 00:00:00 Test Item Value Reference Range Interpretation [...] (test code = 1015) 351 K/UL HEMOGLOBIN [id number] 00:00:00 Test Item Value Reference Range Interpretation Comments HEMOGLOBIN A1c (test code = 72964) 5.8 % HEMOGLOBIN [id number] 00:00:00 Test Item Value Reference Range Interpretation Comments HEMOGLOBIN A1c (test code = 72545) 5.8 % HEMOGLOBIN [id number] 00:00:00 Test Item Value Reference Range Interpretation Comments HEMOGLOBIN A1c (test code = 50908) 5.8 % LIPID [id number] 00:00:00 Test Item Value Reference Range Interpretation Comments CHOLESTEROL (test code = 2210) 210 MG/DL TRIGLYCERIDES (test code = 2232) 129 MG/DL HDL CHOLESTEROL (test code = 2220) 44 MG/DL CALC LDL CHOL (test code = 2237) 140 MG/DL RISK RATIO LDL/HDL (test code = 3.19 RATIO 2238) LIPID [id number] 00:00:00 Test Item Value Reference Range Interpretation Comments CHOLESTEROL (test code = 2210) 210 MG/DL TRIGLYCERIDES (test code = 2232) 129 MG/DL HDL CHOLESTEROL (test code = 2220) 44 MG/DL CALC LDL CHOL (test code = 2237) 140 MG/DL RISK RATIO LDL/HDL (test code = 3.19 RATIO 2238) COMPREHENSIVE METABOLIC [id number] 00:00:00 Test Item Value Reference Range Interpretation Comments GLUCOSE (test code = 2217) 100 MG/DL BUN (test code = 2208) 14 MG/DL CREATININE (test code = 2214) 0.58 MG/DL eGFR AMER. (test code 163 ML/MIN/1.73 = 04586) eGFR NON- AMER. (test 141 ML/MIN/1.73 code = 61430) CALC BUN/CREAT (test code = 24 RATIO [...] code = 2219) 38 U/L COMPREHENSIVE METABOLIC [id number] 00:00:00 Test Item Value Reference Range Interpretation Comments GLUCOSE (test code = 2217) 100 MG/DL BUN (test code = 2208) 14 MG/DL CREATININE (test code = 2214) 0.58 MG/DL eGFR AMER. (test code 163 ML/MIN/1.73 = 48759) eGFR NON- AMER. (test 141 ML/MIN/1.73 code = 88742) CALC BUN/CREAT (test code = 24 RATIO [...] ALT (test code = 2219) 38 U/L [id number] 00:00:00 Test Item Value Reference Range Interpretation Comments TSH, THIRD GENERATION (test code 5.690 UIU/ML = 2821) [id number] 00:00:00 Test Item Value Reference Range Interpretation Comments TSH, THIRD GENERATION (test code 5.690 UIU/ML = 2821) [id number] 00:00:00 Test Item Value Reference Range Interpretation Comments TSH, THIRD GENERATION (test code 5.690 UIU/ML = 2821) COMPREHENSIVE METABOLIC [id number] 00:00:00 Test Item Value Reference Range Interpretation Comments GLUCOSE (test code = 2217) 111 MG/DL BUN (test code = 2208) 17 MG/DL CREATININE (test code = 2214) 0.65 MG/DL eGFR AMER. (test code 158 ML/MIN/1.73 = 34414) eGFR NON- AMER. (test 136 ML/MIN/1.73 code = 36976) CALC BUN/CREAT (test code = 26 RATIO [...] code = 2219) 24 U/L COMPREHENSIVE METABOLIC [id number] 00:00:00 Test Item Value Reference Range Interpretation Comments GLUCOSE (test code = 2217) 111 MG/DL BUN (test code = 2208) 17 MG/DL CREATININE (test code = 2214) 0.65 MG/DL eGFR AMER. (test code 158 ML/MIN/1.73 = 59170) eGFR NON- AMER. (test 136 ML/MIN/1.73 code = 91252) CALC BUN/CREAT (test code = 26 RATIO [...] (test code = 2219) 24 U/L LIPID [id number] 00:00:00 Test Item Value Reference Range Interpretation Comments CHOLESTEROL (test code = 2210) 220 MG/DL TRIGLYCERIDES (test code = 2232) 190 MG/DL HDL CHOLESTEROL (test code = 2220) 39 MG/DL CALC LDL CHOL (test code = 2237) 143 MG/DL RISK RATIO LDL/HDL (test code = 3.67 RATIO 2238) LIPID [id number] 00:00:00 Test Item Value Reference Range Interpretation Comments CHOLESTEROL (test code = 2210) 220 MG/DL TRIGLYCERIDES (test code = 2232) 190 MG/DL HDL CHOLESTEROL (test code = 2220) 39 MG/DL CALC LDL CHOL (test code = 2237) 143 MG/DL RISK RATIO LDL/HDL (test code = 3.67 RATIO 2238) CBC W/AUTO [id number] 00:00:00 Test Item Value Reference Range Interpretation [...] code = 1015) 415 K/UL CBC W/AUTO [id number] 00:00:00 Test Item Value Reference Range Interpretation [...] code = 1015) 415 K/UL CBC W/AUTO [id number] 00:00:00 Test Item Value Reference Range Interpretation [...] (test code = 1015) 415 K/UL HEMOGLOBIN [id number] 00:00:00 Test Item Value Reference Range Interpretation Comments HEMOGLOBIN A1c (test code = 68930) 5.5 % HEMOGLOBIN [id number] 00:00:00 Test Item Value Reference Range Interpretation Comments HEMOGLOBIN A1c (test code = 67268) 5.5 % HEMOGLOBIN [id number] 00:00:00 Test Item Value Reference Range Interpretation Comments HEMOGLOBIN A1c (test code = 16552) 5.5 % [id number] 00:00:00 Test Item Value Reference Range Interpretation Comments TSH (test code = 2821) 4.260 UIU/ML [id number] 00:00:00 Test Item Value Reference Range Interpretation Comments TSH (test code = 2821) 4.260 UIU/ML [id number] 00:00:00 Test Item Value Reference Range Interpretation Comments TSH (test code = 2821) 4.260 UIU/ML COMPREHENSIVE METABOLIC [id number] 00:00:00 Test Item Value Reference Range Interpretation Comments GLUCOSE (test code = 2217) 111 MG/DL BUN (test code = 2208) 17 MG/DL CREATININE (test code = 2214) 0.65 MG/DL eGFR AMER. (test code 158 ML/MIN/1.73 = 47707) eGFR NON- AMER. (test 136 ML/MIN/1.73 code = 55606) CALC BUN/CREAT (test code = 26 RATIO [...] code = 2219) 24 U/L COMPREHENSIVE METABOLIC [id number] 00:00:00 Test Item Value Reference Range Interpretation Comments GLUCOSE (test code = 2217) 111 MG/DL BUN (test code = 2208) 17 MG/DL CREATININE (test code = 2214) 0.65 MG/DL eGFR AMER. (test code 158 ML/MIN/1.73 = 54994) eGFR NON- AMER. (test 136 ML/MIN/1.73 code = 65119) CALC BUN/CREAT (test code = 26 RATIO [...] (test code = 2219) 24 U/L LIPID [id number] 00:00:00 Test Item Value Reference Range Interpretation Comments CHOLESTEROL (test code = 2210) 220 MG/DL TRIGLYCERIDES (test code = 2232) 190 MG/DL HDL CHOLESTEROL (test code = 2220) 39 MG/DL CALC LDL CHOL (test code = 2237) 143 MG/DL RISK RATIO LDL/HDL (test code = 3.67 RATIO 2238) LIPID [id number] 00:00:00 Test Item Value Reference Range Interpretation Comments CHOLESTEROL (test code = 2210) 220 MG/DL TRIGLYCERIDES (test code = 2232) 190 MG/DL HDL CHOLESTEROL (test code = 2220) 39 MG/DL CALC LDL CHOL (test code = 2237) 143 MG/DL RISK RATIO LDL/HDL (test code = 3.67 RATIO 2238) CBC W/AUTO [id number] 00:00:00 Test Item Value Reference Range Interpretation [...] code = 1015) 415 K/UL CBC W/AUTO [id number] 00:00:00 Test Item Value Reference Range Interpretation [...] code = 1015) 415 K/UL CBC W/AUTO [id number] 00:00:00 Test Item Value Reference Range Interpretation [...] (test code = 1015) 415 K/UL HEMOGLOBIN [id number] 00:00:00 Test Item Value Reference Range Interpretation Comments HEMOGLOBIN A1c (test code = 28949) 5.5 % HEMOGLOBIN [id number] 00:00:00 Test Item Value Reference Range Interpretation Comments HEMOGLOBIN A1c (test code = 93593) 5.5 % HEMOGLOBIN [id number] 00:00:00 Test Item Value Reference Range Interpretation Comments HEMOGLOBIN A1c (test code = 29615) 5.5 % [id number] 00:00:00 Test Item Value Reference Range Interpretation Comments TSH (test code = 2821) 4.260 UIU/ML [id number] 00:00:00 Test Item Value Reference Range Interpretation Comments TSH (test code = 2821) 4.260 UIU/ML [id number] 00:00:00 Test Item Value Reference Range Interpretation Comments TSH (test code = 2821) 4.260 UIU/ML COMPREHENSIVE METABOLIC [id number] 00:00:00 Test Item Value Reference Range Interpretation Comments GLUCOSE (test code = 2217) 111 MG/DL BUN (test code = 2208) 17 MG/DL CREATININE (test code = 2214) 0.65 MG/DL eGFR AMER. (test code 158 ML/MIN/1.73 = 41180) eGFR NON- AMER. (test 136 ML/MIN/1.73 code = 79820) CALC BUN/CREAT (test code = 26 RATIO [...] code = 2219) 24 U/L COMPREHENSIVE METABOLIC [id number] 00:00:00 Test Item Value Reference Range Interpretation Comments GLUCOSE (test code = 2217) 111 MG/DL BUN (test code = 2208) 17 MG/DL CREATININE (test code = 2214) 0.65 MG/DL eGFR AMER. (test code 158 ML/MIN/1.73 = 75700) eGFR NON- AMER. (test 136 ML/MIN/1.73 code = 19953) CALC BUN/CREAT (test code = 26 RATIO [...] (test code = 2219) 24 U/L LIPID [id number] 00:00:00 Test Item Value Reference Range Interpretation Comments CHOLESTEROL (test code = 2210) 220 MG/DL TRIGLYCERIDES (test code = 2232) 190 MG/DL HDL CHOLESTEROL (test code = 2220) 39 MG/DL CALC LDL CHOL (test code = 2237) 143 MG/DL RISK RATIO LDL/HDL (test code = 3.67 RATIO 2238) LIPID [id number] 00:00:00 Test Item Value Reference Range Interpretation Comments CHOLESTEROL (test code = 2210) 220 MG/DL TRIGLYCERIDES (test code = 2232) 190 MG/DL HDL CHOLESTEROL (test code = 2220) 39 MG/DL CALC LDL CHOL (test code = 2237) 143 MG/DL RISK RATIO LDL/HDL (test code = 3.67 RATIO 2238) CBC W/AUTO [id number] 00:00:00 Test Item Value Reference Range Interpretation [...] code = 1015) 415 K/UL CBC W/AUTO [id number] 00:00:00 Test Item Value Reference Range Interpretation [...] code = 1015) 415 K/UL CBC W/AUTO [id number] 00:00:00 Test Item Value Reference Range Interpretation [...] (test code = 1015) 415 K/UL HEMOGLOBIN [id number] 00:00:00 Test Item Value Reference Range Interpretation Comments HEMOGLOBIN A1c (test code = 96171) 5.5 % HEMOGLOBIN [id number] 00:00:00 Test Item Value Reference Range Interpretation Comments HEMOGLOBIN A1c (test code = 22867) 5.5 % HEMOGLOBIN [id number] 00:00:00 Test Item Value Reference Range Interpretation Comments HEMOGLOBIN A1c (test code = 95205) 5.5 % [id number] 00:00:00 Test Item Value Reference Range Interpretation Comments TSH (test code = 2821) 4.260 UIU/ML [id number] 00:00:00 Test Item Value Reference Range Interpretation Comments TSH (test code = 2821) 4.260 UIU/ML [id number] 00:00:00 Test Item Value Reference Range Interpretation Comments TSH (test code = 2821) 4.260 UIU/ML
[2022-12-10 00:03] LABS: Absolute Lymphocytes (CBC) 2.2 K/uL (0.7-4.9); Hematocrit 41.3 % (39.6-49.0); Lymphocytes % 28.1 % (15.3-44.8); MCV 88.3 fL (80-100); MPV 6.7 fL (7.6-11.3); RBC Red Blood Cell Count 4.68 M/uL (4.33-5.43)
[2022-12-10 00:10] LABS: Potassium 4.1 mmol/L (3.5-5.1)
--- NOTE | 2022-12-10 01:34 | EDPHYS ---
Physician Documentation [facility] Name: Adam Boyce Age: 27 yrs Sex: Male : 1995 Arrival Date: 12/09/2022 Time: 23:25 Bed 5 Private MD: FIDEL Physician Timothy Decker HPI: 12/10 01:26 This 27 yrs old Male presents to ER via EMS with complaints of Low Back Pain. shanna 01:26 The patient presents with pain and decreased range of motion. The symptoms are located shanna in the low back. Historical: - Allergies: 12/09 23:29 Sulfa (Sulfonamide Antibiotics); ll3 - PMHx: 23:29 Anxiety; Arthritis; Bipolar disorder; Depression; Diabetes - NIDDM; High Cholesterol; ll3 Hypothyroidism; recovering addict (ETOH/narcotic); Sleep Apnea; - Immunization history:: Client reports receiving the 1st dose of the Covid vaccine. - Social history:: Smoking status: Patient reports the use of cigarette tobacco products, 1 1/2 PPD. ROS: 12/10 01:28 Constitutional: Negative for fever, chills, and weight loss, Eyes: Negative for injury, shanna pain, redness, and discharge, ENT: Negative for injury, pain, and discharge, Neck: Negative for injury, pain, and swelling, Cardiovascular: Negative for chest pain, palpitations, and edema, Respiratory: Negative for shortness of breath, cough, wheezing, and pleuritic chest pain, Abdomen/GI: Negative for abdominal pain, nausea, vomiting, diarrhea, and constipation, Back: Negative for injury and pain, : Negative for injury, bleeding, discharge, and swelling, MS/Extremity: Negative for injury and deformity, Neuro: Negative for headache, weakness, numbness, tingling, and seizure, Psych: Negative for depression, anxiety, suicide ideation, homicidal ideation, and hallucinations, Allergy/Immunology: Negative for hives, rash, and allergies, Endocrine: Negative for neck swelling, polydipsia, polyuria, polyphagia, and marked weight changes, Hematologic/Lymphatic: Negative for swollen nodes, abnormal bleeding, and unusual bruising. Skin: Positive for erythema, swelling, of the gluteal cleft. Exam: 01:28 Constitutional: This is a well developed, well nourished patient who is awake, alert, shanna and in no acute distress. Head/Face: Normocephalic, atraumatic. Eyes: Pupils equal round and reactive to light, extra-ocular motions intact. Lids and lashes normal. Conjunctiva and sclera are non-icteric and not injected. Cornea within normal limits. Periorbital areas with no swelling, redness, or edema. ENT: Nares patent. No nasal discharge, no septal abnormalities noted. Tympanic membranes are normal and external auditory canals are clear. Oropharynx with no redness, swelling, or masses, exudates, or evidence of obstruction, uvula midline. Mucous membranes moist. Neck: Trachea midline, no thyromegaly or masses palpated, and no cervical lymphadenopathy. Supple, full range of motion without nuchal rigidity, or vertebral point tenderness. No Meningismus. Chest/axilla: Normal chest wall appearance and motion. Nontender with no deformity. No lesions are appreciated. Cardiovascular: Regular rate and rhythm with a normal S1 and S2. No gallops, murmurs, or rubs. Normal PMI, no JVD. No pulse deficits. Respiratory: Lungs have equal breath sounds bilaterally, clear to auscultation and percussion. No rales, rhonchi or wheezes noted. No increased work of breathing, no retractions or nasal flaring. Abdomen/GI: Soft, non-tender, with normal bowel sounds. No distension or tympany. No guarding or rebound. No evidence of tenderness throughout. Back: No spinal tenderness. No costovertebral tenderness. Full range of motion. Male : Normal genitalia with no discharge or lesions. MS/ Extremity: Pulses equal, no cyanosis. Neurovascular intact. Full, normal range of motion. Neuro: Awake and alert, GCS 15, oriented to person, place, time, and situation. Cranial nerves II-XII grossly intact. Motor strength 5/5 in all extremities. Sensory grossly intact. Cerebellar exam normal. Normal gait. Psych: Awake, alert, with orientation to person, place and time. Behavior, mood, and affect are within normal limits. 01:28 Skin: Appearance: Color: normal in color, Temperature: normal temperature, Moisture: normal moisture, abscess, not appreciated, cellulitis, is not appreciated, induration, that is moderate is noted, located on the gluteal cleft, rash can be described as erythematous, excoriated. Vital Signs: 12/09 23:26 BP 132 / 61; Pulse 92; Resp 19; Temp 98.2(O); Pulse Ox 93% on R/A; Weight 172.82 kg; ll3 Height 5 ft. 1 in. (154.94 cm); Pain 9/10; 23:26 Body Mass Index 71.99 (172.82 kg, 154.94 cm) ll3 MDM: 23:48 Patient medically screened. [facility] 12/10 01:30 Differential diagnosis: cellulitis, strain. Data reviewed: vital signs, nurses notes, [facility] lab test result(s). Consideration of Admission/Observation Patient was admitted/placed on observation. Escalation of care including admission/observation considered. I considered the following discharge prescriptions or medication management in the emergency department Medications were administered in the Emergency Department. See MAR. Test considered but Not performed: X-ray: LUMBAR. Care significantly affected by the following chronic conditions: Diabetes, Obesity. Care significantly affected by the following Social Determinants of Health: Poor access to healthcare and/or lack of insurance, Poor access to transportation, Inadequate housing, Unemployment. 12/09 23:40 Order name: CBC with Diff; Complete Time: 01: [facility] 12/09 23:40 Order name: Chem 7; Complete Time: : [facility] 12/09 23:40 Order name: COVID-19/FLU A+B [facility] 12/10 01:28 Order name: Misc. Order: ZINC OXIDE PASTE; Complete Time: 01:33 shanna Administered Medications: 01:27 CANCELLED (Duplicate Order): Mycolog II Cream 1 application Topical once shanna 01:56 Not Given (Patient Refused): Zofran (Ondansetron) 4 mg IVP once; over 2 minutes ll3 01:57 Not Given (Patient Refused): morphine 4 mg IVP once over 4 mins ll3 Disposition Summary: 12/10/22 01:34 Discharge Ordered Location: Home [facility] Problem: new shanna Symptoms: have improved shanna Condition: Stable shanna Diagnosis - Dermatitis, unspecified shanna - Diaper dermatitis shanna - Obesity due to excess calories shanna - Type 2 diabetes mellitus with hyperglycemia shanna Followup: shanna - With: Private Physician - When: 2 - 3 days - Reason: Recheck today's complaints, Continuance of care, Re-evaluation by your physician Followup: shanna - With: Lakhwinder Ash MD - When: 2 - 3 days - Reason: Recheck today's complaints, Re-evaluation by your physician Discharge Instructions: - Discharge Summary Sheet shanna - Type 2 Diabetes Mellitus, Diagnosis, Adult shanna - Hyperglycemia hsanna - Rash, Adult shanna - Perianal Dermatitis, Adult shanna - How to Take a Sitz Bath shanna - Rash, Adult, [id number] shanna - Diabetes Mellitus and Nutrition, Adult shanna - Hyperglycemia, [id number] shanna - Type 2 Diabetes Mellitus, Self Care, Adult shanna - Type 2 Diabetes Mellitus, Self Care, Adult, [id number] shanna Forms: - Medication Reconciliation Form [facility] - Thank You Letter shanna - Antibiotic Education shanna - Prescription Opioid Use [facility] Prescriptions: - Zinc Oxide Diaper Cream - Apply to affected area 1 application by TOPICAL route every 4-6 hours; 120 shanna gram; Refills: 0, Product Selection Permitted Signatures: Dispatcher [employer] Timothy Barrientos MD MD cha Loubet, Lynsea RN RN ll3 Corrections: (The following items were deleted from the chart) 01:27 01:26 Mycolog II Cream 1 application Topical once ordered. shanna otero
--- NOTE | 2022-12-10 01:34 | ER ---
Nurse's Notes [facility] Name: Adam Boyce Age: 27 yrs Sex: Male : 1995 Arrival Date: 12/09/2022 Time: 23:25 Bed 5 Private MD: Diagnosis: Dermatitis, unspecified;Diaper dermatitis;Obesity due to excess calories;Type 2 diabetes mellitus with hyperglycemia Presentation: 12/09 23:26 Chief complaint: EMS states: Toned out for low back pain and N/V, pt states pain has ll3 been off and on for past 2-3 weeks, pt states "My butt hole is burning". Coronavirus screen: Vaccine status: Patient reports receiving the 1st dose of the Covid vaccine. nausea, vomiting. Ebola Screen: No symptoms or risks identified at this time. Initial Sepsis Screen: Does the patient meet any 2 criteria? No. Patient's initial sepsis screen is negative. Does the patient have a suspected source of infection? No. Patient's initial sepsis screen is negative. Risk Assessment: Do you want to hurt yourself or someone else? Patient reports no desire to harm self or others. Onset of symptoms is unknown. 23:26 Method Of Arrival: EMS: [facility] ll3 23:26 Acuity: KONG 3 ll3 23:54 Note pt ambulatory gait steady to bathroom. Triage Assessment: 23:29 General: Appears uncomfortable, Behavior is cooperative, agitated, anxious. Pain: ll3 Complains of pain in back and buttocks Pain does not radiate. Pain currently is 9 out of 10 on a pain scale. Quality of pain is described as burning, Pain began 2-3 weeks ago. Neuro: Level of Consciousness is awake, alert, obeys commands, Oriented to person, place, time, situation. Respiratory: Respiratory effort is even, unlabored, Respiratory pattern is regular, symmetrical. GI: Abdomen is round distended, Reports nausea, vomiting. Musculoskeletal: Reports pain in back. Historical: - Allergies: 23:29 Sulfa (Sulfonamide Antibiotics); ll3 - PMHx: 23:29 Anxiety; Arthritis; Bipolar disorder; Depression; Diabetes - NIDDM; High Cholesterol; ll3 Hypothyroidism; recovering addict (ETOH/narcotic); Sleep Apnea; - Immunization history:: Client reports receiving the 1st dose of the Covid vaccine. - Social history:: Smoking status: Patient reports the use of cigarette tobacco products, 1 1/2 PPD. Assessment: 23:33 General: Appears Morbidly Obese. Behavior is agitated, Smells of cigarette smoke. tw5 Vital Signs: 23:26 BP 132 / 61; Pulse 92; Resp 19; Temp 98.2(O); Pulse Ox 93% on R/A; Weight 172.82 kg; ll3 Height 5 ft. 1 in. (154.94 cm); Pain 9/10; 23:26 Body Mass Index 71.99 (172.82 kg, 154.94 cm) ll3 ED Course: 23:25 Patient arrived in ED. rv1 23:28 Triage completed. ll3 23:30 Inserted saline lock: 20 gauge in left ,using aseptic technique. shoulder Blood kl collected. 23:31 Arm band placed on Patient placed in an exam room, on a stretcher, on pulse oximetry. ll3 23:48 Timothy Decker MD is Attending Physician. shanna 23:51 COVID-19/FLU A+B Sent. kl 23:51 Chem 7 Sent. kl 23:51 CBC with Diff Sent. kl 12/10 01:32 Lakhwinder Ash MD is Referral Physician. shanna Administered Medications: 01:27 CANCELLED (Duplicate Order): Mycolog II Cream 1 application Topical once shanna 01:56 Not Given (Patient Refused): Zofran (Ondansetron) 4 mg IVP once; over 2 minutes ll3 01:57 Not Given (Patient Refused): morphine 4 mg IVP once over 4 mins ll3 Outcome: 01:34 Discharge ordered by . shanna 02:07 Patient left the ED. kl Signatures: Lauren Nunn, RN Timothy Bender MD MD cha Wood, Tiffany tw5 Maggy Calderon RN RN ll3 Tali Jones rv1
[2022-12-10] MEDS ORDERED: ONDANSETRON 4 MG/2 ML VIAL ONE (01:46)
[2022-12-10] MEDS ORDERED: MORPHINE 4 MG/ML SYR ONE (01:46)
[2022-12-10 01:50] LABS: SARS-COV-2 RT PCR NEGATIVE (NEGATIVE)
[2022-12-10 02:52] VITALS: BP 132/61; TEMP 98.2; O2SAT 93
== END 2022-12-10 02:07 | disposition home or self-care (01) ==
LOC: ER 23:22
DX: L22 Diaper dermatitis (principal); E11.65 Type 2 diabetes mellitus with hyperglycemia; E66.09 Other obesity due to excess calories; Z68.45 Body mass index [BMI] 70 or greater, adult; Z20.822 Contact with and (suspected) exposure to COVID-19; Z88.2 Allergy status to sulfonamides
CPT/HCPCS: 85025; 80048; 36415; 0240U; 99284; J2405

== ENCOUNTER 2022-12-14 00:20 | Emergency (ER) | payer OTHER ==
--- OUTSIDE RECORDS SUMMARY | 2022-12-14 00:28 | XMS REPORT | Continuity of Care Document ---
:1995 Author Organization [facility] t Address [address] [place] [address] Care Team Providers Name Role Phone Lizabeth Caruso Primary Care Physician [phone] MARTÍN Attending Clinician Unavailable Yeison Nuno Attending Clinician [phone] CARLOS_Reggie Admitting Clinician Unavailable Payers Payer Name Policy Type Policy Number Effective Date Expiration Date [facility] [id number] 2020 [facility] 00:00:00 (MEDICAID HMO) Problems This patient [...] Date Stop Date Source Heavy Tobacco Smoker [facility] Medications Ordered Filled Start Stop Current Ordering Indication Dosage Frequency Signature Comments Components Source Medication Medication Date Date Medication? Clinician (SIG) Name Name TAKE ONE 2021-11 No 300 MG 2-15 CAPSULE AND 00:00: ONE 150 MG 00 CAPSULE THREE TIMES A DAY APPLY 2021-11 No 2unit SPARINGLY 2-15 TO AFFECTED 00:00: AREA(S) 00 TWICE DAILY TAKE 2021-11 No TABLET BY 2-15 MOUTH ONCE 00:00: DAILY 00 TAKE 2021-11 No CAPSULE 2-15 TWICE 00:00: DAILY. 00 TAKE 2-1 No 5unit TABLET 2-15 DAILY. 00:00: 00 TAKE 1 2021-1 No 8unit TABLET 2-15 EVERY 00:00: MORNING. 00 TAKE 1 2021-1 No TABLET 2-15 TWICE 00:00: DAILY. 00 APPLY TO 2021-11 No GROIN RASH 2-15 TWICE A DAY 00:00: 00 TAKE 1 2021-1 No 10 TABLET BY 2-15 MOUTH 00:00: NIGHTLY 00 TAKE 1 2021-1 No 25 TABLET BY 2-15 MOUTH TWICE 00:00: A DAY 00 TAKE 1 2021-1 No 40 TABLET BY 2-15 MOUTH TWICE 00:00: A DAY 00 TAKE 2 2021-1 No 250 TABLETS BY 2-15 MOUTH TWICE 00:00: A DAY 00 INHALE 2 2021-1 No PUFFS EVERY 2-15 4 TO 6 00:00: HOURS 00 Dose 2021-1 No Unknown 2-15 00:00: 00 TAKE BY 2021-1 No 20 MOUTH 2 2-15 TABLETS 00:00: ONCE A DAY 00 FOR 5 DAYS Dose 2021-1 No Unknown 2-15 00:00: 00 TAKE 1 2021-0 No TABLET BY 8-29 MOUTH EVERY 00:00: DAY 00 TAKE 1 2021-0 No TABLET BY 8-29 MOUTH EVERY 00:00: DAY 00 TAKE 1 2021-0 No TABLET BY 8-29 MOUTH EVERY 00:00: DAY 00 TAKE 1 2021-0 No TABLET BY 8-29 MOUTH EVERY 00:00: DAY 00 levothyroxi 2-0 No 1mcg ne 75 mcg 5-26 tablet 00:00: 00 levothyroxi 2022-0 No 1mcg ne 75 mcg 5-26 tablet 00:00: 00 levothyroxi 2022-0 No 1mcg ne 75 mcg 5-26 tablet 00:00: 00 Dose 2-0 No Unknown 5-26 00:00: 00 Dose 2-0 No Unknown 3-04 00:00: 00 Dose 2-0 No Unknown 3-04 00:00: 00 Dose 2-0 No Unknown 3-04 00:00: 00 Dose 2-0 No Unknown 3-04 00:00: 00 Dose 2-0 [...] ne 75 mcg 2-28 tablet 00:00: 00 Dose 2022-0 No Unknown 2-28 00:00: 00 Dose 2022-0 No Unknown 2-28 00:00: 00 Dose 2022-0 No 40 Unknown 2-28 00:00: 00 sertraline 2022-0 No mg 50 mg 1-29 tablet 00:00: 00 sertraline 2022-0 No mg 50 mg 1-29 tablet 00:00: 00 sertraline 2022-0 No mg 50 mg 1-29 tablet 00:00: 00 Dose 2022-0 No Unknown 1-29 00:00: 00 Dose 2020-0 No Unknown 9- 00:00: 00 Dose 2020-0 No Unknown 9- 00:00: 00 Dose 2020-0 No Unknown 9- 00:00: 00 Dose 2020-0 No Unknown 9- 00:00: 00 Dose 2019- No Unknown 0-23 00:00: 00 Dose 2019- No Unknown 0-23 00:00: 00 Dose 2019- No Unknown 0-23 00:00: 00 Dose 2019- No Unknown 0-23 00:00: 00 Dose 2019- No Unknown 0-23 00:00: 00 Dose 2019- No Unknown 0-23 00:00: 00 Dose 2019- No Unknown 0-23 00:00: 00 Dose 2019- No Unknown 0-23 00:00: 00 Dose 2019- No Unknown 0-23 00:00: 00 Dose 2019- No Unknown 0-23 00:00: 00 Dose 2019- No Unknown 0-23 00:00: 00 Dose 2019- No Unknown 0-23 00:00: 00 Dose 2019- No Unknown 0-23 00:00: 00 Dose 2019- No Unknown 0-23 00:00: 00 Dose 2019-11 No Unknown 0-23 00:00: 00 Dose 2019- No Unknown 0-23 00:00: 00 Dose 2019-11 No Unknown 0-23 00:00: 00 Dose 2019-11 No Unknown 0-23 00:00: 00 Dose 2019- No Unknown 0-23 00:00: 00 Dose 2019- No Unknown 0-23 00:00: 00 hydroxyzine 2019-11 No 1mg pamoate 25 0-20 mg capsule 00:00: 00 hydroxyzine 2019-11 No 1mg pamoate 25 0-20 mg capsule 00:00: 00 hydroxyzine 2019-11 No 1mg pamoate 25 0-20 mg capsule 00:00: 00 hydroxyzine 2019-11 No 1mg pamoate 25 0-20 mg capsule 00:00: 00 Dose 2019-0 No Unknown 8-11 00:00: 00 metformin 2019-0 No 1mg 500 mg 8-11 tablet 00:00: 00 Dose 2019-0 No Unknown 8-11 00:00: 00 metformin 2019-0 No 1mg 500 mg 8-11 tablet 00:00: [...] 00:00: 0.1 % 00 topical cream prednisone 2018-1 No 1mg 20 mg 2-10 tablet 00:00: [...] 2-10 100 mg 00:00: capsule 00 triamcinolo 2018-11 No 1% ne 2-10 acetonide 00:00: 0.1 % 00 topical cream prednisone 2018- No 1mg 20 mg 2-10 tablet 00:00: 00 lisinopril 2018- No 1mg 20 2-10 mg-hydrochl 00:00: orothiazide 00 25 mg tablet doxycycline 2018- No 1mg monohydrate 2-10 100 mg 00:00: capsule 00 Medrol 2018-11 No mg (Dave) 4 mg 1-21 tablets in 00:00: a dose pack 00 ProAir HFA 2018-11 No 2mcg/ac 90 1-21 tuation mcg/actuati 00:00: on aerosol 00 inhaler Medrol 2018-11 No mg (Dave) 4 mg 1-21 tablets in 00:00: a dose pack ProAir HFA 2018-11 No 2mcg/ac 90 1-21 tuation mcg/actuati 00:00: on aerosol 00 inhaler Medrol 2018-11 No mg (Dave) 4 mg 1-21 tablets in 00:00: a dose pack 00 ProAir HFA 2018-11 No 2mcg/ac 90 1-21 tuation mcg/actuati 00:00: on aerosol 00 inhaler Medrol 2018-11 No mg (Dave) 4 mg 1-21 tablets in 00:00: a dose pack 00 ProAir HFA 2018-11 No 2mcg/ac 90 1-21 tuation mcg/actuati 00:00: on aerosol 00 inhaler bupropion 2018-11 No 1mg HCl SR 150 1-06 mg 00:00: tablet,12 00 hr sustained-r elease bupropion 2018-11 No 1mg HCl SR 150 1-06 mg 00:00: tablet,12 00 hr sustained-r elease bupropion 2018-11 No 1mg HCl SR 150 1-06 mg 00:00: tablet,12 00 hr sustained-r elease bupropion 2018-11 No 1mg HCl SR 150 1-06 mg 00:00: tablet,12 00 hr sustained-r elease levothyroxi 2018-11 No 1mcg ne 75 mcg 0-30 tablet 00:00: 00 levothyroxi 2018-11 No 1mcg ne 75 mcg 0-30 tablet 00:00: 00 levothyroxi 2018-11 No 1mcg ne 75 mcg 0-30 tablet 00:00: 00 levothyroxi 2018-11 No 1mcg ne 75 mcg 0-30 tablet 00:00: 00 metformin 2018-11 No 1mg 500 mg 0-29 tablet 00:00: 00 metformin 2018-11 No 1mg 500 mg 0-29 tablet 00:00: 00 metformin 2018-11 No 1mg 500 mg 0-29 tablet 00:00: 00 metformin 2018-11 No 1mg 500 mg 0-29 tablet 00:00: 00 levothyroxi 0 No 1mcg ne 25 mcg 7-24 tablet 00:00: 00 levothyroxi 0 No 1mcg ne 25 mcg 7-24 tablet 00:00: 00 levothyroxi No 1mcg ne 25 mcg 7-24 tablet 00:00: 00 levothyroxi No 1mcg ne 25 mcg 7-24 tablet 00:00: 00 aripiprazol aripiprazol No aripiprazo [place] e 10 mg e 10 mg le 10 mg Commu ni tablet tablet tablet [facility] aripiprazol aripiprazol No aripiprazo [place] e 2 mg e 2 mg le 2 mg Communi tablet tablet tablet [facility] atorvastati atorvastati No atorvastat [place] n 10 mg n 10 mg in 10 mg Commu ni tablet tablet tablet ty [facility] atorvastati atorvastati No atorvastat [place] n 20 mg n 20 mg in 20 mg Commu ni tablet tablet tablet [facility] hydroxyzine hydroxyzine No hydroxyzin [place] pamoate 25 pamoate 25 e pamoate [facility] mg capsule mg capsule 25 mg ty [facility] ibuprofen ibuprofen No ibuprofen [place] 800 mg 800 mg 800 mg Communi tablet tablet tablet [facility] levothyroxi levothyroxi No levothyrox [place] ne 75 mcg ne 75 mcg ine 75 mcg Communi tablet tablet tablet ty [facility] metformin metformin No metformin [place] 500 mg 500 mg 500 mg [facility]i tablet tablet tablet ty [facility] metformin metformin No metformin [place] 850 mg 850 mg 850 mg [facility]i tablet tablet tablet [facility] nicotine 14 nicotine 14 No nicotine [place] mg/24 hr mg/24 hr 14 mg/24 Com merissa daily daily hr daily ty [facility] sertraline sertraline No sertraline [place] 50 mg 50 mg 50 mg [facility] tablet tablet tablet ty [facility] trazodone trazodone No trazodone [place] 50 mg 50 mg 50 mg [facility] tablet tablet tablet [facility] Immunizations Ordered Immunization Filled Immunization Date Status Commen ts Source Name Name Kerri STOCKID-Cj 2021-12-09 Completed Vaccine 00:00:00 Kerri COVID-Cj 2021-12-09 Completed Vaccine 00:00:00 Kerri STCOKID-Cj 2021-12-09 Completed Vaccine 00:00:00 Kerri STOCKID-Cj 2021-12-09 Completed Vaccine 00:00:00 Vital Signs Vital Name Observation Time Observation Value Comments Source BP Diastolic 2021-05-15 00:00:00 74 mm[Hg] [facility] Height 2021-05-15 00:00:00 59 [in_i] [facility] s BMI (Body Mass 2021-05-15 00:00:00 59.8 kg/m2 [facility] s BP Systolic 2021-05-15 00:00:00 122 mm[Hg] [facility] s Body Weight 2021-05-15 00:00:00 4736 [oz_av] [facility] s BP Systolic 2022-12-10 15:46:00 138 mm[Hg] BP Diastolic 2022-12-10 15:46:00 88 mm[Hg] Weight Measured 2022-12-10 15:46:00 380.00 pounds Height Measured 2022-12-10 15:46:00 60.00 inches Body Temperature 2022-12-10 15:46:00 97.80 degrees Heart Rate 2022-12-10 15:46:00 100.00 /min Respiratory Rate 2022-12-10 15:46:00 18.00 /min BP Systolic 2022-09-15 14:41:00 138 mm[Hg] BP [...] Goal Plan of Care Note [code = 54989-2] Goal Plan of Care Note [code = 64949-1] Goal Plan of Care Note [code = 88166-2] Goal Plan of Care Note [code = 07211-4] Goal Plan of Care Note [code = 64032-6] Goal Plan of Care Note [code = 58183-7] Goal Plan of Care Note [code = 69330-1] Goal Plan of Care Note [code = 34987-0] Goal Plan of Care Note [code = 53122-2] Goal Plan of Care Note [code = 36185-3] Goal Plan of Care Note [code = 81898-6] Goal Plan of Care Note [code = 04842-2] Goal Plan of Care Note [code = 15653-3] Goal Plan of Care Note [code = 09465-1] Goal Plan of Care Note [code = 12915-6] Goal Plan of Care Note [code = 67933-2] Goal Plan of Care Note [code = 50129-3] Goal Plan of Care Note [code = 77578-6] Goal Plan of Care Note [code = 01727-9] Goal Plan of Care Note [code = 17466-5] Goal Plan of Care Note [code = 92686-6] Goal Plan of Care Note [code = 79436-0] Goal Plan of Care Note [code = 26285-2] Goal Plan of Care Note [code = 48313-4] Goal Plan of Care Note [code = 97707-0] Goal Plan of Care Note [code = 91318-3] Goal Plan of Care Note [code = 92656-6] Goal Plan of Care Note [code = 47546-5] Goal Plan of Care Note [code = 58932-2] Goal Plan of Care Note [code = 48253-4] Goal Plan of Care Note [code = 51547-1] Goal Plan of Care Note [code = 95073-8] Goal Plan of Care Note [code = 93942-0] Goal Plan of Care Note [code = 27848-3] Goal Plan of Care Note [code = 21947-1] Goal Plan of Care Note [code = 80904-7] Goal Plan of Care Note [code = 29772-4] Goal Plan of Care Note [code = 59782-4] Goal Plan of Care Note [code = 88748-4] Goal Plan of Care Note [code = 25022-7] Goal Plan of Care Note [code = 60726-5] Goal Plan of Care Note [code = 27763-6] Goal Plan of Care Note [code = 51527-3] Goal Plan of Care Note [code = 03085-3] Goal Plan of Care Note [code = 37130-3] Goal Plan of Care Note [code = 68046-3] Goal Plan of Care Note [code = 85967-7] Goal Plan of Care Note [code = 66977-8] Goal Plan of Care Note [code = 55055-6] Goal Plan of Care Note [code = 41059-3] Goal Plan of Care Note [code = 30495-1] Goal Plan of Care Note [code = 05263-7] Goal Plan of Care Note [code = 53732-4] Goal Plan of Care Note [code = 65720-7] Goal Plan of Care Note [code = 14371-1] Goal Plan of Care Note [code = 38964-3] Goal Plan of Care Note [code = 40242-4] Goal Plan of Care Note [code = 68288-9] Goal Plan of Care Note [code = 03482-1] Goal Plan of Care Note [code = 99940-5] Goal Plan of Care Note [code = 31936-4] Goal Plan of Care Note [code = 80755-3] Goal Plan of Care Note [code = 56534-9] Goal Plan of Care Note [code = 90509-1] Goal Plan of Care Note [code = 54465-7] Goal Plan of Care Note [code = 97390-5] Goal Plan of Care Note [code = 24460-2] Goal Plan of Care Note [code = 48846-1] Goal Plan of Care Note [code = 36465-2] Goal Plan of Care Note [code = 19282-9] Goal Plan of Care Note [code = 20829-2] Goal Plan of Care Note [code = 54691-6] Goal Plan of Care Note [code = 76334-0] Goal Plan of Care Note [code = 64122-1] Goal Plan of Care Note [code = 98809-2] Goal Plan of Care Note [code = 60518-2] Goal Plan of Care Note [code = 25046-4] Goal Plan of Care Note [code = 48081-2] Goal Plan of Care Note [code = 15439-2] Goal Plan of Care Note [code = 64922-8] Goal Plan of Care Note [code = 17817-1] Goal Plan of Care Note [code = 43824-4] Goal Plan of Care Note [code = 40521-4] Goal Plan of Care Note [code = 94550-8] Goal Plan of Care Note [code = 10319-5] Goal Plan of Care Note [code = 00116-5] Goal Plan of Care Note [code = 15875-2] Goal Plan of Care Note [code = 38632-6] Goal Plan of Care Note [code = 73864-0] Goal Plan of Care Note [code = 94234-2] Goal Plan of Care Note [code = 01335-8] Goal Plan of Care Note [code = 63842-1] Goal Plan of Care Note [code = 18401-1] Goal Plan of Care Note [code = 82765-2] Goal Plan of Care Note [code = 38121-5] Goal Plan of Care Note [code = 80420-0] Goal Plan of Care Note [code = 38780-4] Goal Plan of Care Note [code = 74558-4] Goal Plan of Care Note [code = 79415-2] Goal Plan of Care Note [code = 25547-7] Goal Plan of Care Note [code = 14352-9] Goal Plan of Care Note [code = 69630-8] Goal Plan of Care Note [code = 37705-7] Goal Plan of Care Note [code = 27188-6] Goal Plan of Care Note [code = 99310-1] Goal Plan of Care Note [code = 20051-0] Goal Plan of Care Note [code = 93502-5] Goal Plan of Care Note [code = 25780-8] Goal Plan of Care Note [code = 02512-9] Goal Plan of Care Note [code = 97879-1] Goal Plan of Care Note [code = 86381-3] Goal Plan of Care Note [code = 91356-7] Goal Plan of Care Note [code = 93595-8] Goal Plan of Care Note [code = 80200-6] Goal Plan of Care Note [code = 20264-2] Goal Plan of Care Note [code = 21059-6] Goal Plan of Care Note [code = 05982-3] Goal Plan of Care Note [code = 66171-1] Goal Plan of Care Note [code = 30710-5] Goal Plan of Care Note [code = 45913-3] Goal Plan of Care Note [code = 95684-5] Goal Plan of Care Note [code = 06440-9] Goal Plan of Care Note [code = 30421-1] Goal Plan of Care Note [code = 76070-4] Goal Plan of Care Note [code = 24939-3] Goal Plan of Care Note [code = 91567-2] Goal Plan of Care Note [code = 53924-0] Goal Plan of Care Note [code = 27407-3] Goal Plan of Care Note [code = 41977-2] Encounters Start End Encounter Admission Attending Care Care Encounter Source Date/Time Date/Time Type Type Clinicians Facility Department ID 2022-12-10 2022-12-10 Outpatient [facility] [id number] Francis 15:32:10 15:32:10 0119 F Dipak 2022-12-10 2022-12-10 Outpatient [id number] 00:00:00 00:00:00 Visit 4694-4b3e 694-4b3e-8 -55g4-479 0a3-016y09 [id number] 2022-09-15 2022-09-15 Outpatient [facility] [id number] Francis 14:31:47 14:31:47 1025 F Dipak 2022-09-15 2022-09-15 Outpatient [id number] 00:00:00 00:00:00 Visit 0059-4f45 059-4f45-a -cz3w-1v8 d9c-1y7t84 [id number] 35bdfc 2022-08-13 2022-08-13 Outpatient [id number]-z 00:00:00 00:00:00 Visit m30r-486t 48f-495a-9 -9262-3d5 262-3d5bba jznm4mucq c0cbea 2022-08-06 2022-08-06 Outpatient [id number] 00:00:00 00:00:00 Visit 6125-4ec6 125-4ec6-b -m76y-03l 35f-09fa7f [id number] 2021-05-15 2021-05-15 Outpatient KOVACEV_T [facility] [id number] [place] 11:10:00 11:10:00 06[facility] 2021-05-15 2021-05-15 Outpatient Hungsabasrosa [facility] [id number] 00:00:00 00:00:00 Yeison 021-a7d6-4 Venus [id number] 2021-05-15 2021-05-15 Yeison [facility] [place] - [facility] 00:00:00 00:00:00 Venus [facility] [address] [facility] [address], Specialty [address], [place] [address] , Ph. 2021-05-09 2021-05-09 Outpatient CARLOS_T [facility] 02:54:00 02:54:00 0618 [facility] Results Test Description Test Time Test Comments Results Result Comments Source CULTURE, ROUTINE 2022-09-21 00:00:00 Test Item Value Reference Range Interpretation Comme nts CULTURE, ROUTINE (test code = 90876) SPECIMEN NUMBER: [id number] CULTURE, [id number] 00:00:00 Test Item Value Reference Range Interpretation Comments CULTURE, ROUTINE (test SPECIMEN NUMBER: code = 31796) [id number] CULTURE, [id number] 00:00:00 Test Item Value Reference Range Interpretation Comments CULTURE, ROUTINE (test SPECIMEN NUMBER: code = 01052) [id number] COMPREHENSIVE METABOLIC [id number] 00:00:00 Test Item Value Reference Range Interpretation Comments GLUCOSE (test code = TEST NOT PERFORMED 2216) MG/DL BUN (test code = 2207) TEST NOT PERFORMED MG/DL CREATININE (test code = TEST NOT PERFORMED 2213) MG/DL eGFR (2020 CKD-EPI) TEST NOT PERFORMED (test code = 95970) ML/MIN/1.73 CALC BUN/CREAT (test TEST NOT PERFORMED code = 2234) RATIO SODIUM (test code = TEST NOT PERFORMED 2230) MEQ/L POTASSIUM (test code = TEST NOT PERFORMED 2227) MEQ/L CHLORIDE (test code = TEST NOT PERFORMED 2214) MEQ/L CARBON DIOXIDE (test TEST NOT PERFORMED code = 2205) MEQ/L CALCIUM (test code = TEST NOT PERFORMED 2208) MG/DL PROTEIN, TOTAL (test TEST NOT PERFORMED code = 2228) G/DL ALBUMIN (test code = TEST NOT PERFORMED 2200) G/DL CALC GLOBULIN (test code TEST NOT PERFORMED = 2240) G/DL CALC A/G RATIO (test TEST NOT PERFORMED code = 2234) RATIO BILIRUBIN, TOTAL (test TEST NOT PERFORMED code = 2206) MG/DL ALKALINE PHOSPHATASE TEST NOT PERFORMED (test code = 2203) U/L AST (test code = 221) TEST NOT PERFORMED U/L ALT (test code = 221) TEST NOT PERFORMED U/L COMPREHENSIVE METABOLIC [id number] 00:00:00 Test Item Value Reference Range Interpretation Comments GLUCOSE (test code = TEST NOT PERFORMED 2216) MG/DL BUN (test code = 2207) TEST NOT PERFORMED MG/DL CREATININE (test code = TEST NOT PERFORMED 2213) MG/DL eGFR (2020 CKD-EPI) TEST NOT PERFORMED (test code = 23565) ML/MIN/1.73 CALC BUN/CREAT (test TEST NOT PERFORMED code = 2234) RATIO SODIUM (test code = TEST NOT PERFORMED 2230) MEQ/L POTASSIUM (test code = TEST NOT PERFORMED 2227) MEQ/L CHLORIDE (test code = TEST NOT PERFORMED 2214) MEQ/L CARBON DIOXIDE (test TEST NOT PERFORMED code = 2205) MEQ/L CALCIUM (test code = TEST NOT PERFORMED 2208) MG/DL PROTEIN, TOTAL (test TEST NOT PERFORMED code = 2228) G/DL ALBUMIN (test code = TEST NOT PERFORMED 2200) G/DL CALC GLOBULIN (test code TEST NOT PERFORMED = 2240) G/DL CALC A/G RATIO (test TEST NOT PERFORMED code = 2234) RATIO BILIRUBIN, TOTAL (test TEST NOT PERFORMED code = 2207) MG/DL ALKALINE PHOSPHATASE TEST NOT PERFORMED (test code = 220) U/L AST (test code = 2218) TEST NOT PERFORMED U/L ALT (test code = 2219) TEST NOT PERFORMED U/L LIPID [id number] 00:00:00 Test Item Value Reference Range Interpretation Comments CHOLESTEROL (test code = TEST NOT PERFORMED 0) MG/DL TRIGLYCERIDES (test code TEST NOT PERFORMED = 2232) MG/DL HDL CHOLESTEROL (test TEST NOT PERFORMED code = 2220) MG/DL CALC LDL CHOL (test code TEST NOT PERFORMED = 2237) MG/DL RISK RATIO LDL/HDL (test TEST NOT PERFORMED code = 2238) RATIO LIPID [id number] 00:00:00 Test Item Value Reference Range Interpretation Comments CHOLESTEROL (test code = TEST NOT PERFORMED 2210) MG/DL TRIGLYCERIDES (test code TEST NOT PERFORMED = 2232) MG/DL HDL CHOLESTEROL (test TEST NOT PERFORMED code = 2220) MG/DL CALC LDL CHOL (test code TEST NOT PERFORMED = 2237) MG/DL RISK RATIO LDL/HDL (test TEST NOT PERFORMED code = 2238) RATIO TSH, THIRD [id number] 00:00:00 Test Item Value Reference Range Interpretation Comments TSH, THIRD GENERATION TEST NOT PERFORMED (test code = 2821) UIU/ML TSH, THIRD [id number] 00:00:00 Test Item Value Reference Range Interpretation Comments TSH, THIRD GENERATION TEST NOT PERFORMED (test code = 2821) UIU/ML TSH, THIRD [id number] 00:00:00 Test Item Value Reference Range Interpretation Comments TSH, THIRD GENERATION TEST NOT PERFORMED (test code = 2821) UIU/ML HEMOGLOBIN [id number] 00:00:00 Test Item Value Reference Range Interpretation Comments HEMOGLOBIN A1c (test code = 03703) 6.0 % HEMOGLOBIN [id number] 00:00:00 Test Item Value Reference Range Interpretation Comments HEMOGLOBIN A1c (test code = 22956) 6.0 % HEMOGLOBIN [id number] 00:00:00 Test Item Value Reference Range Interpretation Comments HEMOGLOBIN A1c (test code = 85092) 6.0 % CBC W/AUTO [id number] 00:00:00 Test Item Value Reference Range Interpretation Comments WBC (test code = 1001) 6.9 K/UL RBC (test code = 1002) 4.53 M/UL HEMOGLOBIN (test code = 1003) 13.1 G/DL HEMATOCRIT (test code = 1004) 41.6 % MCV (test code = 1005) 91.8 fL MCH (test code = 1006) 28.9 PG MCHC (test code = 1007) 31.5 G/DL RDW (test code = 1038) 13.1 % NEUTROPHILS (test code = 1008) 65.7 % LYMPHOCYTES (test code = 1010) 24.3 % MONOCYTES (test code = 1011) 7.9 % EOSINOPHILS (test code = 1012) 1.5 % BASOPHILS (test code = 1013) 0.3 % IMMATURE GRANULOCYTES (test 0.3 % code = 1036) NUCLEATED RBCS (test code = 0.0 /100WBC'S 1065) PLATELET COUNT (test code = 322 K/UL 1015) ABSOLUTE NEUTROPHILS (test code 4.52 K/UL = 1066) ABSOLUTE LYMPHOCYTES (test code 1.67 K/UL = 1067) ABSOLUTE MONOCYTES (test code = 0.54 K/UL 1068) ABSOLUTE EOSINOPHILS (test code 0.10 K/UL = 1040) ABSOLUTE BASOPHILS (test code = 0.02 K/UL 1069) ABS IMMATURE GRANULOCYTES (test 0.02 K/UL code = 1020) ABS NUCLEATED RBCS (test code = 0.00 K/UL 65470) CBC W/AUTO [id number] 00:00:00 Test Item Value Reference Range Interpretation Comments WBC (test code = 1001) 6.9 K/UL RBC (test code = 1002) 4.53 M/UL HEMOGLOBIN (test code = 1003) 13.1 G/DL HEMATOCRIT (test code = 1004) 41.6 % MCV (test code = 1005) 91.8 fL MCH (test code = 1006) 28.9 PG MCHC (test code = 1007) 31.5 G/DL RDW (test code = 1038) 13.1 % NEUTROPHILS (test code = 1008) 65.7 % LYMPHOCYTES (test code = 1010) 24.3 % MONOCYTES (test code = 1011) 7.9 % EOSINOPHILS (test code = 1012) 1.5 % BASOPHILS (test code = 1013) 0.3 % IMMATURE GRANULOCYTES (test 0.3 % code = 1036) NUCLEATED RBCS (test code = 0.0 /100WBC'S 1065) PLATELET COUNT (test code = 322 K/UL 1015) ABSOLUTE NEUTROPHILS (test code 4.52 K/UL = 1066) ABSOLUTE LYMPHOCYTES (test code 1.67 K/UL = 1067) ABSOLUTE MONOCYTES (test code = 0.54 K/UL 1068) ABSOLUTE EOSINOPHILS (test code 0.10 K/UL = 1040) ABSOLUTE BASOPHILS (test code = 0.02 K/UL 1069) ABS IMMATURE GRANULOCYTES (test 0.02 K/UL code = 1020) ABS NUCLEATED RBCS (test code = 0.00 K/UL 45610) CBC W/AUTO [id number] 00:00:00 Test Item Value Reference Range Interpretation Comments WBC (test code = 1001) 6.9 K/UL RBC (test code = 1002) 4.53 M/UL HEMOGLOBIN (test code = 1003) 13.1 G/DL HEMATOCRIT (test code = 1004) 41.6 % MCV (test code = 1005) 91.8 fL MCH (test code = 1006) 28.9 PG MCHC (test code = 1007) 31.5 G/DL RDW (test code = 1038) 13.1 % NEUTROPHILS (test code = 1008) 65.7 % LYMPHOCYTES (test code = 1010) 24.3 % MONOCYTES (test code = 1011) 7.9 % EOSINOPHILS (test code = 1012) 1.5 % BASOPHILS (test code = 1013) 0.3 % IMMATURE GRANULOCYTES (test 0.3 % code = 1036) NUCLEATED RBCS (test code = 0.0 /100WBC'S 1065) PLATELET COUNT (test code = 322 K/UL 1015) ABSOLUTE NEUTROPHILS (test code 4.52 K/UL = 1066) ABSOLUTE LYMPHOCYTES (test code 1.67 K/UL = 1067) ABSOLUTE MONOCYTES (test code = 0.54 K/UL 1068) ABSOLUTE EOSINOPHILS (test code 0.10 K/UL = 1040) ABSOLUTE BASOPHILS (test code = 0.02 K/UL 1069) ABS IMMATURE GRANULOCYTES (test 0.02 K/UL code = 1020) ABS NUCLEATED RBCS (test code = 0.00 K/UL 86878) HEMOGLOBIN [id number] 07:32:28 Test Item Value Reference Range Interpretation Comments HEMOGLOBIN A1c (test code = 47672) 6.3 % 4.2-5.6 H CBC W/AUTO DIFF WITH [id number] 07:05:30 Test Item Value Reference Range Interpretation [...] RBCS 0.00 K/UL 0.00-0.11 (test code = 63726) TSH, THIRD [id number] 06:43:26 Test Item Value Reference Range Interpretation Comments TSH, THIRD GENERATION (test code 3.490 UIU/ML 0.400-4.100 = 2821) COMPREHENSIVE METABOLIC [id number] 03:50:21 Test Item Value Reference Range Interpretation Comments GLUCOSE (test code = 95 MG/DL 70-99 2216) BUN (test code = 21 MG/DL 6-20 H 2207) CREATININE (test 0.59 MG/DL 0.80-1.40 L code = 2214) eGFR (2020 CKD-EPI) 136 >60 (test code = 58244) ML/MIN/1.73 CALC BUN/CREAT (test 36 RATIO 6-28 H code = 2235) SODIUM (test code = 141 MEQ/L 916-039 9586) POTASSIUM (test code 5.0 MEQ/L 3.5-5.4 = [...] message] (test code = 220) The syste [employer] which generated this result transmit yeison reference range : <=1.2. The refe rence range was not u sed to interpret th is result as normal/abnormal . ALKALINE PHOSPHATASE 137 U/L 40-115 H (test code = 2203) AST (test code = 28 U/L 9-50 2217) ALT (test code = 34 U/L 5-50 2218) LIPID [id number] 03:50:21 Test Item Value Reference Range Interpretation [...] MOREINFORMATION , SEE CLIENT ANNOUNCE MENT AT [email or web address] RISK RATIO LDL/HDL 2.56 RATIO <3.55 UNLESS O THERWISE (test code = 2238) INDICATED , ALL TESTING PERFORMED [facility], [facility]. [address] [place] [id number] [facility] CHARLIE DIRECTOR: LICHA AYON M.D. CLIA NUMBER [id number] CAP ACCREDITATION N O. [id number] HEMOGLOBIN [id number] 00:00:00 Test Item Value Reference Range Interpretation Comments HEMOGLOBIN A1c (test code = 29742) 6.3 % HEMOGLOBIN [id number] 00:00:00 Test Item Value Reference Range Interpretation Comments HEMOGLOBIN A1c (test code = 84756) 6.3 % HEMOGLOBIN [id number] 00:00:00 Test Item Value Reference Range Interpretation Comments HEMOGLOBIN A1c (test code = 59791) 6.3 % TSH, THIRD [id number] 00:00:00 Test Item Value Reference Range Interpretation Comments TSH, THIRD GENERATION (test code 3.490 UIU/ML = 2821) TSH, THIRD [id number] 00:00:00 Test Item Value Reference Range Interpretation Comments TSH, THIRD GENERATION (test code 3.490 UIU/ML = 2821) TSH, THIRD [id number] 00:00:00 Test Item Value Reference Range Interpretation Comments TSH, THIRD GENERATION (test code 3.490 UIU/ML = 2821) CBC W/AUTO [id number] 00:00:00 Test Item Value Reference Range Interpretation [...] NUCLEATED RBCS (test code = 0.00 K/UL 28650) CBC W/AUTO [id number] 00:00:00 Test Item Value Reference Range Interpretation [...] NUCLEATED RBCS (test code = 0.00 K/UL 30825) CBC W/AUTO [id number] 00:00:00 Test Item Value Reference Range Interpretation [...] NUCLEATED RBCS (test code = 0.00 K/UL 80624) COMPREHENSIVE METABOLIC [id number] 00:00:00 Test Item Value Reference Range Interpretation Comments GLUCOSE (test code = 2217) 95 MG/DL BUN (test code = 2208) 21 MG/DL CREATININE (test code = 2214) 0.59 MG/DL eGFR (2020 CKD-EPI) (test 136 ML/MIN/1.73 code = 77690) CALC BUN/CREAT (test code = 36 RATIO [...] code = 2219) 34 U/L COMPREHENSIVE METABOLIC [id number] 00:00:00 Test Item Value Reference Range Interpretation Comments GLUCOSE (test code = 2217) 95 MG/DL BUN (test code = 2208) 21 MG/DL CREATININE (test code = 2214) 0.59 MG/DL eGFR (2020 CKD-EPI) (test 136 ML/MIN/1.73 code = 13376) CALC BUN/CREAT (test code = 36 RATIO [...] (test code = 2219) 34 U/L LIPID [id number] 00:00:00 Test Item Value Reference Range Interpretation Comments CHOLESTEROL (test code = 2210) 193 MG/DL TRIGLYCERIDES (test code = 2232) 111 MG/DL HDL CHOLESTEROL (test code = 2220) 48 MG/DL CALC LDL CHOL (test code = 2237) 123 MG/DL RISK RATIO LDL/HDL (test code = 2.56 RATIO 2238) LIPID [id number] 00:00:00 Test Item Value Reference Range Interpretation Comments CHOLESTEROL (test code = 2210) 193 MG/DL TRIGLYCERIDES (test code = 2232) 111 MG/DL HDL CHOLESTEROL (test code = 2220) 48 MG/DL CALC LDL CHOL (test code = 2237) 123 MG/DL RISK RATIO LDL/HDL (test code = 2.56 RATIO 2238) HEMOGLOBIN [id number] 00:00:00 Test Item Value Reference Range Interpretation Comments HEMOGLOBIN A1c (test code = 98092) 6.3 % HEMOGLOBIN [id number] 00:00:00 Test Item Value Reference Range Interpretation Comments HEMOGLOBIN A1c (test code = 36176) 6.3 % HEMOGLOBIN [id number] 00:00:00 Test Item Value Reference Range Interpretation Comments HEMOGLOBIN A1c (test code = 76339) 6.3 % TSH, THIRD [id number] 00:00:00 Test Item Value Reference Range Interpretation Comments TSH, THIRD GENERATION (test code 3.490 UIU/ML = 2821) TSH, THIRD [id number] 00:00:00 Test Item Value Reference Range Interpretation Comments TSH, THIRD GENERATION (test code 3.490 UIU/ML = 2821) TSH, THIRD [id number] 00:00:00 Test Item Value Reference Range Interpretation Comments TSH, THIRD GENERATION (test code 3.490 UIU/ML = 2821) CBC W/AUTO [id number] 00:00:00 Test Item Value Reference Range Interpretation [...] NUCLEATED RBCS (test code = 0.00 K/UL 64033) CBC W/AUTO [id number] 00:00:00 Test Item Value Reference Range Interpretation [...] NUCLEATED RBCS (test code = 0.00 K/UL 83344) CBC W/AUTO [id number] 00:00:00 Test Item Value Reference Range Interpretation [...] NUCLEATED RBCS (test code = 0.00 K/UL 55332) COMPREHENSIVE METABOLIC [id number] 00:00:00 Test Item Value Reference Range Interpretation Comments GLUCOSE (test code = 2217) 95 MG/DL BUN (test code = 2208) 21 MG/DL CREATININE (test code = 2214) 0.59 MG/DL eGFR (2020 CKD-EPI) (test 136 ML/MIN/1.73 code = 13174) CALC BUN/CREAT (test code = 36 RATIO [...] code = 2219) 34 U/L COMPREHENSIVE METABOLIC [id number] 00:00:00 Test Item Value Reference Range Interpretation Comments GLUCOSE (test code = 2217) 95 MG/DL BUN (test code = 2208) 21 MG/DL CREATININE (test code = 2214) 0.59 MG/DL eGFR (2020 CKD-EPI) (test 136 ML/MIN/1.73 code = 48806) CALC BUN/CREAT (test code = 36 RATIO [...] (test code = 2219) 34 U/L LIPID [id number] 00:00:00 Test Item Value Reference Range Interpretation Comments CHOLESTEROL (test code = 2210) 193 MG/DL TRIGLYCERIDES (test code = 2232) 111 MG/DL HDL CHOLESTEROL (test code = 2220) 48 MG/DL CALC LDL CHOL (test code = 2237) 123 MG/DL RISK RATIO LDL/HDL (test code = 2.56 RATIO 2238) LIPID [id number] 00:00:00 Test Item Value Reference Range Interpretation Comments CHOLESTEROL (test code = 2210) 193 MG/DL TRIGLYCERIDES (test code = 2232) 111 MG/DL HDL CHOLESTEROL (test code = 2220) 48 MG/DL CALC LDL CHOL (test code = 2237) 123 MG/DL RISK RATIO LDL/HDL (test code = 2.56 RATIO 2238) HEMOGLOBIN [id number] 00:00:00 Test Item Value Reference Range Interpretation Comments HEMOGLOBIN A1c (test code = 05267) 6.3 % HEMOGLOBIN [id number] 00:00:00 Test Item Value Reference Range Interpretation Comments HEMOGLOBIN A1c (test code = 91981) 6.3 % HEMOGLOBIN [id number] 00:00:00 Test Item Value Reference Range Interpretation Comments HEMOGLOBIN A1c (test code = 86616) 6.3 % TSH, THIRD [id number] 00:00:00 Test Item Value Reference Range Interpretation Comments TSH, THIRD GENERATION (test code 3.490 UIU/ML = 2821) TSH, THIRD [id number] 00:00:00 Test Item Value Reference Range Interpretation Comments TSH, THIRD GENERATION (test code 3.490 UIU/ML = 2821) TSH, THIRD [id number] 00:00:00 Test Item Value Reference Range Interpretation Comments TSH, THIRD GENERATION (test code 3.490 UIU/ML = 2821) CBC W/AUTO [id number] 00:00:00 Test Item Value Reference Range Interpretation [...] NUCLEATED RBCS (test code = 0.00 K/UL 75157) CBC W/AUTO [id number] 00:00:00 Test Item Value Reference Range Interpretation [...] NUCLEATED RBCS (test code = 0.00 K/UL 55766) CBC W/AUTO [id number] 00:00:00 Test Item Value Reference Range Interpretation [...] NUCLEATED RBCS (test code = 0.00 K/UL 60596) COMPREHENSIVE METABOLIC [id number] 00:00:00 Test Item Value Reference Range Interpretation Comments GLUCOSE (test code = 2217) 95 MG/DL BUN (test code = 2208) 21 MG/DL CREATININE (test code = 2214) 0.59 MG/DL eGFR (2020 CKD-EPI) (test 136 ML/MIN/1.73 code = 49772) CALC BUN/CREAT (test code = 36 RATIO [...] code = 2219) 34 U/L COMPREHENSIVE METABOLIC [id number] 00:00:00 Test Item Value Reference Range Interpretation Comments GLUCOSE (test code = 2217) 95 MG/DL BUN (test code = 2208) 21 MG/DL CREATININE (test code = 2214) 0.59 MG/DL eGFR (2020 CKD-EPI) (test 136 ML/MIN/1.73 code = 75529) CALC BUN/CREAT (test code = 36 RATIO [...] (test code = 2219) 34 U/L LIPID [id number] 00:00:00 Test Item Value Reference Range Interpretation Comments CHOLESTEROL (test code = 2210) 193 MG/DL TRIGLYCERIDES (test code = 2232) 111 MG/DL HDL CHOLESTEROL (test code = 2220) 48 MG/DL CALC LDL CHOL (test code = 2237) 123 MG/DL RISK RATIO LDL/HDL (test code = 2.56 RATIO 2238) LIPID [id number] 00:00:00 Test Item Value Reference Range Interpretation [...] Comments SARS-CoV-2 INTERPRETATION Negative (test code = 82067) SOURCE (test code = 75861) Nasal_Swab_in_VTM__ UTM SARS-CoV-2 (COVID-19) by RT-PCR (HIGH RISK)2020-10-10 00:00:00 Test Item Value Reference Range Interpretation Comments SARS-CoV-2 INTERPRETATION Negative (test code = 35010) SOURCE (test code = 53210) Nasal_Swab_in_VTM__ UTM SARS-CoV-2 (COVID-19) by RT-PCR (HIGH RISK)2020-10-10 00:00:00 Test Item Value Reference Range Interpretation Comments SARS-CoV-2 INTERPRETATION Negative (test code = 47240) SOURCE (test code = 87737) Nasal_Swab_in_VTM__ UTM SARS-CoV-2 (COVID-19) by RT-PCR (HIGH RISK)2020-10-10 00:00:00 Test Item Value Reference Range Interpretation Comments SARS-CoV-2 INTERPRETATION Negative (test code = 65757) SOURCE (test code = 05926) Nasal_Swab_in_VTM__ UTM LIPID PANEL WITH REFLEX DIRECT [id number] 00:00:00 Test Item Value Reference Range Interpretation Comments CHOLESTEROL (test code = 2210) 208 MG/DL TRIGLYCERIDES (test code = 2232) 201 MG/DL HDL CHOLESTEROL (test code = 2220) 34 MG/DL CALC LDL CHOL (test code = 2237) 139 MG/DL RISK RATIO LDL/HDL (test code = 4.09 RATIO 2238) LIPID PANEL WITH REFLEX DIRECT [id number] 00:00:00 Test Item Value Reference Range Interpretation Comments CHOLESTEROL (test code = 2210) 208 MG/DL TRIGLYCERIDES (test code = 2232) 201 MG/DL HDL CHOLESTEROL (test code = 2220) 34 MG/DL CALC LDL CHOL (test code = 2237) 139 MG/DL RISK RATIO LDL/HDL (test code = 4.09 RATIO 2238) COMPREHENSIVE METABOLIC [id number] 00:00:00 Test Item Value Reference Range Interpretation Comments GLUCOSE (test code = 2217) 95 MG/DL BUN (test code = 2208) 15 MG/DL CREATININE (test code = 2214) 0.70 MG/DL eGFR AMER. (test code 151 ML/MIN/1.73 = 31538) eGFR NON- AMER. (test 130 ML/MIN/1.73 code = 82897) CALC BUN/CREAT (test code = 21 RATIO [...] ALKALINE PHOSPHATASE (test 142 U/L code = 220) AST (test code = 2218) 27 U/L ALT (test code = 2219) 37 U/L COMPREHENSIVE METABOLIC [id number] 00:00:00 Test Item Value Reference Range Interpretation Comments GLUCOSE (test code = 2217) 95 MG/DL BUN (test code = 2208) 15 MG/DL CREATININE (test code = 2214) 0.70 MG/DL eGFR AMER. (test code 151 ML/MIN/1.73 = 24375) eGFR NON- AMER. (test 130 ML/MIN/1.73 code = 75306) CALC BUN/CREAT (test code = 21 RATIO [...] 37 U/L LIPID PANEL WITH REFLEX DIRECT [id number] 00:00:00 Test Item Value Reference Range Interpretation Comments CHOLESTEROL (test code = 2210) 208 MG/DL TRIGLYCERIDES (test code = 2232) 201 MG/DL HDL CHOLESTEROL (test code = 2220) 34 MG/DL CALC LDL CHOL (test code = 2237) 139 MG/DL RISK RATIO LDL/HDL (test code = 4.09 RATIO 2238) LIPID PANEL WITH REFLEX DIRECT [id number] 00:00:00 Test Item Value Reference Range Interpretation Comments CHOLESTEROL (test code = 2210) 208 MG/DL TRIGLYCERIDES (test code = 2232) 201 MG/DL HDL CHOLESTEROL (test code = 2220) 34 MG/DL CALC LDL CHOL (test code = 2237) 139 MG/DL RISK RATIO LDL/HDL (test code = 4.09 RATIO 2238) COMPREHENSIVE METABOLIC [id number] 00:00:00 Test Item Value Reference Range Interpretation Comments GLUCOSE (test code = 2217) 95 MG/DL BUN (test code = 2208) 15 MG/DL CREATININE (test code = 2214) 0.70 MG/DL eGFR AMER. (test code 151 ML/MIN/1.73 = 61193) eGFR NON- AMER. (test 130 ML/MIN/1.73 code = 87395) CALC BUN/CREAT (test code = 21 RATIO [...] code = 2219) 37 U/L COMPREHENSIVE METABOLIC [id number] 00:00:00 Test Item Value Reference Range Interpretation Comments GLUCOSE (test code = 2217) 95 MG/DL BUN (test code = 2208) 15 MG/DL CREATININE (test code = 2214) 0.70 MG/DL eGFR AMER. (test code 151 ML/MIN/1.73 = 00021) eGFR NON- AMER. (test 130 ML/MIN/1.73 code = 05125) CALC BUN/CREAT (test code = 21 RATIO 2235) SODIUM (test code = 2231) 145 MEQ/L POTASSIUM (test code = 2228) 4.8 MEQ/L CHLORIDE (test code = 2215) 106 MEQ/L CARBON DIOXIDE (test code = 18 MEQ/L 2205) CALCIUM (test code = 2209) 9.1 MG/DL PROTEIN, TOTAL (test code = 7.0 G/DL 2228) ALBUMIN (test code = 220) 4.1 G/DL CALC GLOBULIN (test code = 2.9 G/DL 2239) CALC A/G RATIO (test code = 1.4 RATIO 2233) BILIRUBIN, TOTAL (test code = <0.2 MG/DL 2206) ALKALINE PHOSPHATASE (test 142 U/L code = 2204) AST (test code = 2218) 27 U/L ALT (test code = 2219) 37 U/L LIPID PANEL WITH REFLEX DIRECT [id number] 00:00:00 Test Item Value Reference Range Interpretation Comments CHOLESTEROL (test code = 2210) 208 MG/DL TRIGLYCERIDES (test code = 2232) 201 MG/DL HDL CHOLESTEROL (test code = 2220) 34 MG/DL CALC LDL CHOL (test code = 2237) 139 MG/DL RISK RATIO LDL/HDL (test code = 4.09 RATIO 2238) LIPID PANEL WITH REFLEX DIRECT [id number] 00:00:00 Test Item Value Reference Range Interpretation Comments CHOLESTEROL (test code = 2210) 208 MG/DL TRIGLYCERIDES (test code = 2232) 201 MG/DL HDL CHOLESTEROL (test code = 2220) 34 MG/DL CALC LDL CHOL (test code = 2237) 139 MG/DL RISK RATIO LDL/HDL (test code = 4.09 RATIO 2238) LIPID PANEL WITH REFLEX DIRECT [id number] 00:00:00 Test Item Value Reference Range Interpretation Comments CHOLESTEROL (test code = 2210) 208 MG/DL TRIGLYCERIDES (test code = 2232) 201 MG/DL HDL CHOLESTEROL (test code = 2220) 34 MG/DL CALC LDL CHOL (test code = 2237) 139 MG/DL RISK RATIO LDL/HDL (test code = 4.09 RATIO 2238) LIPID PANEL WITH REFLEX DIRECT [id number] 00:00:00 Test Item Value Reference Range Interpretation Comments CHOLESTEROL (test code = 2210) 208 MG/DL TRIGLYCERIDES (test code = 2232) 201 MG/DL HDL CHOLESTEROL (test code = 2220) 34 MG/DL CALC LDL CHOL (test code = 2237) 139 MG/DL RISK RATIO LDL/HDL (test code = 4.09 RATIO 2238) COMPREHENSIVE METABOLIC [id number] 00:00:00 Test Item Value Reference Range Interpretation Comments GLUCOSE (test code = 2217) 95 MG/DL BUN (test code = 2208) 15 MG/DL CREATININE (test code = 2214) 0.70 MG/DL eGFR AMER. (test code 151 ML/MIN/1.73 = 22133) eGFR NON- AMER. (test 130 ML/MIN/1.73 code = 94633) CALC BUN/CREAT (test code = 21 RATIO [...] code = 2219) 37 U/L COMPREHENSIVE METABOLIC [id number] 00:00:00 Test Item Value Reference Range Interpretation Comments GLUCOSE (test code = 2217) 95 MG/DL BUN (test code = 2208) 15 MG/DL CREATININE (test code = 2214) 0.70 MG/DL eGFR AMER. (test code 151 ML/MIN/1.73 = 85303) eGFR NON- AMER. (test 130 ML/MIN/1.73 code = 41014) CALC BUN/CREAT (test code = 21 RATIO [...] code = 2219) 37 U/L COMPREHENSIVE METABOLIC [id number] 00:00:00 Test Item Value Reference Range Interpretation Comments GLUCOSE (test code = 2217) 95 MG/DL BUN (test code = 2208) 15 MG/DL CREATININE (test code = 2214) 0.70 MG/DL eGFR AMER. (test code 151 ML/MIN/1.73 = 11182) eGFR NON- AMER. (test 130 ML/MIN/1.73 code = 71692) CALC BUN/CREAT (test code = 21 RATIO [...] code = 2219) 37 U/L COMPREHENSIVE METABOLIC [id number] 00:00:00 Test Item Value Reference Range Interpretation Comments GLUCOSE (test code = 2217) 95 MG/DL BUN (test code = 2208) 15 MG/DL CREATININE (test code = 2214) 0.70 MG/DL eGFR AMER. (test code 151 ML/MIN/1.73 = 94990) eGFR NON- AMER. (test 130 ML/MIN/1.73 code = 60919) CALC BUN/CREAT (test code = 21 RATIO [...] (test code = 2219) 37 U/L HEMOGLOBIN [id number] 00:00:00 Test Item Value Reference Range Interpretation Comments HEMOGLOBIN A1c (test code = 55431) 6.1 % HEMOGLOBIN [id number] 00:00:00 Test Item Value Reference Range Interpretation Comments HEMOGLOBIN A1c (test code = 99800) 6.1 % HEMOGLOBIN [id number] 00:00:00 Test Item Value Reference Range Interpretation Comments HEMOGLOBIN A1c (test code = 78934) 6.1 % [id number] 00:00:00 Test Item Value Reference Range Interpretation Comments TSH, THIRD GENERATION (test code 3.380 UIU/ML = 2821) [id number] 00:00:00 Test Item Value Reference Range Interpretation Comments TSH, THIRD GENERATION (test code 3.380 UIU/ML = 2821) [id number] 00:00:00 Test Item Value Reference Range Interpretation Comments TSH, THIRD GENERATION (test code 3.380 UIU/ML = 2821) HEMOGLOBIN [id number] 00:00:00 Test Item Value Reference Range Interpretation Comments HEMOGLOBIN A1c (test code = 17075) 6.1 % HEMOGLOBIN [id number] 00:00:00 Test Item Value Reference Range Interpretation Comments HEMOGLOBIN A1c (test code = 29967) 6.1 % HEMOGLOBIN [id number] 00:00:00 Test Item Value Reference Range Interpretation Comments HEMOGLOBIN A1c (test code = 06813) 6.1 % [id number] 00:00:00 Test Item Value Reference Range Interpretation Comments TSH, THIRD GENERATION (test code 3.380 UIU/ML = 2821) [id number] 00:00:00 Test Item Value Reference Range Interpretation Comments TSH, THIRD GENERATION (test code 3.380 UIU/ML = 2821) [id number] 00:00:00 Test Item Value Reference Range Interpretation Comments TSH, THIRD GENERATION (test code 3.380 UIU/ML = 2821) HEMOGLOBIN [id number] 00:00:00 Test Item Value Reference Range Interpretation Comments HEMOGLOBIN A1c (test code = 70969) 6.1 % HEMOGLOBIN [id number] 00:00:00 Test Item Value Reference Range Interpretation Comments HEMOGLOBIN A1c (test code = 37444) 6.1 % HEMOGLOBIN [id number] 00:00:00 Test Item Value Reference Range Interpretation Comments HEMOGLOBIN A1c (test code = 04685) 6.1 % [id number] 00:00:00 Test Item Value Reference Range Interpretation Comments TSH, THIRD GENERATION (test code 3.380 UIU/ML = 2821) [id number] 00:00:00 Test Item Value Reference Range Interpretation Comments TSH, THIRD GENERATION (test code 3.380 UIU/ML = 2821) HEMOGLOBIN [id number] 00:00:00 Test Item Value Reference Range Interpretation Comments HEMOGLOBIN A1c (test code = 71352) 6.1 % [id number] 00:00:00 Test Item Value Reference Range Interpretation Comments TSH, THIRD GENERATION (test code 3.380 UIU/ML = 2821) HEMOGLOBIN [id number] 00:00:00 Test Item Value Reference Range Interpretation Comments HEMOGLOBIN A1c (test code = 99876) 6.1 % HEMOGLOBIN [id number] 00:00:00 Test Item Value Reference Range Interpretation Comments HEMOGLOBIN A1c (test code = 15519) 6.1 % [id number] 00:00:00 Test Item Value Reference Range Interpretation Comments TSH, THIRD GENERATION (test code 3.380 UIU/ML = 2821) [id number] 00:00:00 Test Item Value Reference Range Interpretation Comments TSH, THIRD GENERATION (test code 3.380 UIU/ML = 2821) [id number] 00:00:00 Test Item Value Reference Range Interpretation Comments TSH, THIRD GENERATION (test code 3.380 UIU/ML = 2821) COMPREHENSIVE METABOLIC [id number] 00:00:00 Test Item Value Reference Range Interpretation Comments GLUCOSE (test code = 2217) 182 MG/DL BUN (test code = 2208) 18 MG/DL CREATININE (test code = 2214) 0.71 MG/DL eGFR AMER. (test code 150 ML/MIN/1.73 = 98265) eGFR NON- AMER. (test 129 ML/MIN/1.73 code = 97597) CALC BUN/CREAT (test code = 25 RATIO [...] code = 2219) 31 U/L COMPREHENSIVE METABOLIC [id number] 00:00:00 Test Item Value Reference Range Interpretation Comments GLUCOSE (test code = 2217) 182 MG/DL BUN (test code = 2208) 18 MG/DL CREATININE (test code = 2214) 0.71 MG/DL eGFR AMER. (test code 150 ML/MIN/1.73 = 00638) eGFR NON- AMER. (test 129 ML/MIN/1.73 code = 91356) CALC BUN/CREAT (test code = 25 RATIO [...] (test code = 2219) 31 U/L LIPID [id number] 00:00:00 Test Item Value Reference Range Interpretation Comments CHOLESTEROL (test code = 2210) 217 MG/DL TRIGLYCERIDES (test code = 2232) 149 MG/DL HDL CHOLESTEROL (test code = 2220) 36 MG/DL CALC LDL CHOL (test code = 2237) 153 MG/DL RISK RATIO LDL/HDL (test code = 4.25 RATIO 2238) LIPID [id number] 00:00:00 Test Item Value Reference Range Interpretation Comments CHOLESTEROL (test code = 2210) 217 MG/DL TRIGLYCERIDES (test code = 2232) 149 MG/DL HDL CHOLESTEROL (test code = 2220) 36 MG/DL CALC LDL CHOL (test code = 2237) 153 MG/DL RISK RATIO LDL/HDL (test code = 4.25 RATIO 2238) HEMOGLOBIN [id number] 00:00:00 Test Item Value Reference Range Interpretation Comments HEMOGLOBIN A1c (test code = 21724) 5.8 % HEMOGLOBIN [id number] 00:00:00 Test Item Value Reference Range Interpretation Comments HEMOGLOBIN A1c (test code = 59914) 5.8 % HEMOGLOBIN [id number] 00:00:00 Test Item Value Reference Range Interpretation Comments HEMOGLOBIN A1c (test code = 59216) 5.8 % [id number] 00:00:00 Test Item Value Reference Range Interpretation Comments TSH, THIRD GENERATION (test code 2.080 UIU/ML = 2821) [id number] 00:00:00 Test Item Value Reference Range Interpretation Comments TSH, THIRD GENERATION (test code 2.080 UIU/ML = 2821) [id number] 00:00:00 Test Item Value Reference Range Interpretation Comments TSH, THIRD GENERATION (test code 2.080 UIU/ML = 2821) COMPREHENSIVE METABOLIC [id number] 00:00:00 Test Item Value Reference Range Interpretation Comments GLUCOSE (test code = 2217) 182 MG/DL BUN (test code = 2208) 18 MG/DL CREATININE (test code = 2214) 0.71 MG/DL eGFR AMER. (test code 150 ML/MIN/1.73 = 90165) eGFR NON- AMER. (test 129 ML/MIN/1.73 code = 96379) CALC BUN/CREAT (test code = 25 RATIO [...] code = 2219) 31 U/L COMPREHENSIVE METABOLIC [id number] 00:00:00 Test Item Value Reference Range Interpretation Comments GLUCOSE (test code = 2217) 182 MG/DL BUN (test code = 2208) 18 MG/DL CREATININE (test code = 2214) 0.71 MG/DL eGFR AMER. (test code 150 ML/MIN/1.73 = 46151) eGFR NON- AMER. (test 129 ML/MIN/1.73 code = 53800) CALC BUN/CREAT (test code = 25 RATIO [...] (test code = 2219) 31 U/L LIPID [id number] 00:00:00 Test Item Value Reference Range Interpretation Comments CHOLESTEROL (test code = 2210) 217 MG/DL TRIGLYCERIDES (test code = 2232) 149 MG/DL HDL CHOLESTEROL (test code = 2220) 36 MG/DL CALC LDL CHOL (test code = 2237) 153 MG/DL RISK RATIO LDL/HDL (test code = 4.25 RATIO 2238) LIPID [id number] 00:00:00 Test Item Value Reference Range Interpretation Comments CHOLESTEROL (test code = 2210) 217 MG/DL TRIGLYCERIDES (test code = 2232) 149 MG/DL HDL CHOLESTEROL (test code = 2220) 36 MG/DL CALC LDL CHOL (test code = 2237) 153 MG/DL RISK RATIO LDL/HDL (test code = 4.25 RATIO 2238) HEMOGLOBIN [id number] 00:00:00 Test Item Value Reference Range Interpretation Comments HEMOGLOBIN A1c (test code = 69110) 5.8 % HEMOGLOBIN [id number] 00:00:00 Test Item Value Reference Range Interpretation Comments HEMOGLOBIN A1c (test code = 97122) 5.8 % HEMOGLOBIN [id number] 00:00:00 Test Item Value Reference Range Interpretation Comments HEMOGLOBIN A1c (test code = 97691) 5.8 % [id number] 00:00:00 Test Item Value Reference Range Interpretation Comments TSH, THIRD GENERATION (test code 2.080 UIU/ML = 2821) [id number] 00:00:00 Test Item Value Reference Range Interpretation Comments TSH, THIRD GENERATION (test code 2.080 UIU/ML = 2821) [id number] 00:00:00 Test Item Value Reference Range Interpretation Comments TSH, THIRD GENERATION (test code 2.080 UIU/ML = 2821) COMPREHENSIVE METABOLIC [id number] 00:00:00 Test Item Value Reference Range Interpretation Comments GLUCOSE (test code = 2217) 182 MG/DL BUN (test code = 2208) 18 MG/DL CREATININE (test code = 2214) 0.71 MG/DL eGFR AMER. (test code 150 ML/MIN/1.73 = 89765) eGFR NON- AMER. (test 129 ML/MIN/1.73 code = 44973) CALC BUN/CREAT (test code = 25 RATIO [...] RATIO 2233) BILIRUBIN, TOTAL (test code = 0.3 MG/DL 2206) ALKALINE PHOSPHATASE (test 151 U/L code = 2204) AST (test code = 2218) 23 U/L ALT (test code = 2219) 31 U/L COMPREHENSIVE METABOLIC [id number] 00:00:00 Test Item Value Reference Range Interpretation Comments GLUCOSE (test code = 2217) 182 MG/DL BUN (test code = 2208) 18 MG/DL CREATININE (test code = 2214) 0.71 MG/DL eGFR AMER. (test code 150 ML/MIN/1.73 = 64741) eGFR NON- AMER. (test 129 ML/MIN/1.73 code = 33979) CALC BUN/CREAT (test code = 25 RATIO [...] code = 2219) 31 U/L COMPREHENSIVE METABOLIC [id number] 00:00:00 Test Item Value Reference Range Interpretation Comments GLUCOSE (test code = 2217) 182 MG/DL BUN (test code = 2208) 18 MG/DL CREATININE (test code = 2214) 0.71 MG/DL eGFR AMER. (test code 150 ML/MIN/1.73 = 71144) eGFR NON- AMER. (test 129 ML/MIN/1.73 code = 94771) CALC BUN/CREAT (test code = 25 RATIO [...] code = 2219) 31 U/L COMPREHENSIVE METABOLIC [id number] 00:00:00 Test Item Value Reference Range Interpretation Comments GLUCOSE (test code = 2217) 182 MG/DL BUN (test code = 2208) 18 MG/DL CREATININE (test code = 2214) 0.71 MG/DL eGFR AMER. (test code 150 ML/MIN/1.73 = 23836) eGFR NON- AMER. (test 129 ML/MIN/1.73 code = 89567) CALC BUN/CREAT (test code = 25 RATIO [...] (test code = 2219) 31 U/L LIPID [id number] 00:00:00 Test Item Value Reference Range Interpretation Comments CHOLESTEROL (test code = 2210) 217 MG/DL TRIGLYCERIDES (test code = 2232) 149 MG/DL HDL CHOLESTEROL (test code = 2220) 36 MG/DL CALC LDL CHOL (test code = 2237) 153 MG/DL RISK RATIO LDL/HDL (test code = 4.25 RATIO 2238) LIPID [id number] 00:00:00 Test Item Value Reference Range Interpretation Comments CHOLESTEROL (test code = 2210) 217 MG/DL TRIGLYCERIDES (test code = 2232) 149 MG/DL HDL CHOLESTEROL (test code = 2220) 36 MG/DL CALC LDL CHOL (test code = 2237) 153 MG/DL RISK RATIO LDL/HDL (test code = 4.25 RATIO 2238) HEMOGLOBIN [id number] 00:00:00 Test Item Value Reference Range Interpretation Comments HEMOGLOBIN A1c (test code = 83731) 5.8 % HEMOGLOBIN [id number] 00:00:00 Test Item Value Reference Range Interpretation Comments HEMOGLOBIN A1c (test code = 34523) 5.8 % HEMOGLOBIN [id number] 00:00:00 Test Item Value Reference Range Interpretation Comments HEMOGLOBIN A1c (test code = 96961) 5.8 % [id number] 00:00:00 Test Item Value Reference Range Interpretation Comments TSH, THIRD GENERATION (test code 2.080 UIU/ML = 2821) [id number] 00:00:00 Test Item Value Reference Range Interpretation Comments TSH, THIRD GENERATION (test code 2.080 UIU/ML = 2821) [id number] 00:00:00 Test Item Value Reference Range Interpretation Comments TSH, THIRD GENERATION (test code 2.080 UIU/ML = 2821) LIPID [id number] 00:00:00 Test Item Value Reference Range Interpretation Comments CHOLESTEROL (test code = 2210) 217 MG/DL TRIGLYCERIDES (test code = 2232) 149 MG/DL HDL CHOLESTEROL (test code = 2220) 36 MG/DL CALC LDL CHOL (test code = 2237) 153 MG/DL RISK RATIO LDL/HDL (test code = 4.25 RATIO 2238) LIPID [id number] 00:00:00 Test Item Value Reference Range Interpretation Comments CHOLESTEROL (test code = 2210) 217 MG/DL TRIGLYCERIDES (test code = 2232) 149 MG/DL HDL CHOLESTEROL (test code = 2220) 36 MG/DL CALC LDL CHOL (test code = 2237) 153 MG/DL RISK RATIO LDL/HDL (test code = 4.25 RATIO 2238) HEMOGLOBIN [id number] 00:00:00 Test Item Value Reference Range Interpretation Comments HEMOGLOBIN A1c (test code = 00514) 5.8 % HEMOGLOBIN [id number] 00:00:00 Test Item Value Reference Range Interpretation Comments HEMOGLOBIN A1c (test code = 34366) 5.8 % HEMOGLOBIN [id number] 00:00:00 Test Item Value Reference Range Interpretation Comments HEMOGLOBIN A1c (test code = 02573) 5.8 % [id number] 00:00:00 Test Item Value Reference Range Interpretation Comments TSH, THIRD GENERATION (test code 2.080 UIU/ML = 2821) [id number] 00:00:00 Test Item Value Reference Range Interpretation Comments TSH, THIRD GENERATION (test code 2.080 UIU/ML = 2821) [id number] 00:00:00 Test Item Value Reference Range Interpretation Comments TSH, THIRD GENERATION (test code 2.080 UIU/ML = 2821) CBC W/AUTO [id number] 00:00:00 Test Item Value Reference Range Interpretation [...] code = 1015) 351 K/UL CBC W/AUTO [id number] 00:00:00 Test Item Value Reference Range Interpretation [...] code = 1015) 351 K/UL CBC W/AUTO [id number] 00:00:00 Test Item Value Reference Range Interpretation [...] (test code = 1015) 351 K/UL HEMOGLOBIN [id number] 00:00:00 Test Item Value Reference Range Interpretation Comments HEMOGLOBIN A1c (test code = 22783) 5.8 % HEMOGLOBIN [id number] 00:00:00 Test Item Value Reference Range Interpretation Comments HEMOGLOBIN A1c (test code = 04220) 5.8 % HEMOGLOBIN [id number] 00:00:00 Test Item Value Reference Range Interpretation Comments HEMOGLOBIN A1c (test code = 95762) 5.8 % LIPID [id number] 00:00:00 Test Item Value Reference Range Interpretation Comments CHOLESTEROL (test code = 2210) 210 MG/DL TRIGLYCERIDES (test code = 2232) 129 MG/DL HDL CHOLESTEROL (test code = 2220) 44 MG/DL CALC LDL CHOL (test code = 2237) 140 MG/DL RISK RATIO LDL/HDL (test code = 3.19 RATIO 2238) LIPID [id number] 00:00:00 Test Item Value Reference Range Interpretation Comments CHOLESTEROL (test code = 2210) 210 MG/DL TRIGLYCERIDES (test code = 2232) 129 MG/DL HDL CHOLESTEROL (test code = 2220) 44 MG/DL CALC LDL CHOL (test code = 2237) 140 MG/DL RISK RATIO LDL/HDL (test code = 3.19 RATIO 2238) COMPREHENSIVE METABOLIC [id number] 00:00:00 Test Item Value Reference Range Interpretation Comments GLUCOSE (test code = 2217) 100 MG/DL BUN (test code = 2208) 14 MG/DL CREATININE (test code = 2214) 0.58 MG/DL eGFR AMER. (test code 163 ML/MIN/1.73 = 53861) eGFR NON- AMER. (test 141 ML/MIN/1.73 code = 38413) CALC BUN/CREAT (test code = 24 RATIO [...] code = 2219) 38 U/L COMPREHENSIVE METABOLIC [id number] 00:00:00 Test Item Value Reference Range Interpretation Comments GLUCOSE (test code = 2217) 100 MG/DL BUN (test code = 2208) 14 MG/DL CREATININE (test code = 2214) 0.58 MG/DL eGFR AMER. (test code 163 ML/MIN/1.73 = 78123) eGFR NON- AMER. (test 141 ML/MIN/1.73 code = 11862) CALC BUN/CREAT (test code = 24 RATIO [...] ALT (test code = 2219) 38 U/L [id number] 00:00:00 Test Item Value Reference Range Interpretation Comments TSH, THIRD GENERATION (test code 5.690 UIU/ML = 2821) [id number] 00:00:00 Test Item Value Reference Range Interpretation Comments TSH, THIRD GENERATION (test code 5.690 UIU/ML = 2821) [id number] 00:00:00 Test Item Value Reference Range Interpretation Comments TSH, THIRD GENERATION (test code 5.690 UIU/ML = 2821) CBC W/AUTO [id number] 00:00:00 Test Item Value Reference Range Interpretation [...] code = 1015) 351 K/UL CBC W/AUTO [id number] 00:00:00 Test Item Value Reference Range Interpretation [...] code = 1015) 351 K/UL CBC W/AUTO [id number] 00:00:00 Test Item Value Reference Range Interpretation [...] (test code = 1015) 351 K/UL HEMOGLOBIN [id number] 00:00:00 Test Item Value Reference Range Interpretation Comments HEMOGLOBIN A1c (test code = 85289) 5.8 % HEMOGLOBIN [id number] 00:00:00 Test Item Value Reference Range Interpretation Comments HEMOGLOBIN A1c (test code = 33937) 5.8 % HEMOGLOBIN [id number] 00:00:00 Test Item Value Reference Range Interpretation Comments HEMOGLOBIN A1c (test code = 95275) 5.8 % LIPID [id number] 00:00:00 Test Item Value Reference Range Interpretation Comments CHOLESTEROL (test code = 2210) 210 MG/DL TRIGLYCERIDES (test code = 2232) 129 MG/DL HDL CHOLESTEROL (test code = 2220) 44 MG/DL CALC LDL CHOL (test code = 2237) 140 MG/DL RISK RATIO LDL/HDL (test code = 3.19 RATIO 2238) LIPID [id number] 00:00:00 Test Item Value Reference Range Interpretation Comments CHOLESTEROL (test code = 2210) 210 MG/DL TRIGLYCERIDES (test code = 2232) 129 MG/DL HDL CHOLESTEROL (test code = 2220) 44 MG/DL CALC LDL CHOL (test code = 2237) 140 MG/DL RISK RATIO LDL/HDL (test code = 3.19 RATIO 2238) COMPREHENSIVE METABOLIC [id number] 00:00:00 Test Item Value Reference Range Interpretation Comments GLUCOSE (test code = 2217) 100 MG/DL BUN (test code = 2208) 14 MG/DL CREATININE (test code = 2214) 0.58 MG/DL eGFR AMER. (test code 163 ML/MIN/1.73 = 35666) eGFR NON- AMER. (test 141 ML/MIN/1.73 code = 21648) CALC BUN/CREAT (test code = 24 RATIO [...] code = 2219) 38 U/L COMPREHENSIVE METABOLIC [id number] 00:00:00 Test Item Value Reference Range Interpretation Comments GLUCOSE (test code = 2217) 100 MG/DL BUN (test code = 2208) 14 MG/DL CREATININE (test code = 2214) 0.58 MG/DL eGFR AMER. (test code 163 ML/MIN/1.73 = 80795) eGFR NON- AMER. (test 141 ML/MIN/1.73 code = 12811) CALC BUN/CREAT (test code = 24 RATIO [...] ALT (test code = 2219) 38 U/L [id number] 00:00:00 Test Item Value Reference Range Interpretation Comments TSH, THIRD GENERATION (test code 5.690 UIU/ML = 2821) [id number] 00:00:00 Test Item Value Reference Range Interpretation Comments TSH, THIRD GENERATION (test code 5.690 UIU/ML = 2821) [id number] 00:00:00 Test Item Value Reference Range Interpretation Comments TSH, THIRD GENERATION (test code 5.690 UIU/ML = 2821) CBC W/AUTO [id number] 00:00:00 Test Item Value Reference Range Interpretation [...] code = 1015) 351 K/UL CBC W/AUTO [id number] 00:00:00 Test Item Value Reference Range Interpretation [...] code = 1015) 351 K/UL CBC W/AUTO [id number] 00:00:00 Test Item Value Reference Range Interpretation [...] code = 1015) 351 K/UL CBC W/AUTO [id number] 00:00:00 Test Item Value Reference Range Interpretation [...] code = 1015) 351 K/UL CBC W/AUTO [id number] 00:00:00 Test Item Value Reference Range Interpretation [...] (test code = 1015) 351 K/UL HEMOGLOBIN [id number] 00:00:00 Test Item Value Reference Range Interpretation Comments HEMOGLOBIN A1c (test code = 89313) 5.8 % HEMOGLOBIN [id number] 00:00:00 Test Item Value Reference Range Interpretation Comments HEMOGLOBIN A1c (test code = 85806) 5.8 % HEMOGLOBIN [id number] 00:00:00 Test Item Value Reference Range Interpretation Comments HEMOGLOBIN A1c (test code = 12091) 5.8 % LIPID [id number] 00:00:00 Test Item Value Reference Range Interpretation Comments CHOLESTEROL (test code = 2210) 210 MG/DL TRIGLYCERIDES (test code = 2232) 129 MG/DL HDL CHOLESTEROL (test code = 2220) 44 MG/DL CALC LDL CHOL (test code = 2237) 140 MG/DL RISK RATIO LDL/HDL (test code = 3.19 RATIO 2238) CBC W/AUTO [id number] 00:00:00 Test Item Value Reference Range Interpretation [...] COUNT (test code = 1015) 351 K/UL LIPID [id number] 00:00:00 Test Item Value Reference Range Interpretation Comments CHOLESTEROL (test code = 2210) 210 MG/DL TRIGLYCERIDES (test code = 2232) 129 MG/DL HDL CHOLESTEROL (test code = 2220) 44 MG/DL CALC LDL CHOL (test code = 2237) 140 MG/DL RISK RATIO LDL/HDL (test code = 3.19 RATIO 2238) COMPREHENSIVE METABOLIC [id number] 00:00:00 Test Item Value Reference Range Interpretation Comments GLUCOSE (test code = 2217) 100 MG/DL BUN (test code = 2208) 14 MG/DL CREATININE (test code = 2214) 0.58 MG/DL eGFR AMER. (test code 163 ML/MIN/1.73 = 25775) eGFR NON- AMER. (test 141 ML/MIN/1.73 code = 89505) CALC BUN/CREAT (test code = 24 RATIO [...] code = 2219) 38 U/L COMPREHENSIVE METABOLIC [id number] 00:00:00 Test Item Value Reference Range Interpretation Comments GLUCOSE (test code = 2217) 100 MG/DL BUN (test code = 2208) 14 MG/DL CREATININE (test code = 2214) 0.58 MG/DL eGFR AMER. (test code 163 ML/MIN/1.73 = 58291) eGFR NON- AMER. (test 141 ML/MIN/1.73 code = 60767) CALC BUN/CREAT (test code = 24 RATIO 2235) SODIUM (test code = 2231) 140 MEQ/L POTASSIUM (test code = 2228) 4.7 MEQ/L CHLORIDE (test code = 2215) 100 MEQ/L CARBON DIOXIDE (test code = 27 MEQ/L 2205) CALCIUM (test code = 2209) 9.3 MG/DL PROTEIN, TOTAL (test code = 7.1 G/DL 2228) ALBUMIN (test code = 220) 4.2 G/DL CALC GLOBULIN (test code = 2.9 G/DL 2239) CALC A/G RATIO (test code = 1.4 RATIO 2233) BILIRUBIN, TOTAL (test code = <0.2 MG/DL 2206) ALKALINE PHOSPHATASE (test 144 U/L code = 2204) AST (test code = 2218) 26 U/L ALT (test code = 2219) 38 U/L [id number] 00:00:00 Test Item Value Reference Range Interpretation Comments TSH, THIRD GENERATION (test code 5.690 UIU/ML = 2821) [id number] 00:00:00 Test Item Value Reference Range Interpretation Comments TSH, THIRD GENERATION (test code 5.690 UIU/ML = 2821) [id number] 00:00:00 Test Item Value Reference Range Interpretation Comments TSH, THIRD GENERATION (test code 5.690 UIU/ML = 2821) HEMOGLOBIN [id number] 00:00:00 Test Item Value Reference Range Interpretation Comments HEMOGLOBIN A1c (test code = 13244) 5.8 % HEMOGLOBIN [id number] 00:00:00 Test Item Value Reference Range Interpretation Comments HEMOGLOBIN A1c (test code = 83188) 5.8 % HEMOGLOBIN [id number] 00:00:00 Test Item Value Reference Range Interpretation Comments HEMOGLOBIN A1c (test code = 52041) 5.8 % LIPID [id number] 00:00:00 Test Item Value Reference Range Interpretation Comments CHOLESTEROL (test code = 2210) 210 MG/DL TRIGLYCERIDES (test code = 2232) 129 MG/DL HDL CHOLESTEROL (test code = 2220) 44 MG/DL CALC LDL CHOL (test code = 2237) 140 MG/DL RISK RATIO LDL/HDL (test code = 3.19 RATIO 2238) LIPID [id number] 00:00:00 Test Item Value Reference Range Interpretation Comments CHOLESTEROL (test code = 2210) 210 MG/DL TRIGLYCERIDES (test code = 2232) 129 MG/DL HDL CHOLESTEROL (test code = 2220) 44 MG/DL CALC LDL CHOL (test code = 2237) 140 MG/DL RISK RATIO LDL/HDL (test code = 3.19 RATIO 2238) COMPREHENSIVE METABOLIC [id number] 00:00:00 Test Item Value Reference Range Interpretation Comments GLUCOSE (test code = 2217) 100 MG/DL BUN (test code = 2208) 14 MG/DL CREATININE (test code = 2214) 0.58 MG/DL eGFR AMER. (test code 163 ML/MIN/1.73 = 56008) eGFR NON- AMER. (test 141 ML/MIN/1.73 code = 70678) CALC BUN/CREAT (test code = 24 RATIO [...] code = 2219) 38 U/L COMPREHENSIVE METABOLIC [id number] 00:00:00 Test Item Value Reference Range Interpretation Comments GLUCOSE (test code = 2217) 100 MG/DL BUN (test code = 2208) 14 MG/DL CREATININE (test code = 2214) 0.58 MG/DL eGFR AMER. (test code 163 ML/MIN/1.73 = 95345) eGFR NON- AMER. (test 141 ML/MIN/1.73 code = 11588) CALC BUN/CREAT (test code = 24 RATIO [...] ALT (test code = 2219) 38 U/L [id number] 00:00:00 Test Item Value Reference Range Interpretation Comments TSH, THIRD GENERATION (test code 5.690 UIU/ML = 2821) [id number] 00:00:00 Test Item Value Reference Range Interpretation Comments TSH, THIRD GENERATION (test code 5.690 UIU/ML = 2821) [id number] 00:00:00 Test Item Value Reference Range Interpretation Comments TSH, THIRD GENERATION (test code 5.690 UIU/ML = 2821) COMPREHENSIVE METABOLIC [id number] 00:00:00 Test Item Value Reference Range Interpretation Comments GLUCOSE (test code = 2217) 111 MG/DL BUN (test code = 2208) 17 MG/DL CREATININE (test code = 2214) 0.65 MG/DL eGFR AMER. (test code 158 ML/MIN/1.73 = 74929) eGFR NON- AMER. (test 136 ML/MIN/1.73 code = 02853) CALC BUN/CREAT (test code = 26 RATIO [...] code = 2219) 24 U/L COMPREHENSIVE METABOLIC [id number] 00:00:00 Test Item Value Reference Range Interpretation Comments GLUCOSE (test code = 2217) 111 MG/DL BUN (test code = 2208) 17 MG/DL CREATININE (test code = 2214) 0.65 MG/DL eGFR AMER. (test code 158 ML/MIN/1.73 = 37432) eGFR NON- AMER. (test 136 ML/MIN/1.73 code = 00004) CALC BUN/CREAT (test code = 26 RATIO [...] (test code = 2219) 24 U/L LIPID [id number] 00:00:00 Test Item Value Reference Range Interpretation Comments CHOLESTEROL (test code = 2210) 220 MG/DL TRIGLYCERIDES (test code = 2232) 190 MG/DL HDL CHOLESTEROL (test code = 2220) 39 MG/DL CALC LDL CHOL (test code = 2237) 143 MG/DL RISK RATIO LDL/HDL (test code = 3.67 RATIO 2238) LIPID [id number] 00:00:00 Test Item Value Reference Range Interpretation Comments CHOLESTEROL (test code = 2210) 220 MG/DL TRIGLYCERIDES (test code = 2232) 190 MG/DL HDL CHOLESTEROL (test code = 2220) 39 MG/DL CALC LDL CHOL (test code = 2237) 143 MG/DL RISK RATIO LDL/HDL (test code = 3.67 RATIO 2238) CBC W/AUTO [id number] 00:00:00 Test Item Value Reference Range Interpretation [...] code = 1015) 415 K/UL CBC W/AUTO [id number] 00:00:00 Test Item Value Reference Range Interpretation [...] code = 1015) 415 K/UL CBC W/AUTO [id number] 00:00:00 Test Item Value Reference Range Interpretation [...] (test code = 1015) 415 K/UL HEMOGLOBIN [id number] 00:00:00 Test Item Value Reference Range Interpretation Comments HEMOGLOBIN A1c (test code = 68103) 5.5 % HEMOGLOBIN [id number] 00:00:00 Test Item Value Reference Range Interpretation Comments HEMOGLOBIN A1c (test code = 99619) 5.5 % HEMOGLOBIN [id number] 00:00:00 Test Item Value Reference Range Interpretation Comments HEMOGLOBIN A1c (test code = 21886) 5.5 % [id number] 00:00:00 Test Item Value Reference Range Interpretation Comments TSH (test code = 2821) 4.260 UIU/ML [id number] 00:00:00 Test Item Value Reference Range Interpretation Comments TSH (test code = 2821) 4.260 UIU/ML [id number] 00:00:00 Test Item Value Reference Range Interpretation Comments TSH (test code = 2821) 4.260 UIU/ML COMPREHENSIVE METABOLIC [id number] 00:00:00 Test Item Value Reference Range Interpretation Comments GLUCOSE (test code = 2217) 111 MG/DL BUN (test code = 2208) 17 MG/DL CREATININE (test code = 2214) 0.65 MG/DL eGFR AMER. (test code 158 ML/MIN/1.73 = 48217) eGFR NON- AMER. (test 136 ML/MIN/1.73 code = 11697) CALC BUN/CREAT (test code = 26 RATIO [...] code = 2219) 24 U/L COMPREHENSIVE METABOLIC [id number] 00:00:00 Test Item Value Reference Range Interpretation Comments GLUCOSE (test code = 2217) 111 MG/DL BUN (test code = 2208) 17 MG/DL CREATININE (test code = 2214) 0.65 MG/DL eGFR AMER. (test code 158 ML/MIN/1.73 = 30303) eGFR NON- AMER. (test 136 ML/MIN/1.73 code = 61349) CALC BUN/CREAT (test code = 26 RATIO [...] BILIRUBIN, TOTAL (test code = 0.1 MG/DL 7) ALKALINE PHOSPHATASE (test 120 U/L code = 2204) AST (test code = 2218) 21 U/L ALT (test code = 2219) 24 U/L LIPID [id number] 00:00:00 Test Item Value Reference Range Interpretation Comments CHOLESTEROL (test code = 2210) 220 MG/DL TRIGLYCERIDES (test code = 2232) 190 MG/DL HDL CHOLESTEROL (test code = 2220) 39 MG/DL CALC LDL CHOL (test code = 2237) 143 MG/DL RISK RATIO LDL/HDL (test code = 3.67 RATIO 2238) LIPID [id number] 00:00:00 Test Item Value Reference Range Interpretation Comments CHOLESTEROL (test code = 2210) 220 MG/DL TRIGLYCERIDES (test code = 2232) 190 MG/DL HDL CHOLESTEROL (test code = 2220) 39 MG/DL CALC LDL CHOL (test code = 2237) 143 MG/DL RISK RATIO LDL/HDL (test code = 3.67 RATIO 2238) CBC W/AUTO [id number] 00:00:00 Test Item Value Reference Range Interpretation [...] code = 1015) 415 K/UL CBC W/AUTO [id number] 00:00:00 Test Item Value Reference Range Interpretation [...] code = 1015) 415 K/UL CBC W/AUTO [id number] 00:00:00 Test Item Value Reference Range Interpretation [...] (test code = 1015) 415 K/UL HEMOGLOBIN [id number] 00:00:00 Test Item Value Reference Range Interpretation Comments HEMOGLOBIN A1c (test code = 25461) 5.5 % HEMOGLOBIN [id number] 00:00:00 Test Item Value Reference Range Interpretation Comments HEMOGLOBIN A1c (test code = 66951) 5.5 % HEMOGLOBIN [id number] 00:00:00 Test Item Value Reference Range Interpretation Comments HEMOGLOBIN A1c (test code = 02094) 5.5 % [id number] 00:00:00 Test Item Value Reference Range Interpretation Comments TSH (test code = 2821) 4.260 UIU/ML [id number] 00:00:00 Test Item Value Reference Range Interpretation Comments TSH (test code = 2821) 4.260 UIU/ML [id number] 00:00:00 Test Item Value Reference Range Interpretation Comments TSH (test code = 2821) 4.260 UIU/ML COMPREHENSIVE METABOLIC [id number] 00:00:00 Test Item Value Reference Range Interpretation Comments GLUCOSE (test code = 2217) 111 MG/DL BUN (test code = 2208) 17 MG/DL CREATININE (test code = 2214) 0.65 MG/DL eGFR AMER. (test code 158 ML/MIN/1.73 = 84137) eGFR NON- AMER. (test 136 ML/MIN/1.73 code = 20094) CALC BUN/CREAT (test code = 26 RATIO [...] code = 2219) 24 U/L COMPREHENSIVE METABOLIC [id number] 00:00:00 Test Item Value Reference Range Interpretation Comments GLUCOSE (test code = 2217) 111 MG/DL BUN (test code = 2208) 17 MG/DL CREATININE (test code = 2214) 0.65 MG/DL eGFR AMER. (test code 158 ML/MIN/1.73 = 28767) eGFR NON- AMER. (test 136 ML/MIN/1.73 code = 35168) CALC BUN/CREAT (test code = 26 RATIO [...] BILIRUBIN, TOTAL (test code = 0.1 MG/DL 7) ALKALINE PHOSPHATASE (test 120 U/L code = 2204) AST (test code = 2218) 21 U/L ALT (test code = 2219) 24 U/L COMPREHENSIVE METABOLIC [id number] 00:00:00 Test Item Value Reference Range Interpretation Comments GLUCOSE (test code = 2217) 111 MG/DL BUN (test code = 2208) 17 MG/DL CREATININE (test code = 2214) 0.65 MG/DL eGFR AMER. (test code 158 ML/MIN/1.73 = 18643) eGFR NON- AMER. (test 136 ML/MIN/1.73 code = 68053) CALC BUN/CREAT (test code = 26 RATIO [...] code = 2219) 24 U/L COMPREHENSIVE METABOLIC [id number] 00:00:00 Test Item Value Reference Range Interpretation Comments GLUCOSE (test code = 2217) 111 MG/DL BUN (test code = 2208) 17 MG/DL CREATININE (test code = 2214) 0.65 MG/DL eGFR AMER. (test code 158 ML/MIN/1.73 = 09722) eGFR NON- AMER. (test 136 ML/MIN/1.73 code = 25899) CALC BUN/CREAT (test code = 26 RATIO [...] (test code = 2219) 24 U/L LIPID [id number] 00:00:00 Test Item Value Reference Range Interpretation Comments CHOLESTEROL (test code = 2210) 220 MG/DL TRIGLYCERIDES (test code = 2232) 190 MG/DL HDL CHOLESTEROL (test code = 2220) 39 MG/DL CALC LDL CHOL (test code = 2237) 143 MG/DL RISK RATIO LDL/HDL (test code = 3.67 RATIO 2238) LIPID [id number] 00:00:00 Test Item Value Reference Range Interpretation Comments CHOLESTEROL (test code = 2210) 220 MG/DL TRIGLYCERIDES (test code = 2232) 190 MG/DL HDL CHOLESTEROL (test code = 2220) 39 MG/DL CALC LDL CHOL (test code = 2237) 143 MG/DL RISK RATIO LDL/HDL (test code = 3.67 RATIO 2238) CBC W/AUTO [id number] 00:00:00 Test Item Value Reference Range Interpretation [...] code = 1015) 415 K/UL CBC W/AUTO [id number] 00:00:00 Test Item Value Reference Range Interpretation [...] code = 1015) 415 K/UL CBC W/AUTO [id number] 00:00:00 Test Item Value Reference Range Interpretation [...] (test code = 1015) 415 K/UL HEMOGLOBIN [id number] 00:00:00 Test Item Value Reference Range Interpretation Comments HEMOGLOBIN A1c (test code = 22734) 5.5 % HEMOGLOBIN [id number] 00:00:00 Test Item Value Reference Range Interpretation Comments HEMOGLOBIN A1c (test code = 72343) 5.5 % HEMOGLOBIN [id number] 00:00:00 Test Item Value Reference Range Interpretation Comments HEMOGLOBIN A1c (test code = 32436) 5.5 % [id number] 00:00:00 Test Item Value Reference Range Interpretation Comments TSH (test code = 2821) 4.260 UIU/ML LIPID [id number] 00:00:00 Test Item Value Reference Range Interpretation Comments CHOLESTEROL (test code = 2210) 220 MG/DL TRIGLYCERIDES (test code = 2232) 190 MG/DL HDL CHOLESTEROL (test code = 2220) 39 MG/DL CALC LDL CHOL (test code = 2237) 143 MG/DL RISK RATIO LDL/HDL (test code = 3.67 RATIO 2238) [id number] 00:00:00 Test Item Value Reference Range Interpretation Comments TSH (test code = 2821) 4.260 UIU/ML [id number] 00:00:00 Test Item Value Reference Range Interpretation Comments TSH (test code = 2821) 4.260 UIU/ML LIPID [id number] 00:00:00 Test Item Value Reference Range Interpretation Comments CHOLESTEROL (test code = 2210) 220 MG/DL TRIGLYCERIDES (test code = 2232) 190 MG/DL HDL CHOLESTEROL (test code = 2220) 39 MG/DL CALC LDL CHOL (test code = 2237) 143 MG/DL RISK RATIO LDL/HDL (test code = 3.67 RATIO 2238) CBC W/AUTO [id number] 00:00:00 Test Item Value Reference Range Interpretation [...] code = 1015) 415 K/UL CBC W/AUTO [id number] 00:00:00 Test Item Value Reference Range Interpretation [...] code = 1015) 415 K/UL CBC W/AUTO [id number] 00:00:00 Test Item Value Reference Range Interpretation [...] (test code = 1015) 415 K/UL HEMOGLOBIN [id number] 00:00:00 Test Item Value Reference Range Interpretation Comments HEMOGLOBIN A1c (test code = 05373) 5.5 % HEMOGLOBIN [id number] 00:00:00 Test Item Value Reference Range Interpretation Comments HEMOGLOBIN A1c (test code = 53341) 5.5 % HEMOGLOBIN [id number] 00:00:00 Test Item Value Reference Range Interpretation Comments HEMOGLOBIN A1c (test code = 55244) 5.5 % [id number] 00:00:00 Test Item Value Reference Range Interpretation Comments TSH (test code = 2821) 4.260 UIU/ML [id number] 00:00:00 Test Item Value Reference Range Interpretation Comments TSH (test code = 2821) 4.260 UIU/ML [id number] 00:00:00 Test Item Value Reference Range Interpretation Comments TSH (test code = 2821) 4.260 UIU/ML
[2022-12-14] MEDS ORDERED: CEFEPIME 2 GM VIAL ONE (00:37)
[2022-12-14] MEDS ORDERED: NA CHLORIDE 0.9% 100 ML IV ONE (00:37)
[2022-12-14] MEDS ORDERED: NA CHLORIDE 0.9% 250 ML ONE (00:37)
[2022-12-14] MEDS ORDERED: NA CHLORIDE 0.9% 1,000 ML ONE (00:37)
[2022-12-14] MEDS ORDERED: VANCOMYCIN 1 GM/VIAL ONE (00:37)
[2022-12-14] MEDS ORDERED: ACETAMINOPHEN 500 MG TAB ONE (01:18)
[2022-12-14 01:26] LABS: Absolute Lymphocytes (CBC) 1.4 K/uL (0.7-4.9); Hematocrit 40.6 % (39.6-49.0); Lymphocytes % 22.9 % (15.3-44.8); MCV 88.3 fL (80-100); MPV 6.6 fL (7.6-11.3)
[2022-12-14] MEDS ORDERED: FENTANYL CITR 100 MCG/2 ML ONE (01:33)
[2022-12-14 01:35] LABS: Albumin 2.9 g/dL (3.4-5.0); Bilirubin Total 0.2 mg/dL (0.2-1.0); Potassium 4.6 mmol/L (3.5-5.1); Protein, Total 7.2 g/dL (6.4-8.2)
--- NOTE | 2022-12-14 02:05 | EDPHYS ---
Physician Documentation [facility] Name: Adam Boyce Age: 27 yrs Sex: Male : 1995 Arrival Date: 12/14/2022 Time: 00:20 Bed 7 Private MD: ED Physician Sander Thorne HPI: 12/14 01:09 This 27 yrs old Male presents to ER via EMS with complaints of Leg Pain. rt 01:09 Presents to the ED with a left leg pain. He states that he has had episodes of rt cellulitis to that leg. States that he was taking amoxicillin. Has worsened over the past 2 days, states that there was pus draining from the leg. The patient denies other acute complaints at this time. Symptoms are moderate in severity, no other aggravating leaving factors. Pain is aching nature, nonradiating.. Historical: - Allergies: 00:35 Sulfa (Sulfonamide Antibiotics); pf1 - Home Meds: 00:35 atorvastatin Oral [Active]; Doxycycline Oral [Active]; levothyroxine oral [Active]; pf1 metformin 500 mg Oral tab daily [Active]; sertraline Oral [Active]; - PMHx: 00:35 Sleep Apnea; Hypothyroidism; High Cholesterol; Diabetes - NIDDM; Anxiety; Arthritis; pf1 Bipolar disorder; recovering addict (ETOH/narcotic); Cellulitis; Asthma; - Social history:: Smoking status: Patient reports the use of cigarette tobacco products, 1.5 packs per day. - Family history:: not pertinent. ROS: 01:09 Constitutional: Negative for fever, chills, and weight loss, Eyes: Negative for injury, rt pain, redness, and discharge, Cardiovascular: Negative for chest pain, palpitations, and edema, Respiratory: Negative for shortness of breath, cough, wheezing, and pleuritic chest pain, Abdomen/GI: Negative for abdominal pain, nausea, vomiting, diarrhea, and constipation, Neuro: Negative for headache, weakness, numbness, tingling, and seizure, Psych: Negative for depression, anxiety, suicide ideation, homicidal ideation, and hallucinations. 01:09 Skin: Positive for cellulitis, Purulence. Exam: 01:09 Constitutional: This is a well developed, well nourished patient who is awake, alert, rt and in no acute distress. Head/Face: Normocephalic, atraumatic. Chest/axilla: Normal chest wall appearance and motion. Nontender with no deformity. No lesions are appreciated. Cardiovascular: Regular rate and rhythm with a normal S1 and S2. No gallops, murmurs, or rubs. Normal PMI, no JVD. No pulse deficits. Respiratory: Lungs have equal breath sounds bilaterally, clear to auscultation and percussion. No rales, rhonchi or wheezes noted. No increased work of breathing, no retractions or nasal flaring. Abdomen/GI: Soft, non-tender, with normal bowel sounds. No distension or tympany. No guarding or rebound. No evidence of tenderness throughout. Neuro: Awake and alert, GCS 15, oriented to person, place, time, and situation. Cranial nerves II-XII grossly intact. Motor strength 5/5 in all extremities. Sensory grossly intact. Cerebellar exam normal. Normal gait. 01:09 Musculoskeletal/extremity: Erythema to the distal left lower extremity with ulceration to the benitez. Pulses, motor, sensation intact.. 01:09 Skin: As per MSK exam. Vital Signs: 00:25 BP 154 / 76; Pulse 117; Resp 20; Temp 97.8; Pulse Ox 97% on R/A; Weight 158.76 kg; pf1 Height 5 ft. 2 in. (157.48 cm); Pain 10/10; 01:15 BP 142 / 75; Pulse 114; Resp 20; Pulse Ox 96% ; Pain 7/10; pf1 02:15 BP 122 / 76; Pulse 119; Resp 22; Pulse Ox 95% ; Pain 7/10; pf1 02:45 BP 128 / 70; Pulse 113; Resp 22; Temp 98.2; Pulse Ox 94% ; pf1 00:25 Body Mass Index 64.02 (158.76 kg, 157.48 cm) pf1 MDM: 00:27 Patient medically screened. rt 02:33 Differential diagnosis: Colitis, dermatitis, sepsis, septic arthritis. Data reviewed: rt vital signs, nurses notes, lab test result(s), radiologic studies. I considered the following discharge prescriptions or medication management in the emergency department Medications were administered in the Emergency Department. See MAR. Care significantly affected by the following chronic conditions: Diabetes, Obesity. ED course: Presents to the ED with recurrence of the cellulitis to the left lower extremity. Patient is noted be tachycardic, but, upon review of prior visits, he is always tachycardic to the 110s to 120 range, this is consistent with his baseline. The patient has no other clinical indicators for sepsis, white count is normal, lactate is unremarkable. Blood cultures were drawn. We will change patient's antibiotics to doxycycline. Did receive antibiotics in the ED, he did have an adverse reaction to the vancomycin, Benadryl was given, Zofran was given with significant relief of symptoms, patient observed for time in the ED, deemed stable for discharge, instructed follow-up with primary care. 12/14 00:30 Order name: CBC with Diff; Complete Time: rt 12/14 00:30 Order name: CMP; Complete Time: rt 12/14 00:30 Order name: Lactate w/ 2H reflex if indic.; Complete Time: rt 12/14 00:30 Order name: Blood Culture Adult (2) rt 12/14 00:30 Order name: Tib Fib Left XRAY rt 12/14 01:06 Order name: IV Saline Lock; Complete Time: : pf1 Administered Medications: 02:11 Discontinued: vancoMYCIN 1 grams IVPB once over 2 hrs pf1 01:07 Drug: Cefepime 2 grams Route: IVPB; Rate: 200 ml/hr; Infused Over: 30 mins; Site: right pf1 hand; :56 Follow up: IV Status: Completed infusion; IV Intake: 100ml pf1 01:07 Drug: NS 0.9% 1000 ml Route: IV; Rate: 1 bolus; Site: right hand; pf1 :56 Follow up: Response: No adverse reaction; Marked relief of symptoms pf1 02:00 Follow up: IV Status: Completed infusion; IV Intake: 1000ml pf1 01:25 Drug: Tylenol 1000 mg Route: PO; pf1 :56 Follow up: Response: No adverse reaction; Marked relief of symptoms; RASS: Alert and pf1 Calm (0) 01:30 Drug: fentaNYL (PF) 100 mcg Route: IVP; Site: right hand; pf1 01:56 Follow up: Response: No adverse reaction; Marked relief of symptoms; Pain is decreased; pf1 RASS: Alert and Calm (0) 02:00 Drug: vancoMYCIN 1 grams Route: IVPB; Infused Over: 2 hrs; Site: right hand; pf1 02:07 Follow up: Response: Adverse reaction, Physician notified pf1 02:10 Drug: Zofran (Ondansetron) 4 mg Route: IVP; Site: right hand; pf1 02:44 Follow up: Response: No adverse reaction; Nausea is decreased pf1 02:10 Drug: Benadryl (diphenhydrAMINE) 50 mg Route: IVP; Site: right hand; pf1 02:41 Follow up: Response: No adverse reaction; Marked relief of symptoms pf1 Disposition Summary: 12/14/22 03:21 Discharge Ordered Location: Home(12/14/22 03:21) rt Problem: an ongoing problem(12/14/22 03:21) rt Symptoms: have improved(12/14/22 03:21) rt Condition: Stable(12/14/22 03:21) rt Diagnosis - Cellulitis to left lower extremity rt Followup: rt - With: Private Physician - When: 2 - 3 days - Reason: Forms: - Medication Reconciliation Form rt - Thank You Letter rt - Antibiotic Education rt - Prescription Opioid Use rt Signatures: Dispatcher [employer] EDKaren Fabian, RN RN aa9 Sander Thorne MD MD rt Yodit vines RN RN pf1 Corrections: (The following items were deleted from the chart) 02 02:04 Home rt rt 02:04 an ongoing problem rt rt 02 02:04 are unchanged rt rt 02: 02:04 Stable rt rt 02: 02:04 Cellulitis to Left Lower Extremity rt rt
--- NOTE | 2022-12-14 02:05 | ER ---
Nurse's Notes [facility] Name: Adam Boyce Age: 27 yrs Sex: Male : 1995 Arrival Date: 12/14/2022 Time: 00:20 Bed 7 Private MD: Diagnosis: Cellulitis to left lower extremity Presentation: 12/14 00:21 Chief complaint: Patient states: left lower leg pain of 10, worse in the 4 days,onset pf1 August 2022. 00:21 Coronavirus screen: Vaccine status: Patient reports receiving the 1st dose of the Covid pf1 vaccine. Client denies travel out of the [place] in the last 14 days. At this time, the client does not indicate any symptoms associated with coronavirus-19. Ebola Screen: Patient negative for fever greater than or equal to 101.5 degrees Fahrenheit, and additional compatible Ebola Virus Disease symptoms. Initial Sepsis Screen: Does the patient meet any 2 criteria? No. Patient's initial sepsis screen is negative. Does the patient have a suspected source of infection? No. Patient's initial sepsis screen is negative. Risk Assessment: Do you want to hurt yourself or someone else? Patient reports no desire to harm self or others. Onset of symptoms was December 10, 2022. 00:21 Method Of Arrival: EMS: [facility] pf1 00:21 Acuity: KONG 3 pf1 Triage Assessment: 00:41 General: see nursing assessment. pf1 Historical: - Allergies: 00:35 Sulfa (Sulfonamide Antibiotics); pf1 - Home Meds: 00:35 atorvastatin Oral [Active]; Doxycycline Oral [Active]; levothyroxine oral [Active]; pf1 metformin 500 mg Oral tab daily [Active]; sertraline Oral [Active]; - PMHx: 00:35 Sleep Apnea; Hypothyroidism; High Cholesterol; Diabetes - NIDDM; Anxiety; Arthritis; pf1 Bipolar disorder; recovering addict (ETOH/narcotic); Cellulitis; Asthma; - Social history:: Smoking status: Patient reports the use of cigarette tobacco products, 1.5 packs per day. - Family history:: not pertinent. Screenin:25 [facility] ED Fall Risk Assessment (Adult) History of falling in the last 3 months, pf1 including since admission No falls in past 3 months (0 pts) Confusion or Disorientation No (0 pts) Intoxicated or Sedated No (0 pts) Impaired Gait Yes (1 pt) Mobility Assist Device Used No (0 pt) Altered Elimination No (0 pt) Score/Fall Risk Level 0 - 2 = Low Risk Oriented to surroundings, Maintained a safe environment, Educated pt \T\ family on fall prevention, incl call for assistance when getting out of bed, Assessed \T\ reinforced patient's understanding of fall precautions, Provided non-skid footwear, Hourly rounding (assess needs \T\ fall precautionary measures) done, Used ambulatory aids as needed (educated on \T\ assisted with), Used gait belt as appropriate. Abuse screen: Denies threats or abuse. Nutritional screening: No deficits noted. Tuberculosis screening: No symptoms or risk factors identified. Assessment: 00:21 General: Appears uncomfortable, obese, unkempt, well developed, Behavior is pf1 cooperative, appropriate for age, anxious. 00:21 Pain: Complains of pain in left leg Pain currently is 10 out of 10 on a pain scale. pf1 Pain began worse in the past 4 days, onset since August 2022 with cellulitis to left lower extremity. Neuro: No deficits noted. Level of Consciousness is awake, alert, obeys commands, Oriented to person, place, time, situation. Cardiovascular: No deficits noted. Capillary refill < 3 seconds. Respiratory: No deficits noted. Airway is patent Trachea midline Respiratory effort is even, unlabored, Respiratory pattern is regular, symmetrical. GI: No deficits noted. No signs and/or symptoms were reported involving the gastrointestinal system. Abdomen is round distended. : No deficits noted. No signs and/or symptoms were reported regarding the genitourinary system. EENT: No deficits noted. No signs and/or symptoms were reported regarding the EENT system. Derm: Wound noted right and left lower leg swelling with left leg redness and clear drainage weeping skin ulcer approximately 4cm x 3cm. Musculoskeletal: No deficits noted. Circulation, motion, and sensation intact. Capillary refill < 3 seconds, Swelling present in right leg and left leg. 01:20 Reassessment: Patient appears in no apparent distress at this time. Patient sleeping at pf1 this time. 02:07 General: Dr. Thorne notified of patient vomiting and itching after starting pf1 vancomycin. Zofran and Benadryl to be order. 02:08 GI: Pt is actively vomiting undigested food. aa9 02:58 Reassessment: Patient appears in no apparent distress at this time. Patient and/or pf1 family updated on plan of care and expected duration. Pain level reassessed. Patient is alert, oriented x 3, equal unlabored respirations, skin warm/dry/pink. Patient states feeling better. Patient states symptoms have improved. Patient denies any itching at this time. 04:41 General: Appears uncomfortable, obese, unkempt, Behavior is appropriate for age. Neuro: aa9 Level of Consciousness is awake, alert, obeys commands, Oriented to person, place, time, situation. Respiratory: Airway is patent. Vital Signs: 00:25 BP 154 / 76; Pulse 117; Resp 20; Temp 97.8; Pulse Ox 97% on R/A; Weight 158.76 kg; pf1 Height 5 ft. 2 in. (157.48 cm); Pain 10/10; 01:15 BP 142 / 75; Pulse 114; Resp 20; Pulse Ox 96% ; Pain 7/10; pf1 02:15 BP 122 / 76; Pulse 119; Resp 22; Pulse Ox 95% ; Pain 7/10; pf1 02:45 BP 128 / 70; Pulse 113; Resp 22; Temp 98.2; Pulse Ox 94% ; pf1 00:25 Body Mass Index 64.02 (158.76 kg, 157.48 cm) pf1 ED Course: 00:20 Patient arrived in ED. ja2 00:23 Sander Thorne MD is Attending Physician. rt 00:25 Yodit vines, LANDEN is Primary Nurse. pf1 00:41 Triage completed. pf1 00:47 Tib Fib Left XRAY In Process Unspecified. EDMS 01:06 Inserted saline lock: 20 gauge in right hand, using aseptic technique. Blood collected. ls5 01:25 Patient has correct armband on for positive identification. Placed in gown. Bed in low pf1 position. Call light in reach. Side rails up X2. 01:42 Blood Culture Adult (2) Sent. pf1 01:42 Lactate w/ 2H reflex if indic. Sent. pf1 01:42 CBC with Diff Sent. pf1 04:19 No provider procedures requiring assistance completed. IV discontinued, intact, aa9 bleeding controlled, No redness/swelling at site. Pressure dressing applied. 04:20 Arm band placed on. aa9 Administered Medications: 02:11 Discontinued: vancoMYCIN 1 grams IVPB once over 2 hrs pf1 01:07 Drug: Cefepime 2 grams Route: IVPB; Rate: 200 ml/hr; Infused Over: 30 mins; Site: right pf1 hand; 01:56 Follow up: IV Status: Completed infusion; IV Intake: 100ml pf1 01:07 Drug: NS 0.9% 1000 ml Route: IV; Rate: 1 bolus; Site: right hand; pf1 01:56 Follow up: Response: No adverse reaction; Marked relief of symptoms pf1 02:00 Follow up: IV Status: Completed infusion; IV Intake: 1000ml pf1 01:25 Drug: Tylenol 1000 mg Route: PO; pf1 01:56 Follow up: Response: No adverse reaction; Marked relief of symptoms; RASS: Alert and pf1 Calm (0) 01:30 Drug: fentaNYL (PF) 100 mcg Route: IVP; Site: right hand; pf1 01:56 Follow up: Response: No adverse reaction; Marked relief of symptoms; Pain is decreased; pf1 RASS: Alert and Calm (0) 02:00 Drug: vancoMYCIN 1 grams Route: IVPB; Infused Over: 2 hrs; Site: right hand; pf1 02:07 Follow up: Response: Adverse reaction, Physician notified pf1 02:10 Drug: Zofran (Ondansetron) 4 mg Route: IVP; Site: right hand; pf1 02:44 Follow up: Response: No adverse reaction; Nausea is decreased pf1 02:10 Drug: Benadryl (diphenhydrAMINE) 50 mg Route: IVP; Site: right hand; pf1 02:41 Follow up: Response: No adverse reaction; Marked relief of symptoms pf1 Medication: 04:20 VIS not applicable for this client. aa9 Intake: 01:56 IV: 100ml; Total: 100ml. pf1 02:00 IV: 1000ml; Total: 1100ml. pf1 Outcome: 02:04 Discharge ordered by MD. rt 03:21 Discharge ordered by MD. rt 04:19 Condition: stable aa9 04:40 Discharged to home via wheelchair. aa9 04:40 Discharge instructions given to patient, Instructed on discharge instructions, follow up and referral plans. medication usage, Demonstrated understanding of instructions, follow-up care, medications, Prescriptions given X 1. 04:41 Patient left the ED. aa9 Signatures: Dispatcher [employer] EDMS Lindsey Brownlee Aylin RN RN aa9 Sander Thorne MD MD rt Yodit vines RN RN pf1 Ishan Shankar 5
[2022-12-14] MEDS ORDERED: ONDANSETRON 4 MG/2 ML VIAL ONE (02:12)
[2022-12-14] MEDS ORDERED: DIPHENHYDRAMINE 50 MG/ML VIAL ONE (02:12)
[2022-12-14 05:08] VITALS: BP 128/70; TEMP 98.2; O2SAT 94
--- NOTE | 2022-12-14 18:48 | RAD REPORT ---
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 No acute bony injuries were demonstrated. No gross articular abnormality is identified. There are no gross intraosseous lesions. No periosteal reaction were seen. There is increase soft tissue t hickening throughout the tibia and fibula perhaps suggesting the possibility of edema/or cellulitis. IMPRESSION: No acute bony injuries were demonstrated. Electronically signed by: Jean-Paul Worthington MD 12/14/2022 12:56 AM MANUFACTURING TEAM MEMBER Due to temporary technical issues with the PACS/Fluency reporting system, reports are being signed by the in house radiologists without review as a courtesy to insure prompt reporting. The interpreting radiologist is fully responsible for the content of the report
== END 2022-12-14 04:41 | disposition home or self-care (01) ==
LOC: ER 00:20
DX: L03.116 Cellulitis of left lower limb (principal); E11.9 Type 2 diabetes mellitus without complications; E03.9 Hypothyroidism, unspecified; F31.9 Bipolar disorder, unspecified; F17.210 Nicotine dependence, cigarettes, uncomplicated; Z88.2 Allergy status to sulfonamides
CPT/HCPCS: 87040 ×2; 85025; 36415; 83605; 80053; 73590; J1200; J3010; J3370; J0692; J7050; J7030; J2405; 96365; 96375; 99284